=== PATIENT | female | born 1955 | race Caucasian/White ===

== ENCOUNTER → 2017-08-23 | Outpatient (CLI) | payer MEDICAID, MEDICARE ==
[~2017-08-23] MED LIST: ALBU8.5H2 IH; BUDE6HFA INH; CATHETER FLUSH 10 ML SYR IV PRN; GLIP10TA23 PO; HYDR25TA4 PO; IOHEXOL 350 MG/ML 100 ML (OMNIPAQUE 350) VIAL IV ONE; LIRA0.6P3 INJ; LISI40TA PO; METF-144 PO; NCT21TD TD; NS 250 ML (IVPB) BAG IV ONE; PHEN200T27 PO; PRAV40TA PO; RECEIVED CONTRAST (Hold Metformin) IV SCH; SULF-222 PO
[2017-08-23 13:40] LABS: ALANINE AMINOTRANSFERASE 12 U/L (0-55); ALBUMIN 4.4 GM/DL (3.2-4.5); ALKALINE PHOSPHATASE 46 U/L (40-136); BILIRUBIN,TOTAL 0.3 MG/DL (0.1-1.0); BUN/CREATININE RATIO 21; CALCIUM 9.4 MG/DL (8.5-10.1); CARBON DIOXIDE 29 MMOL/L (21-32); CHLORIDE 99 MMOL/L (98-107); CREATININE SERUM 0.78 MG/DL (0.60-1.30); GFR ESTIMATED > 60; GLUCOSE 119 MG/DL (70-105); POTASSIUM 3.9 MMOL/L (3.6-5.0); SODIUM 138 MMOL/L (135-145); TOTAL PROTEIN 7.6 GM/DL (6.4-8.2)
--- NOTE | 2017-08-23 17:09 | Diagnostic Imaging Report ---
PROCEDURE: CT abdomen and pelvis with and without contrast. TECHNIQUE: Precontrast acquisitions were acquired through the abdomen and pelvis. Multiple contiguous axial images were obtained through the abdomen and pelvis after the administration of intravenous contrast. INDICATION: Gross hematuria, history of vulvar cancer, symptoms of two days duration. COMPARISON: Most recent study 05/30/2008. FINDINGS: There are punctate calcifications of 1-2 mm within a left lower pole calyx. There is no resultant hydronephrosis. No evidence for solid or cystic cortical mass. There is some nodular thickening of the left greater than right adrenal gland only minimally increased from the more remote study suggestive of mild hyperplasia. The urinary bladder has an unremarkable appearance. There is no hydronephrosis and there are no opaque ureteral calculi identified. There is no perinephric or periureteric edema. The liver, gallbladder, spleen, and pancreas are unremarkable. The atherosclerotic aorta is nonaneurysmal. There is a fatty umbilical hernia without inflammation. The uterus and adnexa have an unremarkable appearance. There is no ascites, abscess, hematoma, adenopathy, or fluid collection. IMPRESSION: Tiny punctate stones within a left lower pole calyx. No hydronephrosis or opaque ureteral stone. No evidence for cortical mass with normal appearance of the urinary bladder. Dictated by: Dictated on workstation # [id number]
== END ==
LOC: RAD 13:14
PROVIDERS: ATTEND Family Medicine
DX: R31.0 Gross hematuria (principal); Z85.44 Personal history of malignant neoplasm of other female genital organs
CPT/HCPCS: 36415; 74178; 80053

== ENCOUNTER 2017-11-07 05:40 | Outpatient (CLI) | payer MEDICARE ==
[~2017-11-07] VITALS: Ht 160 cm; Wt 83.9 kg
[~2017-11-07 05:40] MED LIST changes: -CATHETER FLUSH 10 ML SYR IV PRN; -IOHEXOL 350 MG/ML 100 ML (OMNIPAQUE 350) VIAL IV ONE; -NS 250 ML (IVPB) BAG IV ONE; -RECEIVED CONTRAST (Hold Metformin) IV SCH
[2017-11-07] MEDS ORDERED: LISI40TA PO (13:00)
[2017-11-07] MEDS ORDERED: HYDR25TA4 PO (13:00)
[2017-11-07] MEDS ORDERED: LIRA0.6P3 SQ (13:00)
[2017-11-07] MEDS ORDERED: PRAV40TA2 PO (13:00)
[2017-11-07] MEDS ORDERED: METF-760 PO (13:00)
[2017-11-07] MEDS ORDERED: OMEG-154 PO (13:19)
[2017-11-07] MEDS ORDERED: FLUT1BLS IH (13:19)
== END 2017-11-07 13:25 ==
LOC: PREOP 05:40
PROVIDERS: ATTEND Specialist
DX: Z01.818 Encounter for other preprocedural examination (principal); H25.11 Age-related nuclear cataract, right eye

== ENCOUNTER 2017-11-09 07:40 | Day surgery (SDC) | payer MEDICARE ==
[~2017-11-09] VITALS: Ht 160 cm; Wt 83.9 kg
[~2017-11-09 07:40] MED LIST changes: +FLUT1BLS IH; +LIRA0.6P3 SQ; +METF-760 PO; +OMEG-154 PO; +PRAV40TA2 PO
--- OUTSIDE RECORDS SUMMARY | 2017-11-09 07:44 | XMS REPORT ---
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 984309298 Problem Diabetes E11.9 Active 00877616 Problem COPD (chronic obstructive pulmonary disease) J44.9 Active 11943450 Problem Hypercholesterolemia E78.0 Active 97945563 Problem HTN (hypertension) I10 Active [id number] ALLERGIES No Known Allergies SOCIAL HISTORY Never Assessed PLAN OF CARE Activity Details Follow Up 3 Months Reason: VITAL SIGNS Height 63 in 2016-08-01 Weight 192 lbs 2016-08-01 Temperature 98.1 degrees Fahrenheit 2016-08-01 Heart Rate 96 bpm 2016-08-01 Respiratory Rate 22 2016-08-01 Oximetry w/ oxygen:90 % 2016-08-01 BMI 34.01 kg/m2 2016-08-01 Blood pressure systolic 160 mmHg 2016-08-01 Blood pressure diastolic 90 mmHg 2016-08-01 MEDICATIONS Medication Instructions Dosage Frequency Start Date End Date Duration Status Oxygen 2-3 L/NC as directed Jun, Active Pen Singer 1/2" 29G X 12MM as directed Sep, Active Victoza 18 MG/3ML Subcutaneous Once a day 0.2 ml 24h Dec, Active Hydrochlorothiazide 25 MG Orally Once a day 1 tablet 24h Active MetFORMIN HCl ER 500 MG Orally 2 times a day TAKE TWO TABLETS BY MOUTH TWICE DAILY 12h Active Lisinopril 40 MG Orally Once a day 1 tablet 24h Active ProAir HFA 108 (90 Base) MCG/ACT Inhalation every 4 hrs 2 puffs as needed 4h May, Active Breo Ellipta 200-25 MCG/INH Inhalation Once a day 1 puff 24h Jul, Active Pravastatin Sodium 40 mg Orally Once a day TAKE ONE TABLET BY MOUTH ONCE DAILY (AVOID GRAPFRUIT JUICE WHILE ON THIS MEDICINE) 24h 30 Active RESULTS Name Result Date Reference Range A1C (IN HOUSE) 2016-08-01 A1C IN HOUSE 7.7 4.3 - 5.6 % Previous A1c 6.9 Lot [id number] Exp date 04/2018 MICROALBUMIN, URINE (IN HOUSE) 2016-08-01 MICROALBUMIN Abnormal Lot # [id number] Exp date 07/2017 Clarity clear Color yellow ALB 80mg/l CRE 50 mg/dl A:C (IN HOUSE) 30-300mg/g Control Control Lot # Exp date CBC 2016-08-01 WBC 8.6 3.4-10.8 RBC 4.87 3.77-5.28 Hemoglobin 14.6 11.1-15.9 Hematocrit 44.8 34.0-46.6 MCV 92 79-97 MCH 30.0 26.6-33.0 MCHC 32.6 31.5-35.7 RDW 15.6 12.3-15.4 Platelets 273 150-379 Neutrophils 67 Lymphs 24 Monocytes 6 Eos 3 Basos 0 Neutrophils (Absolute) 5.8 1.4-7.0 Lymphs (Absolute) 2.1 0.7-3.1 Monocytes(Absolute) 0.5 0.1-0.9 Eos (Absolute) 0.3 0.0-0.4 Baso (Absolute) 0.0 0.0-0.2 Immature Granulocytes 0 Immature Grans (Abs) 0.0 0.0-0.1 LIPID PANEL 2016-08-01 Cholesterol, Total 147 100-199 Triglycerides 137 0-149 HDL Cholesterol 34 >39 VLDL Cholesterol Maxime 27 5-40 LDL Cholesterol Calc 86 0-99 Comment: CMP 2016-08-01 Glucose, Serum 104 65-99 BUN 9 8-27 Creatinine, Serum 0.60 0.57-1.00 eGFR If NonAfricn Am 99 >59 eGFR If Africn Am 115 >59 BUN/Creatinine Ratio 15 11-26 Sodium, Serum 140 134-144 Potassium, Serum 4.2 3.5-5.2 Chloride, Serum 95 96-106 Carbon Dioxide, Total 30 18-29 Calcium, Serum 9.3 8.7-10.3 Protein, Total, Serum 7.1 6.0-8.5 Albumin, Serum 4.5 3.6-4.8 Globulin, Total 2.6 1.5-4.5 A/G Ratio 1.7 1.1-2.5 Bilirubin, Total 0.3 0.0-1.2 Alkaline Phosphatase, S 58 39-117 AST (SGOT) 14 0-40 ALT (SGPT) 12 0-32 PROCEDURES Procedure Date Ordered Result Body Site MEASURE BLOOD OXYGEN LEVEL Aug 01, 2016 GLYCATED HEMOGLOBIN TEST Aug 01, 2016 VENIPUNCT, ROUTINE* Aug 01, 2016 FQ VISIT ESTABLISHED PATIENT Aug 01, 2016 MICROALBUMIN, SEMIQUANT Aug 01, 2016 [facility] Aug 01, 2016 IMMUNIZATIONS No Known Immunizations MEDICAL (GENERAL) HISTORY Type Description Date Medical History Hypertension Medical History Type 2 Diabetes Mellitus Medical History Headache syndrome Medical History Cancer of Bartholin Gland see's Dr. Ariana Woodruff at [facility] Surgical History Vulva cancer went thru chem and radiation Surgical History CT abdomen 09/20/10 [place] Surgical History Atherosclertoic calcification of aorta Hospitalization History bladder infection
--- OUTSIDE RECORDS SUMMARY | 2017-11-09 07:44 | XMS REPORT ---
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
--- OUTSIDE RECORDS SUMMARY | 2017-11-09 07:44 | XMS REPORT ---
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
--- OUTSIDE RECORDS SUMMARY | 2017-11-09 07:44 | XMS REPORT ---
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
--- OUTSIDE RECORDS SUMMARY | 2017-11-09 07:44 | XMS REPORT ---
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 698648399 Problem Diabetes E11.9 Active 55191790 Problem COPD (chronic obstructive pulmonary disease) J44.9 Active 98261142 Problem Hypercholesterolemia E78.0 Active 35764717 Problem HTN (hypertension) I10 Active 83999827 ALLERGIES No Information SOCIAL HISTORY Never Assessed PLAN OF CARE VITAL SIGNS MEDICATIONS Unknown Medications RESULTS No Results PROCEDURES No Known procedures IMMUNIZATIONS No Known Immunizations MEDICAL (GENERAL) HISTORY Type Description Date Medical History Hypertension Medical History Type 2 Diabetes Mellitus Medical History Headache syndrome Medical History Cancer of Bartholin Gland see's Dr. Ariana Woodruff at [facility] Surgical History Vulva cancer went thru chem and radiation Surgical History CT abdomen 09/20/10 [place] Surgical History Atherosclertoic calcification of aorta Hospitalization History bladder infection
--- OUTSIDE RECORDS SUMMARY | 2017-11-09 07:44 | XMS REPORT ---
Author Author SHAD Fuentes Organization [facility] Address [address] [place] [address] Care Team Providers Care [employer] Name Role Phone SHAD Fuentes Unavailable PROBLEMS Type Condition ICD9-CM Code LUQ21-GO Code Onset Dates Condition Status SNOMED Code Problem COPD (chronic obstructive pulmonary disease) J44.9 Active 26557622 Problem Hypercholesterolemia E78.0 Active 27672897 Problem HTN (hypertension) I10 Active 82274466 Problem Nephrolithiasis N20.0 Active 95471804 Problem Supplemental oxygen dependent Z99.81 Active 885392508270 Problem Tobacco use Z72.0 Active 025595006 Problem 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 876598921 Problem Type 2 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.29 Active 62011567 Problem Proteinuria, unspecified R80.9 Active 70943286 ALLERGIES No Information ENCOUNTERS Encounter Location Date Diagnosis [place] [address] [address] October, [place] [address] [address]- [address] Aug, Nephrolithiasis N20.0 [facility] [address] [place] [id number] [place] [address]- 3406 Aug, Gross hematuria R31.0 [place] [address] [place] [id number] [place] [address]990- 1431 Aug, Gross hematuria R31.0 [place] [address] [place] [id number] [place] [address]69- 4383 Aug, Gross hematuria R31.0 and Screening for cervical cancer Z12.4 [place] [address] [address]- 6[address] Aug, [facility] [address] [address] Jul, COPD (chronic obstructive pulmonary disease) J44.9 [facility] [address] [address] Jul, [facility] [address] [address] 38[address] Jun, [facility] [address] [address] May, [facility] [address] [place] [address]- 5959 Apr, Type 2 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.29 ; COPD (chronic obstructive pulmonary disease) J44.9 ; Proteinuria, unspecified R80.9 ; Tobacco use Z72.0 and Screening for lipid disorders Z13.220 [facility] [address] [address] Apr, COPD (chronic obstructive pulmonary disease) J44.9 ; Type 2 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.29 ; Proteinuria, unspecified R80.9 ; Tobacco use Z72.0 ; Screening for lipid disorders Z13.220 and Supplemental oxygen dependent Z99.81 [facility] [address] [address] Mar, Diabetes E11.9 and Encounter for immunization Z23 [facility] [address] [address] Dec, [facility] [address] [address] 5[address] Dec, Diabetes E11.9 [facility] [address] [address] Dec, [facility] [address] [address] 5[address] Dec, [facility] [address] [address] 3989 Sep, [facility] [address] [address] Sep, [facility] [address] [address]- [address] 15 Aug, 2016 COPD (chronic obstructive pulmonary disease) J44.9 [facility] [address] [place] [id number] [place] [address]49- 7733 Aug, COPD (chronic obstructive pulmonary disease) J44.9 [facility] [address] [address]- 4242 Aug, COPD (chronic obstructive pulmonary disease) J44.9 [facility] [address] [address]- 0017 Jul, Diabetes E11.9 ; COPD (chronic obstructive pulmonary disease ) J44.9 ; HTN (hypertension) I10 and Hypercholesterolemia E78.00 [facility] [address] [address]- 5[address] Jul, [facility] [address] [address]- 9121 May, [facility] [address] [address]- 9391 May, COPD (chronic obstructive pulmonary disease) J44.9 [facility] [address] [address]- 0140 May, [facility] [address] [address]- 0953 May, [facility] [address], [place] [address]- 2958 Apr, [facility] [address] [address]- 1722 Apr, [facility] [address] [place] [address] 8[address]- 5242 Apr, Diabetes E11.9 ; COPD (chronic obstructive pulmonary disease ) J44.9 ; HTN (hypertension) I10 and Hypercholesterolemia E78.0 [facility] [address] [address] Mar, Impacted cerumen of right ear H61.21 [facility] [address] [place] [id number] [place] [address] 49656- 5895 Mar, [facility] [address] [place] [id number] [place] [address] 10491- 9059 Feb, [facility] [address] [place] [id number] [place] [address] 36593- 4288 Feb, [facility] [address] [place] [id number] [place] [address] 31204- 8378 Jan, [facility] [address] [place] [id number] [place] [address] 60084- 2364 Jan, [facility] [address] [place] [id number] [place] [address] 10129- 5344 Dec, [facility] [address] [place] [id number] [place] [address] 83756- 7199 Nov, Diabetes E11.9 ; COPD (chronic obstructive pulmonary disease ) J44.9 ; HTN (hypertension) I10 ; Hypercholesterolemia E78.0 and Type 2 diabetes mellitus with other circulatory complications E11.59 [facility] [address] [place] [id number] [place] [address] 84213- 1717 Jun, Diabetes E11.9 [facility] [address] [place] [address] 09698- 5970 Jun, COPD (chronic obstructive pulmonary disease) J44.9 [facility] [address] [place] [address] 23993- 9291 Jun, [facility] [address] [place] [id number] [place] [address] 46816- 7541 Jun, COPD (chronic obstructive pulmonary disease) J44.9 ; Type 2 diabetes mellitus with other circulatory complications E11.59 ; HTN ( hypertension) I10 and Hypercholesterolemia E78.0 [place] [address] [address]- 9579 Mar, COPD (chronic obstructive pulmonary disease) J44.9 ; Diabetes E11.9 ; HTN (hypertension) I10 ; Hypercholesterolemia E78.0 and Vision changes H53.9 [place] [address] 74[address]- 3471 Mar, [facility] [address] [place] [id number] [place] [address] 46442- 4071 Mar, [place] [address] 0[address]- 7354 Feb, [place] [address] [address]- 0428 Dec, Diabetes 250.00 ; Diabetes with other specified manifestations, type II or unspecified type, not stated as uncontrolled 250.80 ; Chronic airway obstruction, not elsewhere classified 496 ; Personal history of tobacco use, presenting hazards to health V15.82 ; Essential hypertension, malignant 401.0 and Hypercholesteremia 272.0 [place] [address] [place] [id number] [place] [address] 99254- 6211 Dec, [place] [address] [place] [id number] [place] [address] 95083- 2482 Sep, [place] [address] [place] [id number] [place] [address] 47282- 0960 Sep, [place] [address] [place] [id number] [place] [address] 87435- 5288 Sep, [place] [address] 82[address]- 1266 Aug, [facility] [address] [place] [id number] [place] [address] 98248- 0408 Aug, [place] [address] [place] [address]- 9463 Aug, [facility] [place] [facility] [address] [id number] [place] [address]- 3556 Aug, [facility] [place] [facility] [address] [id number] [place] [address]- 6521 Jul, [facility] [place] [facility] [address] [id number] [place] [address]- 0136 Jul, [facility] [place] [facility] [address] [id number] [place] [address]- 3297 Jun, [facility] [place] [facility] [address] [id number] [place] [address]- 7215 Jun, [facility] [place] [facility] [address] [id number] [place] [address]- 4438 Jun, [facility] [place] [facility] [address] [id number] [place] [address]- 2877 Jun, [facility] [place] [facility] [address] [id number] [place] [address]- 3336 Jun, [facility] [place] [facility] [address] [id number] [place] [address]- 3551 Jun, [facility] [place] [facility] [address] [id number] [place] [address]- 8508 Jun, [facility] [place] [facility] [address] [id number] [place] [address]- 1480 Jun, [facility] [place] [facility] [address] [id number] [place] [address]- 1633 Jun, [facility] [place] [facility] [address] [id number] [place] [address]- 6045 Jun, [facility] [place] [facility] [address] [id number] [place] [address]- 1838 Jun, [facility] [place] [facility] [address] [id number] [place] [address]- 6170 Jun, [facility] [place] [facility] [address] [id number] [place] [address]- 2261 Apr, [facility] [place] [facility] [address] [id number] [place] [address]- 6535 Apr, [facility] [place] [facility] [address] [id number] [place] 7166 Apr, [facility] [place] [facility] [address] [id number] [place] [address]- 0162 Apr, [facility] [place] [facility] [address] [id number] [place] [address]- 3562 Mar, [facility] [place] [facility] [address] [id number] [place] [address]- 2688 Mar, [facility] [place] [facility] [address] [id number] [place] [address]- 6020 30 Feb, 2014 [facility] [place] [facility] [address] [id number] [place] [address]- 4966 30 Feb, 2014 [facility] [place] [facility] [address] [id number] [place] [address]- 6938 17 Feb, 2014 [facility] [place] [facility] [address] [id number] [place] [address]- 6197 17 Feb, 2014 [facility] [place] [facility] [address] [id number] [place] [address]- 8507 16 Feb, 2014 [facility] [place] [facility] [address] [id number] [place] [address]- 2461 16 Feb, 2014 [facility] [place] [facility] [address] [id number] [place] [address]- 2520 Jan, [facility] [place] [facility] [address] [id number] [place] [address]- 8996 Jan, [facility] [place] [facility] [address] [id number] [place] [address]- 3001 Nov, [facility] [place] [facility] [address] [id number] [place] [address]- 6850 Nov, [facility] [place] [facility] [address] [id number] [place] [address]- 7107 October, [facility] [place] [facility] [address] [id number] [place] 2607 October, [facility] [place] [facility] [address] [id number] [place] [address]- 5197 October, [facility] [place] [facility] [address] [id number] [place] [address]- 6998 October, [facility] [place] [facility] [address] [id number] [place] [address]- 6169 October, [facility] [place] [facility] [address] [id number] [place] [address]- 7889 October, [facility] [place] [facility] [address] [id number] [place] [address]- 3689 October, [facility] [place] [facility] [address] [id number] [place] [address]- 1308 October, [facility] [place] [facility] [address] [id number] [place] [address]- 7672 October, [facility] [place] [facility] [address] [id number] [place] [address]- 6839 October, [facility] [place] [facility] [address] [id number] [place] [address]- 1793 October, [facility] [place] [facility] [address] [id number] [place] [address]- 1133 October, [facility] [place] [facility] [address] [id number] [place] [address]- 4812 Sep, [facility] [place] [facility] [address] [id number] [place] [address]- 5122 Sep, [facility] [place] [facility] [address] [id number] [place] [address]- 7092 Aug, [facility] [place] [facility] [address] [id number] [place] [address]- 9228 Aug, [facility] [place] [facility] [address] [id number] [place] [address]- 2197 Aug, [facility] [place] [facility] [address] [id number] [place] [address]- 7027 Aug, [facility] [place] [facility] [address] [id number] [place] [address]- 0067 Jul, [facility] [place] [facility] [address] [id number] [place] [address]- 1715 Jul, [facility] [place] [facility] [address] [id number] [place] [address]- 5600 Jul, [facility] [place] [facility] [address] [facility] [id number] [place] [address]- 3852 Jul, [facility] [place] [facility] [address] [id number] [place] [address]- 3897 Jul, [facility] [place] [facility] [address] [id number] [place] [address]- 8018 Jul, [facility] [place] [facility] [address] [facility] [id number] [place] [address]- 9814 Jul, [facility] [place] [facility] [address] [facility] [id number] [place] [address]- 0374 Jul, [facility] [place] [facility] [address] [id number] [place] [address]- 7613 Jul, [facility] [place] [facility] [address] [id number] [place] [address]- 9762 Jul, [facility] [place] [facility] [address] [id number] [place] [address]- 6130 Jun, [facility] [place] [facility] [address] [id number] [place] [address]- 2431 Jun, [facility] [place] [facility] [address] [id number] [address]- 6367 Jun, [facility] [address] [id number] [place] [address]- 2783 Jun, [facility] [place] [facility] [address] [id number] [place] [address]- 2554 Jun, [facility] [place] [facility] [address] [id number] [place] [address]- 8719 Jun, [facility] [place] [facility] [address] [id number] [place] [address]- 3818 Jun, [facility] [place] [facility] [address] [id number] [place] [address]- 5661 Jun, [facility] [place] [facility] [address] [id number] [place] [address]- 8337 Jun, [facility] [place] [facility] [address] [id number] [place] [address]- 8638 Jun, [facility] [place] [facility] [address] [id number] [place] [address]- 9013 Jun, [facility] [place] [facility] [address] [id number] [place] [address]- 6571 Jun, [facility] [place] [facility] [address] [id number] [place] [address]- 2955 Jun, [facility] [place] [facility] [address] [id number] [place] [address]- 6920 May, [facility] [place] [facility] [address] [id number] [place] [address]- 3378 May, [facility] [place] [facility] [address] [id number] [place] [address]- 6953 May, [facility] [place] [facility] [address] [id number] [place] [address]- 7183 May, [facility] [place] [facility] [address] [id number] [place] [address]- 8755 30 May, 2013 [facility] [place] [facility] [address] [id number] [place] [address]- 3604 30 May, 2013 [facility] [address] [id number] [place] [address]- 1932 May, [facility] [place] [facility] [address] [id number] [place] 9106 May, [facility] [address] [id number] [place] [address]- 6455 May, [facility] [place] [facility] [address] [id number] [place] [address]- 8867 May, [facility] [address] [id number] [place] [address]- 3225 May, [facility] [place] [facility] [address] [id number] [place] [address]- 8989 May, [facility] [place] [facility] [address] [id number] [place] [address]- 7147 May, [facility] [address] [id number] [place] [address]- 0401 May, [facility] [place] [facility] [address] [id number] [place] [address]- 1077 May, [facility] [address] [id number] [place] [address]- 2884 Apr, [facility] [place] [facility] [address] [id number] [place] [address]- 6983 Mar, [facility] [place] [facility] [address] [id number] [place] [address]- 8473 Mar, [facility] [place] [facility] [address] [id number] [place] [address]- 8711 Mar, [facility] [place] [facility] [address] [id number] [place] [address]- 3950 Mar, [facility] [place] [facility] [address] [id number] [place] [address]- 0432 Mar, [facility] [address] [id number] [place] [address]- 0071 24 Feb, 2013 [facility] [place] [facility] [address] [id number] [place] [address]- 3167 Feb, [facility] [place] [facility] [address] [id number] [place] [address]- 4803 Feb, [facility] [place] [facility] [address] [id number] [place] [address]- 6085 Feb, [facility] [place] [facility] [address] [id number] [place] [address]- 1352 Jan, [facility] [place] [facility] [address] [id number] [place] [address]- 4813 Dec, [facility] [place] [facility] [address] [id number] [place] [address]- 5978 Dec, [facility] [place] [facility] [address] [id number] [place] [address]- 6159 Nov, [facility] [place] [facility] [address] [id number] [place] [address]- 3674 October, [facility] [place] [facility] [address] [id number] [place] [address]- 6443 Sep, [facility] [place] [facility] [address] [id number] [place] [address]- 0144 Aug, [facility] [place] [facility] [address] [id number], [place] [address]- 3495 Aug, [facility] [place] [facility] [address] [id number] [place] [address]- 5496 Aug, [facility] [place] [facility] [address] [id number] [place] [address]- 1412 Aug, [facility] [place] [facility] [address] [id number] [place] [address]- 9763 Aug, [facility] [place] [facility] [address] [id number] [place] [address]- 2715 Aug, [facility] [address] [id number] [place] [address]- 6163 Jun, [facility] [place] [facility] [address] [id number] [place] [address]- 2885 May, [facility] [place] [facility] [address] [id number] [place] [address]- 9276 May, [facility] [place] [facility] [address] [id number] [place] [address]- 2265 Apr, [facility] [place] [facility] [address] [id number] [place] [address]- 3698 Apr, [facility] [place] [facility] [address] [id number] [place] [address]- 9360 Feb, [facility] [place] [facility] [address] [id number] [place] [address]- 1663 Jan, [facility] [place] [facility] [address] [id number] [place] [address]- 6442 Jan, [facility] [place] [facility] [address] [id number] [place] [address]- 1057 Jan, [facility] [place] [facility] [address] [id number] [place] [address]- 5282 Dec, [facility] [place] [facility] [address] [id number] [place] [address]- 9628 Nov, [facility] [place] [facility] [address] [id number] [place] [address] 2540 Aug, [facility] [place] [facility] [address] [id number] [place] [address]- 8758 Jun, [facility] [place] [facility] [address] [id number] [place] [address] 2546 Jun, [facility] [place] [facility] [address] [id number] [place] [address]- 9829 May, [facility] [place] [facility] [address] [facility] [id number], [place] [address]- 4943 May, [facility] [id number] [address] May, [facility] [address] [facility] [id number], [place] [address] 14 Nov, 2010 [facility] [id number] [address] Apr, [facility] [address] [facility] [id number][place] [address] Apr, [facility] [id number] [place] [address] Apr, [facility] [address] [address] Apr, [facility] [address] [address] Apr, [facility] [address] [address] Mar, [facility] [address] [address] May, [facility] [address] [address] May, [facility] [address] [address] Jul, [facility] [id number] [address] May, IMMUNIZATIONS No Known Immunizations SOCIAL HISTORY Never Assessed REASON FOR VISIT Refill Requests PLAN OF CARE VITAL SIGNS MEDICATIONS Unknown Medications RESULTS No Results PROCEDURES No Known procedures INSTRUCTIONS MEDICATIONS ADMINISTERED No Known Medications MEDICAL (GENERAL) HISTORY Type Description Date Medical History Hypertension Medical History Type 2 Diabetes Mellitus Medical History Headache syndrome Medical History Cancer of Bartholin Gland see's Dr. Ariana Woodruff at [facility] Surgical History Vulva cancer went thru chem and radiation Surgical History CT abdomen 09/20/10 [place] Surgical History Atherosclertoic calcification of aorta Hospitalization History bladder infection
--- OUTSIDE RECORDS SUMMARY | 2017-11-09 07:44 | XMS REPORT ---
Author Author SHAD BARTHOLOMEW Organization [facility] Address [address] [place] [address] Care Team Providers Care Hardware Developer Name Role Phone SHAD BARTHOLOMEW Unavailable PROBLEMS Type Condition ICD9-CM Code [id number] Code Onset Dates Condition Status SNOMED Code Problem 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 584411236 Problem Diabetes E11.9 Active 60004507 Problem COPD (chronic obstructive pulmonary disease) J44.9 Active 64722230 Problem Hypercholesterolemia E78.0 Active 36785291 Problem HTN (hypertension) I10 Active 28836085 ALLERGIES No Information SOCIAL HISTORY Never Assessed PLAN OF CARE VITAL SIGNS MEDICATIONS Medication Instructions Dosage Frequency Start Date End Date Duration Status Breo Ellipta 200-25 MCG/INH Inhalation Once a day 1 puff 24h Jul, Active RESULTS No Results PROCEDURES No Known procedures IMMUNIZATIONS No Known Immunizations MEDICAL (GENERAL) HISTORY Type Description Date Medical History Hypertension Medical History Type 2 Diabetes Mellitus Medical History Headache syndrome Medical History Cancer of Bartholin Gland see's Dr. Ariana Woodruff at [facility] Surgical History Vulva cancer went thru chem and radiation Surgical History CT abdomen 09/20/10 [place] Surgical History Atherosclertoic calcification of aorta Hospitalization History bladder infection
--- OUTSIDE RECORDS SUMMARY | 2017-11-09 07:45 | XMS REPORT ---
Author Author HEATH ALTMAN Organization [employer] Address Unknown Phone Unavailable Care Team Providers Care Philanthropy Officer Name Role Phone HEATH ALTMAN CP Unavailable Allergies No Known Allergies Problems Problem Type Condition Code Onset Dates Condition Status Problem Abdominal pain, unspecified site 789.00 Active Problem Encounter for change or removal of surgical wound dressing V58.31 Active Problem Other dyspnea and respiratory abnormalities 786.09 Active Problem Diabetes E11.9 Active Problem Cellulitis and abscess of unspecified site 682.9 Active Problem HTN (hypertension) I10 Active Problem COPD (chronic obstructive pulmonary disease) J44.9 Active Problem Dyspareunia 625.0 Active Problem Screening for malignant neoplasm of the cervix V76.2 Active Problem Hypercholesterolemia E78.0 Active Problem Essential hypertension, malignant 401.0 Active Problem Unspecified disorder of skin and subcutaneous tissue 709.9 Active Problem Candidiasis of vulva and vagina 112.1 Active Problem Hypoxemia 799.02 Active Problem Diabetes with other specified manifestations, type II or unspecified type, not stated as uncontrolled 250.80 Active Problem Chronic airway obstruction, not elsewhere classified 496 Active Problem Other and unspecified hyperlipidemia 272.4 Active Problem Urinary tract infection, site not specified 599.0 Active Problem Shortness of breath 786.05 Active Problem Personal history of tobacco use, presenting hazards to health V15.82 Active Problem Nondependent tobacco use disorder 305.1 Active Medications No Known Medications Results No Known Results Summary Purpose [employer] Submission
--- OUTSIDE RECORDS SUMMARY | 2017-11-09 07:45 | XMS REPORT ---
Author SHAD Shaw [facility] [employer] Address Unknown Phone Unavailable Care Team Providers Care Fire Control Mechanic Name Role Phone SHAD BARTHOLOMEW CP Unavailable Allergies No Known Allergies Problems Problem Type Condition Code Onset Dates Condition Status Problem COPD (chronic obstructive pulmonary disease) J44.9 Active Problem Diabetes E11.9 Active Problem 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 Assessment COPD (chronic obstructive pulmonary disease) J44.9 Active Problem HTN (hypertension) I10 Active Problem Hypercholesterolemia E78.0 Active Medications No Known Medications Results No Known Results Summary Purpose [employer] Submission
--- OUTSIDE RECORDS SUMMARY | 2017-11-09 07:45 | XMS REPORT ---
Author SHAD Shaw [facility] [employer] Address Unknown Phone Unavailable Care Team Providers Care Supervisor Liquid Yeast Name Role Phone SHAD BARTHOLOMEW CP Unavailable Allergies, Adverse Reactions, Alerts Substance Reaction Event Type N.K.D.A. Info Not Available Non Drug Allergy Problems Problem Type Condition Code Onset Dates Condition Status Assessment HTN (hypertension) I10 Active Assessment Hypercholesterolemia E78.0 Active Problem COPD (chronic obstructive pulmonary disease) J44.9 Active Problem Diabetes E11.9 Active Problem 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 Assessment COPD (chronic obstructive pulmonary disease) J44.9 Active Assessment 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 Problem HTN (hypertension) I10 Active Problem Hypercholesterolemia E78.0 Active Medications Medication Code System Code Instructions Start Date End Date Status Dosage Oxygen NDC 0 2-3 L/NC 2 l pm Jun 14, 2015 as directed Lisinopril [facility] [address]-89 40 mg 1 TAB orally once a day Feb 24, 2014 1 tablet by Oral route 1 time per day [place] 1/2" [facility] [address]-13 29G X 12MM October 06, 2014 as directed Nebulizer NDC 0 1 Jun 14, 2015 as directed Hydrochlorothiazide [facility] [address]-01 25 MG Orally Once a day 1 tablet MetFORMIN HCl ER [facility] [id number] 500 MG TAKE TWO TABLETS BY MOUTH TWICE DAILY Victoza [facility] [address]-59 18 MG/3ML Subcutaneous Once a day 0.2 ml Procedures Procedure Coding System Code Date NEB/MDI RX INITIAL CPT-4 02610 Jun 14, 2015 [facility] VISIT ESTABLISHED PATIENT CPT-4 G0467 Jun 14, 2015 ALBUTEROL INHAL UNIT DOSE 1 MG CPT-4 J7613 Jun 14, 2015 Office Visit, Est Pt., Level 4 CPT-4 51072 Jun 14, 2015 Vital Signs Date/Time: Jun 14, 2015 Temperature 99.2 F Weight 179.9 lbs Height 63 in BMI 31.86 Index Blood Pressure Diastolic 78 mmHg Blood Pressure Systolic 136 mmHg Cardiac Monitoring Heart Rate 72 bpm Results Name Result Date Reference Range Unit Abnormality Flag NEBULIZER TREATMENT ALBUTEROL UNIT DOSE FORM INHALED Summary Purpose [employer] Submission
--- OUTSIDE RECORDS SUMMARY | 2017-11-09 07:45 | XMS REPORT ---
Author Author SHAD Fuentes Organization [facility] Address [address] [place] [address] Care Team Providers Care Second Class Welder Name Role Phone SHAD Fuentes Unavailable PROBLEMS Type Condition ICD9-CM Code XDG27-XH Code Onset Dates Condition Status SNOMED Code Problem COPD (chronic obstructive pulmonary disease) J44.9 Active 37934896 Problem Hypercholesterolemia E78.0 Active 27860524 Problem HTN (hypertension) I10 Active 34739951 Problem Nephrolithiasis N20.0 Active 81731849 Problem Supplemental oxygen dependent Z99.81 Active 786170273494 Problem Tobacco use Z72.0 Active 357447425 Problem 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 386006390 Problem Type 2 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.29 Active 20617458 Problem Proteinuria, unspecified R80.9 Active 19275679 ALLERGIES No Information ENCOUNTERS Encounter Location Date Diagnosis [place] [address] [address] October, [place] [address] [place] [id number] [place] [address]- 7421 Aug, Nephrolithiasis N20.0 [facility] [address] [place] [id number] [place] [address] 54538- 2460 Aug, Gross hematuria R31.0 [place] [id number] [place] [id number] [place] [address] 53504- 1287 Aug, Gross hematuria R31.0 [place] [address] [place] [id number] [place] [address] 78707- 3561 Aug, Gross hematuria R31.0 and Screening for cervical cancer Z12.4 [place] [address] [address]- [address] Aug, [facility] [address] [address] 14[address] Jul, COPD (chronic obstructive pulmonary disease) J44.9 [facility] [address] [address] 1499 Jul, [facility] [address] [address] 6150 Jun, [facility] [address] [address] May, [facility] [id number] [place] [address] 86654- 4579 Apr, Type 2 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.29 ; COPD (chronic obstructive pulmonary disease) J44.9 ; Proteinuria, unspecified R80.9 ; Tobacco use Z72.0 and Screening for lipid disorders Z13.220 [facility] [address] [address] Apr, COPD (chronic obstructive pulmonary disease) J44.9 ; Type 2 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.29 ; Proteinuria, unspecified R80.9 ; Tobacco use Z72.0 ; Screening for lipid disorders Z13.220 and Supplemental oxygen dependent Z99.81 [facility] [address] [address] Mar, Diabetes E11.9 and Encounter for immunization Z23 [facility] [address] [address] 3[address] Dec, [facility] [address] [address]- 4437 Dec, Diabetes E11.9 [facility] [address] [address] 6715 Dec, [facility] [address] [address]- 7706 Dec, [facility] [address] [address]- 3229 Sep, [facility] [address] [address]- 6433 Sep, [facility] [address] [address]- 1436 15 Aug, 2016 COPD (chronic obstructive pulmonary disease) J44.9 [facility] [address] [place] [id number] [place] [address] 51605- 3431 Aug, COPD (chronic obstructive pulmonary disease) J44.9 [facility] [address] [address]- 1646 Aug, COPD (chronic obstructive pulmonary disease) J44.9 [facility] [address] [address] 2108 Jul, Diabetes E11.9 ; COPD (chronic obstructive pulmonary disease ) J44.9 ; HTN (hypertension) I10 and Hypercholesterolemia E78.00 [facility] [address] [address]- 3334 Jul, [facility] [address] [address]- 5995 May, [facility] [address] [address]- 5369 May, COPD (chronic obstructive pulmonary disease) J44.9 [facility] [address] [address]- 8997 May, [facility] [address] [address]- 6817 May, [facility] [address] [address]- 3807 Apr, [facility] [address] [address]- 8907 Apr, [facility] [id number] [place] [address] 75471- 9773 Apr, Diabetes E11.9 ; COPD (chronic obstructive pulmonary disease ) J44.9 ; HTN (hypertension) I10 and Hypercholesterolemia E78.0 [facility] [address] [address] Mar, Impacted cerumen of right ear H61.21 [facility] [address] [place] [id number] [place] [address] 64227- 8068 Mar, [facility] [address] [place] [id number] [place] [address] 46218- 6936 Feb, [facility] [address] [place] [id number] [place] [address] 23632- 5056 Feb, [facility] [address] [place] [id number] [place] [address] 12676- 7071 Jan, [facility] [address] [place] [id number] [place] [address] 86307- 8519 Jan, [facility] [address] [place] [id number] [place] [address] 90940- 5318 Dec, [facility] [address] [place] [id number] [place] [address] 87978- 3652 Nov, Diabetes E11.9 ; COPD (chronic obstructive pulmonary disease ) J44.9 ; HTN (hypertension) I10 ; Hypercholesterolemia E78.0 and Type 2 diabetes mellitus with other circulatory complications E11.59 [facility] [address] [place] [id number] [place] [address] 87631- 4003 Jun, Diabetes E11.9 [facility] [id number] [place] [address] 95316- 1677 Jun, COPD (chronic obstructive pulmonary disease) J44.9 [facility] [id number] [place] [address] 17290- 5695 Jun, [facility] [address] [place] [id number] [place] [address] 19917- 7617 Jun, COPD (chronic obstructive pulmonary disease) J44.9 ; Type 2 diabetes mellitus with other circulatory complications E11.59 ; HTN ( hypertension) I10 and Hypercholesterolemia E78.0 [place] [address] 14099- 2871 Mar, COPD (chronic obstructive pulmonary disease) J44.9 ; Diabetes E11.9 ; HTN (hypertension) I10 ; Hypercholesterolemia E78.0 and Vision changes H53.9 [place] [address] 50796- 1811 Mar, [facility] [address] [place] [id number] [place] [address] 62010- 9783 Mar, [place] [address] 58580- 5963 Feb, [place] [address] 34574- 2173 Dec, Diabetes 250.00 ; Diabetes with other specified manifestations, type II or unspecified type, not stated as uncontrolled 250.80 ; Chronic airway obstruction, not elsewhere classified 496 ; Personal history of tobacco use, presenting hazards to health V15.82 ; Essential hypertension, malignant 401.0 and Hypercholesteremia 272.0 [place] [address] [place] [id number] [place] [address] 27931- 7426 Dec, [place] [address] [place] [id number] [place] [address] 29511- 2611 Sep, [place] [address] [place] [id number] [place] [address] 49675- 7357 Sep, [place] [address] [place] [id number] [place] [address] 39157- 7164 Sep, [place] [address] 81086- 9315 Aug, [facility] [address] [place] [id number] [place] [address] 55882- 0404 Aug, [place] [address] [place] [address]- 0337 Aug, [facility] [place] [facility] [address] [id number] [place] [address]- 5392 Aug, [facility] [place] [facility] [address] [id number] [place] [address]- 7208 Jul, [facility] [place] [facility] [address] [id number] [place] [address]- 8201 Jul, [facility] [place] [facility] [address] [id number] [place] [address]- 6214 Jun, [facility] [place] [facility] [address] [id number] [place] [address]- 1302 Jun, [facility] [place] [facility] [address] [id number] [place] [address]- 7029 Jun, [facility] [place] [facility] [address] [id number] [place] [address]- 2739 Jun, [facility] [place] [facility] [address] [id number] [place] [address]- 1567 Jun, [facility] [place] [facility] [address] [id number] [place] [address]- 8301 Jun, [facility] [place] [facility] [address] [id number] [place] [address]- 5762 Jun, [facility] [place] [facility] [address] [id number] [place] [address]- 2915 Jun, [facility] [place] [facility] [address] [id number] [place] [address]- 5725 Jun, [facility] [place] [facility] [address] [id number] [place] [address]- 2940 Jun, [facility] [place] [facility] [address] [id number] [place] [address]- 2365 Jun, [facility] [place] [facility] [address] [id number] [place] [address]- 8918 Jun, [facility] [place] [facility] [address] [id number] [place] [address]- 0383 Apr, [facility] [place] [facility] [address] [id number] [place] [address]- 9139 Apr, [facility] [place] [facility] [address] [id number] [place]14 Apr, [facility] [place] [facility] [address] [id number] [place] [address]- 6181 Apr, [facility] [place] [facility] [address] [id number] [place] [address]- 0675 Mar, [facility] [place] [facility] [address] [id number] [place] [address]- 9811 Mar, [facility] [place] [facility] [address] [id number] [place] [address]- 7792 30 Feb, 2014 [facility] [place] [facility] [address] [id number] [place] [address]- 7700 30 Feb, 2014 [facility] [place] [facility] [address] [id number] [place] [address]- 8925 17 Feb, 2014 [facility] [place] [facility] [address] [id number] [place] [address]- 3233 17 Feb, 2014 [facility] [place] [facility] [address] [id number] [place] [address]- 7819 16 Feb, 2014 [facility] [place] [facility] [address] [id number] [place] [address]- 3480 16 Feb, 2014 [facility] [place] [facility] [address] [id number] [place] [address]- 3364 Jan, [facility] [place] [facility] [address] [id number] [place] [address]- 6435 Jan, [facility] [place] [facility] [address] [id number] [place] [address]- 3872 Nov, [facility] [place] [facility] [address] [id number] [place] [address]- 3639 Nov, [facility] [place] [facility] [address] [id number] [place] [address]- 8659 October, [facility] [place] [facility] [address] [id number] [place]014 October, [facility] [place] [facility] [address] [id number] [place] [address]- 4536 October, [facility] [place] [facility] [address] [id number] [place] [address]- 7037 October, [facility] [place] [facility] [address] [id number] [place] [address]- 0521 October, [facility] [place] [facility] [address] [id number] [place] [address]- 4885 October, [facility] [place] [facility] [address] [id number] [place] [address]- 7453 October, [facility] [place] [facility] [address] [id number] [place] [address]- 0845 October, [facility] [place] [facility] [address] [id number] [place] [address]- 0114 October, [facility] [place] [facility] [address] [id number] [place] [address]- 8100 October, [facility] [place] [facility] [address] [id number] [place] [address]- 2523 October, [facility] [place] [facility] [address] [id number] [place] [address]- 4683 October, [facility] [place] [facility] [address] [id number] [place] [address]- 2011 Sep, [facility] [place] [facility] [address] [id number] [place] [address]- 4068 Sep, [facility] [place] [facility] [address] [id number] [place] [address]- 2447 Aug, [facility] [place] [facility] [address] [id number] [place] [address]- 3480 Aug, [facility] [place] [facility] [address] [id number] [place] [address]- 6672 Aug, [facility] [place] [facility] [address] [id number] [place] [address]- 7464 Aug, [facility] [place] [facility] [address] [id number] [place] [address]- 0570 Jul, [facility] [place] [facility] [address] [id number] [place] [address]- 2591 Jul, [facility] [place] [facility] [address] [id number] [place] [address]- 3512 Jul, [facility] [place] [facility] [address] [facility] [id number] [place] [address]- 5539 Jul, [facility] [place] [facility] [address] [id number] [place] [address]- 3041 Jul, [facility] [place] [facility] [address] [id number] [place] [address]- 8056 Jul, [facility] [place] [facility] [address] [facility] [id number] [place] [address]- 5307 Jul, [facility] [place] [facility] [address] [facility] [id number] [place] [address]- 6883 Jul, [facility] [place] [facility] [address] [id number] [place] [address]- 2838 Jul, [facility] [place] [facility] [address] [id number] [place] [address]- 5195 Jul, [facility] [place] [facility] [address] [id number] [place] [address]- 9156 Jun, [facility] [place] [facility] [address] [id number] [place] [address]- 1547 Jun, [facility] [place] [facility] [address] [id number] [address]- 6715 Jun, [facility] [address] [id number] [place] [address]- 3276 Jun, [facility] [place] [facility] [address] [id number] [place] [address]- 7474 Jun, [facility] [place] [facility] [address] [id number] [place] [address]- 1984 Jun, [facility] [place] [facility] [address] [id number] [place] [address]- 6796 Jun, [facility] [place] [facility] [address] [id number] [place] [address]- 4677 Jun, [facility] [place] [facility] [address] [id number] [place] [address]- 2578 Jun, [facility] [place] [facility] [address] [id number] [place] [address]- 4804 Jun, [facility] [place] [facility] [address] [id number] [place] [address]- 3695 Jun, [facility] [place] [facility] [address] [id number] [place] [address]- 6627 Jun, [facility] [place] [facility] [address] [id number] [place] [address]- 3361 Jun, [facility] [place] [facility] [address] [id number] [place] [address]- 3310 May, [facility] [place] [facility] [address] [id number] [place] [address]- 2894 May, [facility] [place] [facility] [address] [id number] [place] [address]- 2917 May, [facility] [place] [facility] [address] [id number] [place] [address]- 8604 May, [facility] [place] [facility] [address] [id number] [place] [address]- 4248 30 May, 2013 [facility] [place] [facility] [address] [id number] [place] [address]- 3263 30 May, 2013 [facility] [address] [id number] [place] [address]- 4164 May, [facility] [place] [facility] [address] [id number] [place] 3046 May, [facility] [address] [id number] [place] [address]- 9033 May, [facility] [place] [facility] [address] [id number] [place] [address]- 8179 May, [facility] [address] [id number] [place] [address]- 3179 May, [facility] [place] [facility] [address] [id number] [place] [address]- 4743 May, [facility] [place] [facility] [address] [id number] [place] [address]- 5530 May, [facility] [address] [id number] [place] [address]- 7922 May, [facility] [place] [facility] [address] [id number] [place] [address]- 5860 May, [facility] [address] [id number] [place] [address]- 7791 Apr, [facility] [place] [facility] [address] [id number] [place] [address]- 1386 Mar, [facility] [place] [facility] [address] [id number] [place] [address]- 2309 Mar, [facility] [place] [facility] [address] [id number] [place] [address]- 4017 Mar, [facility] [place] [facility] [address] [id number] [place] [address]- 8301 Mar, [facility] [place] [facility] [address] [id number] [place] [address]- 2756 Mar, [facility] [address] [id number] [place] [address]- 7208 24 Feb, 2013 [facility] [place] [facility] [address] [id number] [place] [address]- 8853 Feb, [facility] [place] [facility] [address] [id number] [place] [address]- 2695 Feb, [facility] [place] [facility] [address] [id number] [place] [address]- 1433 Feb, [facility] [place] [facility] [address] [id number] [place] [address]- 1459 Jan, [facility] [place] [facility] [address] [id number] [place] [address]- 1126 Dec, [facility] [place] [facility] [address] [id number] [place] [address]- 8981 Dec, [facility] [place] [facility] [address] [id number] [place] [address]- 8282 Nov, [facility] [place] [facility] [address] [id number] [place] [address]- 8632 October, [facility] [place] [facility] [address] [id number] [place] [address]- 0468 Sep, [facility] [place] [facility] [address] [id number] [place] [address]- 7786 Aug, [facility] [place] [facility] [address] [id number] [address]- 2744 Aug, [facility] [place] [facility] [address] [id number] [place] [address]- 4302 Aug, [facility] [place] [facility] [address] [id number] [place] [address]- 3135 Aug, [facility] [place] [facility] [address] [id number] [place] [address]- 9226 Aug, [facility] [place] [facility] [address] [id number] [place] [address]- 8382 Aug, [facility] [address] [id number] [place] [address]- 9393 Jun, [facility] [place] [facility] [address] [id number] [place] [address]- 0295 May, [facility] [place] [facility] [address] [id number] [place] [address]- 3586 May, [facility] [place] [facility] [address] [id number] [place] [address]- 8681 Apr, [facility] [place] [facility] [address] [id number] [place] [address]- 0427 Apr, [facility] [place] [facility] [address] [id number] [place] [address]- 7620 Feb, [facility] [place] [facility] [address] [id number] [place] [address]- 3938 Jan, [facility] [place] [facility] [address] [id number] [place] [address]- 4594 Jan, [facility] [place] [facility] [address] [id number] [place] [address]- 4368 Jan, [facility] [place] [facility] [address] [id number] [place] [address]- 5176 Dec, [facility] [place] [facility] [address] [id number] [place] [address]- 1049 Nov, [facility] [place] [facility] [address] [id number] [place] [address] 2540 Aug, [facility] [place] [facility] [address] [id number] [place] [address]- 7915 Jun, [facility] [place] [facility] [address] [id number] [place] [address] 2546 Jun, [facility] [place] [facility] [address] [id number] [place] [address]- 5046 May, [facility] [place] [facility] [address] [facility] [id number] [place] [address]- 4204 May, [facility] [address] 7177 May, [facility] [address] [facility] [id number] [place] [address]- 9356 14 Nov, 2010 [facility] [address] 2777 Apr, [facility] [address] [facility] [id number] [address] Apr, [facility] [id number] [place] [address] Apr, [facility] [id number] [address] Apr, [facility] [id number] [address] Apr, [facility] [id number] [address] Mar, [facility] [id number] [address] May, [facility] [id number] [address] May, [facility] [address] [address] Jul, [facility] [id number] [address] May, IMMUNIZATIONS No Known Immunizations SOCIAL HISTORY Never Assessed REASON FOR VISIT Refill request PLAN OF CARE VITAL SIGNS MEDICATIONS Unknown Medications RESULTS No Results PROCEDURES No Known procedures INSTRUCTIONS MEDICATIONS ADMINISTERED No Known Medications MEDICAL (GENERAL) HISTORY Type Description Date Medical History Hypertension Medical History Type 2 Diabetes Mellitus Medical History Headache syndrome Medical History Cancer of [place]tholin Gland see's Dr. Ariana Woodruff at [facility] Surgical History Vulva cancer went thru chem and radiation Surgical History CT abdomen 09/20/10 [facility] Surgical History Atherosclertoic calcification of aorta Hospitalization History bladder infection
--- OUTSIDE RECORDS SUMMARY | 2017-11-09 07:45 | XMS REPORT ---
Author SHAD Shaw [facility] eClinicalWorks Address Unknown Phone Unavailable Care Team Providers Care Supervisor [employer] Name Role Phone SHAD BARTHOLOMEW Unavailable Allergies No Known Allergies Problems Problem Type Condition Code Onset Dates Condition Status Problem COPD (chronic obstructive pulmonary disease) J44.9 Active Problem Diabetes E11.9 Active Problem 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 Problem HTN (hypertension) I10 Active Problem Hypercholesterolemia E78.0 Active Medications Medication Code System Code Instructions Start Date End Date Status Dosage MetFORMIN HCl ER [facility] [id number] 500 MG Orally 2 times a day TAKE TWO TABLETS BY MOUTH TWICE DAILY Results No Known Results Summary Purpose eClinicalWorks Submission
--- OUTSIDE RECORDS SUMMARY | 2017-11-09 07:45 | XMS REPORT ---
Author Author SHAD BARTHOLOMEW Organization [facility] Address [address] [place] [address] Care Team Providers Care Shop Laborer Name Role Phone SHAD BARTHOLOMEW Unavailable PROBLEMS Type Condition ICD9-CM Code [id number] Code Onset Dates Condition Status SNOMED Code Problem 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 689813556 Problem Diabetes E11.9 Active 74570222 Problem COPD (chronic obstructive pulmonary disease) J44.9 Active 90072811 Problem Hypercholesterolemia E78.0 Active 38405191 Problem HTN (hypertension) I10 Active 54949455 ALLERGIES No Information SOCIAL HISTORY Never Assessed PLAN OF CARE VITAL SIGNS MEDICATIONS Unknown Medications RESULTS No Results PROCEDURES No Known procedures IMMUNIZATIONS No Known Immunizations MEDICAL (GENERAL) HISTORY Type Description Date Medical History Hypertension Medical History Type 2 Diabetes Mellitus Medical History Headache syndrome Medical History Cancer of [place]th[place] Gland see's Dr. Ariana Woodruff at [facility] Surgical History Vulva cancer went thru chem and radiation Surgical History CT abdomen 09/20/[facility] Surgical History Atherosclertoic calcification of aorta Hospitalization History bladder infection
--- OUTSIDE RECORDS SUMMARY | 2017-11-09 07:45 | XMS REPORT ---
Author Author SHAD BARTHOLOMEW [facility] eClinicalWorks Address Unknown Phone Unavailable Care Team Providers Care Boat Officer Name Role Phone SHAD BARTHOLOMEW Unavailable Allergies [...] End Date Status Dosage MetFORMIN HCl ER [facility] [id number] 500 MG Orally 2 times a day TAKE TWO TABLETS BY MOUTH TWICE DAILY Results No Known Results Summary Purpose eClinicalWorks Submission
--- OUTSIDE RECORDS SUMMARY | 2017-11-09 07:45 | XMS REPORT ---
Author Author SHAD BARTHOLOMEW [facility] eClinicalWorks Address Unknown Phone Unavailable Care Team Providers Care Ediscovery Project Manager Name Role Phone SHAD BARTHOLOMEW CP Unavailable Allergies No Known Allergies Problems Problem Type Condition ICD-9 Code Onset Dates Condition Status Problem Chronic airway obstruction, not elsewhere classified 496 Active Problem Shortness of breath 786.05 Active Problem Other and unspecified hyperlipidemia 272.4 Active Problem Dyspareunia 625.0 Active Problem Screening for malignant neoplasm of the cervix V76.2 Active Problem Essential hypertension, malignant 401.0 Active Problem Abdominal pain, unspecified site 789.00 Active Problem Nondependent tobacco use disorder 305.1 Active Problem Encounter for change or removal of surgical wound dressing V58.31 Active Problem Other dyspnea and respiratory abnormalities 786.09 Active Problem Cellulitis and abscess of unspecified site 682.9 Active Problem Unspecified disorder of skin and subcutaneous tissue 709.9 Active Problem Candidiasis of vulva and vagina 112.1 Active Problem Hypoxemia 799.02 Active Problem Urinary tract infection, site not specified 599.0 Active Problem Diabetes with other specified manifestations, type II or unspecified type, not stated as uncontrolled 250.80 Active Problem Personal history of tobacco use, presenting hazards to health V15.82 Active Medications Medication Code System Code Instructions Start Date End Date Status Dosage Lisinopril [facility] [address]-61 40 MG Orally Once a day Feb 24, 2015 1 tablet Results No Known Results Summary Purpose eClinicalWorks Submission
--- OUTSIDE RECORDS SUMMARY | 2017-11-09 07:45 | XMS REPORT ---
Author Author SHAD BARTHOLOMEW Organization [facility] Address [address] [place] [address] Care Team Providers Care Squeezer Operator Name Role Phone SHAD BARTHOLOMEW Unavailable PROBLEMS Type Condition ICD9-CM Code [id number] Code Onset Dates Condition Status SNOMED Code Problem 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 338376054 Problem Diabetes E11.9 Active 45639339 Problem COPD (chronic obstructive pulmonary disease) J44.9 Active 72280951 Problem Hypercholesterolemia E78.0 Active 33360881 Problem HTN (hypertension) I10 Active 29783551 ALLERGIES No Information SOCIAL HISTORY Never Assessed PLAN OF CARE VITAL SIGNS MEDICATIONS Medication Instructions Dosage Frequency Start Date End Date Duration Status Breo Ellipta 200-25 MCG/INH Inhalation Once a day 1 puff 24h Jul, 90 days Active RESULTS No Results PROCEDURES No Known procedures IMMUNIZATIONS No Known Immunizations MEDICAL (GENERAL) HISTORY Type Description Date Medical History Hypertension Medical History Type 2 Diabetes Mellitus Medical History Headache syndrome Medical History Cancer of [place]th[place] Gland see's Dr. Ariana Woodruff at [facility] Surgical History Vulva cancer went thru chem and radiation Surgical History CT abdomen 09/20/10 [place] Surgical History Atherosclertoic calcification of aorta Hospitalization History bladder infection
--- OUTSIDE RECORDS SUMMARY | 2017-11-09 07:45 | XMS REPORT ---
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 840405655 Problem COPD (chronic obstructive pulmonary disease) J44.9 Active 95591744 Problem Hypercholesterolemia E78.0 Active 96293296 Problem Diabetes E11.9 Active 03260458 Problem HTN (hypertension) I10 Active 59838274 ALLERGIES No Known Allergies SOCIAL HISTORY No smoking Hx information available PLAN OF CARE VITAL SIGNS MEDICATIONS Medication Instructions Dosage Frequency Start Date End Date Duration Status Pravastatin Sodium 40 mg Orally Once a day TAKE ONE TABLET BY MOUTH ONCE DAILY (AVOID GRAPFRUIT JUICE WHILE ON THIS MEDICINE) 24h 30 Active RESULTS No Results PROCEDURES No Known procedures IMMUNIZATIONS No Known Immunizations
--- OUTSIDE RECORDS SUMMARY | 2017-11-09 07:46 | XMS REPORT ---
Author SHAD [facility] eClinicalWorks Address Unknown Phone Unavailable Care Team Providers Care Aerologist Name Role Phone SHAD BARTHOLOMEW CP Unavailable Allergies, Adverse Reactions, Alerts Substance Reaction Event Type N.K.D.A. Info Not Available Non Drug Allergy Problems Problem Type Condition Code Onset Dates Condition Status Assessment Vision changes H53.9 Active Problem Shortness of breath 786.05 Active Assessment Hypercholesterolemia E78.0 Active Problem Nondependent tobacco use disorder 305.1 Active Assessment HTN (hypertension) I10 Active Problem Abdominal pain, unspecified site 789.00 Active Problem Encounter for change or removal of surgical wound dressing V58.31 Active Problem Other dyspnea and respiratory abnormalities 786.09 Active Problem Diabetes E11.9 Active Problem HTN (hypertension) I10 Active Problem Cellulitis and abscess of unspecified site 682.9 Active Assessment COPD (chronic obstructive pulmonary disease) J44.9 Active Problem COPD (chronic obstructive pulmonary disease) J44.9 Active Assessment Diabetes E11.9 Active Problem Dyspareunia 625.0 Active Problem Screening [...] infection, site not specified 599.0 Active Problem Personal history of tobacco use, presenting hazards to health V15.82 Active Medications Medication Code System Code Instructions Start Date End Date Status Dosage Symbicort [facility] [place] [address]-93 160-4.5 MCG/ACT Inhalation Twice a day NovemberApr 14, 2015 inhale 2 puffs by inhalation route 2 times per day in the morning and evening Lisinopril [facility] [place] [address]-28 40 MG Orally Once a day Feb 24, 2015 1 tablet MetFORMIN HCl ER [facility] [place] 38576411394 500 MG TAKE TWO TABLETS BY MOUTH TWICE DAILY Pravastatin Sodium [facility] [place] 02986848134 40 MG TAKE ONE TABLET BY MOUTH ONCE DAILY (AVOID GRAPFRUIT JUICE WHILE ON THIS MEDICINE) Victoza [facility] [place] [address]-22 18 MG/3ML Subcutaneous Once a day October 06, 2014 0.2 ml Hydrochlorothiazide [facility] [place] [address]-59 25 MG Orally Once a day 1 tablet [place] 06/12" [facility] [place] [address]-91 29G X 12MM October 06, 2014 as directed Procedures Procedure Coding System Code Date Office Visit, Est Pt., Level 4 CPT-4 28435 Mar 18, 2015 GLYCATED HEMOGLOBIN TEST CPT-4 91697 Mar 18, 2015 Vital Signs Date/Time: Mar 18, 2015 Temperature 98.2 F Weight 171.2 lbs Height 63 in BMI 30.32 Index Blood Pressure Diastolic 60 mmHg Blood Pressure Systolic 140 mmHg Cardiac Monitoring Heart Rate 80 bpm Results Name Result Date Reference Range Unit Abnormality Flag A1C (IN HOUSE) Summary Purpose eClinicalWorks Submission
--- OUTSIDE RECORDS SUMMARY | 2017-11-09 07:46 | XMS REPORT ---
Author Author SHAD Fuentes Organization [facility] Address [address] [place] [address] Care Team Providers Care Purchasing Expeditor Name Role Phone SHAD Fuentes Unavailable PROBLEMS Type Condition ICD9-CM Code XNC58-AA Code Onset Dates Condition Status SNOMED Code Problem COPD (chronic obstructive pulmonary disease) J44.9 Active 96863627 Problem Hypercholesterolemia E78.0 Active 58381727 Problem HTN (hypertension) I10 Active 91033900 Problem Nephrolithiasis N20.0 Active 47053380 Problem Supplemental oxygen dependent Z99.81 Active 116892040699 Problem Tobacco use Z72.0 Active 698389562 Problem 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 400220678 Problem Type 2 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.29 Active 00756079 Problem Proteinuria, unspecified R80.9 Active 37648003 ALLERGIES No Information ENCOUNTERS Encounter Location Date Diagnosis [place] [address] [address] October, [place] [address] [place] [id number] [place] [address]39- 6683 Aug, Nephrolithiasis N20.0 [place] [address] [place] [id number] [place] [address] 71410- 8594 Aug, Gross hematuria R31.0 [place] [address] [place] [id number] [place] [address] 23924- 1192 Aug, Gross hematuria R31.0 [place] [address] [place] [id number] [place] [address] 16597- 0654 Aug, Gross hematuria R31.0 and Screening for cervical cancer Z12.4 [place] [address] [address]- 0194 Aug, [facility] [address] [address]- 7198 Jul, COPD (chronic obstructive pulmonary disease) J44.9 [facility] [address] [address] 8160 Jul, [facility] [address] [address]- 1265 Jun, [facility] [address] [address] 3531 May, [facility] [address] [place] [address] 74038- 6888 Apr, Type 2 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.29 ; COPD (chronic obstructive pulmonary disease) J44.9 ; Proteinuria, unspecified R80.9 ; Tobacco use Z72.0 and Screening for lipid disorders Z13.220 [facility] [address] [address] 7[address] Apr, COPD (chronic obstructive pulmonary disease) J44.9 ; Type 2 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.29 ; Proteinuria, unspecified R80.9 ; Tobacco use Z72.0 ; Screening for lipid disorders Z13.220 and Supplemental oxygen dependent Z99.81 [facility] [address] [address] 9205 Mar, Diabetes E11.9 and Encounter for immunization Z23 [facility] [address] [address]- 5646 Dec, [facility] [address] [address]- 6229 Dec, Diabetes E11.9 [facility] [address] [address]- 0042 Dec, [facility] [address] [address]- 9805 Dec, [facility] [address] [address]- 9522 Sep, [facility] [address] [address]- 2900 Sep, [facility] [address] [address]- 8446 15 Aug, 2016 COPD (chronic obstructive pulmonary disease) J44.9 [facility] [address] [place] [id number] [place] [address] 36979- 4181 Aug, COPD (chronic obstructive pulmonary disease) J44.9 [facility] [address] [address]- 3177 Aug, COPD (chronic obstructive pulmonary disease) J44.9 [facility] [address] [address]- 1534 Jul, Diabetes E11.9 ; COPD (chronic obstructive pulmonary disease ) J44.9 ; HTN (hypertension) I10 and Hypercholesterolemia E78.00 [facility] [address] [address]- 1496 Jul, [facility] [address] [address]- 1276 May, [facility] [address] [address]- 5855 May, COPD (chronic obstructive pulmonary disease) J44.9 [facility] [address] [address]- 0999 May, [facility] [address] [address]- 3802 May, [facility] [address] [address]- 6158 Apr, [facility] [address] [address]- 1606 Apr, [facility] [address] [place] [address] 79676- 2089 Apr, Diabetes E11.9 ; COPD (chronic obstructive pulmonary disease ) J44.9 ; HTN (hypertension) I10 and Hypercholesterolemia E78.0 [facility] [address] [address] Mar, Impacted cerumen of right ear H61.21 [facility] [address] [place] [id number] [place] [address] 30158- 0756 Mar, [facility] [address] [place] [id number] [place] [address] 74156- 2775 Feb, [facility] [address] [place] [id number] [place] [address] 49884- 0300 Feb, [facility] [address] [place] [id number] [place] [address] 16801- 9360 Jan, [facility] [address] [place] [id number] [place] [address] 35629- 2154 Jan, [facility] [address] [place] [id number] [place] [address] 79140- 3855 Dec, [facility] [address] [place] [id number] [place] [address] 08752- 6316 Nov, Diabetes E11.9 ; COPD (chronic obstructive pulmonary disease ) J44.9 ; HTN (hypertension) I10 ; Hypercholesterolemia E78.0 and Type 2 diabetes mellitus with other circulatory complications E11.59 [facility] [address] [place] [id number] [place] [address] 40250- 4951 Jun, Diabetes E11.9 [facility] [address] [place] [address] 19188- 6816 Jun, COPD (chronic obstructive pulmonary disease) J44.9 [facility] [address] [place] [address] 82876- 8499 Jun, [facility] [address] [place] [id number] [place] [address] 67684- 1271 Jun, COPD (chronic obstructive pulmonary disease) J44.9 ; Type 2 diabetes mellitus with other circulatory complications E11.59 ; HTN ( hypertension) I10 and Hypercholesterolemia E78.0 [place] [address] 90925- 7715 Mar, COPD (chronic obstructive pulmonary disease) J44.9 ; Diabetes E11.9 ; HTN (hypertension) I10 ; Hypercholesterolemia E78.0 and Vision changes H53.9 [place] [address] 07434- 8406 Mar, [facility] [address] [place] [id number] [place] [address] 01052- 9651 Mar, [place] [address] 44939- 8171 Feb, [place] [address] 15441- 4428 Dec, Diabetes 250.00 ; Diabetes with other specified manifestations, type II or unspecified type, not stated as uncontrolled 250.80 ; Chronic airway obstruction, not elsewhere classified 496 ; Personal history of tobacco use, presenting hazards to health V15.82 ; Essential hypertension, malignant 401.0 and Hypercholesteremia 272.0 [place] [address] [place] [id number] [place] [address] 47411- 6971 Dec, [place] [address] [place] [id number] [place] [address] 33009- 7521 Sep, [place] [address] [place] [id number] [place] [address] 45896- 9917 Sep, [place] [address] [place] [id number] [place] [address] 30830- 4599 Sep, [place] [address] 54053- 8570 Aug, [facility] [address] [place] [id number] [place] [address] 13636- 8253 Aug, [place] [address] [place] [address]- 4408 Aug, [facility] [place] [facility] [address] [id number] [place] [address]- 9199 Aug, [facility] [place] [facility] [address] [id number] [place] [address]- 5729 Jul, [facility] [place] [facility] [address] [id number] [place] [address]- 4244 Jul, [facility] [place] [facility] [address] [id number] [place] [address]- 9415 Jun, [facility] [place] [facility] [address] [id number] [place] [address]- 8692 Jun, [facility] [place] [facility] [address] [id number] [place] [address]- 2577 Jun, [facility] [place] [facility] [address] [id number] [place] [address]- 9435 Jun, [facility] [place] [facility] [address] [id number] [place] [address]- 2020 Jun, [facility] [place] [facility] [address] [id number] [place] [address]- 1893 Jun, [facility] [place] [facility] [address] [id number] [place] [address]- 1846 Jun, [facility] [place] [facility] [address] [id number] [place] [address]- 8026 Jun, [facility] [place] [facility] [address] [id number] [place] [address]- 6520 Jun, [facility] [place] [facility] [address] [id number] [place] [address]- 5746 Jun, [facility] [place] [facility] [address] [id number] [place] [address]- 9120 Jun, [facility] [place] [facility] [address] [id number] [place] [address]- 7837 Jun, [facility] [place] [facility] [address] [id number] [place] [address]- 1805 Apr, [facility] [place] [facility] [address] [id number] [place] [address]- 1173 Apr, [facility] [place] [facility] [address] [id number] [place] 7800 Apr, [facility] [place] [facility] [address] [id number] [place] [address]- 3164 Apr, [facility] [place] [facility] [address] [id number] [place] [address]- 3879 Mar, [facility] [place] [facility] [address] [id number] [place] [address]- 8022 Mar, [facility] [place] [facility] [address] [id number] [place] [address]- 3323 30 Feb, 2014 [facility] [place] [facility] [address] [id number] [place] [address]- 6236 30 Feb, 2014 [facility] [place] [facility] [address] [id number] [place] [address]- 9488 17 Feb, 2014 [facility] [place] [facility] [address] [id number] [place] [address]- 9716 17 Feb, 2014 [facility] [place] [facility] [address] [id number] [place] [address]- 6979 16 Feb, 2014 [facility] [place] [facility] [address] [id number] [place] [address]- 2025 16 Feb, 2014 [facility] [place] [facility] [address] [id number] [place] [address]- 7743 Jan, [facility] [place] [facility] [address] [id number] [place] [address]- 2972 Jan, [facility] [place] [facility] [address] [id number] [place] [address]- 1867 Nov, [facility] [place] [facility] [address] [id number] [place] [address]- 2119 Nov, [facility] [place] [facility] [address] [id number] [place] [address]- 0456 October, [facility] [place] [facility] [address] [id number] [place] 0485 October, [facility] [place] [facility] [address] [id number] [place] [address]- 3526 October, [facility] [place] [facility] [address] [id number] [place] [address]- 2188 October, [facility] [place] [facility] [address] [id number] [place] [address]- 1356 October, [facility] [place] [facility] [address] [id number] [place] [address]- 5528 October, [facility] [place] [facility] [address] [id number] [place] [address]- 9040 October, [facility] [place] [facility] [address] [id number] [place] [address]- 6648 October, [facility] [place] [facility] [address] [id number] [place] [address]- 8248 October, [facility] [place] [facility] [address] [id number] [place] [address]- 1161 October, [facility] [place] [facility] [address] [id number] [place] [address]- 4029 October, [facility] [place] [facility] [address] [id number] [place] [address]- 4296 October, [facility] [place] [facility] [address] [id number] [place] [address]- 6172 Sep, [facility] [place] [facility] [address] [id number] [place] [address]- 4287 Sep, [facility] [place] [facility] [address] [id number] [place] [address]- 6255 Aug, [facility] [place] [facility] [address] [id number] [place] [address]- 1469 Aug, [facility] [place] [facility] [address] [id number] [place] [address]- 0175 Aug, [facility] [place] [facility] [address] [id number] [place] [address]- 6406 Aug, [facility] [place] [facility] [address] [id number] [place] [address]- 9501 Jul, [facility] [place] [facility] [address] [id number] [place] [address]- 7435 Jul, [facility] [place] [facility] [address] [id number] [place] [address]- 0462 Jul, [facility] [place] [facility] [address] [facility] [id number] [place] [address]- 4312 Jul, [facility] [place] [facility] [address] [id number] [place] [address]- 0844 Jul, [facility] [place] [facility] [address] [id number] [place] [address]- 0696 Jul, [facility] [place] [facility] [address] [facility] [id number] [place] [address]- 8985 Jul, [facility] [place] [facility] [address] [facility] [id number] [place] [address]- 5021 Jul, [facility] [place] [facility] [address] [id number] [place] [address]- 0998 Jul, [facility] [place] [facility] [address] [id number] [place] [address]- 8299 Jul, [facility] [place] [facility] [address] [id number] [place] [address]- 7555 Jun, [facility] [place] [facility] [address] [id number] [place] [address]- 7740 Jun, [facility] [place] [facility] [address] [id number] [address]- 0843 Jun, [facility] [address] [id number] [place] [address]- 9133 Jun, [facility] [place] [facility] [address] [id number] [place] [address]- 9611 Jun, [facility] [place] [facility] [address] [id number] [place] [address]- 5740 Jun, [facility] [place] [facility] [address] [id number] [place] [address]- 7730 Jun, [facility] [place] [facility] [address] [id number] [place] [address]- 4185 Jun, [facility] [place] [facility] [address] [id number] [place] [address]- 1117 Jun, [facility] [place] [facility] [address] [id number] [place] [address]- 4724 Jun, [facility] [place] [facility] [address] [id number] [place] [address]- 9615 Jun, [facility] [place] [facility] [address] [id number] [place] [address]- 2801 Jun, [facility] [place] [facility] [address] [id number] [place] [address]- 4576 Jun, [facility] [place] [facility] [address] [id number] [place] [address]- 7790 May, [facility] [place] [facility] [address] [id number] [place] [address]- 3863 May, [facility] [place] [facility] [address] [id number] [place] [address]- 3723 May, [facility] [place] [facility] [address] [id number] [place] [address]- 7135 May, [facility] [place] [facility] [address] [id number] [place] [address]- 5905 30 May, 2013 [facility] [place] [facility] [address] [id number] [place] [address]- 8820 30 May, 2013 [facility] [address] [id number] [place] [address]- 7377 May, [facility] [place] [facility] [address] [id number] [place] 7936 May, [facility] [address] [id number] [place] [address]- 1627 May, [facility] [place] [facility] [address] [id number] [place] [address]- 5138 May, [facility] [address] [id number] [place] [address]- 5303 May, [facility] [place] [facility] [address] [id number] [place] [address]- 0837 May, [facility] [place] [facility] [address] [id number] [place] [address]- 8997 May, [facility] [address] [id number] [place] [address]- 0874 May, [facility] [place] [facility] [address] [id number] [place] [address]- 5392 May, [facility] [address] [id number] [place] [address]- 4831 Apr, [facility] [place] [facility] [address] [id number] [place] [address]- 0033 Mar, [facility] [place] [facility] [address] [id number] [place] [address]- 6284 Mar, [facility] [place] [facility] [address] [id number] [place] [address]- 5680 Mar, [facility] [place] [facility] [address] [id number] [place] [address]- 1776 Mar, [facility] [place] [facility] [address] [id number] [place] [address]- 8242 Mar, [facility] [address] [id number] [place] [address]- 3729 24 Feb, 2013 [facility] [place] [facility] [address] [id number] [place] [address]- 5730 Feb, [facility] [place] [facility] [address] [id number] [place] [address]- 0820 Feb, [facility] [place] [facility] [address] [id number] [place] [address]- 0450 Feb, [facility] [place] [facility] [address] [id number] [place] [address]- 9245 Jan, [facility] [place] [facility] [address] [id number] [place] [address]- 7402 Dec, [facility] [place] [facility] [address] [id number] [place] [address]- 4650 Dec, [facility] [place] [facility] [address] [id number] [place] [address]- 7064 Nov, [facility] [place] [facility] [address] [id number] [place] [address]- 1803 October, [facility] [place] [facility] [address] [id number] [place] [address]- 0310 Sep, [facility] [place] [facility] [address] [id number] [place] [address]- 2509 Aug, [facility] [place] [facility] [address] [id number] [address]- 8776 Aug, [facility] [place] [facility] [address] [id number] [place] [address]- 2324 Aug, [facility] [place] [facility] [address] [id number] [place] [address]- 9141 Aug, [facility] [place] [facility] [address] [id number] [place] [address]- 3974 Aug, [facility] [place] [facility] [address] [id number] [place] [address]- 9603 Aug, [facility] [address] [id number] [place] [address]- 6760 Jun, [facility] [place] [facility] [address] [id number] [place] [address]- 8852 May, [facility] [place] [facility] [address] [id number] [place] [address]- 9646 May, [facility] [place] [facility] [address] [id number] [place] [address]- 7923 Apr, [facility] [place] [facility] [address] [id number] [place] [address]- 6478 Apr, [facility] [place] [facility] [address] [id number] [place] [address]- 6598 Feb, [facility] [place] [facility] [address] [id number] [place] [address]- 8956 Jan, [facility] [place] [facility] [address] [id number] [place] [address]- 8145 Jan, [facility] [place] [facility] [address] [id number] [place] [address]- 4336 Jan, [facility] [place] [facility] [address] [id number] [place] [address]- 8411 Dec, [facility] [place] [facility] [address] [id number] [place] [address]- 7227 Nov, [facility] [place] [facility] [address] [id number] [place] [address] 2543 Aug, [facility] [place] [facility] [address] [id number] [place] [address]- 6518 Jun, [facility] [place] [facility] [address] [id number] [place] [address] 2546 Jun, [facility] [place] [facility] [address] [id number] [place] [address]- 8536 May, [facility] [place] [facility] [address] [address]- 4428 May, [facility] [address] 1352 May, [facility] [address] [address]- 2342 14 Nov, 2010 [facility] [address] 8778 Apr, [facility] [address] [facility] [id number] [address]- 0585 Apr, [facility] [address] [place] [address] 14237- 3617 Apr, [facility] [address] [address] Apr, [facility] [id number] [address] Apr, [facility] [id number] [address] Mar, [facility] [id number] [address] May, [facility] [address] [address] May, [facility] [id number] [address] Jul, [facility] [id number] [address] May, IMMUNIZATIONS No Known Immunizations SOCIAL HISTORY Never Assessed [facility] VITAL SIGNS MEDICATIONS Unknown Medications RESULTS No Results PROCEDURES No Known procedures INSTRUCTIONS MEDICATIONS ADMINISTERED No Known Medications MEDICAL (GENERAL) HISTORY Type Description Date Medical History Hypertension Medical History Type 2 Diabetes Mellitus Medical History Headache syndrome Medical History Cancer of [place] Gland see's Dr. Ariana Woodruff at [facility] Surgical History Vulva cancer went thru chem and radiation Surgical History CT abdomen 09/20/10 jeri Surgical History Atherosclertoic calcification of aorta Hospitalization History bladder infection
--- OUTSIDE RECORDS SUMMARY | 2017-11-09 07:46 | XMS REPORT ---
Author SHAD [facility] eClinicalWorks Address Unknown Phone Unavailable Care Team Providers Care Advanced Analytics Associate Name Role Phone SHAD BARTHOLOMEW CP Unavailable [...]
--- OUTSIDE RECORDS SUMMARY | 2017-11-09 07:46 | XMS REPORT ---
Author Author SHAD BARTHOLOMEW [facility] eClinicalWorks Address Unknown Phone Unavailable Care Team Providers Care Test Man Name Role Phone SHAD BARTHOLOMEW Unavailable Allergies No Known Allergies Problems Problem Type Condition Code Onset Dates Condition Status Problem Chronic [...] Instructions Start Date End Date Status Dosage Hydrochlorothiazide [facility] [address]-62 25 MG Orally Once a day 1 tablet Lisinopril [facility] [address]-79 40 MG Orally Once a day Feb 24, 2015 1 tablet Results No Known Results Summary Purpose eClinicalWorks Submission
--- OUTSIDE RECORDS SUMMARY | 2017-11-09 07:47 | XMS REPORT ---
Author Author SHAD BARTHOLOMEW [facility] eClinicalWorks Address Unknown Phone Unavailable Care Team Providers Care Credit Review Analyst Name Role Phone SHAD BARTHOLOMEW Unavailable Allergies No Known Allergies Problems Problem Type Condition Code Onset Dates Condition Status Problem COPD (chronic obstructive pulmonary disease) J44.9 Active Problem Diabetes E11.9 Active Problem 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 Problem HTN (hypertension) I10 Active Problem Hypercholesterolemia E78.0 Active Medications Medication Code System Code Instructions Start Date End Date Status Dosage Victoza [facility] [address]-62 18 MG/3ML Subcutaneous Once a day December 18, 2016 0.2 ml Pen [place] 1/2" [facility] [address]-31 29G X 12MM October 06, 2014 as directed Results No Known Results Summary Purpose eClinicalWorks Submission
--- OUTSIDE RECORDS SUMMARY | 2017-11-09 07:47 | XMS REPORT ---
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
--- OUTSIDE RECORDS SUMMARY | 2017-11-09 07:47 | XMS REPORT ---
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 Unknown Non Drug Allergy May, Unknown SOCIAL HISTORY No smoking Hx information available PLAN OF CARE VITAL SIGNS Height 63 in 2016-05-22 Weight 191 lbs 2016-05-22 Heart Rate 110 bpm 2016-05-22 Respiratory Rate 24 2016-05-22 Oximetry 88 % 2016-05-22 BMI 33.83 kg/m2 2016-05-22 Blood pressure systolic 138 mmHg 2016-05-22 Blood pressure diastolic 72 mmHg 2016-05-22 MEDICATIONS Medication Instructions Dosage Frequency Start Date End Date Duration Status Oxygen 2-3 L/NC as directed Jun, Active Lisinopril 40 MG Orally Once a day 1 tablet 24h Active Hydrochlorothiazide 25 MG Orally Once a day 1 tablet 24h Active ProAir HFA 108 (90 Base) MCG/ACT Inhalation every 4 hrs 2 puffs as needed 4h May, Active Victoza 18 MG/3ML Subcutaneous Once a day 0.2 ml 24h Dec, Active MetFORMIN HCl ER 500 MG Orally 2 times a day TAKE TWO TABLETS BY MOUTH TWICE DAILY 12h 30 days Active Pravastatin Sodium 40 mg Orally Once a day TAKE ONE TABLET BY MOUTH ONCE DAILY (AVOID GRAPFRUIT JUICE WHILE ON THIS MEDICINE) 24h 30 Active Pen Alpine 1/2" 29G X 12MM as directed Sep, Active RESULTS No Results PROCEDURES Procedure Date Ordered Related Diagnosis Body Site MEASURE BLOOD OXYGEN LEVEL May 22, 2016 [facility] VISIT ESTABLISHED PATIENT May 22, 2016 Office Visit, Est Pt., Level 2 May 22, 2016 IMMUNIZATIONS No Known Immunizations
--- OUTSIDE RECORDS SUMMARY | 2017-11-09 07:47 | XMS REPORT ---
Author JESSE Staples [facility] eClinicalWorks Address Unknown Phone Unavailable Care Team Providers Care Setter Automatic Spinning Lathe Name Role Phone JESSE BLANCA CP Unavailable Allergies, Adverse Reactions, Alerts Substance Reaction Event Type N.K.D.A. 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 Assessment Impacted cerumen of right ear H61.21 Active Problem HTN (hypertension) I10 Active Problem Hypercholesterolemia E78.0 Active Medications Medication Code System Code Instructions Start Date End Date Status Dosage Victoza [facility] [address]-46 18 MG/3ML Subcutaneous Once a day December 18, 2016 0.2 ml Pravastatin Sodium [facility] [address]-66 40 mg Orally Once a day TAKE ONE TABLET BY MOUTH ONCE DAILY (AVOID GRAPFRUIT JUICE WHILE ON THIS MEDICINE) Albuterol Sulfate [facility] [address]-82 90 mcg/actuation Feb 24, 2014 2 puffs by Inhalation route every 4-6 hours as needed PRN cough or wheezing Lisinopril [facility] 78067170071 40 MG Orally Once a day 1 tablet Pen [place] /2" [facility] [address]-55 29G X 12MM October 06, 2014 as directed MetFORMIN HCl ER [facility] 30980143104 500 MG Orally 2 times a day TAKE TWO TABLETS BY MOUTH TWICE DAILY Oxygen NDC 0 2-3 L/NC 2 l pm Jun 14, 2015 as directed Nebulizer NDC 0 1 Jun 14, 2015 as directed Debrox [facility] [address]-59 6.5 % Otic Twice a day Mar 29, 2016 Apr 03, 2016 4drops into affected ear Hydrochlorothiazide ND 37796357259 25 MG Orally Once a day 1 tablet Procedures Procedure Coding System Code Date Office Visit, Est Pt., Level 3 CPT-4 71786 Mar 29, 2016 [facility] VISIT ESTABLISHED PATIENT CPT-4 G0467 Mar 29, 2016 Vital Signs Date/Time: Mar 29, 2016 Cardiac Monitoring Heart Rate 110 bpm Weight 189.4 lbs Height 63 in BMI 33.55 Index Blood Pressure Diastolic 78 mmHg Blood Pressure Systolic 130 mmHg Results No Known Results Summary Purpose eClinicalWorks Submission
--- OUTSIDE RECORDS SUMMARY | 2017-11-09 07:47 | XMS REPORT ---
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
--- OUTSIDE RECORDS SUMMARY | 2017-11-09 07:48 | XMS REPORT | Continuity of Care Document ---
Author Author [facility] Organization [facility] Address Unknown Phone Unavailable Allergies Active Description Code Type Severity Reaction Onset Reported/Identified Relationship to Patient Clinical Status Yes No Known Drug Allergies [id number] Drug Allergy Unknown N/A 04/28/2008 Medications There is no data. Problems Date Dx Coded Attending Type Code Diagnosis Diagnosed By 06/09/2008 NGUYEN ZIMMER HARLEEN K 250.02 Diabetes Ii Uncontrolled 06/09/2008 NGUYEN DO HARLEEN K 401.1 ESSENTIAL HYPERTENSION BENIGN 06/09/2008 250.02 Diabetes Ii Uncontrolled 06/09/2008 401.1 ESSENTIAL HYPERTENSION BENIGN 06/09/2008 CEDILLO DO HARELEN K 250.02 Diabetes Ii Uncontrolled 06/09/2008 NGUYEN ZIMMER HARLEEN K 401.1 ESSENTIAL HYPERTENSION BENIGN 06/09/2008 250.02 Diabetes Ii Uncontrolled 06/09/2008 401.1 ESSENTIAL HYPERTENSION BENIGN 06/09/2008 250.02 Diabetes Ii Uncontrolled 06/09/2008 401.1 ESSENTIAL HYPERTENSION BENIGN 06/09/2008 250.02 Diabetes Ii Uncontrolled 06/09/2008 401.1 ESSENTIAL HYPERTENSION BENIGN 06/09/2008 CEDILLO DO HARLEEN K 250.02 Diabetes Ii Uncontrolled 06/09/2008 CEDILLO DO HARLEEN K 401.1 ESSENTIAL HYPERTENSION BENIGN 06/09/2008 NGUYEN ZIMMER HARLEEN K 250.02 Diabetes Ii Uncontrolled 06/09/2008 NGUYEN ZIMMER HARLEEN K 401.1 ESSENTIAL HYPERTENSION BENIGN 06/09/2008 CEDILLO DO HARLEEN K 250.02 Diabetes Ii Uncontrolled 06/09/2008 CEDILLO DO HARLEEN K 401.1 ESSENTIAL HYPERTENSION BENIGN 06/09/2008 CEDILLO DO HARLEEN K 250.02 Diabetes Ii Uncontrolled 06/09/2008 CEDILLO DO HARLEEN K 401.1 ESSENTIAL HYPERTENSION BENIGN 06/09/2008 CEDILLO DO HARLEEN K 250.02 Diabetes Ii Uncontrolled 06/09/2008 CEDILLO DO HARLEEN K 401.1 ESSENTIAL HYPERTENSION BENIGN 06/09/2008 CEDILLO DO HARLEEN K 250.02 Diabetes Ii Uncontrolled 06/09/2008 CEDILLO DO, HARLEEN K 401.1 ESSENTIAL HYPERTENSION BENIGN 06/09/2008 CEDILLO DO, HARLEEN K 250.02 Diabetes Ii Uncontrolled 06/09/2008 CEDILLO DO, HARLEEN K 401.1 ESSENTIAL HYPERTENSION BENIGN 06/09/2008 CEDILLO DO, HARLEEN K 250.02 Diabetes Ii Uncontrolled 06/09/2008 CEDILLO DO, HARLEEN K 401.1 ESSENTIAL HYPERTENSION BENIGN 06/09/2008 CEDILLO DO, HARLEEN K 250.02 Diabetes Ii Uncontrolled 06/09/2008 CEDILLO DO, HARLEEN K 401.1 ESSENTIAL HYPERTENSION BENIGN 06/09/2008 CEDILLO DO, HARLEEN K 250.02 Diabetes Ii Uncontrolled 06/09/2008 CEDILLO DO, HARLEEN K 401.1 ESSENTIAL HYPERTENSION BENIGN 06/09/2008 CEDILLO DO, HARLEEN K 250.02 Diabetes Ii Uncontrolled 06/09/2008 CEDILLO DO, HARLEEN K 401.1 ESSENTIAL HYPERTENSION BENIGN 06/09/2008 CEDILLO DO, HARLEEN K 250.02 Diabetes Ii Uncontrolled 06/09/2008 CEDILLO DO, HARLEEN K 401.1 ESSENTIAL HYPERTENSION BENIGN 06/09/2008 CEDILLO DO, HARLEEN K 250.02 Diabetes Ii Uncontrolled 06/09/2008 CEDILLO DO, HARLEEN K 401.1 ESSENTIAL HYPERTENSION BENIGN 06/09/2008 NICHOLAS ROCK SINGER, PASQUALE A 250.02 Diabetes Ii Uncontrolled 06/09/2008 NICHOLAS ROCK SINGER, PASQUALE A 401.1 ESSENTIAL HYPERTENSION BENIGN 06/09/2008 CEDILLO DO, HARLEEN K 250.02 Diabetes Ii Uncontrolled 06/09/2008 CEDILLO DO, HARLEEN K 401.1 ESSENTIAL HYPERTENSION BENIGN 07/21/2008 CEDILLO DO, HARLEEN K V58.69 MEDICATION HIGH RISK 07/21/2008 V58.69 MEDICATION HIGH RISK 07/21/2008 CEDILLO DO, HARLEEN K V58.69 MEDICATION HIGH RISK 07/21/2008 V58.69 MEDICATION HIGH RISK 07/21/2008 V58.69 MEDICATION HIGH RISK 07/21/2008 V58.69 MEDICATION HIGH RISK 07/21/2008 CEDILLO DO, HARLEEN K V58.69 MEDICATION HIGH RISK 07/21/2008 CEDILLO DO, HARLEEN K V58.69 MEDICATION HIGH RISK 07/21/2008 CEDILLO DO, HARLEEN K V58.69 MEDICATION HIGH RISK 07/21/2008 CEDILLO DO, HARLEEN K V58.69 MEDICATION HIGH RISK 07/21/2008 CEDILLO DO, HARLEEN K V58.69 MEDICATION HIGH RISK 07/21/2008 CEDILLO DO, HARLEEN K V58.69 MEDICATION HIGH RISK 07/21/2008 CEDILLO DO, HARLEEN K V58.69 MEDICATION HIGH RISK 07/21/2008 CEDILLO DO, HARLEEN K V58.69 MEDICATION HIGH RISK 07/21/2008 CEDILLO DO, HARLEEN K V58.69 MEDICATION HIGH RISK 07/21/2008 CEDILLO DO, HARLEEN K V58.69 MEDICATION HIGH RISK 07/21/2008 CEDILLO DO, HARLEEN K V58.69 MEDICATION HIGH RISK 07/21/2008 CEDILLO DO, HARLEEN K V58.69 MEDICATION HIGH RISK 07/21/2008 CEDILLO DO, HARLEEN K V58.69 MEDICATION HIGH RISK 07/21/2008 NICHOLASYASMINE LOWRYN PASQUALE A V58.69 MEDICATION HIGH RISK 07/21/2008 CEDILLO DO, AHRLEEN K V58.69 MEDICATION HIGH RISK 08/06/2008 CEDILLO DO, HARLEEN K NODX NO DIAGNOSIS 08/06/2008 NODX NO DIAGNOSIS 08/06/2008 CEDILLO DO, HARLEEN K NODX NO DIAGNOSIS 08/06/2008 NODX NO DIAGNOSIS 08/06/2008 NODX NO DIAGNOSIS 08/06/2008 NODX NO DIAGNOSIS 08/06/2008 CEDILLO DO, HARLEEN K NODX NO DIAGNOSIS 08/06/2008 CEDILLO DO, HARLEEN K NODX NO DIAGNOSIS 08/06/2008 CEDILLO DO, HARLEEN K NODX NO DIAGNOSIS 08/06/2008 CEDILLO DO, HARLEEN K NODX NO DIAGNOSIS 08/06/2008 CEDILLO DO, HARLEEN K NODX NO DIAGNOSIS 08/06/2008 CEDILLO DO, HARLEEN K NODX NO DIAGNOSIS 08/06/2008 CEDILLO DO, HARLEEN K NODX NO DIAGNOSIS 08/06/2008 CEDILLO DO, HARLEEN K NODX NO DIAGNOSIS 08/06/2008 CEDILLO DO, HARLEEN K NODX NO DIAGNOSIS 08/06/2008 CEDILLO DO, HARLEEN K NODX NO DIAGNOSIS 08/06/2008 CEDILLO DO, HARLEEN K NODX NO DIAGNOSIS 08/06/2008 CEDILLO DO, HARLEEN K NODX NO DIAGNOSIS 08/06/2008 CEDILLO DO, HARLEEN K NODX NO DIAGNOSIS 08/06/2008 NICHOLAS ROCK SINGER, PASQUALE A NODX NO DIAGNOSIS 08/06/2008 CEDILLO DO, HARLEEN K NODX NO DIAGNOSIS 08/13/2008 CEDILLO DO, HARLEEN K V72.31 Pelvic Exam (Internal) 08/13/2008 V72.31 Pelvic Exam ( Internal) 08/13/2008 CEDILLO DO, HARLEEN K V72.31 Pelvic Exam (Internal) 08/13/2008 V72.31 Pelvic Exam ( Internal) 08/13/2008 V72.31 Pelvic Exam ( Internal) 08/13/2008 V72.31 Pelvic Exam ( Internal) 08/13/2008 CEDILLO DO, HARLEEN K V72.31 PELVIC EXAM (INTERNAL) 08/13/2008 CEDILLO DO, HARLEEN K V72.31 PELVIC EXAM (INTERNAL) 08/13/2008 CEDILLO DO, HARLEEN K V72.31 PELVIC EXAM (INTERNAL) 08/13/2008 CEDILLO DO, HARLEEN K V72.31 PELVIC EXAM (INTERNAL) 08/13/2008 CEDILLO DO, HARLEEN K V72.31 PELVIC EXAM (INTERNAL) 08/13/2008 CEDILLO DO, HARLEEN K V72.31 PELVIC EXAM (INTERNAL) 08/13/2008 CEDILLO DO, HARLEEN K V72.31 PELVIC EXAM (INTERNAL) 08/13/2008 CEDILLO DO, HARLEEN K V72.31 PELVIC EXAM (INTERNAL) 08/13/2008 CEDILLO DO, HARLEEN K V72.31 PELVIC EXAM (INTERNAL) 08/13/2008 CEDILLO DO, HARLEEN K V72.31 PELVIC EXAM (INTERNAL) 08/13/2008 CEDILLO DO, HARLEEN K V72.31 PELVIC EXAM (INTERNAL) 08/13/2008 CEDILLO DO, HARLEEN K V72.31 PELVIC EXAM (INTERNAL) 08/13/2008 CEDILLO DO, HARLEEN K V72.31 PELVIC EXAM (INTERNAL) 08/13/2008 PASQUALE PETERSON APRN V72.31 PELVIC EXAM (INTERNAL) 08/13/2008 CEDILLO DO, HARLEEN K V72.31 PELVIC EXAM (INTERNAL) 09/08/2008 CEDILLO DO, HARLEEN K 250.00 DIABETES MELLITUS UNDER CONTROL 09/08/2008 250.00 DIABETES MELLITUS UNDER CONTROL 09/08/2008 CEDILLO DO, HARLEEN K 250.00 DIABETES MELLITUS UNDER CONTROL 09/08/2008 250.00 DIABETES MELLITUS UNDER CONTROL 09/08/2008 250.00 DIABETES MELLITUS UNDER CONTROL 09/08/2008 250.00 DIABETES MELLITUS UNDER CONTROL 09/08/2008 CEDILLO DO, HARLEEN K 250.00 DIABETES MELLITUS UNDER CONTROL 09/08/2008 CEDILLO DO, HARLEEN K 250.00 DIABETES MELLITUS UNDER CONTROL 09/08/2008 CEDILLO DO, HARLEEN K 250.00 DIABETES MELLITUS UNDER CONTROL 09/08/2008 CEDILLO DO, HARLEEN K 250.00 DIABETES MELLITUS UNDER CONTROL 09/08/2008 CEDILLO DO, HARLEEN K 250.00 DIABETES MELLITUS UNDER CONTROL 09/08/2008 CEDILLO DO, HARLEEN K 250.00 DIABETES MELLITUS UNDER CONTROL 09/08/2008 CEDILLO DO, HARLEEN K 250.00 DIABETES MELLITUS UNDER CONTROL 09/08/2008 CEDILLO DO, HARLEEN K 250.00 DIABETES MELLITUS UNDER CONTROL 09/08/2008 CEDILLO DO, HARLEEN K 250.00 DIABETES MELLITUS UNDER CONTROL 09/08/2008 CEDILLO DO, HARLEEN K 250.00 DIABETES MELLITUS UNDER CONTROL 09/08/2008 CEDILLO DO, HARLEEN K 250.00 DIABETES MELLITUS UNDER CONTROL 09/08/2008 CEDILLO DO, HARLEEN K 250.00 DIABETES MELLITUS UNDER CONTROL 09/08/2008 CEDILLO DO, HARLEEN K 250.00 DIABETES MELLITUS UNDER CONTROL 09/08/2008 NICHOLASYASMINE LOWRYN, PASQUALE A 250.00 DIABETES MELLITUS UNDER CONTROL 09/08/2008 CEDILLO DO, HARLEEN K 250.00 DIABETES MELLITUS UNDER CONTROL 10/12/2008 CEDILLO DO, HARLEEN K 709.9 Dermatitis Other Skin Disorders 10/12/2008 709.9 Dermatitis Other Skin Disorders 10/12/2008 CEDILLO DO, HARLEEN K 709.9 Dermatitis Other Skin Disorders 10/12/2008 709.9 Dermatitis Other Skin Disorders 10/12/2008 709.9 Dermatitis Other Skin Disorders 10/12/2008 709.9 Dermatitis Other Skin Disorders 10/12/2008 CEDILLO DO, HARLEEN K 709.9 Dermatitis Other Skin Disorders 10/12/2008 CEDILLO DO, HARLEEN K 709.9 Dermatitis Other Skin Disorders 10/12/2008 CEDILLO DO, HARLEEN K 709.9 Dermatitis Other Skin Disorders 10/12/2008 CEDILLO DO, HARLEEN K 709.9 Dermatitis Other Skin Disorders 10/12/2008 CEDILLO DO, HARLEEN K 709.9 Dermatitis Other Skin Disorders 10/12/2008 CEDILLO DO, HARLEEN K 709.9 Dermatitis Other Skin Disorders 10/12/2008 CEDILLO DO, HARLEEN K 709.9 Dermatitis Other Skin Disorders 10/12/2008 CEDILLO DO, HARLEEN K 709.9 Dermatitis Other Skin Disorders 10/12/2008 CEDILLO DO, HARLEEN K 709.9 Dermatitis Other Skin Disorders 10/12/2008 CEDILLO DO, HARLEEN K 709.9 Dermatitis Other Skin Disorders 10/12/2008 CEDILLO DO, HARLEEN K 709.9 Dermatitis Other Skin Disorders 10/12/2008 CEDILLO DO, HARLEEN K 709.9 Dermatitis Other Skin Disorders 10/12/2008 CEDILLO DO, HARLEEN K 709.9 Dermatitis Other Skin Disorders 10/12/2008 PASQUALE PETERSON APRN A 709.9 Dermatitis Other Skin Disorders 10/12/2008 CEDILLO DO, HARLEEN K 709.9 Dermatitis Other Skin Disorders 05/07/2010 CEDILLO DO HARLEEN K V76.10 BREAST SCREENING, UNSPECIFIED 05/07/2010 V76.10 BREAST SCREENING, UNSPECIFIED 05/07/2010 CEDILLO DO, HARLEEN K V76.10 visit for: screening exam malignant neoplasm breast 05/07/2010 V76.10 visit for: screening exam malignant neoplasm breast 05/07/2010 V76.10 visit for: screening exam malignant neoplasm breast 05/07/2010 V76.10 visit for: screening exam malignant neoplasm breast 05/07/2010 CEDILLO DO HARLEEN K V76.10 VISIT FOR: SCREENING EXAM MALIGNANT NEOPLASM BREAST 05/07/2010 CEDILLO DO, HARLEEN K V76.10 VISIT FOR: SCREENING EXAM MALIGNANT NEOPLASM BREAST 05/07/2010 CEDILLO DO, HARLEEN K V76.10 VISIT FOR: SCREENING EXAM MALIGNANT NEOPLASM BREAST 05/07/2010 CEDILLO DO, HARLEEN K V76.10 VISIT FOR: SCREENING EXAM MALIGNANT NEOPLASM BREAST 05/07/2010 CEDILLO DO, HARLEEN K V76.10 VISIT FOR: SCREENING EXAM MALIGNANT NEOPLASM BREAST 05/07/2010 CEDILLO DO HARLEEN K V76.10 VISIT FOR: SCREENING EXAM MALIGNANT NEOPLASM BREAST 05/07/2010 CEDILLO DO HARLEEN K V76.10 VISIT FOR: SCREENING EXAM MALIGNANT NEOPLASM BREAST 05/07/2010 CEDILLO DO, HARLEEN K V76.10 VISIT FOR: SCREENING EXAM MALIGNANT NEOPLASM BREAST 05/07/2010 CEDILLO DO HARLEEN K V76.10 VISIT FOR: SCREENING EXAM MALIGNANT NEOPLASM BREAST 05/07/2010 CEDILLO DO HARLEEN K V76.10 VISIT FOR: SCREENING EXAM MALIGNANT NEOPLASM BREAST 05/07/2010 CEDILLO DO HARLEEN K V76.10 VISIT FOR: SCREENING EXAM MALIGNANT NEOPLASM BREAST 05/07/2010 CEDILLO DO HARLEEN K V76.10 VISIT FOR: SCREENING EXAM MALIGNANT NEOPLASM BREAST 05/07/2010 CEDILLO DO, HARLEEN K V76.10 VISIT FOR: SCREENING EXAM MALIGNANT NEOPLASM BREAST 05/07/2010 PASQUALE PETERSON APRN V76.10 VISIT FOR: SCREENING EXAM MALIGNANT NEOPLASM BREAST 05/07/2010 CEDILLO DO, HARLEEN K V76.10 VISIT FOR: SCREENING EXAM MALIGNANT NEOPLASM BREAST 06/16/2011 CEDILLO DO, HARLEEN K 272.4 HYPERLIPIDEMIA 06/16/2011 272.4 HYPERLIPIDEMIA 06/16/2011 CEDILLO DO, HARLEEN K 272.4 HYPERLIPIDEMIA 06/16/2011 272.4 HYPERLIPIDEMIA 06/16/2011 272.4 HYPERLIPIDEMIA 06/16/2011 272.4 HYPERLIPIDEMIA 06/16/2011 CEDILLO DO, HARLEEN K 272.4 HYPERLIPIDEMIA 06/16/2011 CEDILLO DO, HARLEEN K 272.4 HYPERLIPIDEMIA 06/16/2011 CEDILLO DO, HARLEEN K 272.4 HYPERLIPIDEMIA 06/16/2011 CEDILLO DO, HARLEEN K 272.4 HYPERLIPIDEMIA 06/16/2011 CEDILLO DO, HARLEEN K 272.4 HYPERLIPIDEMIA 06/16/2011 CEDILLO DO, HARLEEN K 272.4 HYPERLIPIDEMIA 06/16/2011 CEDILLO DO, HARLEEN K 272.4 HYPERLIPIDEMIA 06/16/2011 CEDILLO DO, HARLEEN K 272.4 HYPERLIPIDEMIA 06/16/2011 CEDILLO DO, HARLEEN K 272.4 HYPERLIPIDEMIA 06/16/2011 CEDILLO DO, HARLEEN K 272.4 HYPERLIPIDEMIA 06/16/2011 CEDILLO DO, HARLEEN K 272.4 HYPERLIPIDEMIA 06/16/2011 CEDILLO DO, HARLEEN K 272.4 HYPERLIPIDEMIA 06/16/2011 CEDILLO DO, HARLEEN K 272.4 HYPERLIPIDEMIA 06/16/2011 PASQUALE PETERSON APRN 272.4 HYPERLIPIDEMIA 06/16/2011 CEDILLO DO, HARLEEN K 272.4 HYPERLIPIDEMIA 08/09/2012 CEDILLO DO, HARLEEN K 625.0 DYSPAREUNIA 08/09/2012 CEDILLO DO, HARLEEN K V76.2 Cervical Pap Smear 08/09/2012 625.0 DYSPAREUNIA 08/09/2012 V76.2 Cervical Pap Smear 08/09/2012 625.0 DYSPAREUNIA 08/09/2012 V76.2 Cervical Pap Smear 08/09/2012 625.0 DYSPAREUNIA 08/09/2012 V76.2 Cervical Pap Smear 08/09/2012 CEDILLO DO, HARLEEN K 625.0 DYSPAREUNIA 08/09/2012 CEDILLO DO, HARLEEN K V76.2 CERVICAL PAP SMEAR 08/09/2012 CEDILLO DO, HARLEEN K 625.0 DYSPAREUNIA 08/09/2012 CEDILLO DO, HARLEEN K V76.2 CERVICAL PAP SMEAR 08/09/2012 CEDILLO DO, HARLEEN K 625.0 DYSPAREUNIA 08/09/2012 CEDILLO DO, HARLEEN K V76.2 CERVICAL PAP SMEAR 08/09/2012 CEDILLO DO, HARLEEN K 625.0 DYSPAREUNIA 08/09/2012 CEDILLO DO, HARLEEN K V76.2 CERVICAL PAP SMEAR 08/09/2012 CEDILLO DO, HARLEEN K 625.0 DYSPAREUNIA 08/09/2012 CEDILLO DO, HARLEEN K V76.2 CERVICAL PAP SMEAR 08/09/2012 CEDILLO DO, HARLEEN K 625.0 DYSPAREUNIA 08/09/2012 CEDILLO DO, HARLEEN K V76.2 CERVICAL PAP SMEAR 08/09/2012 CEDILLO DO, HARLEEN K 625.0 DYSPAREUNIA 08/09/2012 ECDILLO DO, HARLEEN K V76.2 CERVICAL PAP SMEAR 08/09/2012 CEDILLO DO, HARLEEN K 625.0 DYSPAREUNIA 08/09/2012 CEDILLO DO, HARLEEN K V76.2 CERVICAL PAP SMEAR 08/09/2012 CEDILLO DO, HARLEEN K 625.0 DYSPAREUNIA 08/09/2012 CEDILLO DO, HARLEEN K V76.2 CERVICAL PAP SMEAR 08/09/2012 CEDILLO DO, HARLEEN K 625.0 DYSPAREUNIA 08/09/2012 CEDILLO DO, HARLEEN K V76.2 CERVICAL PAP SMEAR 08/09/2012 CEDILLO DO, HARLEEN K 625.0 DYSPAREUNIA 08/09/2012 CEDILLO DO, HARLEEN K V76.2 CERVICAL PAP SMEAR 08/09/2012 CEDILLO DO, HARLEEN K 625.0 DYSPAREUNIA 08/09/2012 CEDILLO DO, HARLEEN K V76.2 CERVICAL PAP SMEAR 08/09/2012 CEDILLO DO, HARLEEN K 625.0 DYSPAREUNIA 08/09/2012 CEDILLO DO, HARLEEN K V76.2 CERVICAL PAP SMEAR 08/09/2012 NICHOLAS ROCK SINGER, PASQUALE A 625.0 DYSPAREUNIA 08/09/2012 NICHOLAS ROCK SINGER, PASQUALE A V76.2 CERVICAL PAP SMEAR 08/09/2012 CEDILLO DO, HARLEEN K 625.0 DYSPAREUNIA 08/09/2012 CEDILLO DO, HARLEEN K V76.2 CERVICAL PAP SMEAR 12/07/2012 682.9 CELLULITIS AND ABSCESS OF UNSPECIFIED SITES 12/07/2012 682.9 CELLULITIS AND ABSCESS OF UNSPECIFIED SITES 12/07/2012 682.9 CELLULITIS AND ABSCESS OF UNSPECIFIED SITES 12/07/2012 CEDILLO DO, HARLEEN K 682.9 CELLULITIS AND ABSCESS OF UNSPECIFIED SITES 12/07/2012 CEDILLO DO, HARLEEN K 682.9 CELLULITIS AND ABSCESS OF UNSPECIFIED SITES 12/07/2012 CEDILLO DO, HARLEEN K 682.9 CELLULITIS AND ABSCESS OF UNSPECIFIED SITES 12/07/2012 CEDILLO DO, HALREEN K 682.9 CELLULITIS AND ABSCESS OF UNSPECIFIED SITES 12/07/2012 CEDILLO DO, HARLEEN K 682.9 CELLULITIS AND ABSCESS OF UNSPECIFIED SITES 12/07/2012 CEDILLO DO, HARLEEN K 682.9 CELLULITIS AND ABSCESS OF UNSPECIFIED SITES 12/07/2012 CEDILLO DO, HARLEEN K 682.9 CELLULITIS AND ABSCESS OF UNSPECIFIED SITES 12/07/2012 CEDILLO DO, HARLEEN K 682.9 CELLULITIS AND ABSCESS OF UNSPECIFIED SITES 12/07/2012 CEDILLO DO, HARLEEN K 682.9 CELLULITIS AND ABSCESS OF UNSPECIFIED SITES 12/07/2012 CEDILLO DO, HARLEEN K 682.9 CELLULITIS AND ABSCESS OF UNSPECIFIED SITES 12/07/2012 CEDILLO DO, HARLEEN K 682.9 CELLULITIS AND ABSCESS OF UNSPECIFIED SITES 12/07/2012 CEDILLO DO, HARLEEN K 682.9 CELLULITIS AND ABSCESS OF UNSPECIFIED SITES 12/07/2012 CEDILLO DO, HARLEEN K 682.9 CELLULITIS AND ABSCESS OF UNSPECIFIED SITES 12/07/2012 PASQUALE PETERSON APRN 682.9 CELLULITIS AND ABSCESS OF UNSPECIFIED SITES 12/07/2012 CEDILLO DO, HARLEEN K 682.9 CELLULITIS AND ABSCESS OF UNSPECIFIED SITES 12/11/2012 V58.31 WOUND DRESSING 12/11/2012 CEDILLO DO, HARLEEN K V58.31 WOUND DRESSING 12/11/2012 CEDILLO DO, HARLEEN K V58.31 WOUND DRESSING 12/11/2012 CEDILLO DO, HARLEEN K V58.31 WOUND DRESSING 12/11/2012 CEDILLO DO, HARLEEN K V58.31 WOUND DRESSING 12/11/2012 CEDILLO DO, HARLEEN K V58.31 WOUND DRESSING 12/11/2012 CEDILLO DO, HARLEEN K V58.31 WOUND DRESSING 12/11/2012 CEDILLO DO, HARLEEN K V58.31 WOUND DRESSING 12/11/2012 CEDILLO DO, HARLEEN K V58.31 WOUND DRESSING 12/11/2012 CEDILLO DO, HARLEEN K V58.31 WOUND DRESSING 12/11/2012 CEDILLO DO, HARLEEN K V58.31 WOUND DRESSING 12/11/2012 CEDILLO DO, HARLEEN K V58.31 WOUND DRESSING 12/11/2012 CEDILLO DO, HARLEEN K V58.31 WOUND DRESSING 12/11/2012 CEDILLO DO, HARLEEN K V58.31 WOUND DRESSING 12/11/2012 NICHOLAS ESCALANTE PASQUALE A V58.31 WOUND DRESSING 12/11/2012 CEDILLO DO, HARLEEN K V58.31 WOUND DRESSING 02/11/2013 CEDILLO DO, HARLEEN K 305.1 NONDEPENDENT TOBACCO USE DISORDER 02/11/2013 CEDILLO DO, HARLEEN K 786.05 SHORTNESS OF BREATH 02/11/2013 CEDILLO DO, HARLEEN K 305.1 NONDEPENDENT TOBACCO USE DISORDER 02/11/2013 CEDILLO DO, HARLEEN K 786.05 SHORTNESS OF BREATH 02/11/2013 CEDILLO DO, HARLEEN K 305.1 NONDEPENDENT TOBACCO USE DISORDER 02/11/2013 CEDILLO DO, HARLEEN K 786.05 SHORTNESS OF BREATH 02/11/2013 ECDILLO DO, HARLEEN K 305.1 NONDEPENDENT TOBACCO USE DISORDER 02/11/2013 CEDILLO DO, HARLEEN K 786.05 SHORTNESS OF BREATH 02/11/2013 CEDILLO DO, HARLEEN K 305.1 NONDEPENDENT TOBACCO USE DISORDER 02/11/2013 CEDILLO DO, HARLEEN K 786.05 SHORTNESS OF BREATH 02/11/2013 CEDILLO DO, HARLEEN K 305.1 NONDEPENDENT TOBACCO USE DISORDER 02/11/2013 CEDILLO DO, HARLEEN K 786.05 SHORTNESS OF BREATH 02/11/2013 CEDILLO DO, HARLEEN K 305.1 NONDEPENDENT TOBACCO USE DISORDER 02/11/2013 CEDILLO DO, HARLEEN K 786.05 SHORTNESS OF BREATH 02/11/2013 CEDILLO DO, HARLEEN K 305.1 NONDEPENDENT TOBACCO USE DISORDER 02/11/2013 CEDILLO DO, HARLEEN K 786.05 SHORTNESS OF BREATH 02/11/2013 CEDILLO DO, HARLEEN K 305.1 NONDEPENDENT TOBACCO USE DISORDER 02/11/2013 CEDILLO DO, HARLEEN K 786.05 SHORTNESS OF BREATH 02/11/2013 CEDILLO DO, HARLEEN K 305.1 NONDEPENDENT TOBACCO USE DISORDER 02/11/2013 CEDILLO DO, HARLEEN K 786.05 SHORTNESS OF BREATH 02/11/2013 CEDILLO DO, HARLEEN K 305.1 NONDEPENDENT TOBACCO USE DISORDER 02/11/2013 CEDILLO DO, HARLEEN K 786.05 SHORTNESS OF BREATH 02/11/2013 CEDILLO DO, HARLEEN K 305.1 NONDEPENDENT TOBACCO USE DISORDER 02/11/2013 CEDILLO DO, HARLEEN K 786.05 SHORTNESS OF BREATH 02/11/2013 CEDILLO DO, HARLEEN K 305.1 NONDEPENDENT TOBACCO USE DISORDER 02/11/2013 CEDILLO DO, HARLEEN K 786.05 SHORTNESS OF BREATH 02/11/2013 NICHOLAS ROCK SINGER, PASQUALE A 305.1 NONDEPENDENT TOBACCO USE DISORDER 02/11/2013 NICHOLAS ROCK SINGER, PASQUALE A 786.05 SHORTNESS OF BREATH 02/11/2013 CEDILLO DO, HARLEEN K 305.1 NONDEPENDENT TOBACCO USE DISORDER 02/11/2013 CEDILLO DO, HARLEEN K 786.05 SHORTNESS OF BREATH 02/14/2013 CEDILLO DO, HARLEEN K 496 COPD 02/14/2013 CEDILLO DO, HARLEEN K V15.82 Nicotine abuse 02/14/2013 CEDILLO DO, HARLEEN K 496 COPD 02/14/2013 CEDILLO DO, HARLEEN K V15.82 Nicotine abuse 02/14/2013 CEDILLO DO, HARLEEN K 496 COPD 02/14/2013 CEDILLO DO, HARLEEN K V15.82 Nicotine abuse 02/14/2013 CEDILLO DO, HARLEEN K 496 COPD 02/14/2013 CEDILLO DO, HARLEEN K V15.82 Nicotine abuse 02/14/2013 CEDILLO DO, HARLEEN K 496 COPD 02/14/2013 CEDILLO DO, HARLEEN K V15.82 Nicotine abuse 02/14/2013 CEDILLO DO, HARLEEN K 496 COPD 02/14/2013 CEDILLO DO, HARLEEN K V15.82 Nicotine abuse 02/14/2013 CEDILLO DO, HARLEEN K 496 COPD 02/14/2013 CEDILLO DO, HARLEEN K V15.82 Nicotine abuse 02/14/2013 CEDILLO DO, HARLEEN K 496 COPD 02/14/2013 CEDILLO DO, HARLEEN K V15.82 Nicotine abuse 02/14/2013 CEDILLO DO, HARLEEN K 496 COPD 02/14/2013 CEDILLO DO, HARLEEN K V15.82 Nicotine abuse 02/14/2013 CEDILLO DO, HARLEEN K 496 COPD 02/14/2013 CEDILLO DO, HARLEEN K V15.82 Nicotine abuse 02/14/2013 CEDILLO DO, HARLEEN K 496 COPD 02/14/2013 CEDILLO DO, HARLEEN K V15.82 Nicotine abuse 02/14/2013 CEDILLO DO, HARLEEN K 496 COPD 02/14/2013 CEDILLO DO, HARLEEN K V15.82 Nicotine abuse 02/14/2013 CEDILLO DO, HARLEEN K 496 COPD 02/14/2013 CEDILLO DO, HARLEEN K V15.82 Nicotine abuse 02/14/2013 NICHOLAS ROCK SINGER, PASQUALE A 496 COPD 02/14/2013 NICHOLAS ROCK SINGER, PASQUALE A V15.82 Nicotine abuse 02/14/2013 CEDILLO DO, HARLEEN K 496 COPD 02/14/2013 CEDILLO DO, HARLEEN K V15.82 NICOTINE ABUSE 03/13/2013 CEDILLO DO, HARLEEN K 786.09 RESPIRATORY ABNORMALITY OTHER 03/13/2013 CEDILLO DO, HARLEEN K 789.00 ABDOMINAL PAIN UNSPECIFIED SITE 03/13/2013 CEDILLO DO, HARLEEN K 786.09 RESPIRATORY ABNORMALITY OTHER 03/13/2013 CEDILLO DO, HARLEEN K 789.00 ABDOMINAL PAIN UNSPECIFIED SITE 03/13/2013 CEDILLO DO, HARLEEN K 786.09 RESPIRATORY ABNORMALITY OTHER 03/13/2013 CEDILLO DO, HARLEEN K 789.00 ABDOMINAL PAIN UNSPECIFIED SITE 03/13/2013 CEDILLO DO, HARLEEN K 786.09 RESPIRATORY ABNORMALITY OTHER 03/13/2013 CEDILLO DO, HARLEEN K 789.00 ABDOMINAL PAIN UNSPECIFIED SITE 03/13/2013 CEDILLO DO, HARLEEN K 786.09 RESPIRATORY ABNORMALITY OTHER 03/13/2013 CEDILLO DO, HARLEEN K 789.00 ABDOMINAL PAIN UNSPECIFIED SITE 03/13/2013 CEDILLO DO, HARLEEN K 786.09 RESPIRATORY ABNORMALITY OTHER 03/13/2013 CEDILLO DO, HARLEEN K 789.00 ABDOMINAL PAIN UNSPECIFIED SITE 03/13/2013 CEDILLO DO, HARLEEN K 786.09 RESPIRATORY ABNORMALITY OTHER 03/13/2013 CEDILLO DO, HARLEEN K 789.00 ABDOMINAL PAIN UNSPECIFIED SITE 03/13/2013 CEDILLO DO, HARLEEN K 786.09 RESPIRATORY ABNORMALITY OTHER 03/13/2013 CEDILLO DO, HARLEEN K 789.00 ABDOMINAL PAIN UNSPECIFIED SITE 03/13/2013 CEDILLO DO, HARLEEN K 786.09 RESPIRATORY ABNORMALITY OTHER 03/13/2013 CEDILLO DO, HARLEEN K 789.00 ABDOMINAL PAIN UNSPECIFIED SITE 03/13/2013 CEDILLO DO, HARLEEN K 786.09 RESPIRATORY ABNORMALITY OTHER 03/13/2013 CEDILLO DO, HARLEEN K 789.00 ABDOMINAL PAIN UNSPECIFIED SITE 03/13/2013 CEDILLO DO, HARLEEN K 786.09 RESPIRATORY ABNORMALITY OTHER 03/13/2013 CEDILLO DO, HARLEEN K 789.00 ABDOMINAL PAIN UNSPECIFIED SITE 03/13/2013 CEDILLO DO, HARLEEN K 786.09 RESPIRATORY ABNORMALITY OTHER 03/13/2013 CEDILLO DO, HARLEEN K 789.00 ABDOMINAL PAIN UNSPECIFIED SITE 03/13/2013 NICHOLAS ROCK SINGER, PASQUALE A 786.09 RESPIRATORY ABNORMALITY OTHER 03/13/2013 NICHOLAS ROCK SINGER, PASQUALE A 789.00 ABDOMINAL PAIN UNSPECIFIED SITE 03/13/2013 CEDILLO DO, HARLEEN K 786.09 RESPIRATORY ABNORMALITY OTHER 03/13/2013 CEDILLO DO, HARLEEN K 789.00 ABDOMINAL PAIN UNSPECIFIED SITE 04/07/2013 CEDILLO DO, HARLEEN K 799.02 HYPOXEMIA 04/07/2013 CEDILLO DO, HARLEEN K 799.02 HYPOXEMIA 04/07/2013 CEDILLO DO, HARLEEN K 799.02 HYPOXEMIA 04/07/2013 CEDILLO DO, HARLEEN K 799.02 HYPOXEMIA 04/07/2013 CEDILLO DO, HARLEEN K 799.02 HYPOXEMIA 04/07/2013 CEDILLO DO, HARLEEN K 799.02 HYPOXEMIA 04/07/2013 CEDILLO DO, HARLEEN K 799.02 HYPOXEMIA 04/07/2013 CEDILLO DO, HARLEEN K 799.02 HYPOXEMIA 04/07/2013 CEDILLO DO, HARLEEN K 799.02 HYPOXEMIA 04/07/2013 CEDILLO DO, HARLEEN K 799.02 HYPOXEMIA 04/07/2013 CEDILLO DO, HARLEEN K 799.02 HYPOXEMIA 04/07/2013 CEDILLO DO, HARLEEN K 799.02 HYPOXEMIA 04/07/2013 NICHOLAS ROCK SINGER, PASQUALE A 799.02 HYPOXEMIA 04/07/2013 CEDILLO DO, HARLEEN K 799.02 HYPOXEMIA 10/27/2013 CEDILLO DO, HARLEEN K 112.1 CANDIDIASIS OF VULVA AND VAGINA 10/27/2013 HARLEEN CEDILLO DO 112.1 CANDIDIASIS OF VULVA AND VAGINA 10/27/2013 HARLEEN CEDILLO DO 112.1 CANDIDIASIS OF VULVA AND VAGINA 10/27/2013 HARLEEN CEDILLO DO 112.1 CANDIDIASIS OF VULVA AND VAGINA 10/27/2013 HARLEEN CEDILLO DO 112.1 CANDIDIASIS OF VULVA AND VAGINA 10/27/2013 THOMAS PETERSON APRNIDI A 112.1 CANDIDIASIS OF VULVA AND VAGINA 10/27/2013 HARLEEN CEDILLO DO 112.1 CANDIDIASIS OF VULVA AND VAGINA 06/29/2014 THOMAS PETERSON APRNIDI A 599.0 URINARY TRACT INFECTION 06/29/2014 HARLEEN CEDILLO DO 599.0 URINARY TRACT INFECTION 07/03/2014 LETI CARBALLO MD Ot 054.9 HERPES SIMPLEX NOS 07/03/2014 LETI CARBALLO MD Ot 250.80 DIAB W OTH SPEC MANIFEST, TYPE II OR UNS 07/03/2014 LETI CARBALLO MD Ot 272.4 HYPERLIPIDEMIA NEC/NOS 07/03/2014 LEIT CARBALLO MD Ot 276.51 DEHYDRATION 07/03/2014 LETI CARBALLO MD Ot 305.1 TOBACCO USE DISORDER 07/03/2014 LETI CARBALLO MD Ot 401.9 HYPERTENSION NOS 07/03/2014 LETI CARBALLO MD Ot 496 CHR AIRWAY OBSTRUCT NEC 07/03/2014 LETI CARBALLO MD Ot 584.9 ACUTE RENAL FAILURE, UNSPECIFIED 07/03/2014 LETI CARBALLO MD Ot 599.0 URIN TRACT INFECTION NOS 07/03/2014 LETI CARBALLO MD Ot V03.82 PROPHYLACTIC VACC AGAINST STREPTOCOCCUS 07/07/2014 HARLEEN CEDILLO DO 250.80 DIABETES WITH OTHER SPECIFIED MANIFESTATIONS TYPE II OR UNSPECIFIED TYPE NOT STATED UNCONTROLLED 07/07/2014 HARLEEN CEDILLO DO 709.9 UNSPECIFIED DISORDER OF SKIN AND SUBCUTANEOUS TISSUE 08/24/2017 LETI CARBALLO MD Ot R31.0 GROSS HEMATURIA 08/24/2017 LETI CARBALLO MD Ot Z85.44 PERSONAL HISTORY OF MALIG NEOPLASM OF FE 08/29/2017 LETI CARBALLO MD Ot R31.0 GROSS HEMATURIA 08/29/2017 LETI CARBALLO MD Ot Z85.44 PERSONAL HISTORY OF MALIG NEOPLASM OF FE 09/12/2017 LETI CARBALLO MD, Ot R31.0 GROSS HEMATURIA 09/12/2017 LETI CARBALLO MD Ot Z85.44 PERSONAL HISTORY OF MALIG NEOPLASM OF FE Procedures Code [place] [address] A1C (IN-HOUSE) 05/10/2012 83444 ROUTINE VENIPUNCTURE 05/10/2012 35295 CMP 05/10/2012 5852614 GFR CALC (RESULT ONLY) 05/10/2012 72516 ROUTINE VENIPUNCTURE 08/09/2012 15747 A1C (IN-HOUSE) 08/09/2012 64167 CMP 08/09/2012 07408 LIPID PANEL 08/09/2012 1659910 GFR CALC (RESULT ONLY) 08/09/2012 45254 MAMMOGRAM, SCREENING 08/09/2012 90771 CULTURE UROGENITAL 08/09/2012 75516 PAP SMEAR 08/09/2012 Q0091 PAP SMEAR OBTAIN SMEAR 08/09/2012 30306 ROUTINE VENIPUNCTURE 02/11/2013 61023 MICRO ALBUMIN-IN HOUSE 02/11/2013 07984 A1C (IN-HOUSE) 02/11/2013 61496 MICROALBUMIN 02/11/2013 12129 CMP 02/11/2013 59728 LIPID PANEL 02/11/2013 1499144 GFR CALC (RESULT ONLY) 02/11/2013 94792 PULMONARY FUNCTION TEST (IN- HOUSE) 02/14/2013 27599 BRONCHODILATION PRE/POST 02/14/2013 90814 RESPIRATORY FLOW VOLUME LOOP 02/14/2013 36234 PULMONARY EDUCATION 02/14/2013 G0437 TOBACCO-USE WRAPPER DIPPER>10MIN 02/14/2013 69058 OXIMETRY - OVERNIGHT 03/13/2013 86417 A1C (IN-HOUSE) 05/30/2013 59839 ROUTINE VENIPUNCTURE 07/31/2013 1107825 GFR CALC (RESULT ONLY) 07/31/2013 27577 CMP 07/31/2013 28941 MICRO ALBUMIN-IN HOUSE 10/27/2013 76008 A1C (IN-HOUSE) 10/27/2013 58967 UA LONG DIP 10/27/2013 2028F FOOT EXAM PERFORMED 10/27/2013 61988 EYE EXAM PERFORMED 10/28/2013 16817 ROUTINE VENIPUNCTURE 02/24/2014 87296 A1C (IN-HOUSE) 02/24/2014 97448 XRAY CHEST 2 VIEW 02/24/2014 1093146 GFR CALC (RESULT ONLY) 02/24/2014 55934 CMP 02/24/2014 Ophthalmo [facility] 03/12/2014 67949 OXIMETRY 04/14/2014 61530 UA W/ CULTURE IF INDICATED 06/29/2014 19253 CULTURE URINE 07/01/2014 Results Test Result Range CBC With Differential/Platelet - 08/01/16 12:05 WBC 8.6 x10E3/uL 3.4-10.8 RBC 4.87 x10E6/uL 3.77-5.28 Hemoglobin 14.6 g/dL 11.1-15.9 Hematocrit 44.8 % 34.0-46.6 MCV 92 fL 79-97 MCH 30.0 pg 26.6-33.0 MCHC 32.6 g/dL 31.5-35.7 RDW 15.6 % 12.3-15.4 Platelets 273 x10E3/uL 150-379 Neutrophils 67 % Lymphs 24 % Monocytes 6 % Eos 3 % Basos 0 % Neutrophils (Absolute) 5.8 x10E3/uL 1.4-7.0 Lymphs (Absolute) 2.1 x10E3/uL 0.7-3.1 Monocytes(Absolute) 0.5 x10E3/uL 0.1-0.9 Eos (Absolute) 0.3 x10E3/uL 0.0-0.4 Baso (Absolute) 0.0 x10E3/uL 0.0-0.2 Immature Granulocytes 0 % Immature Grans (Abs) 0.0 x10E3/uL 0.0-0.1 Comp. Metabolic Panel (14) - 08/01/16 12:05 Glucose, Serum 104 mg/dL 65-99 BUN 9 mg/dL 8-27 Creatinine, Serum 0.60 mg/dL 0.57-1.00 eGFR If NonAfricn Am 99 mL/min/1.73 >59 eGFR If Africn Am 115 mL/min/1.73 >59 BUN/Creatinine Ratio 15 11-26 Sodium, Serum 140 mmol/L 134-144 Potassium, Serum 4.2 mmol/L 3.5-5.2 Chloride, Serum 95 mmol/L 96-106 Carbon Dioxide, Total 30 mmol/L 18-29 Calcium, Serum 9.3 mg/dL 8.7-10.3 Protein, Total, Serum 7.1 g/dL 6.0-8.5 Albumin, Serum 4.5 g/dL 3.6-4.8 Globulin, Total 2.6 g/dL 1.5-4.5 A/G Ratio 1.7 1.1-2.5 Bilirubin, Total 0.3 mg/dL 0.0-1.2 Alkaline Phosphatase, S 58 IU/L 39-117 AST (SGOT) 14 IU/L 0-40 ALT (SGPT) 12 IU/L 0-32 Lipid Panel - 08/01/16 12:05 Cholesterol, Total 147 mg/dL 100-199 Triglycerides 137 mg/dL 0-149 HDL Cholesterol 34 mg/dL >39 VLDL Cholesterol Maxime 27 mg/dL 5-40 LDL Cholesterol Calc 86 mg/dL 0-99 A1C - 04/25/17 08:54 HEMOGLOBIN A1c 6.9 % of total Hgb <5.7 SUREPATH PAP AND HPV mRNA E6/E7 - 08/15/17 14:33 CLINICAL INFORMATION: NR LMP: 2006 NRG PREV. PAP: NORMAL NRG PREV. BX: NONE NRG SOURCE: [employer] NR STATEMENT OF ADEQUACY: NR INTERPRETATION/RESULT: [employer] [facility] [facility] [employer]MENT [employer]SEM[employer]ER: NR HPV mRNA E6/E7, SUREPATH VIAL Not Detected NOT DETECTED CULTURE, URINE - 08/15/17 14:33 CULTURE, URINE, ROUTINE SEE NOTE [employer] [facility] [employer] Comprehensive metabolic panel - 08/23/17 13:18 Serum or plasma sodium measurement (moles/volume) 138 mmol/L 135-145 Serum or plasma potassium measurement (moles/volume) 3.9 mmol/L 3.6-5.0 Serum or plasma chloride measurement (moles/volume) 99 mmol/L 98-107 Carbon dioxide 29 mmol/L 21-32 Serum or plasma anion gap determination (moles/volume) 10 mmol/L 5-14 Serum or plasma urea nitrogen measurement (mass/volume) 16 mg/dL 7-18 Serum or plasma creatinine measurement (mass/volume) 0.78 mg/dL 0.60-1.30 Serum or plasma urea nitrogen/creatinine mass ratio 21 NRG Serum or plasma creatinine measurement with calculation of estimated glomerular filtration rate > NRG Serum or plasma glucose measurement (mass/volume) 119 mg/dL 70-105 Serum or plasma calcium measurement (mass/volume) 9.4 mg/dL 8.5-10.1 Serum or plasma total bilirubin measurement (mass/volume) 0.3 mg/dL 0.1-1.0 Serum or plasma alkaline phosphatase measurement (enzymatic activity/volume) 46 U/L 40-136 Serum or plasma aspartate aminotransferase measurement (enzymatic activity/ volume) 15 U/L 5-34 Serum or plasma alanine aminotransferase measurement (enzymatic activity/volume ) 12 U/L 0-55 Serum or plasma protein measurement (mass/volume) 7.6 g/dL 6.4-8.2 Serum or plasma albumin measurement (mass/volume) 4.4 g/dL 3.2-4.5 Encounters ACCT No. Visit Date/Time Discharge Status Pt. Type Provider Facility Loc./Unit Complaint [id number] 08/23/2017 13:14:00 08/23/2017 23:59:59 CLS Outpatient LETI CARBALLO MD Via [facility] RAD GROSS HEMATURIA [id number] 07/02/2014 19:35:00 07/03/2014 15:32:00 DIS Inpatient LETI CARBALLO MD [facility] 4TH RLL PNEUMONIA, HYPOGLYCEMIA,DEHYDRATION,UTI [id number] 11/09/2017 09:30:00 PEN Preadmit SHLOMO CHENG MD [facility] CATARACT RIGHT EYE [id number] 08/02/2016 08:45:00 Document Registration [id number] 07/02/2014 16:31:00 07/02/2014 23:59:59 CLS Outpatient HARLEEN CEDILLO DO [id number] 06/29/2014 11:17:00 06/29/2014 23:59:59 CLS Outpatient PASQUALE PETERSON APRN [id number] 04/14/2014 09:58:00 04/14/2014 23:59:59 CLS Outpatient HARLEEN CEDILLO DO [id number] 02/24/2014 08:51:00 02/24/2014 23:59:59 CLS Outpatient HARLEEN CEDILLO DO [id number] 02/24/2014 08:51:00 02/24/2014 23:59:59 CLS Outpatient HARLEEN CEDILLO DO [id number] 10/28/2013 08:45:00 10/28/2013 23:59:59 CLS Outpatient CEDILLO DOHARLEEN [id number] 10/27/2013 10:52:00 10/27/2013 23:59:59 CLS Outpatient CEDILLO DOHARLEEN [id number] 07/31/2013 07:48:00 07/31/2013 23:59:59 CLS Outpatient CEDILLO DOHARLEEN [id number] 07/31/2013 07:48:00 07/31/2013 23:59:59 CLS Outpatient CEDILLO DOHARLEEN [id number] 06/30/2013 11:46:00 06/30/2013 23:59:59 CLS Outpatient CEDILLO DOHARLEEN [id number] 06/26/2013 00:00:00 06/26/2013 23:59:59 CLS Outpatient CEDILLO DOHARLEEN [id number] 05/30/2013 09:15:00 05/30/2013 23:59:59 CLS Outpatient CEDILLO DOHARLEEN [id number] 04/09/2013 00:00:00 04/09/2013 23:59:59 CLS Outpatient CEDILLO DOHARLEEN [id number] 03/13/2013 10:20:00 03/13/2013 23:59:59 CLS Outpatient CEDILLO DOHARLEEN [id number] 02/14/2013 10:48:00 02/14/2013 23:59:59 CLS Outpatient CEDILLO DOHARLEEN [id number] 08/09/2012 08:58:00 08/09/2012 23:59:59 CLS Outpatient CEDILLO DOHARLEEN [id number] 05/10/2012 08:45:00 05/10/2012 23:59:59 CLS Outpatient CEDILLO DOHARLEEN [id number] 05/10/2012 08:45:00 05/10/2012 23:59:59 CLS Outpatient [id number] 12/11/2012 18:23:00 Document Registration [id number] 12/09/2012 09:54:00 Document Registration [id number] 12/07/2012 14:20:00 Document Registration [id number] 10/23/2017 11:00:00 10/23/2017 23:59:59 CLS Outpatient [facility]Y [facility]INT[facility]RE [facility] [id number] 08/15/2017 13:40:00 Document Registration [id number] 04/25/2017 08:40:00 Document Registration
[2017-11-09] MEDS ORDERED: VANCOMYCIN/BSS (COMPOUNDED) 10 MG/ML SYR OP ONE (08:00)
[2017-11-09] MEDS ORDERED: TIMOLOL MALEATE 0.5% 5 ML (TIMOPTIC) BTL OU PRN (08:00)
[2017-11-09] MEDS ORDERED: EPINEPHrine INJECTION 1 MG/ML AMP INJ ONE (08:00)
[2017-11-09] MEDS ORDERED: POVIDONE (BETADINE) OPHTH SOLN 5% 30 ML OP ONE (08:00)
[2017-11-09] MEDS ORDERED: LIDOCAINE PF 1% 2 ML AMP IR PRN (08:00)
[2017-11-09] MEDS: TETRACAINE 0.5% OPHTH SOLN 4 ML BTL (SINGLE DOSE ONLY) OU PRN ×4 (08:01→08:16)
[2017-11-09 08:03] VITALS: BP 171/71
[2017-11-09] MEDS: CYCLOPENTOLATE 1% (CYCLOGYL) 2 ML DROPS OP SCH ×3 (08:08→08:17)
[2017-11-09] MEDS: PHENYLEPHRINE 10% OPHTH (NEO-SYN) 5 ML BTL OU SCH ×3 (08:08→08:17)
[2017-11-09] MEDS ORDERED: MIDAZOLAM 2 MG/2 ML (VERSED) VIAL ONE (08:30)
--- NOTE | 2017-11-09 08:46 | Ophthalmologist Pre-Op Note ---
Pre-Operative Progress Note H&P Reviewed The H&P was reviewed, patient examined and no changes noted. Date H&P Reviewed: Nov 09, 2017 Time H&P Reviewed: 08:46 Pre-Op Dx Cataract, Right Eye SHLOMO CHENG MD Nov 09, 2017 08:46
[2017-11-09] MEDS ORDERED: VANCOMYCIN/BSS (COMPOUNDED) 10 MG/ML SYR OP NR (09:00)
[2017-11-09] MEDS ORDERED: POVIDONE (BETADINE) OPHTH SOLN 5% 30 ML OP NR (09:00)
[2017-11-09] MEDS ORDERED: EPINEPHrine INJECTION 1 MG/ML AMP INJ NR (09:00)
--- NOTE | 2017-11-09 09:09 | Ophthalmology Operative Report ---
Cataract removal/placement IOL PREOPERATIVE DIAGNOSIS: Cataract Right Eye POSTOPERATIVE DIAGNOSIS: Cataract Right Eye PROCEDURE: Cataract removal and placement of posterior chamber implant, right eye SURGEON: Meng Cheng ANESTHESIA: Topical with sedation COMPLICATIONS: None ESTIMATED BLOOD LOSS: Minimal DESCRIPTION OF PROCEDURE: After proper informed consent was obtained, the patient, a 62 female, was taken to the Operating Room and the right eye was anesthetized with tetracaine. The right eye was then prepped and draped in the usual manner. A wire lid speculum was placed. A paracentesis was made at the left hand position. Preservative free lidocaine was injected into the anterior chamber followed by viscoelastic. A clear corneal incision was made in the temporal position. A capsulorrhexis was preformed and the central nuclear and cortical material were removed. The posterior capsule was polished and Patric 18.0 [id number] IOL was placed into the capsular bag. The residual viscoelastic was aspirated and balanced saline solution was injected into the anterior chamber. 0.1ml of Vancomycin (1mg/0.1ml ) was injected into the anterior chamber. The wound was checked and found to be water tight. The patient tolerated the procedure well without complications. MENG CHENG MD Nov 09, 2017 09:09
[2017-11-09 09:16] VITALS: BP 145/82
--- NOTE | 2017-11-09 13:50 | Anesthesia-General Post-Op ---
MAC Patient Condition Mental Status/LOC: Same as Preop Cardiovascular: Satisfactory Nausea/Vomiting: Absent Respiratory: Satisfactory Pain: Controlled Complications: Absent Post Op Complications Complications None Follow Up Care/Instructions Patient Instructions None needed. Anesthesiology Discharge Order Discharge Order Patient is doing well, no complaints, stable vital signs, no apparent adverse anesthesia problems. No complications reported per nursing. ADALGISA JAY CRNA Nov 09, 2017 13:50
== END 2017-11-09 09:16 | disposition home or self-care (01) ==
LOC: SDC 07:40
PROVIDERS: ATTEND Specialist
DX: H25.11 Age-related nuclear cataract, right eye (principal); I10 Essential (primary) hypertension; E78.5 Hyperlipidemia, unspecified; J44.9 Chronic obstructive pulmonary disease, unspecified; E11.9 Type 2 diabetes mellitus without complications; Z85.44 Personal history of malignant neoplasm of other female genital organs; Z79.84 Long term (current) use of oral hypoglycemic drugs; Z79.899 Other long term (current) drug therapy; F17.210 Nicotine dependence, cigarettes, uncomplicated; Z92.3 Personal history of irradiation; Z92.23 Personal history of estrogen therapy
CPT/HCPCS: 82962

== ENCOUNTER → 2017-11-21 | Outpatient (CLI) | payer MEDICARE ==
[~2017-11-21] VITALS: Ht 160 cm; Wt 83.9 kg
== END ==
LOC: PREOP 05:49
PROVIDERS: ATTEND Specialist
DX: Z01.818 Encounter for other preprocedural examination (principal)

== ENCOUNTER 2017-11-23 06:47 | Day surgery (SDC) | payer MEDICARE ==
[~2017-11-23] VITALS: Ht 160 cm; Wt 83.9 kg
--- OUTSIDE RECORDS SUMMARY | 2017-11-23 06:55 | XMS REPORT ---
Author Author DUSTY MCINTYRE [facility] Address [address] [place] [address] Care Team Providers Care Fire Alarm Dispatcher Name Role Phone DUSTY MCINTYRE Unavailable PROBLEMS Type Condition ICD9-CM Code EQI80-WW Code Onset Dates Condition Status SNOMED Code Problem COPD (chronic obstructive pulmonary disease) J44.9 Active 92128112 Problem Hypercholesterolemia E78.0 Active 35846942 Problem HTN (hypertension) I10 Active 62771410 Problem Nephrolithiasis N20.0 Active 48929437 Problem Supplemental oxygen dependent Z99.81 Active [id number] Problem Tobacco use Z72.0 Active 092449438 Problem 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 197172595 Problem Type 2 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.29 Active 05573583 Problem Proteinuria, unspecified R80.9 Active [id number] ALLERGIES No Information ENCOUNTERS Encounter Location Date Diagnosis [facility] [id number] [place] [address] 73838- 8113 October, [facility] [id number] [place] [address] 51070- 7642 October, Medicare annual wellness visit, initial Z00.00 ; Type 2 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.29 ; COPD ( chronic obstructive pulmonary disease) J44.9 ; HTN (hypertension) I10 ; Hypercholesterolemia E78.0 and Encounter for immunization Z23 [facility] [id number] [place] [address] 13748- 9280 October, [facility] [id number] [place] [address] 66158- 3238 Aug, Nephrolithiasis N20.0 [facility] [id number] [place] [address] 02419- 2871 Aug, Gross hematuria R31.0 [place] [address] [address] 9760 13 Aug, 2017 Gross hematuria R31.0 [place] [id number] [place] [address] 44346- 5046 Aug, Gross hematuria R31.0 and Screening for cervical cancer Z12.4 [place] [id number] [place] [address] 17089- 1083 Aug, [place] [id number] [place] [address] 78621- 7330 Jul, COPD (chronic obstructive pulmonary disease) J44.9 [place] [id number] [place] [address] 91206- 8183 Jul, [place] [id number] [place] [address] 39453- 4215 Jun, [place] [id number] [place] [address] 53977- 1250 May, [place] [id number] [place] [address] 73064- 4833 Apr, Type 2 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.29 ; COPD (chronic obstructive pulmonary disease) J44.9 ; Proteinuria, unspecified R80.9 ; Tobacco use Z72.0 and Screening for lipid disorders Z13.220 [place] [id number] [place] [address] 19005- 6010 13 Apr, 2017 COPD (chronic obstructive pulmonary disease) J44.9 ; Type 2 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.29 ; Proteinuria, unspecified R80.9 ; Tobacco use Z72.0 ; Screening for lipid disorders Z13.220 and Supplemental oxygen dependent Z99.[id number] [place] [address] 17506- 8769 05 Mar, 2017 Diabetes E11.9 and Encounter for immunization Z23 [place] [id number] [place] [address] 03411- 1220 Dec, [facility] [address] [address] 8708 Dec, Diabetes E11.9 [facility] [address] [address]- 9746 Dec, [facility] [address] [address]- 6836 Dec, [facility] [address] [address]- 4536 Sep, [facility] [address] [address]- 8594 Sep, [facility] [address] [address]- 8948 15 Aug, 2016 COPD (chronic obstructive pulmonary disease) J44.9 [facility] [address] [address] 0628 Aug, COPD (chronic obstructive pulmonary disease) J44.9 [facility] [address] [address]- 2382 Aug, COPD (chronic obstructive pulmonary disease) J44.9 [facility] [address] [address]- 4819 Jul, Diabetes E11.9 ; COPD (chronic obstructive pulmonary disease ) J44.9 ; HTN (hypertension) I10 and Hypercholesterolemia E78.00 [facility] [address] [address]- 3342 Jul, [facility] [id number] [address]- 6838 May, [facility] [address] [address]- 5225 May, COPD (chronic obstructive pulmonary disease) J44.9 [facility] [id number] [address]- 7967 May, [facility] [address] [address]- 6906 May, [facility] [id number] [place] [address] 01838- 8191 Apr, [facility] [id number] [address]- 2807 Apr, [facility] [id number] [place] [address] 92804- 9992 Apr, Diabetes E11.9 ; COPD (chronic obstructive pulmonary disease ) J44.9 ; HTN (hypertension) I10 and Hypercholesterolemia E78.0 [facility] [id number] [place] [address] 16780 -4685 Mar, Impacted cerumen of right ear H61.21 [facility] [id number] [place] [address] 68411- 4295 Mar, [facility] [id number] [place] [address] 14139- 4348 Feb, [facility] [id number] [place] [address] 60931- 3363 Feb, [facility] [id number] [place] [address] 18375- 3540 Jan, [facility] [address] [address]- 4811 Jan, [facility] [id number] [place] [address] 23177- 2362 Dec, [facility] [address] [address]- 4012 Nov, Diabetes E11.9 ; COPD (chronic obstructive pulmonary disease ) J44.9 ; HTN (hypertension) I10 ; Hypercholesterolemia E78.0 and Type 2 diabetes mellitus with other circulatory complications E11.59 [facility] [address] [address]- 5483 Jun, Diabetes E11.9 [place] [id number] [place] [address] 34784- 3429 Jun, COPD (chronic obstructive pulmonary disease) J44.9 [facility] [id number] [place] [address] 29531- 0317 Jun, [facility] [id number] [place] [address] 83644- 1442 Jun, COPD (chronic obstructive pulmonary disease) J44.9 ; Type 2 diabetes mellitus with other circulatory complications E11.59 ; HTN ( hypertension) I10 and Hypercholesterolemia E78.0 [place] [id number] [place] [address] 21262- 8018 Mar, COPD (chronic obstructive pulmonary disease) J44.9 ; Diabetes E11.9 ; HTN (hypertension) I10 ; Hypercholesterolemia E78.0 and Vision changes H53.9 [place] [id number] [place] [address] 23845- 7377 Mar, [facility] [id number] [place] [address] 36170- 9085 Mar, [place] [id number] [place] [address] 63991- 2326 Feb, [place] [id number] [place] [address] 71786- 7690 Dec, Diabetes 250.00 ; Diabetes with other specified manifestations, type II or unspecified type, not stated as uncontrolled 250.80 ; Chronic airway obstruction, not elsewhere classified 496 ; Personal history of tobacco use, presenting hazards to health V15.82 ; Essential hypertension, malignant 401.0 and Hypercholesteremia 272.0 [place] [id number] [place] [address] 35780- 5183 Dec, [facility] [id number] [place] [address] 56231- 7996 Sep, [facility] [id number] [place] [address] 93904- 4141 Sep, [facility] [place] [facility] [address] [id number] [place] [address]- 8010 Sep, [facility] [place] [facility] [address] [id number] [place] [address]- 6576 Aug, [facility] [place] [facility] [address] [id number] [place] [address]- 8110 Aug, [facility] [place] [facility] [address] [id number] [place] [address]- 9903 Aug, [facility] [place] [facility] [address] [id number] [place] [address]- 3893 Aug, [facility] [place] [facility] [address] [id number] [place] [address]- 9285 Jul, [facility] [place] [facility] [address] [id number] [place] [address]- 3837 Jul, [facility] [place] [facility] [address] [id number] [place] [address]- 8420 Jun, [facility] [place] [facility] [address] [id number] [place] [address]- 8910 Jun, [facility] [place] [facility] [address] [id number] [place] [address]- 0717 Jun, [facility] [place] [facility] [address] [id number] [place] [address]- 0272 Jun, [facility] [place] [facility] [address] [id number] [place] [address]- 4519 Jun, [facility] [place] [facility] [address] [id number] [place] [address]- 7218 Jun, [facility] [place] [facility] [address] [id number] [place] [address]- 5513 Jun, [facility] [place] [facility] [address] [id number] [place] [address]- 3996 Jun, [facility] [place] [facility] [address] [id number] [address]- 1186 Jun, [facility] [place] [facility] [address] [id number] [place] [address]- 9980 Jun, [facility] [place] [facility] [address] [id number] [place] [address]- 1900 Jun, [facility] [place] [facility] [address] [id number] [place] [address]- 4577 Jun, [facility] [place] [facility] [address] [id number] [place] [address]- 6873 Apr, [facility] [place] [facility] [address] [id number] [place] [address]- 9524 Apr, [facility] [place] [facility] [address] [id number] [place] [address]- 3736 Apr, [facility] [place] [facility] [address] [id number] [place] [address]- 8879 Apr, [facility] [place] [facility] [address] [id number] [place] [address]- 7960 Mar, [facility] [place] [facility] [address] [id number] [place] [address]- 8670 Mar, [facility] [place] [facility] [address] [id number] [place] [address]- 0736 30 Feb, 2014 [facility] [place] [facility] [address] [id number] [address]- 0418 30 Feb, 2013 [facility] [place] [facility] [address] [id number], [place] [address]- 1046 17 Feb, 2013 [facility] [place] [facility] [address] [id number] [place] [address]- 2542 17 Feb, 2013 [facility] [place] [facility] [address] [id number] [place] [address]- 3814 16 Feb, 2013 [facility] [place] [facility] [address] [id number] [place] [address]- 0084 16 Feb, 2013 [facility] [place] [facility] [address] [id number] [place] [address]- 1826 Jan, [facility] [address] [id number] [place] [address]- 0334 Jan, [facility] [place] [facility] [address] [id number] [place] [address]- 6292 Nov, [facility] [address] [id number] [place] [address]- 0317 Nov, [facility] [address] [id number] [place] [address]- 5630 October, [facility] [address] [id number] [place] [address]- 0176 October, [facility] [address] [id number] [place] [address]- 8855 October, [facility] [address] [id number] [place] [address]- 0364 October, [facility] [address] [id number] [place] [address]- 4199 October, [facility] [address] [id number] [place] [address]- 7482 October, [facility] [address] [id number] [place] [address]- 9495 October, [facility] [address] [id number] [place] [address]- 3395 October, [facility] [address] [id number] [place] [address]- 5689 October, [facility] [place] [facility] [address] [id number] [place]167 October, [facility] [place] [facility] [address] [id number] [place] [address]- 6356 October, [facility] [place] [facility] [address] [id number] [place] [address]- 0421 October, [facility] [place] [facility] [address] [id number] [place] [address]- 3725 Sep, [facility] [place] [facility] [address] [id number] [place] [address]- 4458 Sep, [facility] [place] [facility] [address] [id number] [place] [address]- 6627 Aug, [facility] [place] [facility] [address] [id number] [place] [address]- 7471 Aug, [facility] [place] [facility] [address] [id number] [place] [address]- 5667 Aug, [facility] [place] [facility] [address] [id number] [place] [address]- 8983 Aug, [facility] [place] [facility] [address] [facility] [id number] [place] [address]- 0050 Jul, [facility] [place] [facility] [address] [id number] [place] [address]- 1813 Jul, [facility] [place] [facility] [address] [id number] [place] [address]- 7377 Jul, [facility] [place] [facility] [address] [facility] [id number] [place] [address]- 3576 Jul, [facility] [place] [facility] [address] [facility] [id number] [place] [address]- 2875 14 Jul, 2013 [facility] [place] [facility] [address] [id number] [place] [address]- 6057 Jul, [facility] [place] [facility] [address] [id number] [place] [address]- 7974 14 Jul, 2013 [facility] [place] [facility] [address] [id number] [place] [address]- 4551 14 Jul, 2013 [facility] [place] [facility] [address] [facility] [id number] [place] [address]- 3851 03 Jul, 2013 [facility] [place] [facility] [address] [id number] [place] [address]- 3016 Jul, [facility] [place] [facility] [address] [id number] [place] [address]- 9328 Jun, [facility] [place] [facility] [address] [id number] [place] [address]- 0866 Jun, [facility] [place] [facility] [address] [id number] [place] [address]- 8538 Jun, [facility] [place] [facility] [address] [id number] [place] [address]- 3947 Jun, [facility] [place] [facility] [address] [id number] [place] [address]- 0714 Jun, [facility] [place] [facility] [address] [id number] [place] [address]- 3240 Jun, [facility] [place] [facility] [address] [id number] [place] [address]- 1596 Jun, [facility] [place] [facility] [address] [id number] [place] [address]- 3802 Jun, [facility] [place] [facility] [address] [id number] [place] [address]- 1595 Jun, [facility] [place] [facility] [address] [id number] [place] [address]- 8203 Jun, [facility] [place] [facility] [address] [id number] [place] [address]- 1379 Jun, [facility] [place] [facility] [address] [id number] [place] [address]- 6615 Jun, [facility] [place] [facility] [address] [id number] [place] [address]- 7139 Jun, [facility] [place] [facility] [address] [id number] [place] [address]- 7216 May, [facility] [place] [facility] [address] [id number] [place] [address]- 2880 May, [facility] [address] [id number] [place] [address]- 0770 May, [facility] [place] [facility] [address] [id number] [place] [address]- 6227 May, [facility] [place] [facility] [address] [id number] [place] [address]- 5205 May, [facility] [place] [facility] [address] [id number] [place] [address]- 2300 May, [facility] [place] [facility] [address] [id number] [place] [address]- 3450 May, [facility] [place] [facility] [address] [id number] [place] [address]- 8931 May, [facility] [place] [facility] [address] [id number] [place] [address]- 8752 May, [facility] [place] [facility] [address] [id number] [place] [address]- 4644 May, [facility] [place] [facility] [address] [id number] [place] [address]- 7164 May, [facility] [place] [facility] [address] [id number] [place] [address]- 9110 May, [facility] [place] [facility] [address] [id number] [place] [address]- 2007 May, [facility] [place] [facility] [address] [id number], [place] [address]- 0678 May, [facility] [place] [facility] [address] [id number] [place] [address]- 0751 May, [facility] [place] [facility] [address] [id number] [place] [address]- 8303 Apr, [facility] [place] [facility] [address] [id number] [place] [address]- 2876 Mar, [facility] [place] [facility] [address] [id number] [place] [address]- 0531 Mar, [facility] [address] [id number] [place] [address]- 1359 Mar, [facility] [place] [facility] [address] [id number] [place] [address]- 6026 Mar, [facility] [address] [id number] [place] [address]- 9985 Mar, [facility] [place] [facility] [address] [id number] [place] [address]- 8382 24 Feb, 2013 [facility] [place] [facility] [address] [id number] [place] [address]- 5802 Feb, [facility] [place] [facility] [address] [id number] [place] [address]- 9928 Feb, [facility] [address] [id number] [place] [address]- 1690 Feb, [facility] [place] [facility] [address] [id number] [place] [address]- 1401 Jan, [facility] [place] [facility] [address] [id number] [place] [address]- 9135 Dec, [facility] [place] [facility] [address] [id number] [place] [address]- 0327 Dec, [facility] [place] [facility] [address] [id number] [place] [address]- 7905 Nov, [facility] [place] [facility] [address] [id number] [place] [address]- 254 October, [facility] [place] [facility] [address] [id number] [place] [address]- 9980 Sep, [facility] [place] [facility] [address] [id number] [place] [address]- 2546 Aug, [facility] [place] [facility] [address] [id number] [place] [address]- 9018 Aug, [facility] [place] [facility] [address] [id number] [place] [address]- 6825 Aug, [facility] [place] [facility] [address] [id number] [place] [address]- 9173 Aug, [facility] [place] [facility] [address] [id number] [place] [address]- 2785 Aug, [facility] [place] [facility] [address] [id number] [place] [address]- 4779 Aug, [facility] [place] [facility] [address] [id number] [place] [address]- 0084 Jun, [facility] [place] [facility] [address] [id number] [place] [address]- 6782 May, [facility] [place] [facility] [address] [id number] [place] [address]- 7189 May, [facility] [place] [facility] [address] [id number] [place] [address] Apr, [facility] [place] [facility] [address] [id number] [place] [address] Apr, [facility] [place] [facility] [address] [id number] [place] [address] Feb, [facility] [place] [facility] [address] [id number] [place] [address] Jan, [facility] [place] [facility] [address] [id number] [place] [address] Jan, [facility] [place] [facility] [address] [id number] [place] [address] Jan, [facility] [place] [facility] [address] [id number] [place] [address] Dec, [facility] [place] [facility] [address] [id number] [place] [address] Nov, [facility] [place] [facility] [address] [id number] [address] 16 Aug, 2011 [facility] [place] [facility] [address] [id number] [place] [address] 12 Jun, 2011 [facility] [place] [facility] [address] [id number] [place] [address] 06 Jun, 2011 [facility] [place] [facility] [address] [id number] [place] [address] 24 May, 2011 [facility] [place] [facility] [address] [id number] [place] [address] 13 May, 2011 [facility] [place] [facility] [address] [id number] [place] [address] May, [facility] [place] [facility] [address] [id number] [place] [address] 14 Nov, 2010 [facility] [place] [facility] [address] [id number] [place] [address] 30 Apr, 2010 [facility] [place] [facility] [address] [id number] [place] [address] Apr, [facility] [place] [facility] [address] [id number] [place] [address] Apr, [facility] [place] [facility] [address] [id number] [place] [address] Apr, [facility] [place] [facility] [address] [id number], [place] [address] 15 Apr, 2010 [facility] [place] [facility] [address] [id number], [place] [address] 27 Mar, 2010 [facility] [place] [facility] [address] [id number] [place] [address] May, [facility] [place] [facility] [address] [id number] [place] [address] May, [facility] [place] [facility] [address] [id number], [place] [address] Jul, [facility] [place] [facility] [address] [facility] [id number] [place] [address] May, IMMUNIZATIONS No Known Immunizations SOCIAL HISTORY Never Assessed REASON FOR VISIT Medication refill request PLAN OF CARE VITAL SIGNS MEDICATIONS Unknown Medications RESULTS No Results PROCEDURES No Known procedures INSTRUCTIONS MEDICATIONS ADMINISTERED No Known Medications MEDICAL (GENERAL) HISTORY Type Description Date Medical History Hypertension Medical History Type 2 Diabetes Mellitus Medical History Headache syndrome Medical History Cancer of [place]th[place] Gland see's Dr. Ariana Woodruff at [facility] Surgical History Vulva cancer - chemo and radiation Surgical History CT abdomen 09/20/10 [place] Surgical History Atherosclertoic calcification of aorta Hospitalization History bladder infection
--- OUTSIDE RECORDS SUMMARY | 2017-11-23 06:57 | XMS REPORT | Continuity of Care Document ---
Author Author [facility] Organization [facility] Address Unknown Phone Unavailable Allergies Active Description Code Type Severity Reaction Onset Reported/Identified Relationship to Patient Clinical Status Yes No Known Drug Allergies [id number] Drug Allergy Unknown N/A 04/28/2008 Medications There is no data. Problems Date Dx Coded Attending Type Code Diagnosis Diagnosed By 06/09/2008 NGUYEN ZIMMER HARLEEN K 250.02 Diabetes Ii Uncontrolled 06/09/2008 NGUYEN DO HARLEEN K 401.1 ESSENTIAL HYPERTENSION BENIGN 06/09/2008 250.02 Diabetes Ii Uncontrolled 06/09/2008 401.1 ESSENTIAL HYPERTENSION BENIGN 06/09/2008 NGUYEN DO HARLEEN K 250.02 Diabetes Ii Uncontrolled [...] HARLEEN K 250.02 Diabetes Ii Uncontrolled 06/09/2008 ECDILLO DO, HARLEEN K 401.1 ESSENTIAL HYPERTENSION BENIGN [...] K 401.1 ESSENTIAL HYPERTENSION BENIGN 06/09/2008 NICHOLAS VISUAL ARTS TEACHER, PASQUALE A 250.02 Diabetes Ii Uncontrolled 06/09/2008 NICHOLAS VISUAL ARTS TEACHER, PASQUALE A 401.1 ESSENTIAL HYPERTENSION BENIGN 06/09/2008 [...] DO, HARLEEN K V58.69 MEDICATION HIGH RISK 08/06/2008 CEDILLO [...] HARLEEN K NODX NO DIAGNOSIS 08/06/2008 NICHOLAS VISUAL ARTS TEACHER, PASQUALE A NODX NO DIAGNOSIS 08/06/2008 CEDILLO [...] FOR: SCREENING EXAM MALIGNANT NEOPLASM BREAST 05/07/2010 CDEILLO DO, HARLEEN K V76.10 VISIT FOR: SCREENING [...] CEDILLO DO, HARLEEN K 625.0 DYSPAREUNIA 08/09/2012 CEIDLLO DO, HARLEEN K V76.2 CERVICAL PAP SMEAR [...] K V76.2 CERVICAL PAP SMEAR 08/09/2012 NICHOLAS VISUAL ARTS TEACHER, PASQUALE A 625.0 DYSPAREUNIA 08/09/2012 NICHOLAS VISUAL ARTS TEACHER, PASQUALE A V76.2 CERVICAL PAP SMEAR 08/09/2012 [...] ABSCESS OF UNSPECIFIED SITES 12/07/2012 CEDILLO DO, HARELEN K 682.9 CELLULITIS AND ABSCESS OF UNSPECIFIED [...] ESCALANTE PASQUALE A V58.31 WOUND DRESSING 12/11/2012 CEDILOL DO, HARLEEN K V58.31 WOUND DRESSING 02/11/2013 [...] K 786.05 SHORTNESS OF BREATH 02/11/2013 NICHOLAS VISUAL ARTS TEACHER, PASQUALE A 305.1 NONDEPENDENT TOBACCO USE DISORDER 02/11/2013 NICHOLAS VISUAL ARTS TEACHER, PASQUALE A 786.05 SHORTNESS OF BREATH 02/11/2013 [...] HARLEEN K V15.82 Nicotine abuse 02/14/2013 NICHOLAS VISUAL ARTS TEACHER, PASQUALE A 496 COPD 02/14/2013 NICHOLAS VISUAL ARTS TEACHER, PASQUALE A V15.82 Nicotine abuse 02/14/2013 CEDILLO [...] 789.00 ABDOMINAL PAIN UNSPECIFIED SITE 03/13/2013 NICHOLAS VISUAL ARTS TEACHER, PASQUALE A 786.09 RESPIRATORY ABNORMALITY OTHER 03/13/2013 NICHOLAS VISUAL ARTS TEACHER, PASQUALE A 789.00 ABDOMINAL PAIN UNSPECIFIED SITE [...] DO, HARLEEN K 799.02 HYPOXEMIA 04/07/2013 NICHOLAS VISUAL ARTS TEACHER, PASQUALE A 799.02 HYPOXEMIA 04/07/2013 CEDILLO DO, [...] CARBALLO MD Ot 272.4 HYPERLIPIDEMIA NEC/NOS 07/03/2014 LETI CARBALLO MD Ot 276.51 DEHYDRATION 07/03/2014 LETI [...] MALIG NEOPLASM OF FE 09/12/2017 LETI CARBALLO MD Ot R31.0 GROSS HEMATURIA 09/12/2017 LETI CARBALLO MD Ot Z85.44 PERSONAL HISTORY OF MALIG NEOPLASM OF FE 11/07/2017 LETI CARBALLO MD Ot R31.0 GROSS HEMATURIA 11/07/2017 LETI CARBALLO MD Ot Z85.44 PERSONAL HISTORY OF MALIG NEOPLASM OF FE 11/07/2017 SHLOMO CHENG MD Ot H25.11 AGE-RELATED NUCLEAR CATARACT, RIGHT EYE 11/07/2017 SHLOMO CHENG MD Ot Z01.818 ENCOUNTER FOR OTHER PREPROCEDURAL EXAMIN 11/09/2017 SHLOMO CHENG MD Ot E11.9 TYPE 2 DIABETES MELLITUS WITHOUT COMPLIC 11/09/2017 SHLOMO CHENG MD Ot E78.5 HYPERLIPIDEMIA, UNSPECIFIED 11/09/2017 SHLOMO CHENG MD Ot F17.210 NICOTINE DEPENDENCE, CIGARETTES, UNCOMPL 11/09/2017 SHLOMO CHENG MD Ot H25.11 AGE-RELATED NUCLEAR CATARACT, RIGHT EYE 11/09/2017 SHLOMO CHENG MD Ot I10 ESSENTIAL (PRIMARY) HYPERTENSION 11/09/2017 SHLOMO CHENG MD Ot J44.9 CHRONIC OBSTRUCTIVE PULMONARY DISEASE, U 11/09/2017 SHLOMO CHENG MD Ot Z79.[address] JUDGE (CURRENT) USE OF ORAL HYPOGLYC 11/09/2017 SHLOMO CHENG MD Ot Z79.[address] JUDGE (CURRENT) DRUG THERAPY 11/09/2017 SHLOMO CHENG MD Ot Z85.44 PERSONAL HISTORY OF MALIG NEOPLASM OF FE 11/09/2017 SHLOMO CHENG MD Ot Z92.23 PERSONAL HISTORY OF ESTROGEN THERAPY 11/09/2017 SHLOMO CHENG MD Ot Z92.3 PERSONAL HISTORY OF IRRADIATION 11/12/2017 SHLOMO CHENG MD Ot E11.9 TYPE 2 DIABETES MELLITUS WITHOUT COMPLIC 11/12/2017 SHLOMO CHENG MD Ot E78.5 HYPERLIPIDEMIA, UNSPECIFIED 11/12/2017 SHLOMO CHENG MD Ot F17.210 NICOTINE DEPENDENCE, CIGARETTES, UNCOMPL 11/12/2017 SHLOMO CHENG MD Ot H25.11 AGE-RELATED NUCLEAR CATARACT, RIGHT EYE 11/12/2017 SHLOMO CHENG MD Ot I10 ESSENTIAL (PRIMARY) HYPERTENSION 11/12/2017 SHLOMO CHENG MD Ot J44.9 CHRONIC OBSTRUCTIVE PULMONARY DISEASE, U 11/12/2017 SHLOMO CHENG MD Ot Z79.[address] JUDGE (CURRENT) USE OF ORAL HYPOGLYC 11/12/2017 SHLOMO CHENG MD Ot Z79.[address] JUDGE (CURRENT) DRUG THERAPY 11/12/2017 SHLOMO CHENG MD Ot Z85.44 PERSONAL HISTORY OF MALIG NEOPLASM OF FE 11/12/2017 SHLOMO CHENG MD Ot Z92.23 PERSONAL HISTORY OF ESTROGEN THERAPY 11/12/2017 SHLOMO CHENG MD, Ot Z92.3 PERSONAL HISTORY OF IRRADIATION 11/13/2017 SHLOMO CHENG MD Ot E11.9 TYPE 2 DIABETES MELLITUS WITHOUT COMPLIC 11/13/2017 SHLOMO CHENG MD Ot E78.5 HYPERLIPIDEMIA, UNSPECIFIED 11/13/2017 SHLOMO CHENG MD Ot F17.210 NICOTINE DEPENDENCE, CIGARETTES, UNCOMPL 11/13/2017 SHLOMO CHENG MD Ot H25.11 AGE-RELATED NUCLEAR CATARACT, RIGHT EYE 11/13/2017 SHLOMO CHENG MD Ot I10 ESSENTIAL (PRIMARY) HYPERTENSION 11/13/2017 SHLOMO CHENG MD Ot J44.9 CHRONIC OBSTRUCTIVE PULMONARY DISEASE, U 11/13/2017 SHLOMO CHENG MD Ot Z79.84 SENIOR CARE (CURRENT) USE OF ORAL HYPOGLYC 11/13/2017 SHLOMO CHENG MD Ot Z79.[address] JUDGE (CURRENT) DRUG THERAPY 11/13/2017 SHLOMO CHENG MD Ot Z85.44 PERSONAL HISTORY OF MALIG NEOPLASM OF FE 11/13/2017 SHLOMO CHENG MD Ot Z92.23 PERSONAL HISTORY OF ESTROGEN THERAPY 11/13/2017 SHLOMO CHENG MD Ot Z92.3 PERSONAL HISTORY OF IRRADIATION Procedures Code [place] [address] A1C (IN-HOUSE) 05/10/2012 75778 ROUTINE VENIPUNCTURE 05/10/2012 50508 CMP 05/10/2012 1830638 GFR CALC (RESULT ONLY) 05/10/2012 18006 ROUTINE VENIPUNCTURE 08/09/2012 20260 A1C (IN-HOUSE) 08/09/2012 00002 CMP 08/09/2012 06912 LIPID PANEL 08/09/2012 9191292 GFR CALC (RESULT ONLY) 08/09/2012 81646 MAMMOGRAM, SCREENING 08/09/2012 73216 CULTURE UROGENITAL 08/09/2012 18713 PAP SMEAR 08/09/2012 Q0091 PAP SMEAR OBTAIN SMEAR 08/09/2012 29920 ROUTINE VENIPUNCTURE 02/11/2013 61681 MICRO ALBUMIN-IN HOUSE 02/11/2013 56802 A1C (IN-HOUSE) 02/11/2013 24396 MICROALBUMIN 02/11/2013 59179 CMP 02/11/2013 81651 LIPID PANEL 02/11/2013 9796770 GFR CALC (RESULT ONLY) 02/11/2013 60884 PULMONARY FUNCTION TEST (IN- HOUSE) 02/14/2013 17278 BRONCHODILATION PRE/POST 02/14/2013 80155 RESPIRATORY FLOW VOLUME LOOP 02/14/2013 03048 PULMONARY EDUCATION 02/14/2013 G0437 TOBACCO-USE NEW ORDER CLERK>10MIN 02/14/2013 22770 OXIMETRY - OVERNIGHT 03/13/2013 01836 A1C (IN-HOUSE) 05/30/2013 53948 ROUTINE VENIPUNCTURE 07/31/2013 4432788 GFR CALC (RESULT ONLY) 07/31/2013 14944 CMP 07/31/2013 75437 MICRO ALBUMIN-IN HOUSE 10/27/2013 93860 A1C (IN-HOUSE) 10/27/2013 49251 UA LONG DIP 10/27/2013 2028F FOOT EXAM PERFORMED 10/27/2013 28183 EYE EXAM PERFORMED 10/28/2013 70883 ROUTINE VENIPUNCTURE 02/24/2014 28907 A1C (IN-HOUSE) 02/24/2014 34817 XRAY CHEST 2 VIEW 02/24/2014 3052711 GFR CALC (RESULT ONLY) 02/24/2014 99587 CMP 02/24/2014 Ophthalmo John Hudson 03/12/2014 28567 OXIMETRY 04/14/2014 51453 UA W/ CULTURE IF INDICATED 06/29/2014 62478 CULTURE URINE 07/01/2014 Results Test Result Range [...] mRNA E6/E7 - 08/15/17 14:33 CLINICAL INFORMATION: NRG LMP: 2006 NRG PREV. PAP: NORMAL NRG PREV. BX: NONE NRG SOURCE: [employer] NR STATEMENT OF ADEQUACY: NR INTERPRETATION/RESULT: [facility] RESIDENT MANAGER: NR HPV mRNA E6/E7, SUREPATH VIAL Not Detected NOT DETECTED CULTURE, URINE - 08/15/17 14:33 CULTURE, URINE, ROUTINE SEE NOTE [facility] Comprehensive metabolic panel - 08/23/17 13:18 Serum [...] calculation of estimated glomerular filtration rate > NR Serum or plasma glucose measurement (mass/volume) 119 [...] plasma albumin measurement (mass/volume) 4.4 g/dL 3.2-4.5 Capillary blood glucose measurement by glucometer (mass/volume) - 11/09/17 08: 12 Capillary blood glucose measurement by glucometer (mass/volume) 121 mg/dL 70-110 Encounters ACCT No. Visit Date/Time Discharge Status Pt. Type Provider Facility Loc./Unit Complaint [id number] 11/09/2017 07:40:00 11/09/2017 09:16:00 DIS Outpatient SHLOMO CHENG MD [facility] SDC CATARACT RIGHT EYE [id number] 11/07/2017 05:40:00 11/07/2017 13:25:00 DIS Outpatient SHLOMO CHENG MD [facility] PREOP CATARACT RIGHT EYE [id number] 08/23/2017 13:14:00 08/23/2017 23:59:59 CLS Outpatient LETI CARBALLO MD [facility] RAD GROSS HEMATURIA [id number] 07/02/2014 19:35:00 07/03/2014 15:32:00 DIS Inpatient LETI CARBALLO MD [facility] 4TH RLL PNEUMONIA, HYPOGLYCEMIA,DEHYDRATION,UTI [id number] 08/02/2016 08:45:00 Document Registration [id number] 07/02/2014 16:31:00 07/02/2014 23:59:59 CLS Outpatient HARLEEN CEDILLO DO [id number] 06/29/2014 11:17:00 06/29/2014 23:59:59 CLS Outpatient PASQUALE PETERSON APRN [id number] 04/14/2014 09:58:00 04/14/2014 23:59:59 CLS Outpatient HARLEEN CEDILLO DO [id number] 02/24/2014 08:51:00 02/24/2014 23:59:59 CLS Outpatient HARLEEN CEDILLO DO [id number] 02/24/2014 08:51:00 02/24/2014 23:59:59 CLS Outpatient HARLEEN CEDILLO DO [id number] 10/28/2013 08:45:00 10/28/2013 23:59:59 CLS Outpatient CEDILLO DOHARLEEN [id number] 10/27/2013 10:52:00 10/27/2013 23:59:59 CLS Outpatient CEDILLO DOHARLEEN [id number] 07/31/2013 07:48:00 07/31/2013 23:59:59 CLS Outpatient CEDILLO DOHARLEEN [id number] 07/31/2013 07:48:00 07/31/2013 23:59:59 CLS Outpatient CEDILLO DOHARLEEN [id number] 06/30/2013 11:46:00 06/30/2013 23:59:59 CLS Outpatient CEDILLO DOHARLEEN [id number] 06/26/2013 00:00:00 06/26/2013 23:59:59 CLS Outpatient CEDILLO DOHARLEEN [id number] 05/30/2013 09:15:00 05/30/2013 23:59:59 CLS Outpatient CEDILLO DOHARLEEN [id number] 04/09/2013 00:00:00 04/09/2013 23:59:59 CLS Outpatient CEDILLO DOHARLEEN [id number] 03/13/2013 10:20:00 03/13/2013 23:59:59 CLS Outpatient CEDILLO DOHARLEEN [id number] 02/14/2013 10:48:00 02/14/2013 23:59:59 CLS Outpatient CEDILLO DOHARLEEN [id number] 08/09/2012 08:58:00 08/09/2012 23:59:59 CLS Outpatient CEDILLO DOHARLEEN [id number] 05/10/2012 08:45:00 05/10/2012 23:59:59 CLS Outpatient CEDILLO DOHARLEEN [id number] 05/10/2012 08:45:00 05/10/2012 23:59:59 CLS Outpatient [id number] 12/11/2012 18:23:00 Document Registration [id number] 12/09/2012 09:54:00 Document Registration [id number] 12/07/2012 14:20:00 Document Registration [id number] 10/23/2017 11:00:00 10/23/2017 23:59:59 [id number] 08/15/2017 13:40:00 Document Registration [id number] 04/25/2017 08:40:00 Document Registration
[2017-11-23 07:00] VITALS: BP 127/74
[2017-11-23] MEDS ORDERED: TIMOLOL MALEATE 0.5% 5 ML (TIMOPTIC) BTL OU PRN (07:00)
[2017-11-23] MEDS ORDERED: LIDOCAINE PF 1% 2 ML AMP IR PRN (07:00)
[2017-11-23] MEDS ORDERED: EPINEPHrine INJECTION 1 MG/ML AMP INJ ONE (07:00)
[2017-11-23] MEDS ORDERED: VANCOMYCIN/BSS (COMPOUNDED) 10 MG/ML SYR OP ONE (07:00)
[2017-11-23] MEDS ORDERED: POVIDONE (BETADINE) OPHTH SOLN 5% 30 ML OP ONE (07:00)
[2017-11-23] MEDS: TETRACAINE 0.5% OPHTH SOLN 4 ML BTL (SINGLE DOSE ONLY) OU PRN ×4 (07:02→07:11)
[2017-11-23] MEDS: PHENYLEPHRINE 10% OPHTH (NEO-SYN) 5 ML BTL OU SCH ×3 (07:05→07:11)
[2017-11-23] MEDS: CYCLOPENTOLATE 1% (CYCLOGYL) 2 ML DROPS OP SCH ×3 (07:05→07:11)
--- NOTE | 2017-11-23 08:38 | Ophthalmologist Pre-Op Note ---
Pre-Operative Progress Note H&P Reviewed The H&P was reviewed, patient examined and no changes noted. Date H&P Reviewed: Nov 23, 2017 Time H&P Reviewed: 08:38 Pre-Op Dx Cataract, Left Eye SHLOMO CHENG MD Nov 23, 2017 08:38
[2017-11-23] MEDS ORDERED: MIDAZOLAM 2 MG/2 ML (VERSED) VIAL ONE (08:47)
--- NOTE | 2017-11-23 09:01 | Ophthalmology Operative Report ---
Cataract removal/placement IOL PREOPERATIVE DIAGNOSIS: Cataract Left Eye POSTOPERATIVE DIAGNOSIS: Cataract Left Eye PROCEDURE: Cataract removal and placement of posterior chamber implant, left eye SURGEON: Meng Cheng ANESTHESIA: Topical with sedation COMPLICATIONS: None ESTIMATED BLOOD LOSS: Minimal DESCRIPTION OF PROCEDURE: After proper informed consent was obtained, the patient, a 62 female, was taken to the Operating Room and the left eye was anesthetized with tetracaine. The left eye was then prepped and draped in the usual manner. A wire lid speculum was placed. A paracentesis was made at the left hand position. Preservative free lidocaine was injected into the anterior chamber followed by viscoelastic. A clear corneal incision was made in the temporal position. A capsulorrhexis was preformed and the central nuclear and cortical material were removed. The posterior capsule was polished and an Patric 18.5 [id number] IOL was placed into the capsular bag. The residual viscoelastic was aspirated and balanced saline solution was injected into the anterior chamber. 0.1 ml of Vancomycin (1mg/0.1ml ) was injected into the anterior chamber. The wound was checked and found to be water tight. The patient tolerated the procedure well without complications. MENG CHENG MD Nov 23, 2017 09:01
[2017-11-23 09:12] VITALS: BP 131/64
--- NOTE | 2017-11-23 13:35 | Anesthesia-General Post-Op ---
MAC Patient Condition Mental Status/LOC: Same as Preop Cardiovascular: Satisfactory Nausea/Vomiting: Absent Respiratory: Satisfactory Pain: Controlled Complications: Absent Post Op Complications Complications None Follow Up Care/Instructions Patient Instructions None needed. Anesthesiology Discharge Order Discharge Order Patient was doing well after surgery, no complaints, stable vital signs, no apparent adverse anesthesia problems. BHARGAV AGUILERA DO Nov 23, 2017 13:34
== END 2017-11-23 09:12 | disposition home or self-care (01) ==
LOC: SDC 06:47
PROVIDERS: ATTEND Specialist
DX: E11.36 Type 2 diabetes mellitus with diabetic cataract (principal); I10 Essential (primary) hypertension; J44.9 Chronic obstructive pulmonary disease, unspecified; J45.909 Unspecified asthma, uncomplicated; Z79.84 Long term (current) use of oral hypoglycemic drugs; Z79.899 Other long term (current) drug therapy
CPT/HCPCS: 82962

== ENCOUNTER → 2018-10-21 | Outpatient (CLI) | payer MEDICARE | LOC: CARD 09:35 | PROVIDERS: ATTEND Family Medicine | DX: R06.02 Shortness of breath (principal); R60.0 Localized edema; I07.1 Rheumatic tricuspid insufficiency | CPT/HCPCS: 93306 ==

== ENCOUNTER → 2020-02-06 | Outpatient (CLI) | payer MEDICARE ==
--- NOTE | 2020-02-06 12:57 | Diagnostic Imaging Report ---
PROCEDURE: CT urinary tract, rule out kidney stone. TECHNIQUE: Multiple contiguous axial images were obtained through the abdomen and pelvis without the use of intravenous contrast. Auto Exposure Controls were utilized during the CT exam to meet ALARA standards for radiation dose reduction. INDICATION: Difficulty with urination as well as hematuria. COMPARISON: Correlation is made with prior CT from 08/23/2017. FINDINGS: Imaging through lung bases does show some minimal scarring or atelectasis in the lingula. The liver is enlarged at approximately 21 cm. There is generalized low density throughout the liver suggestive of hepatic steatosis. No discrete liver mass is identified. The gallbladder is contracted. No biliary ductal dilatation is identified. The pancreas and spleen are unremarkable. No adrenal mass is detected. Right kidney is unremarkable. There is an approximately 2 mm nonobstructing calculus in lower pole of left kidney. No bladder calculi are identified. Aorta and iliac vessels are heavily calcified but non-aneurysmal. The small and large bowel loops are normal caliber. No obstruction is detected. There is a small fat-containing umbilical hernia. The uterus is unremarkable. No abdominal or pelvic lymphadenopathy is detected. Bony structures demonstrate pars defects bilaterally at L5-S1 with grade 1 spondylolisthesis. IMPRESSION: 1. Hepatomegaly and hepatic steatosis. 2. Tiny nonobstructing left renal calculus. No definite ureteral calculi or hydronephrosis is detected. 3. Small fat-containing umbilical hernia. 4. No other significant abnormality is seen. Dictated by: Dictated on workstation # [id number]
== END ==
LOC: RAD 12:15
PROVIDERS: ATTEND Nurse Practitioner Family
DX: K42.9 Umbilical hernia without obstruction or gangrene (principal); K76.0 Fatty (change of) liver, not elsewhere classified; R31.9 Hematuria, unspecified; R39.198 Other difficulties with micturition
CPT/HCPCS: 74176

== ENCOUNTER → 2020-03-25 | Outpatient (CLI) | payer MEDICARE ==
--- NOTE | 2020-03-25 14:11 | Diagnostic Imaging Report ---
INDICATION: Routine screening. No prior mammograms are available for comparison. 2-D and 3-D bilateral screening mammography was performed with CAD. Scattered fibroglandular densities are identified bilaterally. No mass or malignant appearing microcalcifications are seen. There are benign calcifications noted. Axillae are unremarkable. IMPRESSION: BI-RADS Category 2 No mammographic features suspicious for malignancy are identified. ACR BI-RADS Category 2: Benign findings. Result letter will be mailed to the patient. Note: At least 10% of breast cancer is not imaged by mammography. Dictated by: Dictated on workstation # [id number]
== END ==
LOC: RAD 11:15
PROVIDERS: ATTEND Family Medicine
DX: Z12.31 Encounter for screening mammogram for malignant neoplasm of breast (principal)
CPT/HCPCS: 77063; 77067

== ENCOUNTER → 2020-04-29 | Outpatient (CLI) | payer MEDICARE ==
[~2020-04-29] MED LIST changes: -METF-760 PO; +METF-845 PO
--- NOTE | 2020-04-29 10:27 | Diagnostic Imaging Report ---
EXAMINATION: CT Chest without contrast (lung screening). TECHNIQUE: Multiple contiguous axial images were obtained through the chest without the use of intravenous contrast according to lung cancer screening protocol. All CT scans use one or more of the following dose optimizing techniques: automated exposure control, MA and/or KvP adjustment based on a patient size and exam type, or iterative reconstruction. HISTORY: 30 pack year history of smoking. COMPARISON: None available. FINDINGS: There is no edema or pneumonia. No pleural effusion. No pneumothorax. No suspicious nodules. There is no axillary or supraclavicular lymphadenopathy. There is no mediastinal lymphadenopathy. Heart size is normal. There are mild coronary artery calcifications. No pericardial effusion. Aorta is normal in caliber. Limited views of the upper abdomen are unremarkable. There are no suspicious osseus lesions. IMPRESSION: 1. No suspicious pulmonary nodules. LUNG-RADS CATEGORY: 1 MODIFIER: None. Dictated by: Dictated on workstation # [id number]
== END ==
LOC: RAD 10:15
PROVIDERS: ATTEND Family Medicine
DX: Z12.2 Encounter for screening for malignant neoplasm of respiratory organs (principal); Z72.0 Tobacco use

== ENCOUNTER 2021-12-20 13:08 | Emergency (ER) | payer MEDICARE ==
[~2021-12-20] VITALS: Ht 160 cm; Wt 78.0 kg
[~2021-12-20 13:08] MED LIST changes: +LISI40TA9 PO
[2021-12-20 13:50] LABS: BILIRUBIN,URINE NEGATIVE (NEGATIVE); CLARITY,URINE CLEAR; COLOR,URINE YELLOW; GLUCOSE, URINE (UA) 3+ (NEGATIVE); KETONES,URINE NEGATIVE (NEGATIVE); LEUKOCYTE ESTERASE ,URINE TRACE (NEGATIVE); NITRITE,URINE NEGATIVE (NEGATIVE); PH,URINE 5.5 (5-9); PROTEIN,URINE 2+ (NEGATIVE)
[2021-12-20 13:58] LABS: BACTERIA,URINE MODERATE /HPF; RBC,URINE 50-100 /HPF; SQUAMOUS EPITHELIAL CELL,UR 0-2 /HPF
[2021-12-20] MEDS ORDERED: LIDOCAINE 1% INJ 20 ML VIAL INJ ONE (14:45)
[2021-12-20] MEDS ORDERED: cefTRIAXone 1,000 MG VIAL IM ONE (14:45)
--- NOTE | 2021-12-20 15:23 | Diagnostic Imaging Report ---
PROCEDURE: CT urinary tract, rule out kidney stone. TECHNIQUE: Multiple contiguous axial images were obtained through the abdomen and pelvis without the use of intravenous contrast. Auto Exposure Controls were utilized during the CT exam to meet ALARA standards for radiation dose reduction. INDICATION: Difficulty urinating. History of vulvar cancer. COMPARISON with study 02/06/2020 The liver has mild fatty infiltration with no focal abnormality revealed at unenhanced exam. The bile ducts and gallbladder unremarkable. The nonfocal spleen is normal in size. The adrenals unremarkable. The pancreas unremarkable. There is no hydroureteronephrosis and no opaque urinary tract calculi. The urinary bladder is nearly empty. There is a left adnexal cyst, new from prior, presumed ovarian measuring 4.5 x 3.5 cm. Given the patient's age, its size and development from prior, correlative pelvic ultrasound suggested on a nonemergent basis. Uterus and right adnexa appeared normal. The pelvic small and large bowel unobstructed. There is a tiny fatty umbilical hernia, chronic. No acute abdominal wall pathology. There is no mesenteric or retroperitoneal adenopathy. There is aortoiliac atherosclerotic vascular calcifications, nonaneurysmal. There is no suspicious lytic or sclerotic bone lesion. The inguinal canals unremarkable. IMPRESSION: Mild hepatic steatosis, left adnexal cyst for which correlative ultrasound recommended. No findings suggestive of metastatic disease and no bowel, biliary or urinary tract obstruction. Dictated by: Dictated on workstation # [id number]
--- NOTE | 2021-12-20 15:34 | ED GU-Female ---
General Chief Complaint: - Reproductive Stated Complaint: DIFFICULTY URINATING Nursing Triage Note: PT AMB TO RM 9 WITH COMPLAINT OF PAINFUL URINATION AND BLOOD IN URINE. STATES WENT TO [facility] ON SUNDAY. [facility] WAS CALLED TODAY AND TOLD RESULTS WERE NORMAL. Source: patient Exam Limitations: no limitations History of Present Illness Date Seen by Provider: Dec 20, 2021 Time Seen by Provider: 14:16 Initial Comments Patient ER by private conveyance with chief complaint of painful urination, bright red blood in the urine. History of kidney stones but she is not having severe pain she says she does have some pain down in her right flank and low back. No fevers chills nausea vomiting diarrhea. Symptoms been going on for less than a week. She went to urgent care and had a negative urinalysis a couple days ago. Not on any antibiotics in the last 90 days. Allergies and Home Medications Allergies Coded Allergies: No Known Drug Allergies (Verified , 04/28/08) Patient Home Medication List Home Medication List Reviewed: Yes Fluticasone/Vilanterol (Breo Ellipta 200-25 Mcg INH) 1 Each Blst.w.dev, 1 EACH IH HS, (Reported) Entered as Reported by: PRASHANT BUTLER on 11/07/17 1319 Hydrochlorothiazide (Hydrochlorothiazide) 25 Mg Tablet, 25 MG PO DAILY, (Reported) Entered as Reported by: PRASHANT BUTLER on 11/07/17 1300 Liraglutide (Victoza 3-Mika) 0.6 Mg/0.1 Ml Pen.injctr, 1.8 MG SQ HS, (Reported) Entered as Reported by: PRASHANT BUTLER on 11/07/17 1300 Lisinopril (Lisinopril) 40 Mg Tablet, 40 MG PO DAILY, (Reported) Entered as Reported by: PRASHANT BUTLER on 11/07/17 1300 Metformin HCl (Metformin HCl ER) 500 Mg [id number], 1,000 MG PO BID, (Reported) Entered as Reported by: PRASHANT BUTLER on 11/07/17 1300 [place]-3S/Dha/Epa/Fish Oil (Fish Oil [place]-3 Softgel) 1 Each Capsule.dr, 1 EACH PO BID, (Reported) Entered as Reported by: PRASHANT BUTLER on 11/07/17 1319 Pravastatin Sodium (Pravastatin Sodium) 40 Mg Tablet, 40 MG PO HS, (Reported) Entered as Reported by: PRASHANT BUTLER on 11/07/17 1300 Sulfamethoxazole/Trimethoprim (Bactrim Ds Tablet) 1 Each Tablet, 1 EACH PO BID Prescribed by: MICHELLE TYLER on 12/20/21 1537 Review of Systems Review of Systems Constitutional: No chills, No diaphoresis EENTM: No ear discharge, No ear pain Respiratory: No cough, No short of breath Cardiovascular: No chest pain, No edema Gastrointestinal: see HPI, abdominal pain; No constipation, No nausea Genitourinary: denies discharge, denies dysuria Musculoskeletal: No back pain, No joint pain Skin: No pruritus, No rash All Other Systemes Reviewed Negative Unless Noted: Yes Past Mgdgjbn-Hxctek-Sxsxbe Hx Patient Social History Tobacco Use?: Yes Tobacco type used: Cigarettes Smoking Status: Current Everyday Smoker Use of E-Cig and/or Vaping dev: No Substance use?: No Alcohol Use?: No Pt feels they are or have been: No Immunizations Up To Date Tetanus Booster (TDap): More than 5yrs PED Vaccines UTD: No Past Medical History COPD Hypertension Reproductive Disorders: No Female Reproductive Disorders: Denies Sexually Transmitted Disease: No HIV/AIDS: No Diabetes, Non-Insulin dep Loss of Vision: Denies Hearing Impairment: Denies Recent Skin Changes, Herpes Family Medical History Diabetes mellitus 19 FATHER, , Onset:Unknown 19 MOTHER, , Onset:Unknown FH: lung cancer 19 FATHER, , Onset:Unknown FH: lymphoma 19 MOTHER, , Onset:Unknown Hypertension 19 MOTHER, , Onset:Unknown No Family History of: AIDS Abdominal aortic aneurysm [place]'s disease Alcoholism Alzheimer's disease Aphasia Arthritis Asthma Cancer of mouth Cardiovascular disease Cataracts Colon cancer Completed stroke Congenital disease Congenital heart disease Coronary thrombosis Cystic fibrosis Deafness or hearing loss Dementia Drug abuse Dysphasia Fibrocystic disease of breast Gastroenteritis Glaucoma Headache disorder Hypercholesterolemia Infertility Kidney disease Myocardial infarction Neoplasm Not obtainable due to adoption Osteoporosis Parkinson's disease Prostate cancer Psychosocial problem Respiratory disorder Seizure disorder Severe allergy Thyroid disease Tuberculosis Visual disorder No Pertinent Family Hx Physical Exam Vital Signs Vital Signs - First Documented 12/20/21 13:33 Temp 36.1 Pulse 90 Resp 16 B/P (MAP) 138/87 (104) Pulse Ox 93 O2 Delivery Room Air Capillary Refill : Less Than 3 Seconds Height, Weight, BMI Height: 5'3.00" Weight: 185lbs. 0.0oz. [id number]; 30.00 BMI Method: General Appearance: WD/WN, no apparent distress HEENT: PERRL/EOMI, pharynx normal Cardiovascular: normal peripheral pulses, regular rate, rhythm Respiratory: no respiratory distress, no accessory muscle use Gastrointestinal: normal bowel sounds, non tender, soft Back: normal inspection, no CVA tenderness Extremities: non-tender, normal inspection Neurologic/Psychiatric: alert, normal mood/affect, oriented x 3 Skin: normal color, warm/dry Progress/Results/Core Measures Suspected Sepsis SIRS Temperature: Pulse: 90 Respiratory Rate: 16 Blood Pressure 138 /87 Mean: 104 Results/Orders Lab Results Laboratory Tests Test 12/20/21 13:44 Range/Units Urine Color YELLOW Urine Clarity CLEAR Urine pH 5.5 5-9 Urine Specific [place] >=1.030 1.016-1.022 Urine Protein 2+ H NEGATIVE Urine Glucose (UA) 3+ H NEGATIVE Urine Ketones NEGATIVE NEGATIVE Urine Nitrite NEGATIVE NEGATIVE Urine Bilirubin NEGATIVE NEGATIVE Urine Urobilinogen 0.2 < = 1.0 MG/DL Urine Leukocyte Esterase TRACE H NEGATIVE Urine RBC (Auto) 3+ H NEGATIVE Urine RBC 50-100 H /HPF Urine WBC 10-25 H /HPF Urine Squamous Epithelial Cells 0-2 /HPF Urine Crystals NONE /LPF Urine Bacteria MODERATE H /HPF Urine Casts NONE /LPF Urine Mucus NEGATIVE /LPF Urine Culture Indicated YES My Orders Orders - MICHELLE TYLER Ua Culture If Indicated (12/20/21 13:16) Urine Culture (12/20/21 13:44) Ct Abd/Pelvis Wo(Kidney Stone) (12/20/21 14:37) Ceftriaxone (Rocephin) (12/20/21 14:45) Lidocaine 1% Inj 20 Ml (Xylocaine 1% Inj (12/20/21 14:45) Medications Given in ED Current Medications Medications Dose Ordered Sig/Desiree Route Start Time Stop Time Status Last Admin Dose Admin Ceftriaxone Sodium 1,000 mg ONCE ONCE IM 12/20/21 14:45 12/20/21 14:46 DC 12/20/21 15:44 1,000 MG Lidocaine HCl 2.1 ml ONCE ONCE INJ 12/20/21 14:45 12/20/21 14:46 DC 12/20/21 15:44 2.1 ML Vital Signs/I&O 12/20/21 12/20/21 13:33 16:11 Temp 36.1 Pulse 90 94 Resp 16 16 B/P (MAP) 138/87 (104) 138/69 Pulse Ox 93 94 O2 Delivery Room Air Room Air Capillary Refill : Less Than 3 Seconds Blood Pressure Mean: 104 Diagnostic Imaging Diagonstic Imaging: CT Plain Films/CT/US/NM/MRI: abdomen, pelvis Comments NAME: [facility] REC#: [id number] PT STATUS: REG ER : 1955 PHYSICIAN: MICHELLE TYLER MD ADMIT DATE: 12/20/21/ER Draft Date of Exam:12/20/21 CT ABD/PELVIS WO(KIDNEY STONE) PROCEDURE: CT urinary tract, rule out kidney stone. TECHNIQUE: Multiple contiguous axial images were obtained through the abdomen and pelvis without the use of intravenous contrast. Auto Exposure Controls were utilized during the CT exam to meet ALARA standards for radiation dose reduction. INDICATION: Difficulty urinating. History of vulvar cancer. COMPARISON with study 02/06/2020 The liver has mild fatty infiltration with no focal abnormality revealed at unenhanced exam. The bile ducts and gallbladder unremarkable. The nonfocal spleen is normal in size. The adrenals unremarkable. The pancreas unremarkable. There is no hydroureteronephrosis and no opaque urinary tract calculi. The urinary bladder is nearly empty. There is a left adnexal cyst, new from prior, presumed ovarian measuring 4.5 x 3.5 cm. Given the patient's age, its size and development from prior, correlative pelvic ultrasound suggested on a nonemergent basis. Uterus and right adnexa appeared normal. The pelvic small and large bowel unobstructed. There is a tiny fatty umbilical hernia, chronic. No acute abdominal wall pathology. There is no mesenteric or retroperitoneal adenopathy. There is aortoiliac atherosclerotic vascular calcifications, nonaneurysmal. There is no suspicious lytic or sclerotic bone lesion. The inguinal canals unremarkable. IMPRESSION: Mild hepatic steatosis, left adnexal cyst for which correlative ultrasound recommended. No findings suggestive of metastatic disease and no bowel, biliary or urinary tract obstruction. Dictated on workstation # [id number] Dict: 12/20/21 1516 Trans: 12/20/21 1522 [facility] [id number] Interpreted by: CLAUDIA BARR Electronically signed by: Reviewed: Reviewed by Me Departure Impression Primary Impression: UTI (urinary tract infection) Qualified Codes: N30.01 - Acute cystitis with hematuria Additional Impression: Ovarian mass, left Disposition: HOME, SELF-CARE Condition: Stable Departure-Patient Inst. Decision time for Depature: 15:36 Referrals: DUSTY MCINTYRE MD (PCP/Family) Primary Care Physician Patient Instructions: Urinary Tract Infection, Adult (DC) Add. Discharge Instructions: Drink lots of fluids. Bactrim 1 tablet twice a day for a week. Return to ER promptly for significant worsening symptoms. You have a prominent left ovarian cyst versus mass that would need an ultrasound to work it up within the next couple weeks by your primary care doctor. All discharge instructions reviewed with patient and/or family. Voiced understanding. Scripts Sulfamethoxazole/Trimethoprim (Bactrim Ds Tablet) 1 Each Tablet 1 EACH PO BID for 7 Days, #14 TAB 0 Refills Prov: MICHELLE TYLER 12/20/21 Copy Copies To 1: DUSTY MCINTYRE MD, TITUS J Dec 20, 2021 15:34
[2021-12-20] MEDS ORDERED: SULF1TAB38 PO (15:37)
[2021-12-20 16:11] VITALS: BP 138/69
== END 2021-12-20 16:11 | disposition home or self-care (01) ==
LOC: EDUNIT# 13:08 → ER 13:09
DX: N39.0 Urinary tract infection, site not specified (principal); N83.202 Unspecified ovarian cyst, left side
CPT/HCPCS: 74176; 81000; 87088

== ENCOUNTER 2021-12-28 18:29 | Emergency (ER) | payer MEDICARE ==
[~2021-12-28] VITALS: Ht 160 cm; Wt 78.0 kg
[~2021-12-28 18:29] MED LIST changes: +SULF1TAB38 PO
[2021-12-28 18:37] VITALS: BP 126/71
--- NOTE | 2021-12-28 18:42 | ED GU-Female ---
General Chief Complaint: - Reproductive Stated Complaint: UTI Nursing Triage Note: PT STATES SHE WAS SEEN HERE ON 12/20 FOR UTI, JUST FINISHED HER ABX, CC OF PAINFUL URINATION History of Present Illness Date Seen by Provider: Dec 28, 2021 Time Seen by Provider: 18:42 Initial Comments 66-year-old female with PMH of HTN/DM/left ovarian cyst, is here with complaints of hematuria which has been ongoing for the past 2 weeks. Patient was here in the ER on December 20 with the same complaints, for which a CT abdomen was done in the ER and showed a left ovarian cyst that appeared to be benign, and was diagnosed with a UTI and sent home on antibiotics. Patient finished the antibiotics for her UTI yesterday. Patient states that today she had some small blood clots in her urine and was concerned. Denies abdominal pain, chest pain, palpitations, dysuria, fever, melena, hematochezia, hemoptysis, loss of weight, loss of appetite. Allergies and Home Medications Allergies Coded Allergies: No Known Drug Allergies (Verified , 04/28/08) Patient Home Medication List Home Medication List Reviewed: Yes Fluticasone/Vilanterol (Breo Ellipta 200-25 Mcg INH) 1 Each Blst.w.dev, 1 EACH IH HS, (Reported) Entered as Reported by: PRASHANT BUTLER on 11/07/17 1319 Hydrochlorothiazide (Hydrochlorothiazide) 25 Mg Tablet, 25 MG PO DAILY, (Reported) Entered as Reported by: PRASHANT BUTLER on 11/07/17 1300 Liraglutide (Victoza 3-Mika) 0.6 Mg/0.1 Ml Pen.injctr, 1.8 MG SQ HS, (Reported) Entered as Reported by: PRASHANT BUTLER on 11/07/17 1300 Lisinopril (Lisinopril) 40 Mg Tablet, 40 MG PO DAILY, (Reported) Entered as Reported by: PRASHANT BUTLER on 11/07/17 1300 Metformin HCl (Metformin HCl ER) 500 Mg [id number], 1,000 MG PO BID, (Reported) Entered as Reported by: PRASHANT BUTLER on 11/07/17 1300 [place]-3S/Dha/Epa/Fish Oil (Fish Oil [place]-3 Softgel) 1 Each Capsule.dr, 1 EACH PO BID, (Reported) Entered as Reported by: PRASHANT BUTLER on 11/07/17 1319 Pravastatin Sodium (Pravastatin Sodium) 40 Mg Tablet, 40 MG PO HS, (Reported) Entered as Reported by: PRASHANT BUTLER on 11/07/17 1300 Sulfamethoxazole/Trimethoprim (Bactrim Ds Tablet) 1 Each Tablet, 1 EACH PO BID Prescribed by: MICHELLE TYLER on 12/20/21 1537 Review of Systems Review of Systems Constitutional: no symptoms reported EENTM: no symptoms reported Respiratory: no symptoms reported Cardiovascular: no symptoms reported Gastrointestinal: no symptoms reported Genitourinary: hematuria Musculoskeletal: no symptoms reported Skin: no symptoms reported Psychiatric/Neurological: No Symptoms Reported Endocrine: No Symptoms Reported Hematologic/Lymphatic: No Symptoms Reported Past Tcmthrj-Uekyqu-Wzvcsa Hx Immunizations Up To Date Tetanus Booster (TDap): More than 5yrs PED Vaccines UTD: No Past Medical History COPD Hypertension Reproductive Disorders: No Female Reproductive Disorders: Denies Sexually Transmitted Disease: No HIV/AIDS: No Diabetes, Non-Insulin dep Loss of Vision: Denies Hearing Impairment: Denies Recent Skin Changes, Herpes Family Medical History Diabetes mellitus 19 FATHER, , Onset:Unknown 19 MOTHER, , Onset:Unknown FH: lung cancer 19 FATHER, , Onset:Unknown FH: lymphoma 19 MOTHER, , Onset:Unknown Hypertension 19 MOTHER, , Onset:Unknown No Family History of: AIDS Abdominal aortic aneurysm [place]'s disease Alcoholism Alzheimer's disease Aphasia Arthritis Asthma Cancer of mouth Cardiovascular disease Cataracts Colon cancer Completed stroke Congenital disease Congenital heart disease Coronary thrombosis Cystic fibrosis Deafness or hearing loss Dementia Drug abuse Dysphasia Fibrocystic disease of breast Gastroenteritis Glaucoma Headache disorder Hypercholesterolemia Infertility Kidney disease Myocardial infarction Neoplasm Not obtainable due to adoption Osteoporosis Parkinson's disease Prostate cancer Psychosocial problem Respiratory disorder Seizure disorder Severe allergy Thyroid disease Tuberculosis Visual disorder No Pertinent Family Hx Physical Exam Vital Signs Vital Signs - First Documented 12/28/21 18:37 Temp 36.8 Pulse 97 Resp 20 B/P (MAP) 126/71 (89) Pulse Ox 95 O2 Delivery Room Air Capillary Refill : Less Than 3 Seconds Height, Weight, BMI Height: 5'3.00" Weight: 185lbs. 0.0oz. 83.181103ga; 30.00 BMI Method: General Appearance: WD/WN, no apparent distress HEENT: PERRL/EOMI Neck: non-tender, full range of motion, supple, normal inspection Cardiovascular: normal peripheral pulses, regular rate, rhythm Respiratory: chest non-tender, lungs clear, normal breath sounds Gastrointestinal: normal bowel sounds, non tender, soft, no organomegaly Back: no CVA tenderness, no vertebral tenderness Neurologic/Psychiatric: no motor/sensory deficits, alert, normal mood/affect, oriented x 3 Skin: normal color Focused Exam Lactate Level 12/28/21 19:02: Lactic Acid Level 1.23 Lactic Acid Level Laboratory Tests Test 12/28/21 19:02 Lactic Acid Level 1.23 MMOL/L (0.50-2.00) Progress/Results/Core Measures Suspected Sepsis SIRS Temperature: Pulse: 97 Respiratory Rate: 20 Laboratory Tests 12/28/21 19:02: White Blood Count 11.7H Blood Pressure 126 /71 Mean: 89 12/28/21 19:02: Lactic Acid Level 1.23 Laboratory Tests 12/28/21 19:02: Creatinine 1.02, INR Comment 0.9, Platelet Count 270, Total Bilirubin 0.5 Results/Orders Lab Results Laboratory Tests Test 12/28/21 19:02 12/28/21 19:07 Range/Units White Blood Count 11.7 H 4.3-11.0 10^3/uL Red Blood Count 4.96 3.80-5.11 10^6/uL Hemoglobin 15.1 11.5-16.0 g/dL Hematocrit 46 35-52 % Mean Corpuscular Volume 93 80-99 fL Mean Corpuscular Hemoglobin 30 25-34 pg Mean Corpuscular Hemoglobin Concent 33 32-36 g/dL Red Cell Distribution Width 14.4 10.0-14.5 % Platelet Count 270 130-400 10^3/uL Mean Platelet Volume 9.2 9.0-12.2 fL Immature Granulocyte % (Auto) 1 % Neutrophils (%) (Auto) 67 42-75 % Lymphocytes (%) (Auto) 23 12-44 % Monocytes (%) (Auto) 6 0-12 % Eosinophils (%) (Auto) 4 0-10 % Basophils (%) (Auto) 0 0-10 % Neutrophils # (Auto) 7.8 1.8-7.8 10^3/uL Lymphocytes # (Auto) 2.7 1.0-4.0 10^3/uL Monocytes # (Auto) 0.6 0.0-1.0 10^3/uL Eosinophils # (Auto) 0.4 H 0.0-0.3 10^3/uL Basophils # (Auto) 0.1 0.0-0.1 10^3/uL Immature Granulocyte # (Auto) 0.1 0.0-0.1 10^3/uL Prothrombin Time 12.8 12.2-14.7 SEC INR Comment 0.9 0.8-1.4 Activated Partial Thromboplast Time 28 24-35 SEC Sodium Level 133 L 135-145 MMOL/L Potassium Level 5.0 3.6-5.0 MMOL/L Chloride Level 101 98-107 MMOL/L Carbon Dioxide Level 18 L 21-32 MMOL/L Anion Gap 14 5-14 MMOL/L Blood Urea Nitrogen 22 H 7-18 MG/DL Creatinine 1.02 0.60-1.30 MG/DL Estimat Glomerular Filtration Rate 61 BUN/Creatinine Ratio 22 Glucose Level 158 H 70-105 MG/DL Lactic Acid Level 1.23 0.50-2.00 MMOL/L Calcium Level 10.1 8.5-10.1 MG/DL Corrected Calcium 9.8 8.5-10.1 MG/DL Magnesium Level 1.3 L 1.6-2.4 MG/DL Total Bilirubin 0.5 0.1-1.0 MG/DL Aspartate Amino Transf (AST/SGOT) 25 5-34 U/L Alanine Aminotransferase (ALT/SGPT) 25 0-55 U/L Alkaline Phosphatase 53 40-136 U/L Total Protein 8.0 6.4-8.2 GM/DL Albumin 4.4 3.2-4.5 GM/DL Urine Color RED H Urine Clarity CLOUDY Urine pH 5.5 5-9 Urine Specific [place] 1.010 L 1.016-1.022 Urine Protein 3+ H NEGATIVE Urine Glucose (UA) TRACE H NEGATIVE Urine Ketones NEGATIVE NEGATIVE Urine Nitrite POSITIVE H NEGATIVE Urine Bilirubin 1+ H NEGATIVE Urine Urobilinogen 1.0 < = 1.0 MG/DL Urine Leukocyte Esterase 1+ H NEGATIVE Urine RBC (Auto) 3+ H NEGATIVE Urine RBC TNTC H /HPF Urine WBC >100 H /HPF Urine Squamous Epithelial Cells 5-10 /HPF Urine Crystals NONE /LPF Urine Bacteria LARGE H /HPF Urine Casts NONE /LPF Urine Mucus NEGATIVE /LPF Urine Culture Indicated YES My Orders Orders - PERLITA SHIN MD Cbc With Automated Diff (12/28/21 18:43) Comprehensive Metabolic Panel (12/28/21 18:43) Lactic Acid Analyzer (12/28/21 18:43) Magnesium (12/28/21 18:43) Protime With Inr (12/28/21 18:43) Partial Thromboplastin Time (12/28/21 18:43) Vital Signs/I&O 12/28/21 18:37 Temp 36.8 Pulse 97 Resp 20 B/P (MAP) 126/71 (89) Pulse Ox 95 O2 Delivery Room Air Capillary Refill : Less Than 3 Seconds Blood Pressure Mean: 89 Progress Note : Progress Note 1. HEMATURIA: - UA is positive for nitrites, leukocyte esterase, RBCs, WBCs, and bacteria. - CBC. CMP unremarkable, normal WBC - Coag panel unremarkable - CT ABD on December 20: Mild hepatic steatosis, left adnexal cyst for which correlative ultrasound recommended. No findings suggestive of metastatic disease and no bowel, biliary or urinary tract obstruction. - Pt has a PCP appointment on January 05. She has not seen her PCP in between the last ER visit and this one. - The culture sent from last visit was reportedly contaminated, and the lab did not send the sensitivit - Pt finished a course of Bactrim yesterday. Will give Levaquin 750 daily for 5 days. First tab STAT in ER - Advised to keep appointment with PCP, and will need UA repeat in 7 days - Advised adequate hydration -The patient was seen in the ED, and treated appropriately to presentation at a specific point in time. Patient is informed that there is a possibility that disease and illness can evolve and change in acuity rapidly or slowly after patient is discharged from the ER. Precautionary advice given to the patient for immediate return to ER if symptoms worsen or do not resolve, and to seek emergency care sooner rather than later. Pt also advised on the importance of PCP follow up and compliance with management and follow up plan with PCP and/or specialist, as this is part of the management plan. Pt verbally expressed understanding. Departure Impression Primary Impression: Acute cystitis with hematuria Disposition: HOME, SELF-CARE Condition: Stable Departure-Patient Inst. Referrals: DUSTY MCINTYRE MD (PCP/Family) Primary Care Physician Patient Instructions: Blood in Urine (Hematuria), Adult ED, Urinary Tract Infection, Adult ED Add. Discharge Instructions: - The culture sent from last visit was reportedly contaminated, and the lab did not send the sensitivit - Pt finished a course of Bactrim yesterday. Will give Levaquin 750 daily for 5 days. First tab given in ER - Advised to keep appointment with PCPon January 05, and will need UA repeat in 7 days - Advised adequate hydration All discharge instructions reviewed with patient and/or family. Voiced understanding. Scripts Levofloxacin (Levofloxacin) 750 Mg Tablet 750 MG PO DAILY for 5 Days, #5 TAB Prov: PERLITA SHIN MD 12/28/21 Tamsulosin HCl (Flomax) 0.4 Mg Cap 0.4 MG PO DAILY for 7 Days, CAP Prov: PERLITA SHIN MD 12/28/21 PERLITA SHIN MD Dec 28, 2021 18:42
[2021-12-28 19:10] LABS: BASOPHILS # (AUTO) 0.1 10^3/uL (0.0-0.1); BASOPHILS % (AUTO) 0 % (0-10); EOSINOPHILS # (AUTO) 0.4 10^3/uL (0.0-0.3); EOSINOPHILS % (AUTO) 4 % (0-10); HEMATOCRIT 46 % (35-52); HEMOGLOBIN 15.1 g/dL (11.5-16.0); LYMPHOCYTES # (AUTO) 2.7 10^3/uL (1.0-4.0); LYMPHOCYTES % (AUTO) 23 % (12-44); MEAN CORPUSCULAR HEMOGLOBIN 30 pg (25-34); MEAN CORPUSCULAR HGB CONC 33 g/dL (32-36); MEAN CORPUSCULAR VOLUME 93 fL (80-99); MEAN PLATELET VOLUME 9.2 fL (9.0-12.2); MONOCYTES # (AUTO) 0.6 10^3/uL (0.0-1.0); MONOCYTES % (AUTO) 6 % (0-12); NEUTROPHILS # (AUTO) 7.8 10^3/uL (1.8-7.8); NEUTROPHILS % (AUTO) 67 % (42-75); PLATELET COUNT 270 10^3/uL (130-400); WHITE BLOOD COUNT 11.7 10^3/uL (4.3-11.0)
[2021-12-28 19:12] LABS: BILIRUBIN,URINE 1+ (NEGATIVE); CLARITY,URINE CLOUDY; COLOR,URINE RED; GLUCOSE, URINE (UA) TRACE (NEGATIVE); KETONES,URINE NEGATIVE (NEGATIVE); LEUKOCYTE ESTERASE ,URINE 1+ (NEGATIVE); NITRITE,URINE POSITIVE (NEGATIVE); PH,URINE 5.5 (5-9); PROTEIN,URINE 3+ (NEGATIVE)
[2021-12-28 19:20] LABS: INR 0.9 (0.8-1.4); PROTHROMBIN TIME PATIENT 12.8 SEC (12.2-14.7)
[2021-12-28 19:23] LABS: BACTERIA,URINE LARGE /HPF; RBC,URINE TNTC /HPF; WBC,URINE >100 /HPF
[2021-12-28 19:27] LABS: ALBUMIN 4.4 GM/DL (3.2-4.5); BILIRUBIN,TOTAL 0.5 MG/DL (0.1-1.0); CALCIUM 10.1 MG/DL (8.5-10.1); CREATININE SERUM 1.02 MG/DL (0.60-1.30); MAGNESIUM 1.3 MG/DL (1.6-2.4)
[2021-12-28] MEDS ORDERED: TMSL.4C PO (20:24)
[2021-12-28] MEDS ORDERED: LEVO750T39 PO (20:24)
[2021-12-28] MEDS ORDERED: TAMSULOSIN 0.4 MG (FLOMAX) CAP PO STA (20:26)
== END 2021-12-28 21:09 | disposition home or self-care (01) ==
LOC: EDUNIT# 18:29 → ER 18:30
DX: N30.01 Acute cystitis with hematuria (principal); Z28.310 Unvaccinated for COVID-19
CPT/HCPCS: 36415; 80053; 81000; 83605; 83735; 85025; 85610; 85730; 87088; 99283

== ENCOUNTER 2021-12-30 02:19 | Emergency (ER) | payer MEDICARE ==
[~2021-12-30] VITALS: Ht 160 cm; Wt 80.3 kg
[~2021-12-30 02:19] MED LIST changes: +LEVO750T39 PO; +TMSL.4C PO
--- NOTE | 2021-12-30 02:35 | ED General ---
General Stated Complaint: UTI History of Present Illness Date Seen by Provider: Dec 30, 2021 Time Seen by Provider: 02:34 Initial Comments Pt was seen by me yesterday night in the ER. A copy of this note placed here: : 66-year-old female with PMH of HTN/DM/left ovarian cyst, is here with complaints of hematuria which has been ongoing for the past 2 weeks. Patient was here in the ER on December 20 with the same complaints, for which a CT abdomen was done in the ER and showed a left ovarian cyst that appeared to be benign, and was diagnosed with a UTI and sent home on antibiotics. Patient finished the antibiotics for her UTI yesterday. Patient states that today she had some small blood clots in her urine and was concerned. Denies abdominal pain, chest pain, palpitations, dysuria, fever, melena, hematochezia, hemoptysis, loss of weight, loss of appetite. Pt was given Flomax and LevaQUIN Prescription yesterday, and pt and she has begun to take them. Pt is back today stating that she still feels some urinary retention. Pt did not call her PCP office or Dr. Ch's office to enquire further. Allergies and Home Medications Allergies Coded Allergies: No Known Drug Allergies (Verified , 04/28/08) Patient Home Medication List Home Medication List Reviewed: Yes Fluticasone/Vilanterol (Breo Ellipta 200-25 Mcg INH) 1 Each Blst.w.dev, 1 EACH IH HS, (Reported) Entered as Reported by: PRASHANT BUTLER on 11/07/17 1319 Hydrochlorothiazide (Hydrochlorothiazide) 25 Mg Tablet, 25 MG PO DAILY, (Reported) Entered as Reported by: PRASHANT BUTLER on 11/07/17 1300 Levofloxacin (Levofloxacin) 750 Mg Tablet, 750 MG PO DAILY Prescribed by: PERLITA SHIN MD on 12/28/212023 Liraglutide (Victoza 3-Mika) 0.6 Mg/0.1 Ml Pen.injctr, 1.8 MG SQ HS, (Reported) Entered as Reported by: PRASHANT BUTLER on 11/07/17 1300 Lisinopril (Lisinopril) 40 Mg Tablet, 40 MG PO DAILY, (Reported) Entered as Reported by: PRASHANT BUTLER on 11/07/17 1300 Metformin HCl (Metformin HCl ER) 500 Mg [id number], 1,000 MG PO BID, (Reported) Entered as Reported by: PRASHANT BUTLER on 11/07/17 1300 [place]-3S/Dha/Epa/Fish Oil (Fish Oil [place]-3 Softgel) 1 Each Capsule.dr, 1 EACH PO BID, (Reported) Entered as Reported by: PRASHANT BUTLER on 11/07/17 1319 Pravastatin Sodium (Pravastatin Sodium) 40 Mg Tablet, 40 MG PO HS, (Reported) Entered as Reported by: PRASHANT BUTLER on 11/07/17 1300 Sulfamethoxazole/Trimethoprim (Bactrim Ds Tablet) 1 Each Tablet, 1 EACH PO BID Prescribed by: MICHELLE YTLER on 12/20/211536 Tamsulosin HCl (Flomax) 0.4 Mg Cap, 0.4 MG PO DAILY Prescribed by: PERLITA SHIN MD on 12/28/212023 Review of Systems Review of Systems Constitutional: no symptoms reported EENTM: no symptoms reported Respiratory: no symptoms reported Cardiovascular: no symptoms reported Gastrointestinal: no symptoms reported Genitourinary: decreased output Musculoskeletal: no symptoms reported Skin: no symptoms reported Psychiatric/Neurological: No Symptoms Reported Hematologic/Lymphatic: No Symptoms Reported Immunological/Allergic: no symptoms reported Past Iccrfvp-Kygyfo-Vpakxi Hx Immunizations Up To Date Tetanus Booster (TDap): More than 5yrs PED Vaccines UTD: No Past Medical History Surgery/Hospitalization HX: VULVA CA, CHEMO AND RADIATION COPD Hypertension Reproductive Disorders: No Female Reproductive Disorders: Denies Sexually Transmitted Disease: No HIV/AIDS: No Diabetes, Non-Insulin dep Loss of Vision: Denies Hearing Impairment: Denies Recent Skin Changes, Herpes Family Medical History Diabetes mellitus 19 FATHER, , Onset:Unknown 19 MOTHER, , Onset:Unknown FH: lung cancer 19 FATHER, , Onset:Unknown FH: lymphoma 19 MOTHER, , Onset:Unknown Hypertension 19 MOTHER, , Onset:Unknown No Family History of: AIDS Abdominal aortic aneurysm [place]'s disease Alcoholism Alzheimer's disease Aphasia Arthritis Asthma Cancer of mouth Cardiovascular disease Cataracts Colon cancer Completed stroke Congenital disease Congenital heart disease Coronary thrombosis Cystic fibrosis Deafness or hearing loss Dementia Drug abuse Dysphasia Fibrocystic disease of breast Gastroenteritis Glaucoma Headache disorder Hypercholesterolemia Infertility Kidney disease Myocardial infarction Neoplasm Not obtainable due to adoption Osteoporosis Parkinson's disease Prostate cancer Psychosocial problem Respiratory disorder Seizure disorder Severe allergy Thyroid disease Tuberculosis Visual disorder No Pertinent Family Hx Physical Exam Vital Signs Capillary Refill : Height, Weight, BMI Height: 5'3.00" Weight: 185lbs. 0.0oz. [id number]; 30.00 BMI Method: General Appearance: No Apparent Distress HEENT: PERRL/EOMI, Normal ENT Inspection Neck: Full Range of Motion, Normal Inspection, Non Tender, Supple Respiratory: Chest Non Tender, Lungs Clear Cardiovascular: Regular Rate, Rhythm, No Edema Gastrointestinal: Normal Bowel Sounds, Non Tender, Soft Back: Normal Inspection, No CVA Tenderness Neurologic/Psychiatric: Alert, Oriented x3 Skin: Normal Color Progress/Results/Core Measures Suspected Sepsis SIRS Temperature: Pulse: Respiratory Rate: Blood Pressure / Mean: Results/Orders Lab Results Laboratory Tests Test 12/30/21 02:31 Range/Units My Orders Orders - PERLITA SHIN MD Ua Culture If Indicated (12/30/21 02:26) Catheter(Urinary) Insert & Ass 03,15 (12/30/21 02:45) Lidocaine 2% (Urojet) (Xylocaine Urojet) (12/30/21 02:45) Vital Signs/I&O Capillary Refill : Progress Note : Progress Note 1. UTI & URINARY RETENTION: - Yesterday's plan: UA is positive for nitrites, leukocyte esterase, RBCs, WBCs, and bacteria. - CBC. CMP unremarkable, normal WBC - Coag panel unremarkable - CT ABD on December 20: Mild hepatic steatosis, left adnexal cyst for which correlative ultrasound recommended. No findings suggestive of metastatic disease and no bowel, biliary or urinary tract obstruction. - Pt has a PCP appointment on January 05. She has not seen her PCP in between the last ER visit and this one. - The culture sent from last visit was reportedly contaminated, and the lab did not send the sensitivit - Pt finished a course of Bactrim yesterday. Will give Levaquin 750 daily for 5 days. First tab STAT in ER - Advised to keep appointment with PCP, and will need UA repeat in 7 days - Advised adequate hydration -The patient was seen in the ED, and treated appropriately to presentation at a specific point in time. Patient is informed that there is a possibility that disease and illness can evolve and change in acuity rapidly or slowly after patient is discharged from the ER. Precautionary advice given to the patient for immediate return to ER if symptoms worsen or do not resolve, and to seek emergency care sooner rather than later. Pt also advised on the importance of PCP follow up and compliance with management and follow up plan with PCP and/or specialist, as this is part of the management plan. Pt verbally expressed understanding. TODAY: Finish medication dose as I prescribed. - Added a negrete cath insertion, and follow up with Dr Mark, urology Departure Impression Primary Impression: Urinary tract infection Additional Impression: Urinary retention Disposition: HOME, SELF-CARE Condition: Improved Departure-Patient Inst. Referrals: DUSTY MCINTYRE MD (PCP/Family) Primary Care Physician Patient Instructions: Urinary Tract Infection, Adult (DC), Urinary Retention (DC) Add. Discharge Instructions: Follow up with Urology clinic. Call for an appointment in the morning PERLITA SHIN MD Dec 30, 2021 02:35
[2021-12-30 02:38] LABS: BILIRUBIN,URINE NEGATIVE (NEGATIVE); CLARITY,URINE CLOUDY; COLOR,URINE YELLOW; GLUCOSE, URINE (UA) TRACE (NEGATIVE); KETONES,URINE NEGATIVE (NEGATIVE); LEUKOCYTE ESTERASE ,URINE 1+ (NEGATIVE); NITRITE,URINE NEGATIVE (NEGATIVE); PROTEIN,URINE 3+ (NEGATIVE)
[2021-12-30] MEDS ORDERED: LIDOCAINE UROJET 2% GEL 10 ML PKG TOP ONE (02:45)
[2021-12-30 02:48] LABS: BACTERIA,URINE FEW /HPF; RBC,URINE 50-100 /HPF; SQUAMOUS EPITHELIAL CELL,UR RARE /HPF; WBC,URINE 50-100 /HPF
[2021-12-30 03:03] VITALS: BP 137/62
== END 2021-12-30 03:21 | disposition home or self-care (01) ==
LOC: EDUNIT# 02:19 → ER 02:23
DX: N39.0 Urinary tract infection, site not specified (principal); Z28.310 Unvaccinated for COVID-19
CPT/HCPCS: 81000; 87088; 99282

== ENCOUNTER 2022-03-28 10:29 | Emergency (ER) | payer MEDICARE ==
[~2022-03-28] VITALS: Ht 159 cm; Wt 82.0 kg
[~2022-03-28 10:29] MED LIST changes: +LEVO750T PO; -LEVO750T39 PO
--- NOTE | 2022-03-28 11:29 | ED GU-Female ---
General Chief Complaint: - Reproductive Stated Complaint: BLADDER ISSUES Nursing Triage Note: PT STATES SHE HAS SEEN DR. LORD FOR BLADDER ISSUES, DR STATED "HE DIDN'T LIKE THE WAY MY BLADDER LOOKS," PT UNABLE TO URINATE THIS MORNING BUT WAS GOING FINE YESTERDAY. Source: patient Exam Limitations: no limitations (MIRIAN MALAVE) History of Present Illness Date Seen by Provider: Mar 28, 2022 Time Seen by Provider: 10:50 Initial Comments This 67 y/o female presents with reported urinary retention/bladder concerns. Patient reports this morning she was only able to urinate a very small amount. Patient states she feels lower abdominal pressure and feels as though she needs to micturate but is unable to produce urine. Patient has tried to urinate several times this morning with minimal to no output. Patient denies dysuria, increased frequency, fever, aches, chill, N/V/D, or abdominal pain elsewhere. Patient states she was able to voluntarily urinate yesterday without difficulty. Patient reports chronic constipation but was able to have a small bowel movement this morning. Patient states she sees Dr. Lord and has been hospitalized in the past with an indwelling catheter. Patient states her last urology appointment was 02/15/2022 and was referred to [facility]. Patient states she is unsure who she was referred to/which specialty. Patient states she missed the phone call to schedule an appointment with [facility] but did not call them back since she was urinating well with no complications. Patient states her discomfort and suprapubic pressure rates as a 10/10. Timing/Duration: this morning Severity/Quality: moderate Location: suprapubic Radiation: none Activities at Onset: none Prior Genitourinary Problems: similar symptoms Associated Symptoms: denies symptoms (MIRIAN MALAVE) Allergies and Home Medications Allergies Coded Allergies: No Known Drug Allergies (Verified , 04/28/08) Patient Home Medication List Home Medication List Reviewed: Yes (MIRIAN MALAVE) Cefdinir (Cefdinir) 300 Mg Capsule, 300 MG PO BID Prescribed by: JONI CALLAHAN on 03/28/22 1431 Fluticasone/Vilanterol (Breo Ellipta 200-25 Mcg INH) 1 Each Blst.w.dev, 1 EACH IH HS, (Reported) Entered as Reported by: PRASHANT BUTLER on 11/07/17 1319 Hydrochlorothiazide (Hydrochlorothiazide) 25 Mg Tablet, 25 MG PO DAILY, (Reported) Entered as Reported by: PRASHANT BUTLER on 11/07/17 1300 Hydrocodone/Acetaminophen (Hydrocodone-Acetamin 5-325 mg) 5 Mg-325 Mg Tablet, 1 TAB PO Q6H PRN for PAIN-BREAKTHROUGH Prescribed by: JONI CALLAHAN on 03/28/22 1432 Levofloxacin (Levofloxacin) 750 Mg Tablet, 750 MG PO DAILY Prescribed by: PERLITA SHIN MD on 12/28/212023 Liraglutide (Victoza 3-Mika) 0.6 Mg/0.1 Ml Pen.injctr, 1.8 MG SQ HS, (Reported) Entered as Reported by: PRASHANT BUTLER on 11/07/17 1300 Lisinopril (Lisinopril) 40 Mg Tablet, 40 MG PO DAILY, (Reported) Entered as Reported by: PRASHANT BUTLER on 11/07/17 1300 Metformin HCl (Metformin HCl ER) 500 Mg Ennrnwh63g, 1,000 MG PO BID, (Reported) Entered as Reported by: PRASHANT BUTLER on 11/07/17 1300 [place]-3S/Dha/Epa/Fish Oil (Fish Oil [place]-3 Softgel) 1 Each Capsule.dr, 1 EACH PO BID, (Reported) Entered as Reported by: PRASHANT BUTLER on 11/07/17 1319 Phenazopyridine HCl (Pyridium) 200 Mg Tablet, 1 TAB PO Q8H PRN for PAIN-MILD (1- 4) Prescribed by: JONI CALLAHAN on 03/28/22 1431 Pravastatin Sodium (Pravastatin Sodium) 40 Mg Tablet, 40 MG PO HS, (Reported) Entered as Reported by: PRASHANT BUTLER on 11/07/17 1300 Sulfamethoxazole/Trimethoprim (Bactrim Ds Tablet) 1 Each Tablet, 1 EACH PO BID Prescribed by: MICHELLE TYLER on 12/20/21 1537 Tamsulosin HCl (Flomax) 0.4 Mg Cap, 0.4 MG PO DAILY Prescribed by: PERLITA SHIN MD on 12/28/212023 Review of Systems Review of Systems Constitutional: no symptoms reported EENTM: no symptoms reported Respiratory: no symptoms reported Cardiovascular: no symptoms reported Gastrointestinal: no symptoms reported Genitourinary: pain, urgency, other (inability to urinate) Musculoskeletal: no symptoms reported Skin: no symptoms reported Psychiatric/Neurological: No Symptoms Reported Endocrine: No Symptoms Reported Hematologic/Lymphatic: No Symptoms Reported (MIRIAN MALAVE) All Other Systemes Reviewed Negative Unless Noted: Yes (MIRIAN MALAVE) Past Faiseve-Cnpqyp-Sngofo Hx Patient Social History Tobacco Use?: Yes Tobacco type used: Cigarettes Smoking Status: Current Everyday Smoker Substance use?: No Alcohol Use?: No (MIRIAN MALAVE) Immunizations Up To Date Tetanus Booster (TDap): More than 5yrs PED Vaccines UTD: No (MIRIAN MALAVE) Past Medical History Surgery/Hospitalization HX: VULVA CA, CHEMO AND RADIATION, COPD, HYPERTENSION, DIABETIC TYPE II, HOME O2, COPD Hypertension Reproductive Disorders: No Female Reproductive Disorders: Denies Sexually Transmitted Disease: No HIV/AIDS: No Diabetes, Non-Insulin dep Loss of Vision: Denies Hearing Impairment: Denies Recent Skin Changes, Herpes (MIRIAN MALAVE) Family Medical History Diabetes mellitus 19 FATHER, , Onset:Unknown 19 MOTHER, , Onset:Unknown FH: lung cancer 19 FATHER, , Onset:Unknown FH: lymphoma 19 MOTHER, , Onset:Unknown Hypertension 19 MOTHER, , Onset:Unknown No Family History of: AIDS Abdominal aortic aneurysm Comanche's disease Alcoholism Alzheimer's disease Aphasia Arthritis Asthma Cancer of mouth Cardiovascular disease Cataracts Colon cancer Completed stroke Congenital disease Congenital heart disease Coronary thrombosis Cystic fibrosis Deafness or hearing loss Dementia Drug abuse Dysphasia Fibrocystic disease of breast Gastroenteritis Glaucoma Headache disorder Hypercholesterolemia Infertility Kidney disease Myocardial infarction Neoplasm Not obtainable due to adoption Osteoporosis Parkinson's disease Prostate cancer Psychosocial problem Respiratory disorder Seizure disorder Severe allergy Thyroid disease Tuberculosis Visual disorder No Pertinent Family Hx (MIRIAN MALAVE) Physical Exam Vital Signs Vital Signs - First Documented 03/28/22 10:38 Temp 36.7 Pulse 114 Resp 20 B/P (MAP) 201/94 (129) Pulse Ox 94 O2 Delivery Room Air (JONI RIDER MD) Vital Signs Capillary Refill : Less Than 3 Seconds (MIRIAN MALAVE) Height, Weight, BMI Height: 5'3.00" Weight: 185lbs. 0.0oz. 83.732414ia; 32.00 BMI Method: General Appearance: WD/WN, mild distress (patient was unable to sit during interview due to suprapubic pressure and discomfort) HEENT: PERRL/EOMI Cardiovascular: regular rate, rhythm, no murmur Respiratory: decreased breath sounds, other (coarse breath sounds in all lung fountain, worse with expiration) Gastrointestinal: normal bowel sounds, tenderness (suprapubic tenderness) Neurologic/Psychiatric: alert, normal mood/affect, oriented x 3 Skin: normal color, warm/dry Bladder scan performed by mt showed approximately 58ml of fluid in the bladder. Previous nursing exam showed approximately 70ml. (MIRIAN MALAVE) Progress/Results/Core Measures Suspected Sepsis SIRS Temperature: Pulse: 114 Respiratory Rate: 20 Laboratory Tests 03/28/22 11:30: White Blood Count 9.1 Blood Pressure 201 /94 Mean: 129 Laboratory Tests 03/28/22 11:30: Platelet Count 235 (MIRIAN MALAVE) Results/Orders Lab Results Laboratory Tests Test 03/28/22 11:30 03/28/22 11:45 Range/Units White Blood Count 9.1 4.3-11.0 10^3/uL Red Blood Count 4.53 3.80-5.11 10^6/uL Hemoglobin 14.1 11.5-16.0 g/dL Hematocrit 44 35-52 % Mean Corpuscular Volume 96 80-99 fL Mean Corpuscular Hemoglobin 31 25-34 pg Mean Corpuscular Hemoglobin Concent 32 32-36 g/dL Red Cell Distribution Width 14.2 10.0-14.5 % Platelet Count 235 130-400 10^3/uL Mean Platelet Volume 9.6 9.0-12.2 fL Immature Granulocyte % (Auto) 1 % Neutrophils (%) (Auto) 71 42-75 % Lymphocytes (%) (Auto) 18 12-44 % Monocytes (%) (Auto) 7 0-12 % Eosinophils (%) (Auto) 3 0-10 % Basophils (%) (Auto) 1 0-10 % Neutrophils # (Auto) 6.5 1.8-7.8 10^3/uL Lymphocytes # (Auto) 1.6 1.0-4.0 10^3/uL Monocytes # (Auto) 0.6 0.0-1.0 10^3/uL Eosinophils # (Auto) 0.2 0.0-0.3 10^3/uL Basophils # (Auto) 0.1 0.0-0.1 10^3/uL Immature Granulocyte # (Auto) 0.1 0.0-0.1 10^3/uL Sodium Level 134 L 135-145 MMOL/L Potassium Level 4.4 3.6-5.0 MMOL/L Chloride Level 101 98-107 MMOL/L Carbon Dioxide Level 21 21-32 MMOL/L Anion Gap 12 5-14 MMOL/L Blood Urea Nitrogen 21 H 7-18 MG/DL Creatinine 1.21 0.60-1.30 MG/DL Estimat Glomerular Filtration Rate 49 BUN/Creatinine Ratio 17 Glucose Level 343 H 70-105 MG/DL Calcium Level 9.6 8.5-10.1 MG/DL C-Reactive Protein High Sensitivity 1.06 H 0.00-0.50 MG/DL Thyroid Stimulating Hormone (TSH) 1.61 0.35-4.94 UIU/ML Free Thyroxine 0.89 0.70-1.48 NG/DL Urine Color YELLOW Urine Clarity CLEAR Urine pH 6.0 5-9 Urine Specific [place] 1.025 H 1.016-1.022 Urine Protein 2+ H NEGATIVE Urine Glucose (UA) 3+ H NEGATIVE Urine Ketones NEGATIVE NEGATIVE Urine Nitrite NEGATIVE NEGATIVE Urine Bilirubin NEGATIVE NEGATIVE Urine Urobilinogen 0.2 < = 1.0 MG/DL Urine Leukocyte Esterase 1+ H NEGATIVE Urine RBC (Auto) 3+ H NEGATIVE Urine RBC 25-50 H /HPF Urine WBC >100 H /HPF Urine Crystals NONE /LPF Urine Bacteria MODERATE H /HPF Urine Casts NONE /LPF Urine Mucus NEGATIVE /LPF Urine Culture Indicated YES (JONI RIDER MD) Micro Results Microbiology 03/28/22 Urine Culture - Preliminary, Resulted (JONI RIDER MD) My Orders Orders - JONI RIDER MD Ua Culture If Indicated (03/28/22 10:57) Bladder Scan (03/28/22 10:57) Hyoscyamine Sl Tablet (Levsin Sl Tablet) (03/28/22 11:30) Basic Metabolic Panel (03/28/22 11:18) Cbc With Automated Diff (03/28/22 11:18) Ed Iv/Invasive Line Start (03/28/22 11:18) Thyroid Stimulating Hormone (03/28/22 11:20) Free T4 (Free Thyroxine) (03/28/22 11:20) Urine Culture (03/28/22 11:45) Ct Abd/Pelvis Wo(Kidney Stone) (03/28/22 12:19) Fentanyl Inj (Sublimaze Injection) (03/28/22 12:30) Hs C Reactive Protein (03/28/22 12:29) Ns Iv 1000 Ml (Sodium Chloride 0.9%) (03/28/22 12:45) Ceftriaxone 1 Gm Pre-Mix (Rocephin 1 Gm (03/28/22 13:52) Phenazopyridine Tablet (Pyridium Tablet) (03/28/22 14:08) (JONI RIDER MD) Medications Given in ED Current Medications Medications Dose Ordered Sig/Desiree Route Start Time Stop Time Status Last Admin Dose Admin Fentanyl Citrate 25 mcg ONCE ONCE IVP 03/28/22 12:30 03/28/22 12:31 DC 03/28/22 12:33 25 MCG Hyoscyamine Sulfate 0.25 mg ONCE ONCE SL 03/28/22 11:30 03/28/22 11:31 DC 03/28/22 11:24 0.25 MG (JONI RIDER MD) Vital Signs/I&O 03/28/22 03/28/22 03/28/22 10:38 12:33 15:23 Temp 36.7 36.7 36.7 Pulse 114 103 Resp 20 20 B/P (MAP) 201/94 (129) 147/77 Pulse Ox 94 94 O2 Delivery Room Air Room Air (JONI RIDER MD) Vital Signs/I&O Capillary Refill : Less Than 3 Seconds (MIRIAN MALAVE) Blood Pressure Mean: 129 Progress Note #1: Time: 12:37 Progress Note Patient was interviewed and examined by me as well as MS 4. She has been up to the restroom numerous times attempting to urinate. She has not had much urine production. Bladder scan showed less than 100 mL. She appears to be having bladder irritation without true obstruction. Urine specimen was obtained and revealed pyuria with microscopic hematuria. CT from December was viewed by me and a small renal stone was noted in the left kidney. We will repeat the CT scan today to determine if she has a ureteral stone as a sequela of the prior renal stone. Hypertension was noted. Patient does take levothyroxine, and free T4 and TSH were normal. We are going to treat her pain and reassess her blood pressure. Levsin was administered for presumed bladder spasming, but Levsin did not do much to improve her pain. She is receiving a dose of fentanyl [address] She is tachycardic and hyperglycemic. A liter of IV normal saline is being administered. I discussed her situation with Dr. Lord. He does not recall the specific findings on her cystoscopy that prompted referral. He recom mends treating with Pyridium and antibiotics and follow-up in his clinic next week as long as there are no complicating factors seen on the CT. Progress Note #2: Progress Note CT scan was viewed by me, discussed with the radiologist, and report reviewed. There appears to be thickening of the posterior bladder wall or sediments present along the posterior wall. There appears to be at least partial ureteral obstruction bilaterally with bilateral hydroureter and hydronephrosis. Patient did demonstrate ability to void small amounts a couple of times during her ER stay. I discussed the case with Dr. Lord. Since renal function is stable and patient is not septic, he recommends treating with antibiotics and having her follow-up in the clinic. A dose of Rocephin was administered in the ER. Cefdinir was prescribed. Pain was controlled with fentanyl and Pyridium. Prescriptions were provided. See discharge instructions for further discussion. (JONI RIDER MD) Diagnostic Imaging Diagonstic Imaging: CT Plain Films/CT/US/NM/MRI: abdomen, pelvis Comments CT abdomen and pelvis viewed by me and report reviewed. Discussed with the radiologist. See report below: NAME: LUIS ACPELLAN [facility] REC#: [id number] PT STATUS: REG ER : 1955 PHYSICIAN: JONI RIDER MD ADMIT DATE: 03/28/22/ER Draft Date of Exam:03/28/22 CT ABD/PELVIS WO(KIDNEY STONE) PROCEDURE: CT urinary tract, rule out kidney stone. TECHNIQUE: Multiple contiguous axial images were obtained through the abdomen and pelvis without the use of intravenous contrast. Auto Exposure Controls were utilized during the CT exam to meet ALARA standards for radiation dose reduction. INDICATION: Difficulty urinating. Compared with most recent abdominal pelvic CT nonenhanced 12/20/2021 as well as a more remote contrast-enhanced study date 08/23/2017. An enlarging left pelvic cystic collection in the adnexal region today 7 x 7.7 cm previously in December 5.1 x 3.6 cm having developed from the study of 2018. It has deep dependent calcifications. Left ureter is deviated posterolaterally around this collection. There is bilateral hydroureteronephrosis and on the left is moderate left perinephric stranding edema and fluid. There are punctate intrarenal stones within left lower pole calyces measuring 2 mm maximal. The right ureter aside from being dilated appeared nonfocal to the UVJ. There is some equivocal thickening of the dependent urinary bladder at the right greater than left trigone this may be artifact bladder otherwise normal and non-thickened. The uterus unremarkable. Liver, gallbladder, spleen, adrenals and pancreas unremarkable. Bile ducts nondilated. The atherosclerotic aorta nonaneurysmal. IMPRESSION: 1. New bilateral hydroureteronephrosis with left intrarenal calculi. No opaque ureteral stone. Correlate for recently passed calculus. 2. Bladder volume not pathologic. No clear bladder mass. There may be some mild tissue thickening or dependent debris within the posterior urinary bladder at its base near the ureteral orifice series. 3. Enlarging left adnexal cystic collection of uncertain etiology. 4. No bowel or biliary tract obstruction. Dictated on workstation # [id number] Dict: 03/28/22 1310 Trans: 03/28/22 1320 [id number] Interpreted by: CLAUDIA BARR (JONI RIDER MD) Departure Impression Primary Impression: Urinary tract infection Qualified Codes: N39.0 - Urinary tract infection, site not specified; R31.9 - Hematuria, unspecified Additional Impressions: Pelvic pain Urinary urgency Hypertension Qualified Codes: I10 - Essential (primary) hypertension Bilateral ureteral obstruction Disposition: HOME, SELF-CARE Condition: Improved Departure-Patient Inst. Decision time for Depature: 14:23 (JONI RIDER MD) Referrals: DUSTY MCINTYRE MD (PCP/Family) Primary Care Physician Patient Instructions: Urinary Tract Infection, Adult ED Add. Discharge Instructions: Start your cefdinir antibiotic tomorrow morning. Complete the entire course as prescribed. Use Pyridium up to 3 times a day for bladder pain control. Please be aware this medication may turn your urine a reddish or oranges color. Do not be alarmed by that color change. You may use hydrocodone as a backup pain medication. Hydrocodone may cause d rowsiness so use with caution. Do not drive, operate machinery, or make important decisions while on hydrocodone. Hydrocodone may also cause constipation, so you may wish to take a stool softener while you are on it. You are to see Dr. Lord at10:00. He will evaluate you and review the plan of care at that time. He anticipates scheduling cystoscopy, reviewing your urine culture, and potentially placing stents in your ureters. Continue to drink plenty of clear liquids. Return to the emergency room if your symptoms are not well controlled by following the above instructions or if you develop new symptoms such as fever. All discharge instructions reviewed with patient and/or family. Voiced understanding. Scripts Hydrocodone/Acetaminophen (Hydrocodone-Acetamin 5-325 mg) 5 Mg-325 Mg Tablet 1 TAB PO Q6H PRN for PAIN-BREAKTHROUGH, #10 TAB Prov: JONI RIDER MD 03/28/22 Phenazopyridine HCl (Pyridium) 200 Mg Tablet 1 TAB PO Q8H PRN for PAIN-MILD (1-4), #20 TAB Prov: JONI RIDER MD 03/28/22 Cefdinir (Cefdinir) 300 Mg Capsule 300 MG PO BID, #14 CAP 0 Refills Prov: JONI RIDER MD 03/28/22 Medical Student Attestation and Attending Note: I have personally interviewed and examined this patient along with Odalis Malave, MS 4. I have reviewed student documentation including history, physical, and assessments. I agree with the documentation except where otherwise noted. Exam: General: Alert, oriented, mild acute distress, well developed, obese, prefer standing due to pelvic discomfort with sitting HEENT: Normocephalic and atraumatic Heart: Regular tachycardia without murmur Lungs: Clear to auscultation bilaterally with normal effort Abdomen: Soft, nontender, nondistended, decreased bowel sounds Neuropsych: Alert, oriented, no focal deficits Skin: Warm and dry without rashes (JONI RIDER MD) Copy Copies To 1: DAMEON LORD MD Copies To 2: DUTSY MCINTYRE MD, MIKAELA Mar 28, 2022 11:29 JONI RIDER MD Mar 28, 2022 12:45
[2022-03-28] MEDS ORDERED: HYOSCYAMINE 0.125 MG (LEVSIN) TAB SL ONE (11:30)
[2022-03-28 11:40] LABS: BASOPHILS # (AUTO) 0.1 10^3/uL (0.0-0.1); BASOPHILS % (AUTO) 1 % (0-10); EOSINOPHILS # (AUTO) 0.2 10^3/uL (0.0-0.3); EOSINOPHILS % (AUTO) 3 % (0-10); HEMATOCRIT 44 % (35-52); HEMOGLOBIN 14.1 g/dL (11.5-16.0); LYMPHOCYTES # (AUTO) 1.6 10^3/uL (1.0-4.0); LYMPHOCYTES % (AUTO) 18 % (12-44); MEAN CORPUSCULAR HEMOGLOBIN 31 pg (25-34); MEAN CORPUSCULAR HGB CONC 32 g/dL (32-36); MEAN CORPUSCULAR VOLUME 96 fL (80-99); MEAN PLATELET VOLUME 9.6 fL (9.0-12.2); MONOCYTES # (AUTO) 0.6 10^3/uL (0.0-1.0); MONOCYTES % (AUTO) 7 % (0-12); NEUTROPHILS # (AUTO) 6.5 10^3/uL (1.8-7.8); NEUTROPHILS % (AUTO) 71 % (42-75); PLATELET COUNT 235 10^3/uL (130-400); WHITE BLOOD COUNT 9.1 10^3/uL (4.3-11.0)
[2022-03-28 11:51] LABS: BILIRUBIN,URINE NEGATIVE (NEGATIVE); CLARITY,URINE CLEAR; COLOR,URINE YELLOW; GLUCOSE, URINE (UA) 3+ (NEGATIVE); KETONES,URINE NEGATIVE (NEGATIVE); LEUKOCYTE ESTERASE ,URINE 1+ (NEGATIVE); NITRITE,URINE NEGATIVE (NEGATIVE); PROTEIN,URINE 2+ (NEGATIVE)
[2022-03-28 11:57] LABS: POTASSIUM 4.4 MMOL/L (3.6-5.0)
[2022-03-28 11:58] LABS: BACTERIA,URINE MODERATE /HPF; RBC,URINE 25-50 /HPF; WBC,URINE >100 /HPF
[2022-03-28 11:58] LABS: CALCIUM 9.6 MG/DL (8.5-10.1)
[2022-03-28 12:02] LABS: CREATININE SERUM 1.21 MG/DL (0.60-1.30)
[2022-03-28 12:27] LABS: FREE T4 (FREE THYROXINE) 0.89 NG/DL (0.70-1.48)
[2022-03-28] MEDS ORDERED: fentaNYL INJ 100 MCG/2 ML AMP IVP ONE (12:30)
[2022-03-28] MEDS ORDERED: NS IV 1000 ML 1,000 ML IV SCH (12:45)
--- NOTE | 2022-03-28 13:20 | Diagnostic Imaging Report ---
PROCEDURE: CT urinary tract, rule out kidney stone. TECHNIQUE: Multiple contiguous axial images were obtained through the abdomen and pelvis without the use of intravenous contrast. Auto Exposure Controls were utilized during the CT exam to meet ALARA standards for radiation dose reduction. INDICATION: Difficulty urinating. Compared with most recent abdominal pelvic CT nonenhanced 12/20/2021 as well as a more remote contrast-enhanced study date 08/23/2017. An enlarging left pelvic cystic collection in the adnexal region today 7 x 7.7 cm previously in December 5.1 x 3.6 cm having developed from the study of 2018. It has deep dependent calcifications. Left ureter is deviated posterolaterally around this collection. There is bilateral hydroureteronephrosis and on the left is moderate left perinephric stranding edema and fluid. There are punctate intrarenal stones within left lower pole calyces measuring 2 mm maximal. The right ureter aside from being dilated appeared nonfocal to the UVJ. There is some equivocal thickening of the dependent urinary bladder at the right greater than left trigone this may be artifact bladder otherwise normal and non-thickened. The uterus unremarkable. Liver, gallbladder, spleen, adrenals and pancreas unremarkable. Bile ducts nondilated. The atherosclerotic aorta nonaneurysmal. IMPRESSION: 1. New bilateral hydroureteronephrosis with left intrarenal calculi. No opaque ureteral stone. Correlate for recently passed calculus. 2. Bladder volume not pathologic. No clear bladder mass. There may be some mild tissue thickening or dependent debris within the posterior urinary bladder at its base near the ureteral orifice series. 3. Enlarging left adnexal cystic collection of uncertain etiology. 4. No bowel or biliary tract obstruction. Dictated by: Dictated on workstation # [id number]
[2022-03-28] MEDS ORDERED: cefTRIAXone 1 GM PRE-MIX 50 ML IV STA (13:52)
[2022-03-28] MEDS ORDERED: PHENAZOPYRIDINE 100 MG (PYRIDIUM) TABLET PO STA (14:08)
[2022-03-28] MEDS ORDERED: PHEN-640 PO (14:31)
[2022-03-28] MEDS ORDERED: CEFD300C3 PO (14:31)
[2022-03-28] MEDS ORDERED: ACHD5005 PO (14:31)
[2022-03-28 15:23] VITALS: BP 147/77
== END 2022-03-28 15:23 | disposition home or self-care (01) ==
LOC: EDUNIT# 10:29 → ER 10:31
DX: N39.0 Urinary tract infection, site not specified (principal); N13.1 Hydronephrosis with ureteral stricture, not elsewhere classified; I10 Essential (primary) hypertension; R00.0 Tachycardia, unspecified; E11.65 Type 2 diabetes mellitus with hyperglycemia; J44.9 Chronic obstructive pulmonary disease, unspecified; F17.210 Nicotine dependence, cigarettes, uncomplicated; Z99.81 Dependence on supplemental oxygen; Z96.0 Presence of urogenital implants; Z28.310 Unvaccinated for COVID-19
CPT/HCPCS: 36415; 74176; 80048; 81000; 84439; 84443; 85025; 86141; 87088

== ENCOUNTER 2022-04-03 05:38 | Outpatient (CLI) | payer MEDICARE ==
[~2022-04-03] VITALS: Ht 160 cm; Wt 81.8 kg
[~2022-04-03 05:38] MED LIST changes: +ACHD5005 PO; +CEFD300C3 PO; +PHEN-640 PO
[2022-04-03] MEDS ORDERED: SITA1TAB2 PO (10:31)
[2022-04-03] MEDS ORDERED: DULA1.5P2 SQ (10:31)
[2022-04-03] MEDS ORDERED: RT-ALBUINH INH (10:35)
[2022-04-03] MEDS ORDERED: AMLO2.5T4 PO (10:35)
== END 2022-04-03 10:45 | disposition home or self-care (01) ==
LOC: PREOP 05:38
PROVIDERS: ATTEND Urology
DX: Z01.818 Encounter for other preprocedural examination (principal)

== ENCOUNTER 2022-04-04 07:36 | Day surgery (SDC) | payer MEDICARE ==
[~2022-04-04] VITALS: Ht 160 cm; Wt 81.8 kg
[2022-04-04] VITALS (12 sets, daily range): BP systolic 122–168; BP diastolic 51–78
[~2022-04-04 07:36] MED LIST changes: +AMLO2.5T4 PO; +DULA1.5P2 SQ; +RT-ALBUINH INH; +SITA1TAB2 PO
--- NOTE | 2022-04-04 08:00 | Progress Note-Pre Operative ---
Pre-Operative Progress Note Date of Available H&P: Apr 04, 2022 Date H&P Reviewed: Apr 04, 2022 Time H&P Reviewed: 07:58 Changes from last HP NONE Pre-Operative Diagnosis: BLADDER TUMORS AND BILATERAL URETERAL OBSTRUCTION DAMEON LORD MD Apr 04, 2022 08:00
[2022-04-04] MEDS ORDERED: cefTRIAXone 1 GM PRE-MIX 50 ML IV ONE ×2 (08:28→08:30)
[2022-04-04] MEDS ORDERED: LACTATED RINGERS 1,000 ML IV PRN (08:30)
[2022-04-04] MEDS ORDERED: proPOfol 200 MG/20 ML (DIPRIVAN) VIAL IV ONE (09:44)
[2022-04-04] MEDS ORDERED: LIDOCAINE PF 2% 5 ML (XYLOCAINE) VIAL ONE (09:44)
[2022-04-04] MEDS ORDERED: fentaNYL INJ 100 MCG/2 ML AMP ONE (09:44)
[2022-04-04] MEDS ORDERED: ONDANSETRON 4 MG/2 ML (SDV) Z0FRAN ONE (09:44)
[2022-04-04] MEDS ORDERED: ROCURONIUM 10 MG/ML 5 ML SYRINGE IV ONE (09:44)
[2022-04-04] MEDS ORDERED: GLYCOPYRROLATE 0.2 MG/ML (ROBINUL) 2 ML VIAL ONE (09:44)
[2022-04-04] MEDS ORDERED: NEOSTIGMINE (BLOXIVERZ ) 1 MG/1ML 10 ML VIAL ONE (09:45)
--- NOTE | 2022-04-04 11:04 | Progress Note-Post Operative ---
Post-Operative Progess Note Surgeon (s)/Athletic Coordinator (s) Surgeon DAMEON LORD MD Athletic Coordinator: NONE Pre-Operative Diagnosis BLADDER TUMORS AND BILATERAL URETERAL OBSTRUCTION Post-Operative Diagnosis SAME Procedure & Operative Findings Date of Procedure 04/04/22 Procedure Performed/Findings TURBT (LARGE) Anesthesia Type GENERAL Estimated Blood Loss Estimated blood loss (mL): LESS THAN 50CC Specimens/Packing Specimens Removed BLADDER TUMORS CHIPS AND BASES Packing: NONE DAMEON LORD MD Apr 04, 2022 11:04
--- NOTE | 2022-04-04 11:06 | Discharge Inst-Urology ---
Discharge Inst-Urology Reconcile Patient Problems Problems Reviewed?: Yes Final Diagnosis BLADDER TUMORS AND BILATERAL URETERAL OBSTRUCTION Patient Instructions/Follow Up Plan/Assessment/Instructions Please make appointment to been seen in office WITHIN A WEEK. May resume any ASA or blood thinner in 72 hours if no bleeding Increase oral fluids for 48 hours and then as needed. Diet and Activity as tolerated. If questions or concerns contact your physician Or seek help at emergency department. DAMEON LORD MD Apr 04, 2022 11:06
[2022-04-04] MEDS ORDERED: ONDANSETRON 4 MG/2 ML (SDV) Z0FRAN IVP PRN (11:30)
[2022-04-04] MEDS ORDERED: IOHEXOL 300 MG/ML 30 ML (OMNIPAQUE 300) VIAL INJ ONE (11:30)
[2022-04-04] MEDS ORDERED: morphine INJ 10 MG/ML 1ML (SYR OR VIAL) IVP ONE (11:30)
--- NOTE | 2022-04-04 12:04 | Anesthesia-General Post-Op ---
General Patient Condition Mental Status/LOC: Same as Preop Cardiovascular: Satisfactory Nausea/Vomiting: Absent Respiratory: Satisfactory Pain: Controlled Complications: Absent Post Op Complications Complications None Follow Up Care/Instructions Patient Instructions None needed. Anesthesia/Patient Condition Patient Condition Patient is doing well, no complaints, stable vital signs, no apparent adverse anesthesia problems. No complications reported per nursing. BHARGAV AGUILERA DO Apr 04, 2022 12:04
[2022-04-04 12:10] LABS: CALCIUM 8.9 MG/DL (8.5-10.1); CREATININE SERUM 1.22 MG/DL (0.60-1.30); POTASSIUM 4.3 MMOL/L (3.6-5.0)
--- NOTE | 2022-04-04 15:33 | Diagnostic Imaging Report ---
INDICATION: bilateral ureteral obstruction TECHNIQUE: Multiple real-time grayscale sonographic images were obtained of the kidneys. CORRELATION: CT abdomen and pelvis 03/28/2022. FINDINGS: RIGHT KIDNEY: 13.2 x 6.4 x 7.9 cm. LEFT KIDNEY: 11.0 x 7.1 x 5.4 cm. On the right, appears be moderate hydronephrosis. At the UPJ, collecting systems measures 2.6 cm. On the left, question mild left-sided hydronephrosis with the renal pelvis 1.5 cm. Small echogenic foci could reflect nonobstructing stone left kidney, 0.3 cm. URINARY BLADDER: At the urinary bladder, the ureteral jets are not identified. IMPRESSION: 1. At least moderate severity right-sided hydronephrosis. 2. Suspect mild left hydronephrosis. Probable nonobstructing left renal stone. Dictated by: Dictated on workstation # [id number]
--- NOTE | 2022-04-04 17:00 | OPERATIVE REPORT ---
DATE OF SERVICE: 04/04/2022 PREOPERATIVE DIAGNOSES: Bladder tumors with gross hematuria and bilateral ureteral obstruction. POSTOPERATIVE DIAGNOSES: Bladder tumors with gross hematuria and bilateral ureteral obstruction. OPERATION PERFORMED: Transurethral resection of bladder tumors. SURGEON: Kelvin Lord MD. ANESTHESIA: General. COMPLICATIONS: None. DESCRIPTION OF PROCEDURE: Under satisfactory general anesthesia, the patient in lithotomy position, genitalia were prepped and draped in the usual sterile fashion. Cystoscope was introduced under vision. There was a lot of necrotic material and cloudiness in the urine that was clear by irrigation, I could not visualize the ureteric orifices. The whole floor and trigone of the bladder was covered with what looks like a cancer as much necrotic material whether or bladder origin or related to her previous vulvar cancer. I could not visualize the ureters at all, so could not put any stents or do any retrograde. I exchanged the cystoscope to a 27-Portuguese Santana resectoscope. I resected as much as I could from that large area of necrotic cancerous material and sent them to pathology some as base. I cauterized all the bleeders and hemostasis was complete. The bladder was emptied and the resectoscope was removed. The patient tolerated the procedure and anesthesia well and was sent to recovery room in a stable condition. PLAN: We will see what the report of the pathology shows. We will see her back within a week. Meanwhile, we will get a renal ultrasound to check on her ureteral obstruction. She will probably need a percutaneous nephrostomy and depending on the path report referral to appropriate management. CC: Dr. Sophie Vega - requested, unable to deliver. Job ID: [id number] DocumentID: [id number] Dictated Date: 04/04/2022 11:09:22 Cotton Candy Maker Date: 04/04/2022 16:59:35 Dictated By: KELVIN LORD MD
== END 2022-04-04 13:19 | disposition home or self-care (01) ==
LOC: SDC 07:36
PROVIDERS: ATTEND Urology
DX: C67.9 Malignant neoplasm of bladder, unspecified (principal); E66.9 Obesity, unspecified; Z68.31 Body mass index [BMI] 31.0-31.9, adult; F17.210 Nicotine dependence, cigarettes, uncomplicated
CPT/HCPCS: 36415; 76770; 80048; 82947; 87081

== ENCOUNTER 2022-04-17 10:18 | Outpatient (RCR) | payer MEDICARE ==
[2022-04-17 11:38] LABS: BASOPHILS # (AUTO) 0.1 10^3/uL (0.0-0.1); BASOPHILS % (AUTO) 1 % (0-10); EOSINOPHILS # (AUTO) 0.2 10^3/uL (0.0-0.3); EOSINOPHILS % (AUTO) 2 % (0-10); HEMATOCRIT 40 % (35-52); HEMOGLOBIN 12.8 g/dL (11.5-16.0); LYMPHOCYTES # (AUTO) 2.1 10^3/uL (1.0-4.0); LYMPHOCYTES % (AUTO) 20 % (12-44); MEAN CORPUSCULAR HEMOGLOBIN 31 pg (25-34); MEAN CORPUSCULAR HGB CONC 32 g/dL (32-36); MEAN CORPUSCULAR VOLUME 97 fL (80-99); MEAN PLATELET VOLUME 9.6 fL (9.0-12.2); MONOCYTES # (AUTO) 0.6 10^3/uL (0.0-1.0); MONOCYTES % (AUTO) 5 % (0-12); NEUTROPHILS # (AUTO) 7.3 10^3/uL (1.8-7.8); NEUTROPHILS % (AUTO) 71 % (42-75); PLATELET COUNT 288 10^3/uL (130-400); WHITE BLOOD COUNT 10.3 10^3/uL (4.3-11.0)
[2022-04-17 11:57] LABS: BILIRUBIN,TOTAL 0.3 MG/DL (0.1-1.0); CALCIUM 9.5 MG/DL (8.5-10.1); CREATININE SERUM 0.84 MG/DL (0.60-1.30); TOTAL PROTEIN 7.8 GM/DL (6.4-8.2)
== END 2022-05-10 | disposition home or self-care (01) ==
LOC: ONC 10:18
PROVIDERS: ATTEND Internal Medicine Hematology & Oncology
DX: C67.9 Malignant neoplasm of bladder, unspecified (principal)
CPT/HCPCS: 36415; 80053; 85025; 99204; 99205

== ENCOUNTER → 2022-04-18 | Outpatient (CLI) | payer MEDICARE ==
[~2022-04-18] MED LIST changes: +CATHETER FLUSH 10 ML SYR IV PRN; +CATHETER FLUSH 10 ML SYR IVP PRN; +HOLD METFORMIN - RECEIVED CONTRAST 20 ML VIAL IV SCH; +IOHEXOL 350 MG/ML 100 ML (OMNIPAQUE 350) VIAL IV ONE; +NS 100 ML (IVPB) BAG IV ONE
--- NOTE | 2022-04-18 13:33 | Diagnostic Imaging Report ---
PROCEDURE: CT chest with contrast only. TECHNIQUE: Multiple contiguous axial images were obtained through the chest after administration of intravenous contrast. Auto Exposure Controls were utilized during the CT exam to meet ALARA standards for radiation dose reduction. INDICATION: History of bladder and vulvar cancer. Correlated with overlapped images from abdominal pelvic CT dated 03/28/2022. FINDINGS: Some juxta fissural partial atelectatic changes in the lingular segment left upper lobe at the left base anteroinferiorly. No suspicious pulmonary nodule or dominant lung mass. There is no axillary, hilar or mediastinal lymphadenopathy. The atherosclerotic aorta nonaneurysmal. There is coronary artery atherosclerosis. There is a trace pericardial effusion with no pleural effusion. Visualized upper abdomen shows partially visualized similar magnitude right hydronephrosis with likely decreased left hydronephrosis. Periaortic upper abdominal retroperitoneal lymph nodes are now pathologically enlarged, the largest 2.1 x 1.8 cm today, previously 1.3 x 1.0 cm. Gallbladder decompressed. There is no bile duct dilatation. IMPRESSION: 1. No lung mass or suspicious thoracic lymph nodes and partial atelectasis in the left base noted. 2. An increasing size of periaortic upper abdominal retroperitoneal nodes indeterminate neoplastic versus reactive. 3. Unchanged partially visualized right hydronephrosis but likely improvements in left renal collecting system dilatation. Dictated by: Dictated on workstation # [id number]
--- NOTE | 2022-04-18 16:45 | Diagnostic Imaging Report ---
Indication: Bladder cancer. I have no priors. Technique: Patient received intravenous dose of 20.8 mCi technetium 99 MDP and after 3 hours whole-body planar imaging performed. Findings: There is a hydronephrotic right kidney with the ureter dilated to the level of the urinary bladder. There is no suspicious uptake in the axial or appendicular skeleton. No findings of bony metastatic disease. Impression: 1. Right hydroureteronephrosis. 2. No suspicious bony uptake. Dictated by: Dictated on workstation # [id number]
== END ==
LOC: CARD 12:00
PROVIDERS: ATTEND Internal Medicine Hematology & Oncology
DX: C67.9 Malignant neoplasm of bladder, unspecified (principal); N13.30 Unspecified hydronephrosis; J98.11 Atelectasis
CPT/HCPCS: 71260; 78306; A9503

== ENCOUNTER → 2022-04-20 | Outpatient (CLI) | payer MEDICARE ==
[~2022-04-20] MED LIST changes: -CATHETER FLUSH 10 ML SYR IV PRN; -CATHETER FLUSH 10 ML SYR IVP PRN; +GADOTERATE 0.5 MMOL/ML (CLARISCAN) 20 ML VIAL IV ONE; -HOLD METFORMIN - RECEIVED CONTRAST 20 ML VIAL IV SCH; -IOHEXOL 350 MG/ML 100 ML (OMNIPAQUE 350) VIAL IV ONE; -NS 100 ML (IVPB) BAG IV ONE
--- NOTE | 2022-04-20 12:21 | Diagnostic Imaging Report ---
PROCEDURE: MRI pelvis with and without contrast. TECHNIQUE: Multiplanar, multisequence MRI of the pelvis was performed with and without contrast. INDICATION: Bladder cancer. COMPARISON: None available. FINDINGS: Primary tumor: There is a sessile-type wall thickening involving the right edwin-aspect of the bladder trigone. The bladder mass measures approximately 2.6 x 1.2 x 2.5 cm. It completely encases the orifice of the right UVJ and there is associated stenosis with dilation of the distal right ureter. Inferior aspect the mass approaches the internal ureteral meatus, but the mass does not encase the internal meatus. There is invasion of the lateral muscle, but there does not appear to be tumor extending into the perivesicular fat. A fat plane exists between the bladder and vagina. Lymph nodes: There are no regional lymph nodes within the pelvis. Other: No features of metastatic disease to the osseous structures of the pelvis or lumbar spine. Incidental note of a 8 x 5 cm left adnexal cystic mass. No enhancing septations or mural nodularity. This has increased in size since 12/20/2021. IMPRESSION: 1. Primary bladder tumor has a sessile morphology, invades the bladder muscle, but there is no perivesicular invasion. 2. No regional lymphadenopathy. 3. Enlarging left ovarian cyst. Given patient's age, this could be a cystadenoma versus benign cyst. There are no enhancing solid components that would suggest adenocarcinoma. Dictated by: Dictated on workstation # [id number]
== END ==
LOC: RAD 07:17
PROVIDERS: ATTEND Internal Medicine Hematology & Oncology
DX: C67.9 Malignant neoplasm of bladder, unspecified (principal); N83.202 Unspecified ovarian cyst, left side
CPT/HCPCS: 72197

== ENCOUNTER → 2022-04-25 | Outpatient (CLI) | payer MEDICARE ==
[~2022-04-25] MED LIST changes: +GADOTERATE 0.5 MMOL/ML (CLARISCAN) 15 ML VIAL IV ONE; -GADOTERATE 0.5 MMOL/ML (CLARISCAN) 20 ML VIAL IV ONE
== END ==
LOC: RAD 11:43
PROVIDERS: ATTEND Internal Medicine Hematology & Oncology
DX: C67.9 Malignant neoplasm of bladder, unspecified (principal)

== ENCOUNTER → 2022-05-01 | Outpatient (CLI) | payer MEDICARE ==
[~2022-05-01] MED LIST changes: -GADOTERATE 0.5 MMOL/ML (CLARISCAN) 15 ML VIAL IV ONE
--- NOTE | 2022-05-01 11:15 | Diagnostic Imaging Report ---
INDICATION: Malignant neoplasm of the bladder, initial staging. TECHNIQUE: The serum blood glucose level at the time of injection was 194 mm/dL. The patient was administered 14.3 mCi of F-18 FDG intravenously in the right antecubital location and whole-body PET imaging was performed. Noncontrast CT was also performed for attenuation correction and anatomic correlation. COMPARISON: No prior PET/CT studies are available for comparison. FINDINGS: There is symmetric activity throughout the brain. The soft tissues of the neck are unremarkable. No mediastinal or hilar hypermetabolism is seen. No pulmonary parenchymal hypermetabolism is identified. There is physiologic activity throughout the GI and tracts. There is a hypermetabolic left periaortic lymph node that measures 2.4 x 2.2 cm with an SUV max of 6.2. There also appear to be slightly hypermetabolic lymph nodes along the right iliac chain. One node demonstrates an SUV max of 4.9. A small node more inferiorly demonstrates an SUV max of 3.6. The right kidney shows significant hydroureteronephrosis, likely owing to the known mass in the bladder. There is bladder wall thickening on the right and in the base. There is a cystic mass in the left pelvis measuring 7.9 x 6.6 cm which may be ovarian. The bilateral lower extremities are unremarkable. IMPRESSION: 1. There appears to be hypermetabolic lymphadenopathy in the central retroperitoneum as well as along the right iliac chain, consistent with metastatic disease. There is significant right-sided hydroureteronephrosis, likely owing to obstruction by the known bladder mass. 2. A left pelvic cystic mass is perhaps ovarian. This was seen on the prior MRI of the pelvis on 04/20/2022. Dictated by: Dictated on workstation # [id number]
== END ==
LOC: RAD 08:15
PROVIDERS: ATTEND Internal Medicine Hematology & Oncology
DX: C67.9 Malignant neoplasm of bladder, unspecified (principal); N13.30 Unspecified hydronephrosis; N94.89 Other specified conditions associated with female genital organs and menstrual cycle
CPT/HCPCS: 78816; A9552

== ENCOUNTER 2022-05-02 05:28 | Outpatient (CLI) | payer MEDICARE ==
[~2022-05-02] VITALS: Ht 162 cm; Wt 76.0 kg
== END 2022-05-02 12:45 | disposition home or self-care (01) ==
LOC: PREOP 05:28
PROVIDERS: ATTEND Surgery
DX: Z01.818 Encounter for other preprocedural examination (principal)

== ENCOUNTER 2022-05-08 09:58 | Day surgery (SDC) | payer MEDICARE ==
[2022-05-08] VITALS (8 sets, daily range): BP systolic 86–137; BP diastolic 51–88
[~2022-05-08] VITALS: Ht 162 cm; Wt 78.2 kg
[2022-05-08] MEDS ORDERED: LACTATED RINGERS 1,000 ML IV PRN (10:15)
[2022-05-08] MEDS ORDERED: 0.9% SODIUM CHLORIDE PF INJ 20 ML VIAL ONE (10:52)
[2022-05-08] MEDS ORDERED: HEParin (CENTRAL IV FLUSH) 500 UNIT/5 ML SYR ONE (10:52)
[2022-05-08] MEDS ORDERED: BUP/EPI 0.25% 1:200,000 (MARCAINE) 30 ML VIAL ONE (10:52)
[2022-05-08] MEDS ORDERED: PROPOFOL INJECTION 50 ML IV ONE (12:02)
[2022-05-08] MEDS ORDERED: MIDAZOLAM 2 MG/2 ML (VERSED) VIAL ONE (12:02)
[2022-05-08] MEDS ORDERED: fentaNYL INJ 100 MCG/2 ML AMP ONE (12:03)
--- NOTE | 2022-05-08 12:08 | Progress Note-Pre Operative ---
Pre-Operative Progress Note Date of Available H&P: May 01, 2022 Date H&P Reviewed: May 08, 2022 Time H&P Reviewed: 12:08 History & Physical: H&P Reviewed, Patient Examed, No changes noted Pre-Operative Diagnosis: bladder cancer LEA MUHAMMAD DO May 08, 2022 12:08
[2022-05-08] MEDS ORDERED: NS (IVPB) 50 ML ONE (12:10)
[2022-05-08] MEDS ORDERED: ceFAZolin INJECTION 2,000 MG ONE (12:10)
[2022-05-08] MEDS ORDERED: ceFAZolin INJECTION 2,000 MG in NS (IVPB) 50 ML IV NR (12:15)
[2022-05-08] MEDS ORDERED: HEParin (CENTRAL IV FLUSH) 500 UNIT/5 ML SYR IV ONE (12:38)
[2022-05-08] MEDS ORDERED: BUP/EPI 0.25% 1:200,000 (MARCAINE) 30 ML VIAL INJ ONE (12:39)
[2022-05-08] MEDS ORDERED: 0.9% SODIUM CHLORIDE PF INJ 20 ML VIAL IV ONE (12:40)
[2022-05-08] MEDS ORDERED: RT-ALBUTEROL SULF 2.5 MG/3 ML PRE-MIX VIAL ONE (13:02)
--- NOTE | 2022-05-08 13:03 | Anesthesia-General Post-Op ---
General Patient Condition Mental Status/LOC: Same as Preop Cardiovascular: Satisfactory Nausea/Vomiting: Absent Respiratory: Satisfactory Pain: Controlled Complications: Absent Post Op Complications Complications None Follow Up Care/Instructions Patient Instructions None needed. Anesthesia/Patient Condition Patient Condition Patient is doing well, no complaints, stable vital signs, no apparent adverse anesthesia problems. No complications reported per nursing. FRANCISCO COOK CRNA May 08, 2022 13:03
--- NOTE | 2022-05-08 13:04 | Progress Note-Post Operative ---
Post-Operative Progess Note Surgeon (s)/Meatman (s) Surgeon LEA MUHAMMAD DO Meatman: na Pre-Operative Diagnosis bladder cancer Post-Operative Diagnosis same Procedure & Operative Findings Date of Procedure 05/08/22 Procedure Performed/Findings PROCEDURE: Right internal jugular port placement using ultrasound guidance. COMPLICATIONS: None. INDICATIONS: The patient is a 67 year old female with bladder cancer. Patient understands the risks and benefits of port placement and wished to proceed with the procedure. Consent was signed on the chart. PROCEDURE: The patient was taken to the operating suite, was prepped and draped in the sterile fashion. A surgical pause was performed. Ultrasound was used to locate the internal jugular vein. Once located anesthetic was infiltrated above it. Using micro-access kit, the right internal vein was accessed. Dark nonpulsatile blood was withdrawn. The wire was inserted. Fluoroscopy assured proper placement. The needle was removed. The micro-access dilator was advanced over the wire and the wire was removed. The regular wire was inserted and fluoroscopy assured proper placement. The wire was then secured. Local anesthetic was used to anesthetize from the neck for tunneling down to the right chest and for pocket creation. A 15 blade scalpel was used to make an incision over the right chest. Cautery was used to dissect down to the pectoral fascia. A pocket was created with blunt dissection. The dilator sheath was then advanced over the wire under fluoroscopy and the dilator and wire were removed. The Groshong catheter was inserted through the sheath and the sheath was then removed. The Groshong wire was removed. The catheter was then tunneled to the right chest pocket. Fluoroscopy was used to cut to length and this was then attached to the port which was then placed within the pocket. The port was then accessed without difficulty. It was then flushed with saline and then heparin. The subcutaneous tissues were then reapproximated using 3-0 Vicryl. The areas were then washed and dried. Skin Affix was placed over incision. The insertion point of the neck Skin Affix was placed over the incision. The patient tolerated the procedure well without complication and was taken to recovery room in stable condition. Chest x-ray is pending. Anesthesia Type mac c local Estimated Blood Loss Estimated blood loss (mL): minimal Specimens/Packing Specimens Removed LEA Beavers DO May 08, 2022 13:04
--- NOTE | 2022-05-08 13:08 | Discharge Inst-Simple/Standard ---
Discharge Inst-Standard Patient Instructions/Follow Up Plan of Care/Instructions/FU: 2 weeks Robyn Activity as Tolerated: No Discharge Diet: Regular Diet Other Inst to Patient Follow up Appt: Make appointment for 2 week. Instructions: No lifting greater than 10 pounds. No strenuous activity. May shower in 24 hours, no tub bath or soaking. Use incentive spirometer at home as directed. No Smoking Skin/Wound Care: You have special glue over your incision that will fall off on it's own. Ice pack on 15 min and off 30 min and repeat for first 48 hours to reduce swelling and discomfort. Symptoms to Report: Appetite Changes, Extremity Discoloration, Numbness/Tingling, Swelling Increased, Bleeding Excessive, Eyesight Changes, Pain Increased, Urine Color Change, Constipation(Persistent), Fever over 101 degree F, Pain/Pressure in chest, Urinating Difficulty, Cough Up/Vomit Blood, Heart Beat Irreg/Pounding, Pain/Pressure in jaw, Vaginal Bleeding Increase, Cramps in feet or legs, Lightheadedness, Pain/Pressure in shoulder, Diarrhea(Persistent), Memory Changes Suddenly, Questions/Concerns, Weight gain consecutive days, Dizziness/Fainting, Nausea/Vomiting, Shortness of Breath, Weight gain over 2 pounds If questions or concerns contact your physician Or seek help at emergency department. LEA MUHAMMAD DO May 08, 2022 13:08
[2022-05-08] MEDS ORDERED: RT-ALBUTEROL SULF 2.5 MG/3 ML PRE-MIX VIAL INH ONE (13:15)
--- NOTE | 2022-05-08 13:45 | Diagnostic Imaging Report ---
CHEST 1 VIEW, AP/PA ONLY Indication: Status post Port-A-Cath placement Comparison: 07/02/2014 Findings: No focal airspace disease in the visualized lungs. No pleural effusion or pneumothorax. Normal cardiomediastinal silhouette. Well-positioned right IJ Port-A-Cath with tip terminating in upper SVC. Impression: 1. No pneumothorax after right IJ Port-A-Cath placement. Dictated by: Dictated on workstation # [id number]
--- NOTE | 2022-05-08 18:30 | Diagnostic Imaging Report ---
INDICATION: Port-A-Cath placement Intraoperative fluoroscopy views obtained in surgery with a portable intensifier. 31.2 seconds of fluoroscopy time was used. 2 views are obtained. Intraoperative views demonstrate port over the right chest with catheter into the right internal jugular vein and catheter tip overlying the SVC. The study is otherwise limited. IMPRESSION: Intraoperative views demonstrate Port-A-Cath placement as above. Dictated by: Dictated on workstation # [id number]
== END 2022-05-08 14:10 | disposition home or self-care (01) ==
LOC: SDC 09:58
PROVIDERS: ATTEND Surgery
DX: C67.9 Malignant neoplasm of bladder, unspecified (principal); I87.2 Venous insufficiency (chronic) (peripheral); F17.210 Nicotine dependence, cigarettes, uncomplicated; Z86.16 Personal history of COVID-19
CPT/HCPCS: 36561; 71045; 76000; 82947; 87081; C1788

== ENCOUNTER 2022-06-07 10:39 | Outpatient (RCR) | payer MEDICARE ==
[2022-05-16 11:24] LABS: BASOPHILS % (AUTO) 0 % (0-10); EOSINOPHILS # (AUTO) 0.2 10^3/uL (0.0-0.3); EOSINOPHILS % (AUTO) 2 % (0-10); HEMATOCRIT 43 % (35-52); HEMOGLOBIN 13.6 g/dL (11.5-16.0); LYMPHOCYTES # (AUTO) 1.6 10^3/uL (1.0-4.0); LYMPHOCYTES % (AUTO) 14 % (12-44); MEAN CORPUSCULAR HEMOGLOBIN 30 pg (25-34); MEAN CORPUSCULAR HGB CONC 32 g/dL (32-36); MEAN CORPUSCULAR VOLUME 95 fL (80-99); MEAN PLATELET VOLUME 9.7 fL (9.0-12.2); MONOCYTES # (AUTO) 0.7 10^3/uL (0.0-1.0); MONOCYTES % (AUTO) 6 % (0-12); NEUTROPHILS # (AUTO) 9.1 10^3/uL (1.8-7.8); NEUTROPHILS % (AUTO) 77 % (42-75); PLATELET COUNT 302 10^3/uL (130-400); WHITE BLOOD COUNT 11.7 10^3/uL (4.3-11.0)
[2022-05-16 11:58] LABS: ALBUMIN 4.2 GM/DL (3.2-4.5); BILIRUBIN,TOTAL 0.4 MG/DL (0.1-1.0); CALCIUM 10.1 MG/DL (8.5-10.1); CREATININE SERUM 1.14 MG/DL (0.60-1.30); POTASSIUM 4.3 MMOL/L (3.6-5.0); TOTAL PROTEIN 8.1 GM/DL (6.4-8.2)
[2022-05-31 11:14] LABS: BASOPHILS # (AUTO) 0.1 10^3/uL (0.0-0.1); BASOPHILS % (AUTO) 1 % (0-10); EOSINOPHILS # (AUTO) 0.2 10^3/uL (0.0-0.3); EOSINOPHILS % (AUTO) 2 % (0-10); HEMATOCRIT 40 % (35-52); HEMOGLOBIN 12.6 g/dL (11.5-16.0); LYMPHOCYTES % (AUTO) 19 % (12-44); MEAN CORPUSCULAR HEMOGLOBIN 30 pg (25-34); MEAN CORPUSCULAR HGB CONC 32 g/dL (32-36); MEAN CORPUSCULAR VOLUME 93 fL (80-99); MEAN PLATELET VOLUME 9.4 fL (9.0-12.2); MONOCYTES # (AUTO) 0.6 10^3/uL (0.0-1.0); MONOCYTES % (AUTO) 6 % (0-12); NEUTROPHILS # (AUTO) 7.6 10^3/uL (1.8-7.8); NEUTROPHILS % (AUTO) 72 % (42-75); PLATELET COUNT 341 10^3/uL (130-400); WHITE BLOOD COUNT 10.6 10^3/uL (4.3-11.0)
[2022-05-31 11:34] LABS: BILIRUBIN,TOTAL 0.4 MG/DL (0.1-1.0); CALCIUM 10.1 MG/DL (8.5-10.1); CREATININE SERUM 1.31 MG/DL (0.60-1.30); POTASSIUM 4.2 MMOL/L (3.6-5.0)
[~2022-06-07] VITALS: Ht 160 cm; Wt 78.0 kg
[~2022-06-07 10:39] MED LIST changes: +CARBOPLATIN IV SCH; +D5W IV SCH; +FOSAPREPITANT (CANCER CENTER) 150 MG in NS (IVPB) CANCER CENTER ONLY 150 ML IV SCH; +GEMCITABINE HCL IV SCH; +HEParin (CENTRAL IV FLUSH) 500 UNIT/5 ML SYR IV PRN; +NS IV 1000 ML (CANCER CTR) IV SCH; +NS IV SCH; +PALONOSETRON HCL 0.25 MG, dexAMETHasone INJECTION 10 MG in NS (IVPB) 50 ML IV SCH
[2022-06-07 11:16] LABS: BASOPHILS % (AUTO) 1 % (0-10); EOSINOPHILS # (AUTO) 0.1 10^3/uL (0.0-0.3); EOSINOPHILS % (AUTO) 2 % (0-10); HEMATOCRIT 35 % (35-52); HEMOGLOBIN 11.3 g/dL (11.5-16.0); LYMPHOCYTES # (AUTO) 1.1 10^3/uL (1.0-4.0); LYMPHOCYTES % (AUTO) 23 % (12-44); MEAN CORPUSCULAR HEMOGLOBIN 30 pg (25-34); MEAN CORPUSCULAR HGB CONC 32 g/dL (32-36); MEAN CORPUSCULAR VOLUME 92 fL (80-99); MEAN PLATELET VOLUME 9.1 fL (9.0-12.2); MONOCYTES # (AUTO) 0.3 10^3/uL (0.0-1.0); MONOCYTES % (AUTO) 6 % (0-12); NEUTROPHILS # (AUTO) 3.1 10^3/uL (1.8-7.8); NEUTROPHILS % (AUTO) 67 % (42-75); PLATELET COUNT 188 10^3/uL (130-400); WHITE BLOOD COUNT 4.5 10^3/uL (4.3-11.0)
[2022-06-07 11:31] LABS: ALBUMIN 3.8 GM/DL (3.2-4.5); BILIRUBIN,TOTAL 0.3 MG/DL (0.1-1.0); CALCIUM 9.9 MG/DL (8.5-10.1); CREATININE SERUM 1.08 MG/DL (0.60-1.30); POTASSIUM 4.4 MMOL/L (3.6-5.0); TOTAL PROTEIN 7.6 GM/DL (6.4-8.2)
[2022-06-10] MEDS ORDERED: CEFD300C3 PO (14:19)
== END 2022-06-10 | disposition home or self-care (01) ==
LOC: ONC 10:39
PROVIDERS: ATTEND Internal Medicine Hematology & Oncology
DX: Z51.11 Encounter for antineoplastic chemotherapy (principal); C67.9 Malignant neoplasm of bladder, unspecified
CPT/HCPCS: 80053; 85025; G0463; 36591; 96367; 96375; 96413; 96417; 99213

== ENCOUNTER 2022-06-10 12:19 | Emergency (ER) | payer MEDICARE ==
[~2022-06-10] VITALS: Ht 160 cm; Wt 78.2 kg
[~2022-06-10 12:19] MED LIST changes: -CARBOPLATIN IV SCH; -D5W IV SCH; -FOSAPREPITANT (CANCER CENTER) 150 MG in NS (IVPB) CANCER CENTER ONLY 150 ML IV SCH; -GEMCITABINE HCL IV SCH; -HEParin (CENTRAL IV FLUSH) 500 UNIT/5 ML SYR IV PRN; -NS IV 1000 ML (CANCER CTR) IV SCH; -NS IV SCH; -PALONOSETRON HCL 0.25 MG, dexAMETHasone INJECTION 10 MG in NS (IVPB) 50 ML IV SCH
--- NOTE | 2022-06-10 12:24 | ED GU-Female ---
General Chief Complaint: - Reproductive Stated Complaint: DECREASED URINE OUTPUT, DYSURIA, PAINFUL URETHRA Source: patient Exam Limitations: no limitations (BATSHEVA VELAZQUEZ APRN) History of Present Illness Date Seen by Provider: Jun 10, 2022 Time Seen by Provider: 12:24 Initial Comments 67 y/o female presents today with c/o decreased urine output, dysuria, dull suprapubic pain, and pain in urethra. Symptoms started yesterday, has only been able to urinate once twice today and it was very small amount both times. She reports h/o bladder cancer and is currently on chemotherapy. She reports she has the urge to void but not much comes out and the last time this happened, she had UTI. Pt states she is scheduled to see her oncologist next on 06/21/22. Pt reports having a lot of pain in her urethra and brewer after she voids. She denies fever, chills, hematuria, vaginal symptoms, back pain, flank pain. Timing/Duration: constant, yesterday, getting worse Severity/Quality: burning, dull Location: suprapubic, urethral Radiation: none Activities at Onset: none Prior Genitourinary Problems: similar symptoms Modifying Factors: Worsens With Urinating Associated Symptoms: denies symptoms (BATSHEVA VELAZQUEZ APRN) Allergies and Home Medications Allergies Coded Allergies: No Known Drug Allergies (Verified , 04/28/08) Patient Home Medication List Home Medication List Reviewed: Yes (BATSHEVA VELAZQUEZ APRN) Albuterol Sulfate (Proventil Hfa) 6.7 Gm Hfa.aer.ad, 2 PUFF INH Q6H, (Reported) Entered as Reported by: FEMI MARSH on 04/03/22 1035 Amlodipine Besylate (Amlodipine Besylate) 2.5 Mg Tablet, 0.5 EA PO DAILY, (Reported) Entered as Reported by: FEMI MARSH on 04/03/22 1035 Cefdinir (Cefdinir) 300 Mg Capsule, 300 MG PO BID Prescribed by: Batsheva Velazquez on 06/10/22 1419 Fluticasone/Vilanterol (Breo Ellipta 200-25 Mcg INH) 1 Each Blst.w.dev, 1 EACH IH HS, (Reported) Entered as Reported by: PRASHANT BUTLER on 11/07/17 1319 Hydrochlorothiazide (Hydrochlorothiazide) 25 Mg Tablet, 25 MG PO DAILY, (Reported) Entered as Reported by: PRASHANT BUTLER on 11/07/17 1300 Lisinopril (Lisinopril) 40 Mg Tablet, 40 MG PO DAILY, (Reported) Entered as Reported by: PRASHANT BUTLER on 11/07/17 1300 Endeavor-3S/Dha/Epa/Fish Oil (Fish Oil Endeavor-3 Softgel) 1 Each Capsule.dr, 1 EACH PO BID, (Reported) Entered as Reported by: PRASHANT BUTLER on 11/07/17 1319 Pravastatin Sodium (Pravastatin Sodium) 40 Mg Tablet, 40 MG PO HS, (Reported) Entered as Reported by: PRASHANT BUTLER on 11/07/17 1300 Sitagliptin Phos/Metformin HCl (Janumet 50-500 mg Tablet) 50 Mg-500 Mg Tablet, 1 TAB PO BID, (Reported) Entered as Reported by: FEMI MARSH on 04/03/22 1031 Review of Systems Review of Systems Constitutional: no symptoms reported Respiratory: no symptoms reported Cardiovascular: no symptoms reported Gastrointestinal: No diarrhea, No hematemesis, No heartburn, No loss of appetite, No melena, No nausea, No vomiting Genitourinary: burning; denies discharge; dysuria, frequency; denies flank pain, denies hematuria, denies incontinence; pain, urgency Musculoskeletal: no symptoms reported Skin: no symptoms reported Endocrine: No Symptoms Reported Hematologic/Lymphatic: No Symptoms Reported (BATSHEVA VELAZQUEZ APRN) Past Fjavecc-Ccnjux-Rgrtxx Hx Immunizations Up To Date Tetanus Booster (TDap): Unknown PED Vaccines UTD: No (BATSHEVA VELAZQUEZ APRN) Seasonal Allergies Seasonal Allergies: No (BATSHEVA VELAZQUEZ APRN) Past Medical History Surgery/Hospitalization HX: VULVA CA, CHEMO AND RADIATION, COPD, HYPERTENSION, DIABETIC TYPE II, HOME O2, Surgeries: Yes (MASS ON LABIA, "MARKLIN GLAND" REMOVED BILAT CATS) Respiratory: Yes (COPD, SOB, COUGH, WEARS OXYGEN AT HS PRN) Pneumonia, COPD Currently Using CPAP: No Currently Using BIPAP: No Cardiac: Yes High Cholesterol, Hypertension Neurological: Yes Reproductive Disorders: No Female Reproductive Disorders: Ovarian Cyst Sexually Transmitted Disease: No HIV/AIDS: No Genitourinary: Yes Bladder Infection, Kidney Stones, UTI-Chronic Gastrointestinal: No Musculoskeletal: Yes (SMALL UMBILICAL HERNIA) Endocrine: Yes Diabetes, Non-Insulin dep HEENT: Yes Cataract Loss of Vision: Denies Hearing Impairment: Denies Cancer: Yes (VULVAR, "MARKLIN GLAND", BLADDER) Bladder What Type of Treatment Did You: Radiation Psychosocial: No Integumentary: Yes (COLD SORES ON MOUTH) Recent Skin Changes, Herpes Blood Disorders: No (BATSHEVA VELAZQUEZ APRN) Family Medical History Diabetes mellitus 19 FATHER, , Onset:Unknown 19 MOTHER, , Onset:Unknown FH: lung cancer 19 FATHER, , Onset:Unknown FH: lymphoma 19 MOTHER, , Onset:Unknown Hypertension 19 MOTHER, , Onset:Unknown No Family History of: AIDS Abdominal aortic aneurysm Albert's disease Alcoholism Alzheimer's disease Aphasia Arthritis Asthma Cancer of mouth Cardiovascular disease Cataracts Colon cancer Completed stroke Congenital disease Congenital heart disease Coronary thrombosis Cystic fibrosis Deafness or hearing loss Dementia Drug abuse Dysphasia Fibrocystic disease of breast Gastroenteritis Glaucoma Headache disorder Hypercholesterolemia Infertility Kidney disease Myocardial infarction Neoplasm Not obtainable due to adoption Osteoporosis Parkinson's disease Prostate cancer Psychosocial problem Respiratory disorder Seizure disorder Severe allergy Thyroid disease Tuberculosis Visual disorder No Pertinent Family Hx (BATSHEVA VELAZQUEZ APRN) Physical Exam Vital Signs Vital Signs - First Documented 06/10/22 12:23 Temp 36.3 Pulse 107 Resp 14 B/P (MAP) 121/63 (82) Pulse Ox 96 O2 Delivery Room Air (JONI RIDER MD) Vital Signs Capillary Refill : (BATSHEVA VELAZQUEZ APRN) Height, Weight, BMI Height: 5'3.00" Weight: 185lbs. 0.0oz. 83.774889nx; 29.79 BMI Method: General Appearance: WD/WN, no apparent distress Cardiovascular: normal peripheral pulses, regular rate, rhythm, no edema Respiratory: chest non-tender, lungs clear, normal breath sounds Gastrointestinal: normal bowel sounds, soft, no organomegaly; No distended, No guarding, No rebound; tenderness (suprapubic); No hernia, No mass, No hepatomegaly, No spleenomegaly Back: normal inspection, no CVA tenderness Neurologic/Psychiatric: no motor/sensory deficits, alert, normal mood/affect, oriented x 3 Skin: normal color, warm/dry Lymphatic: no adenopathy (BATSHEVA VELAZQUEZ APRN) Progress/Results/Core Measures Suspected Sepsis SIRS Temperature: Pulse: Respiratory Rate: Laboratory Tests 06/10/22 13:00: White Blood Count 6.7 Blood Pressure / Mean: Laboratory Tests 06/10/22 13:00: Creatinine 1.23, Platelet Count 135, Total Bilirubin 0.6 (BATSHEVA VELAZQUEZ APRN) Results/Orders Vital Signs/I&O Capillary Refill : (BATSHEVA VELAZQUEZ APRN) Progress Note : Progress Note Vitals stable, blood work reassuring, pt afebrile and in NAD. Bladder scan re veals 137mL urine in the bladder, straight cath performed to obtain urinalysis which reveals UTI. pt treated with rocephin IV and will treat outpatient with cefdinir while awaiting urine culture results. (BATSHEVA VELAZQUEZ APRN) Departure Impression Primary Impression: UTI (urinary tract infection) Disposition: HOME, SELF-CARE Condition: Stable Departure-Patient Inst. Decision time for Depature: 14:14 (BATSHEVA VELAZQUEZ APRN) Referrals: DUSTY MCINTYRE MD (PCP/Family) Primary Care Physician Patient Instructions: Urinary Tract Infection, Adult (DC) Add. Discharge Instructions: Increase water intake, drink at least 2 liters of water daily. Take antibiotic as prescribed. Follow up with your doctor in 2-3 days for recheck. Follow up with any new/worsening concerns All discharge instructions reviewed with patient and/or family. Voiced understanding. Scripts Cefdinir (Cefdinir) 300 Mg Capsule 300 MG PO BID for 7 Days, #14 CAP Prov: BATSHEVA VELAZQUEZ APRN 06/10/22 ATTENDING PHYSICIAN NOTE: I was physically present as attending physician in the emergency department during the care of this patient, but I was not directly involved in the decision making or delivery of care for this patient. (JONI RIDER MD) BATSHEVA VELAZQUEZ APRN Jun 10, 2022 12:24 JONI RIDER MD Jun 13, 2022 18:54
[2022-06-10 13:08] LABS: BASOPHILS % (AUTO) 0 % (0-10); EOSINOPHILS # (AUTO) 0.1 10^3/uL (0.0-0.3); EOSINOPHILS % (AUTO) 1 % (0-10); HEMATOCRIT 35 % (35-52); HEMOGLOBIN 11.4 g/dL (11.5-16.0); LYMPHOCYTES # (AUTO) 0.8 10^3/uL (1.0-4.0); LYMPHOCYTES % (AUTO) 12 % (12-44); MEAN CORPUSCULAR HEMOGLOBIN 29 pg (25-34); MEAN CORPUSCULAR HGB CONC 32 g/dL (32-36); MEAN CORPUSCULAR VOLUME 91 fL (80-99); MEAN PLATELET VOLUME 9.5 fL (9.0-12.2); MONOCYTES # (AUTO) 0.1 10^3/uL (0.0-1.0); MONOCYTES % (AUTO) 1 % (0-12); NEUTROPHILS # (AUTO) 5.7 10^3/uL (1.8-7.8); NEUTROPHILS % (AUTO) 85 % (42-75); PLATELET COUNT 135 10^3/uL (130-400); WHITE BLOOD COUNT 6.7 10^3/uL (4.3-11.0)
[2022-06-10 13:18] LABS: ALBUMIN 3.8 GM/DL (3.2-4.5); POTASSIUM 4.4 MMOL/L (3.6-5.0)
[2022-06-10 13:19] LABS: CALCIUM 9.5 MG/DL (8.5-10.1)
[2022-06-10 13:20] LABS: TOTAL PROTEIN 7.5 GM/DL (6.4-8.2)
[2022-06-10 13:22] LABS: BILIRUBIN,TOTAL 0.6 MG/DL (0.1-1.0)
[2022-06-10 13:24] LABS: CREATININE SERUM 1.23 MG/DL (0.60-1.30)
[2022-06-10 13:47] LABS: BILIRUBIN,URINE NEGATIVE (NEGATIVE); CLARITY,URINE CLEAR; COLOR,URINE YELLOW; GLUCOSE, URINE (UA) TRACE (NEGATIVE); KETONES,URINE NEGATIVE (NEGATIVE); LEUKOCYTE ESTERASE ,URINE 2+ (NEGATIVE); NITRITE,URINE NEGATIVE (NEGATIVE); PROTEIN,URINE 2+ (NEGATIVE)
[2022-06-10 13:58] LABS: BACTERIA,URINE TRACE /HPF; WBC,URINE >100 /HPF
[2022-06-10] MEDS ORDERED: cefTRIAXone 1 GM PRE-MIX 50 ML IV ONE (14:15)
[2022-06-10] MEDS ORDERED: CEFD300C3 PO (14:19)
[2022-06-10 14:50] VITALS: BP 127/64
== END 2022-06-10 15:10 | disposition home or self-care (01) ==
LOC: EDUNIT# 12:19 → ER 12:20
DX: N39.0 Urinary tract infection, site not specified (principal); C67.9 Malignant neoplasm of bladder, unspecified
CPT/HCPCS: 36415; 51701; 80053; 81000; 85025; 87088; 96365

== ENCOUNTER 2022-06-28 10:39 | Outpatient (RCR) | payer MEDICARE ==
[2022-06-21 11:10] LABS: BASOPHILS % (AUTO) 1 % (0-10); EOSINOPHILS # (AUTO) 0.1 10^3/uL (0.0-0.3); EOSINOPHILS % (AUTO) 2 % (0-10); HEMATOCRIT 35 % (35-52); HEMOGLOBIN 10.8 g/dL (11.5-16.0); LYMPHOCYTES # (AUTO) 1.7 10^3/uL (1.0-4.0); LYMPHOCYTES % (AUTO) 35 % (12-44); MEAN CORPUSCULAR HEMOGLOBIN 29 pg (25-34); MEAN CORPUSCULAR HGB CONC 31 g/dL (32-36); MEAN CORPUSCULAR VOLUME 92 fL (80-99); MEAN PLATELET VOLUME 10.1 fL (9.0-12.2); MONOCYTES # (AUTO) 0.5 10^3/uL (0.0-1.0); MONOCYTES % (AUTO) 11 % (0-12); NEUTROPHILS # (AUTO) 2.4 10^3/uL (1.8-7.8); NEUTROPHILS % (AUTO) 50 % (42-75); PLATELET COUNT 310 10^3/uL (130-400); WHITE BLOOD COUNT 4.9 10^3/uL (4.3-11.0)
[2022-06-21 11:30] LABS: ALBUMIN 4.1 GM/DL (3.2-4.5); BILIRUBIN,TOTAL 0.3 MG/DL (0.1-1.0); CALCIUM 9.7 MG/DL (8.5-10.1); CREATININE SERUM 1.37 MG/DL (0.60-1.30); POTASSIUM 4.3 MMOL/L (3.6-5.0); TOTAL PROTEIN 7.7 GM/DL (6.4-8.2)
[~2022-06-28 10:39] MED LIST changes: +CARBOPLATIN IV SCH; +D5W IV SCH; +FOSAPREPITANT (CANCER CENTER) 150 MG in NS (IVPB) CANCER CENTER ONLY 150 ML IV SCH; +GEMCITABINE HCL IV SCH; +HEParin (CENTRAL IV FLUSH) 500 UNIT/5 ML SYR IV PRN; +NS IV 1000 ML (CANCER CTR) IV SCH; +NS IV SCH; +PALONOSETRON HCL 0.25 MG, dexAMETHasone INJECTION 10 MG in NS (IVPB) 50 ML IV SCH
[2022-06-28 11:03] LABS: BASOPHILS % (AUTO) 1 % (0-10); EOSINOPHILS % (AUTO) 1 % (0-10); HEMATOCRIT 31 % (35-52); HEMOGLOBIN 10.2 g/dL (11.5-16.0); LYMPHOCYTES # (AUTO) 1.9 10^3/uL (1.0-4.0); LYMPHOCYTES % (AUTO) 47 % (12-44); MEAN CORPUSCULAR HEMOGLOBIN 30 pg (25-34); MEAN CORPUSCULAR HGB CONC 33 g/dL (32-36); MEAN CORPUSCULAR VOLUME 91 fL (80-99); MEAN PLATELET VOLUME 9.6 fL (9.0-12.2); MONOCYTES # (AUTO) 0.5 10^3/uL (0.0-1.0); MONOCYTES % (AUTO) 12 % (0-12); NEUTROPHILS # (AUTO) 1.5 10^3/uL (1.8-7.8); NEUTROPHILS % (AUTO) 35 % (42-75); PLATELET COUNT 277 10^3/uL (130-400); WHITE BLOOD COUNT 4.1 10^3/uL (4.3-11.0)
[2022-06-28 11:26] LABS: ALBUMIN 3.7 GM/DL (3.2-4.5); BILIRUBIN,TOTAL 0.2 MG/DL (0.1-1.0); CALCIUM 9.7 MG/DL (8.5-10.1); CREATININE SERUM 0.89 MG/DL (0.60-1.30); POTASSIUM 4.5 MMOL/L (3.6-5.0); TOTAL PROTEIN 7.3 GM/DL (6.4-8.2)
== END 2022-07-11 | disposition home or self-care (01) ==
LOC: ONC 10:39
PROVIDERS: ATTEND Internal Medicine Hematology & Oncology
DX: Z51.11 Encounter for antineoplastic chemotherapy (principal); Z45.2 Encounter for adjustment and management of vascular access device; C67.9 Malignant neoplasm of bladder, unspecified
CPT/HCPCS: 80053; 85025; 96367; 96375; 96413; 96417; G0463; 36591

== ENCOUNTER → 2022-07-19 | Outpatient (CLI) | payer MEDICARE ==
[~2022-07-19] MED LIST changes: -CARBOPLATIN IV SCH; -D5W IV SCH; -FOSAPREPITANT (CANCER CENTER) 150 MG in NS (IVPB) CANCER CENTER ONLY 150 ML IV SCH; -GEMCITABINE HCL IV SCH; -HEParin (CENTRAL IV FLUSH) 500 UNIT/5 ML SYR IV PRN; +HOLD METFORMIN - RECEIVED CONTRAST 20 ML VIAL IV SCH; +IOHEXOL 350 MG/ML 100 ML (OMNIPAQUE 350) VIAL IV ONE; +NS 100 ML (IVPB) BAG IV ONE; -NS IV 1000 ML (CANCER CTR) IV SCH; -NS IV SCH; -PALONOSETRON HCL 0.25 MG, dexAMETHasone INJECTION 10 MG in NS (IVPB) 50 ML IV SCH
--- NOTE | 2022-07-19 11:00 | Diagnostic Imaging Report ---
PROCEDURE: CT chest, abdomen, and pelvis with contrast. TECHNIQUE: Multiple contiguous axial images were obtained through the chest, abdomen, and pelvis after the administration of intravenous contrast. Auto Exposure Controls were utilized during the CT exam to meet ALARA standards for radiation dose reduction. INDICATION: Bladder carcinoma. Correlation is made with prior CT chest from 04/18/[address] abdomen and pelvis study from 03/28/2022. CT chest: A right chest wall port has tip at the SVC right atrial junction. No axillary lymphadenopathy is detected. No mediastinal or hilar lymphadenopathy is detected. No pericardial or pleural fluid is identified. No pulmonary infiltrates, nodules or masses are seen. There is some scarring or atelectasis in the lingula. CT abdomen and pelvis: No focal liver mass is identified. The gallbladder is unremarkable. No biliary ductal dilatation is seen. Pancreas and spleen are unremarkable. There is a small nodule in the left adrenal gland, stable. Right adrenal gland is unremarkable. A left kidney is unremarkable. There is significant right-sided hydroureteronephrosis. The dilated right ureter is traced to the pelvis where there is significant wall thickening involving urinary bladder on the right as well as in the right base, likely corresponding to patient's known bladder neoplasm. This appears to be obstructing the UVJ. No obstructing calculi are seen. Aorta is calcified but nonaneurysmal. No central retroperitoneal or mesenteric lymphadenopathy is identified. No definite inguinal or iliac lymphadenopathy is identified. The bowel loops are normal caliber. There is no ascites. There is a small fat-containing umbilical hernia. There is a left adnexal cystic mass, similar to prior exam. Uterus unremarkable. The patient has developed some sclerotic foci within the L2, L3 and L4 vertebral bodies since prior CT and osteoblastic metastatic lesions cannot be excluded. IMPRESSION: 1. No evidence of thoracic, abdominal or pelvic lymphadenopathy. 2. Marked bladder wall thickening on the right side, likely representing known bladder neoplasm. This appears to be obstructing the UVJ where there is significant right-sided hydroureteronephrosis. 3. Stable complex cystic left adnexal mass. 4. Development of sclerotic foci within the lumbar spine, concerning for osteoblastic metastatic disease. Dictated by: Dictated on workstation # [id number]
== END ==
LOC: RAD 09:39
PROVIDERS: ATTEND Internal Medicine Hematology & Oncology
DX: C67.9 Malignant neoplasm of bladder, unspecified (principal)
CPT/HCPCS: 71260; 74177

== ENCOUNTER 2022-08-02 10:34 | Outpatient (RCR) | payer MEDICARE ==
[2022-07-12 11:03] LABS: BASOPHILS % (AUTO) 1 % (0-10); EOSINOPHILS # (AUTO) 0.1 10^3/uL (0.0-0.3); EOSINOPHILS % (AUTO) 1 % (0-10); HEMATOCRIT 29 % (35-52); HEMOGLOBIN 9.1 g/dL (11.5-16.0); LYMPHOCYTES # (AUTO) 1.6 10^3/uL (1.0-4.0); LYMPHOCYTES % (AUTO) 19 % (12-44); MEAN CORPUSCULAR HEMOGLOBIN 30 pg (25-34); MEAN CORPUSCULAR HGB CONC 32 g/dL (32-36); MEAN CORPUSCULAR VOLUME 94 fL (80-99); MEAN PLATELET VOLUME 10.8 fL (9.0-12.2); MONOCYTES # (AUTO) 1.1 10^3/uL (0.0-1.0); MONOCYTES % (AUTO) 13 % (0-12); NEUTROPHILS # (AUTO) 5.6 10^3/uL (1.8-7.8); NEUTROPHILS % (AUTO) 64 % (42-75); PLATELET COUNT 227 10^3/uL (130-400); WHITE BLOOD COUNT 8.7 10^3/uL (4.3-11.0)
[2022-07-12 11:22] LABS: ALBUMIN 3.8 GM/DL (3.2-4.5); BILIRUBIN,TOTAL 0.3 MG/DL (0.1-1.0); CALCIUM 9.6 MG/DL (8.5-10.1); CREATININE SERUM 1.16 MG/DL (0.60-1.30); POTASSIUM 4.2 MMOL/L (3.6-5.0); TOTAL PROTEIN 7.7 GM/DL (6.4-8.2)
[2022-07-19 09:39] LABS: BASOPHILS # (AUTO) 0.1 10^3/uL (0.0-0.1); BASOPHILS % (AUTO) 2 % (0-10); EOSINOPHILS # (AUTO) 0.1 10^3/uL (0.0-0.3); EOSINOPHILS % (AUTO) 2 % (0-10); HEMATOCRIT 28 % (35-52); HEMOGLOBIN 8.8 g/dL (11.5-16.0); LYMPHOCYTES # (AUTO) 1.4 10^3/uL (1.0-4.0); LYMPHOCYTES % (AUTO) 34 % (12-44); MEAN CORPUSCULAR HEMOGLOBIN 30 pg (25-34); MEAN CORPUSCULAR HGB CONC 32 g/dL (32-36); MEAN CORPUSCULAR VOLUME 94 fL (80-99); MEAN PLATELET VOLUME 10.2 fL (9.0-12.2); MONOCYTES # (AUTO) 0.4 10^3/uL (0.0-1.0); MONOCYTES % (AUTO) 9 % (0-12); NEUTROPHILS # (AUTO) 2.2 10^3/uL (1.8-7.8); NEUTROPHILS % (AUTO) 52 % (42-75); PLATELET COUNT 263 10^3/uL (130-400); WHITE BLOOD COUNT 4.2 10^3/uL (4.3-11.0)
[2022-07-19 09:59] LABS: ALBUMIN 3.7 GM/DL (3.2-4.5); BILIRUBIN,TOTAL 0.3 MG/DL (0.1-1.0); CALCIUM 8.9 MG/DL (8.5-10.1); CREATININE SERUM 1.03 MG/DL (0.60-1.30); POTASSIUM 4.2 MMOL/L (3.6-5.0); TOTAL PROTEIN 7.6 GM/DL (6.4-8.2)
[~2022-08-02 10:34] MED LIST changes: +CARBOPLATIN IV SCH; +D5W IV SCH; +FOSAPREPITANT (CANCER CENTER) 150 MG in NS (IVPB) CANCER CENTER ONLY 150 ML IV SCH; +GEMCITABINE HCL IV SCH; +HEParin (CENTRAL IV FLUSH) 500 UNIT/5 ML SYR IV PRN; -HOLD METFORMIN - RECEIVED CONTRAST 20 ML VIAL IV SCH; -IOHEXOL 350 MG/ML 100 ML (OMNIPAQUE 350) VIAL IV ONE; -NS 100 ML (IVPB) BAG IV ONE; +NS IV 1000 ML (CANCER CTR) IV SCH; +NS IV SCH; +PALONOSETRON HCL 0.25 MG, dexAMETHasone INJECTION 10 MG in NS (IVPB) 50 ML IV SCH
[2022-08-02 11:15] LABS: BASOPHILS % (AUTO) 1 % (0-10); EOSINOPHILS # (AUTO) 0.1 10^3/uL (0.0-0.3); EOSINOPHILS % (AUTO) 1 % (0-10); HEMATOCRIT 24 % (35-52); HEMOGLOBIN 7.5 g/dL (11.5-16.0); LYMPHOCYTES # (AUTO) 1.3 10^3/uL (1.0-4.0); LYMPHOCYTES % (AUTO) 20 % (12-44); MEAN CORPUSCULAR HEMOGLOBIN 30 pg (25-34); MEAN CORPUSCULAR HGB CONC 31 g/dL (32-36); MEAN CORPUSCULAR VOLUME 98 fL (80-99); MEAN PLATELET VOLUME 10.6 fL (9.0-12.2); MONOCYTES % (AUTO) 15 % (0-12); NEUTROPHILS # (AUTO) 3.9 10^3/uL (1.8-7.8); NEUTROPHILS % (AUTO) 60 % (42-75); PLATELET COUNT 160 10^3/uL (130-400); WHITE BLOOD COUNT 6.6 10^3/uL (4.3-11.0)
[2022-08-02] MEDS ORDERED: ALTEPLASE 2 MG (CATHFLO) IV ONE (11:15)
[2022-08-02 11:38] LABS: ALBUMIN 3.5 GM/DL (3.2-4.5); BILIRUBIN,TOTAL 0.3 MG/DL (0.1-1.0); CALCIUM 9.2 MG/DL (8.5-10.1); CREATININE SERUM 0.97 MG/DL (0.60-1.30); POTASSIUM 3.9 MMOL/L (3.6-5.0); TOTAL PROTEIN 6.9 GM/DL (6.4-8.2)
== END 2022-08-08 | disposition home or self-care (01) ==
LOC: ONC 10:34
PROVIDERS: ATTEND Internal Medicine Hematology & Oncology
DX: Z51.11 Encounter for antineoplastic chemotherapy (principal); Z45.2 Encounter for adjustment and management of vascular access device; C67.9 Malignant neoplasm of bladder, unspecified
CPT/HCPCS: 80053; 85025; 96367; 96375; 96413; 96417; G0463; 36591; 36593

== ENCOUNTER 2022-08-30 10:23 | Outpatient (RCR) | payer MEDICARE ==
[2022-08-09 11:04] LABS: BASOPHILS % (AUTO) 1 % (0-10); EOSINOPHILS % (AUTO) 1 % (0-10); HEMATOCRIT 25 % (35-52); HEMOGLOBIN 7.8 g/dL (11.5-16.0); LYMPHOCYTES # (AUTO) 1.2 10^3/uL (1.0-4.0); LYMPHOCYTES % (AUTO) 33 % (12-44); MEAN CORPUSCULAR HEMOGLOBIN 31 pg (25-34); MEAN CORPUSCULAR HGB CONC 32 g/dL (32-36); MEAN CORPUSCULAR VOLUME 98 fL (80-99); MEAN PLATELET VOLUME 10.5 fL (9.0-12.2); MONOCYTES # (AUTO) 0.4 10^3/uL (0.0-1.0); MONOCYTES % (AUTO) 11 % (0-12); NEUTROPHILS # (AUTO) 1.9 10^3/uL (1.8-7.8); NEUTROPHILS % (AUTO) 53 % (42-75); PLATELET COUNT 121 10^3/uL (130-400); WHITE BLOOD COUNT 3.7 10^3/uL (4.3-11.0)
[2022-08-09 11:23] LABS: ALBUMIN 3.8 GM/DL (3.2-4.5); BILIRUBIN,TOTAL 0.4 MG/DL (0.1-1.0); CALCIUM 9.8 MG/DL (8.5-10.1); CREATININE SERUM 0.87 MG/DL (0.60-1.30); POTASSIUM 4.6 MMOL/L (3.6-5.0); TOTAL PROTEIN 7.5 GM/DL (6.4-8.2)
[2022-08-16 09:24] LABS: BASOPHILS % (AUTO) 1 % (0-10); EOSINOPHILS # (AUTO) 0.1 10^3/uL (0.0-0.3); EOSINOPHILS % (AUTO) 2 % (0-10); HEMATOCRIT 24 % (35-52); HEMOGLOBIN 7.8 g/dL (11.5-16.0); LYMPHOCYTES # (AUTO) 1.3 10^3/uL (1.0-4.0); LYMPHOCYTES % (AUTO) 39 % (12-44); MEAN CORPUSCULAR HEMOGLOBIN 32 pg (25-34); MEAN CORPUSCULAR HGB CONC 32 g/dL (32-36); MEAN CORPUSCULAR VOLUME 100 fL (80-99); MEAN PLATELET VOLUME 13.4 fL (9.0-12.2); MONOCYTES # (AUTO) 0.4 10^3/uL (0.0-1.0); MONOCYTES % (AUTO) 11 % (0-12); NEUTROPHILS # (AUTO) 1.5 10^3/uL (1.8-7.8); NEUTROPHILS % (AUTO) 44 % (42-75); PLATELET COUNT 45 10^3/uL (130-400); WHITE BLOOD COUNT 3.3 10^3/uL (4.3-11.0)
[2022-08-23 11:05] LABS: EOSINOPHILS # (AUTO) 0.1 10^3/uL (0.0-0.3); HEMATOCRIT 26 % (35-52); MEAN CORPUSCULAR VOLUME 108 fL (80-99)
[2022-08-23 11:07] LABS: BASOPHILS % (AUTO) 1 % (0-10); EOSINOPHILS % (AUTO) 3 % (0-10); HEMOGLOBIN 7.9 g/dL (11.5-16.0); LYMPHOCYTES # (AUTO) 1.4 10^3/uL (1.0-4.0); LYMPHOCYTES % (AUTO) 29 % (12-44); MEAN CORPUSCULAR HEMOGLOBIN 33 pg (25-34); MEAN CORPUSCULAR HGB CONC 31 g/dL (32-36); MEAN PLATELET VOLUME 11.7 fL (9.0-12.2); MONOCYTES # (AUTO) 0.6 10^3/uL (0.0-1.0); MONOCYTES % (AUTO) 13 % (0-12); NEUTROPHILS # (AUTO) 2.6 10^3/uL (1.8-7.8); NEUTROPHILS % (AUTO) 54 % (42-75); PLATELET COUNT 143 10^3/uL (130-400); WHITE BLOOD COUNT 4.8 10^3/uL (4.3-11.0)
[2022-08-23 11:24] LABS: ALBUMIN 3.7 GM/DL (3.2-4.5); BILIRUBIN,TOTAL 0.3 MG/DL (0.1-1.0); CALCIUM 9.3 MG/DL (8.5-10.1); CREATININE SERUM 0.84 MG/DL (0.60-1.30); POTASSIUM 4.1 MMOL/L (3.6-5.0); TOTAL PROTEIN 6.9 GM/DL (6.4-8.2)
[2022-08-30 10:43] LABS: BASOPHILS % (AUTO) 1 % (0-10); EOSINOPHILS # (AUTO) 0.1 10^3/uL (0.0-0.3); EOSINOPHILS % (AUTO) 1 % (0-10); HEMATOCRIT 26 % (35-52); HEMOGLOBIN 8.4 g/dL (11.5-16.0); LYMPHOCYTES # (AUTO) 1.5 10^3/uL (1.0-4.0); LYMPHOCYTES % (AUTO) 39 % (12-44); MEAN CORPUSCULAR HEMOGLOBIN 34 pg (25-34); MEAN CORPUSCULAR HGB CONC 32 g/dL (32-36); MEAN CORPUSCULAR VOLUME 106 fL (80-99); MEAN PLATELET VOLUME 9.3 fL (9.0-12.2); MONOCYTES # (AUTO) 0.5 10^3/uL (0.0-1.0); MONOCYTES % (AUTO) 13 % (0-12); NEUTROPHILS # (AUTO) 1.7 10^3/uL (1.8-7.8); NEUTROPHILS % (AUTO) 43 % (42-75); PLATELET COUNT 118 10^3/uL (130-400); WHITE BLOOD COUNT 3.9 10^3/uL (4.3-11.0)
[2022-08-30 11:04] LABS: BILIRUBIN,TOTAL 0.4 MG/DL (0.1-1.0); CALCIUM 10.4 MG/DL (8.5-10.1); CREATININE SERUM 0.86 MG/DL (0.60-1.30); POTASSIUM 4.2 MMOL/L (3.6-5.0); TOTAL PROTEIN 7.3 GM/DL (6.4-8.2)
[2022-09-09] MEDS ORDERED: FLUC150T PO (16:06)
[2022-09-09] MEDS ORDERED: CEPH500T PO (16:06)
[2022-09-09] MEDS ORDERED: PHEN-640 PO (16:06)
== END 2022-09-08 | disposition home or self-care (01) ==
LOC: ONC 10:23
PROVIDERS: ATTEND Internal Medicine Hematology & Oncology
DX: Z51.11 Encounter for antineoplastic chemotherapy (principal); Z45.2 Encounter for adjustment and management of vascular access device; C67.9 Malignant neoplasm of bladder, unspecified
CPT/HCPCS: 36415; 36591; 80053; 85025; 96367; 96375; 96413; 96417

== ENCOUNTER → 2022-09-07 | Outpatient (CLI) | payer MEDICARE ==
[~2022-09-07] MED LIST changes: -CARBOPLATIN IV SCH; +CEPH500T PO; -D5W IV SCH; +FLUC150T PO; -FOSAPREPITANT (CANCER CENTER) 150 MG in NS (IVPB) CANCER CENTER ONLY 150 ML IV SCH; -GEMCITABINE HCL IV SCH; -HEParin (CENTRAL IV FLUSH) 500 UNIT/5 ML SYR IV PRN; -NS IV 1000 ML (CANCER CTR) IV SCH; -NS IV SCH; -PALONOSETRON HCL 0.25 MG, dexAMETHasone INJECTION 10 MG in NS (IVPB) 50 ML IV SCH
--- NOTE | 2022-09-07 16:02 | Diagnostic Imaging Report ---
INDICATION: Bladder carcinoma, subsequent staging. TECHNIQUE: Serum blood glucose level at the time of injection was 185 mg/dL. Patient was administered 7.8 mCi F-18 FDG intravenously in the left antecubital location, and PET imaging was performed from the top of the skull to mid thighs. Noncontrast CT was also performed for attenuation correction and anatomic correlation. COMPARISON: Correlation is made with prior PET/CT from 05/01/2022. FINDINGS: There is symmetric activity throughout the brain. Soft tissues of the neck are unremarkable. No mediastinal or hilar hypermetabolism is identified. No pulmonary parenchymal hypermetabolism is identified. There is some scarring or atelectasis in the right middle lobe and lingula. There is physiologic activity throughout the GI and tract of the abdomen and pelvis. Previously noted hypermetabolic central retroperitoneal lymphadenopathy is no longer appreciated. The previously noted right iliac chain hypermetabolic lymphadenopathy is no longer visualized. No suspicious areas of hypermetabolism are identified. There continues to be significant right-sided hydroureteronephrosis traced to the level of the urinary bladder which is decompressed. IMPRESSION: Resolution of previously noted central retroperitoneal and right iliac chain lymphadenopathy when compared with prior exam from 05/01/2022. No new areas of hypermetabolism are identified. Right-sided hydronephrosis and left pelvic cyst remain stable. Dictated by: Dictated on workstation # [id number]
== END ==
LOC: RAD 08-28 09:34
PROVIDERS: ATTEND Internal Medicine Hematology & Oncology
DX: C67.9 Malignant neoplasm of bladder, unspecified (principal); R59.0 Localized enlarged lymph nodes; N13.30 Unspecified hydronephrosis; N94.89 Other specified conditions associated with female genital organs and menstrual cycle
CPT/HCPCS: 78815; 82947 ×2; A9552

== ENCOUNTER 2022-09-09 13:18 | Emergency (ER) | payer MEDICARE ==
[~2022-09-09] VITALS: Ht 160 cm; Wt 76.0 kg
[~2022-09-09 13:18] MED LIST changes: -CEPH500T PO; -FLUC150T PO
[2022-09-09 13:58] LABS: BILIRUBIN,URINE NEGATIVE (NEGATIVE); CLARITY,URINE CLOUDY; COLOR,URINE YELLOW; GLUCOSE, URINE (UA) 3+ (NEGATIVE); KETONES,URINE NEGATIVE (NEGATIVE); LEUKOCYTE ESTERASE ,URINE 1+ (NEGATIVE); NITRITE,URINE NEGATIVE (NEGATIVE); PH,URINE 5.5 (5-9); PROTEIN,URINE 3+ (NEGATIVE)
[2022-09-09 14:05] LABS: BACTERIA,URINE NEGATIVE /HPF; WBC,URINE 25-50 /HPF
--- NOTE | 2022-09-09 14:39 | ED General ---
General Chief Complaint: - Reproductive Stated Complaint: BLADER PAIN Nursing Triage Note: PT AMB TO TRIAGE PT CO OF BLADDER PAIN, STATES HAS RECENT DX OF BLADDER CANCER AND HAS 9 CHEMO TREATMENTS THUS FAR. RATES PAIN 03/20. PT STATES HURTS TO WALK. STATES HAD PET SCAN ON SUNDAY Source of Information: Patient Exam Limitations: No Limitations History of Present Illness Date Seen by Provider: Sep 09, 2022 Time Seen by Provider: 13:41 Initial Comments This is a 67-year-old woman with history of treated bladder cancer presents to the emergency room with complaints of lower abdominal pain, urinary urgency, dysuria, and feeling of incomplete voiding. She has been treated for bladder cancer and is currently under the care of Dr. Barnes, oncologist at [facility]. Her primary care provider is Dr. Mcintyre. She does not have a urologist at this time since Dr. Mark retired. She is receiving some chemotherapy treatments. She had a PET scan on September 07 that showed no new findings. She has not taken any pain medications for this pain. The intensified pain started last night. The pain feels deep in the pelvis rather than superficial at the genitalia or skin. She reports no fevers and is afebrile at present. Allergies and Home Medications Allergies Coded Allergies: No Known Drug Allergies (Verified , 04/28/08) Patient Home Medication List Home Medication List Reviewed: Yes Albuterol Sulfate (Proventil Hfa) 6.7 Gm Hfa.aer.ad, 2 PUFF INH Q6H, (Reported) Entered as Reported by: FEMI MARSH on 04/03/22 1035 Amlodipine Besylate (Amlodipine Besylate) 2.5 Mg Tablet, 0.5 EA PO DAILY, (Reported) Entered as Reported by: FEMI MARSH on 04/03/22 1035 Cefdinir (Cefdinir) 300 Mg Capsule, 300 MG PO BID Prescribed by: Deepali Hutchinson on 06/10/22 1419 Cephalexin (Cephalexin) 500 Mg Tablet, 500 MG PO TID Prescribed by: JONI CALLAHAN on 09/09/22 1606 Fluconazole (Diflucan) 150 Mg Tablet, 150 MG PO UD Prescribed by: JONI CALLAHAN on 09/09/22 1606 Fluticasone/Vilanterol (Breo Ellipta 200-25 Mcg INH) 1 Each Blst.w.dev, 1 EACH IH HS, (Reported) Entered as Reported by: PRASHANT BUTLER on 11/07/17 1319 Hydrochlorothiazide (Hydrochlorothiazide) 25 Mg Tablet, 25 MG PO DAILY, (Reported) Entered as Reported by: PRASHANT BUTLER on 11/07/17 1300 Lisinopril (Lisinopril) 40 Mg Tablet, 40 MG PO DAILY, (Reported) Entered as Reported by: PRASHANT BUTLER on 11/07/17 1300 [place]-3S/Dha/Epa/Fish Oil (Fish Oil [place]-3 Softgel) 1 Each Capsule.dr, 1 EACH PO BID, (Reported) Entered as Reported by: PRASHANT BUTLER on 11/07/17 1319 Phenazopyridine HCl (Pyridium) 200 Mg Tablet, 1 TAB PO TID PRN for PAIN Prescribed by: JONI CALLAHAN on 09/09/22 1606 Pravastatin Sodium (Pravastatin Sodium) 40 Mg Tablet, 40 MG PO HS, (Reported) Entered as Reported by: PRASHANT BUTLER on 11/07/17 1300 Sitagliptin Phos/Metformin HCl (Janumet 50-500 mg Tablet) 50 Mg-500 Mg Tablet, 1 TAB PO BID, (Reported) Entered as Reported by: FEMI MARSH on 04/03/22 1031 Review of Systems Review of Systems Constitutional: no symptoms reported EENTM: no symptoms reported Respiratory: no symptoms reported Cardiovascular: no symptoms reported Gastrointestinal: see HPI Genitourinary: see HPI : No Musculoskeletal: no symptoms reported Skin: no symptoms reported Psychiatric/Neurological: No Symptoms Reported Hematologic/Lymphatic: See HPI Immunological/Allergic: see HPI Past Nwjwfgp-Ukkmdy-Udyfju Hx Patient Social History Tobacco Use?: Yes Tobacco type used: Cigarettes Smoking Status: Current Everyday Smoker Substance use?: No Alcohol Use?: No Pt feels they are or have been: No Immunizations Up To Date Tetanus Booster (TDap): Unknown PED Vaccines UTD: No Influenza Vaccine Up-to-Date: No; Not Current First/Initial COVID19 Vaccinat: DECLINED Seasonal Allergies Seasonal Allergies: No Past Medical History Surgery/Hospitalization HX: BLADDER CA, PORT, HX VULVAR CA Surgeries: Yes (MASS ON LABIA, "MARKLIN GLAND" REMOVED BILAT CATS) Bladder Surgery Respiratory: Yes (COPD, SOB, COUGH, WEARS OXYGEN AT HS PRN) Pneumonia, COPD Currently Using CPAP: No Currently Using BIPAP: No Cardiac: Yes High Cholesterol, Hypertension Neurological: Yes Reproductive Disorders: No Female Reproductive Disorders: Ovarian Cyst Sexually Transmitted Disease: No HIV/AIDS: No Genitourinary: Yes Bladder Infection, Kidney Stones, UTI-Chronic Gastrointestinal: No Musculoskeletal: Yes (SMALL UMBILICAL HERNIA) Endocrine: Yes Diabetes, Non-Insulin dep HEENT: Yes Cataract Loss of Vision: Denies Hearing Impairment: Denies Cancer: Yes (VULVAR, "MARKLIN GLAND", BLADDER) Bladder What Type of Treatment Did You: Radiation Psychosocial: No Integumentary: Yes (COLD SORES ON MOUTH) Recent Skin Changes, Herpes Blood Disorders: No Family Medical History Diabetes mellitus 19 FATHER, , Onset:Unknown 19 MOTHER, , Onset:Unknown FH: lung cancer 19 FATHER, , Onset:Unknown FH: lymphoma 19 MOTHER, , Onset:Unknown Hypertension 19 MOTHER, , Onset:Unknown No Family History of: AIDS Abdominal aortic aneurysm Albert's disease Alcoholism Alzheimer's disease Aphasia Arthritis Asthma Cancer of mouth Cardiovascular disease Cataracts Colon cancer Completed stroke Congenital disease Congenital heart disease Coronary thrombosis Cystic fibrosis Deafness or hearing loss Dementia Drug abuse Dysphasia Fibrocystic disease of breast Gastroenteritis Glaucoma Headache disorder Hypercholesterolemia Infertility Kidney disease Myocardial infarction Neoplasm Not obtainable due to adoption Osteoporosis Parkinson's disease Prostate cancer Psychosocial problem Respiratory disorder Seizure disorder Severe allergy Thyroid disease Tuberculosis Visual disorder No Pertinent Family Hx Physical Exam Vital Signs Vital Signs - First Documented 09/09/22 09/09/22 13:31 16:15 Temp 36.8 Pulse 108 Resp 18 B/P (MAP) 126/80 (95) Pulse Ox 91 O2 Delivery Room Air Capillary Refill : Less Than 3 Seconds Height, Weight, BMI Height: 5'3.00" Weight: 185lbs. 0.0oz. 83.270995km; 29.00 BMI Method: General Appearance: WD/WN, Mild Distress HEENT: PERRL/EOMI, Normal ENT Inspection Neck: Normal Inspection Respiratory: Lungs Clear, Normal Breath Sounds, No Accessory Muscle Use Cardiovascular: Regular Rate, Rhythm, No Edema, No Murmur Gastrointestinal: Non Tender, Soft; No Distended Extremity: Normal Inspection Neurologic/Psychiatric: Alert, Oriented x3, Normal Mood/Affect Skin: Normal Color, Warm/Dry Progress/Results/Core Measures Suspected Sepsis SIRS Temperature: Pulse: 108 Respiratory Rate: 18 Blood Pressure 126 /80 Mean: 95 Results/Orders Lab Results Laboratory Tests Test 09/09/22 13:23 Range/Units Urine Color YELLOW Urine Clarity CLOUDY Urine pH 5.5 5-9 Urine Specific [place] 1.025 H 1.016-1.022 Urine Protein 3+ H NEGATIVE Urine Glucose (UA) 3+ H NEGATIVE Urine Ketones NEGATIVE NEGATIVE Urine Nitrite NEGATIVE NEGATIVE Urine Bilirubin NEGATIVE NEGATIVE Urine Urobilinogen 0.2 < = 1.0 MG/DL Urine Leukocyte Esterase 1+ H NEGATIVE Urine RBC (Auto) 2+ H NEGATIVE Urine RBC 2-5 H /HPF Urine WBC 25-50 H /HPF Urine Squamous Epithelial Cells NONE /HPF Urine Crystals NONE /LPF Urine Bacteria NEGATIVE /HPF Urine Casts NONE /LPF Urine Mucus NEGATIVE /LPF Urine Culture Indicated YES Micro Results Microbiology 09/09/22 Urine Culture - Final, Complete YEAST Growth Consistent My Orders Orders - JONI RIDER MD Ua Culture If Indicated (09/09/22 13:41) Urine Culture (09/09/22 13:23) Ketorolac Injection (Toradol Injection) (09/09/22 15:00) Bladder Scan (09/09/22 14:52) Phenazopyridine Tablet (Pyridium Tablet) (09/09/22 15:45) Hyoscyamine Sl Tablet (Levsin Sl Tablet) (09/09/22 15:45) Medications Given in ED Vital Signs/I&O 09/09/22 09/09/22 13:31 16:15 Temp 36.8 Pulse 108 71 Resp 18 16 B/P (MAP) 126/80 (95) 136/82 Pulse Ox 91 98 O2 Delivery Room Air Capillary Refill : Less Than 3 Seconds Blood Pressure Mean: 95 Progress Note : Progress Note Patient was treated with Toradol injection, Levsin, and Pyridium. WBC were noted on urinalysis suggestive of pyuria. Chart was reviewed and she has been noted to have yeast UTI on multiple occasions. For this reason she is being treated with antibiotics and Diflucan. Bladder scan was performed during her ER stay and measured only 73 mL postvoid. She does not have significant urinary retention. See discharge instructions for further discussion. Departure Impression Primary Impression: Urinary tract infection Qualified Codes: N39.0 - Urinary tract infection, site not specified; R31.9 - Hematuria, unspecified Additional Impression: Pelvic pain Disposition: HOME, SELF-CARE Condition: Improved Departure-Patient Inst. Decision time for Depature: 16:02 Referrals: DUSTY MCINTYRE MD (PCP/Family) Primary Care Physician Patient Instructions: Bladder Cancer, Urinary Tract Infections in Adults Add. Discharge Instructions: Drink plenty of clear liquid to stay well-hydrated. Complete your antibiotics and antiyeast medication as prescribed. The Keflex antibiotic will be taken 3 times a day, and the Diflucan for yeast will be taken 3 times, 3 days apart. Follow-up with your primary care provider on Sunday or Sunday to review urine culture results. Please also follow-up with your Cancer Center team. Call them on Sunday to make follow-up arrangements. For pain you may take Tylenol (acetaminophen) up to 1000 mg every 6 hours as needed. Add ibuprofen up to 400 mg every 6 hours as needed for additional pain relief. Pyridium has been prescribed to help numb your bladder as well. Return to care if you have worsening symptoms despite following these instructions. All discharge instructions reviewed with patient and/or family. Voiced understanding. Scripts Phenazopyridine HCl (Pyridium) 200 Mg Tablet 1 TAB PO TID PRN for PAIN, #20 TAB Prov: JONI RIDER MD 09/09/22 Fluconazole (Diflucan) 150 Mg Tablet 150 MG PO UD, #3 TAB Take 1 tablet September 09, , and . Prov: JONI RIDER MD 09/09/22 Cephalexin (Cephalexin) 500 Mg Tablet 500 MG PO TID, #21 TAB Prov: JONI RIDER MD 09/09/22 Copy Copies To 1: EDWIN BARNES MD Copies To 2: DUSTY MCINTYRE MD, JOSHUA T MD Sep 09, 2022 14:39
[2022-09-09] MEDS ORDERED: KETOROLAC 30 MG/ML VIAL IVP ONE (15:00)
[2022-09-09] MEDS ORDERED: PHENAZOPYRIDINE 100 MG (PYRIDIUM) TABLET PO ONE (15:45)
[2022-09-09] MEDS ORDERED: HYOSCYAMINE 0.125 MG (LEVSIN) TAB SL ONE (15:45)
[2022-09-09] MEDS ORDERED: FLUC150T PO (16:06)
[2022-09-09] MEDS ORDERED: CEPH500T PO (16:06)
[2022-09-09] MEDS ORDERED: PHEN-640 PO (16:06)
[2022-09-09 16:15] VITALS: BP 136/82
== END 2022-09-09 16:15 | disposition home or self-care (01) ==
LOC: EDUNIT# 13:18 → ER 13:22
DX: N39.0 Urinary tract infection, site not specified (principal); C67.9 Malignant neoplasm of bladder, unspecified; J44.9 Chronic obstructive pulmonary disease, unspecified; F17.210 Nicotine dependence, cigarettes, uncomplicated; Z99.81 Dependence on supplemental oxygen; Z28.310 Unvaccinated for COVID-19; Z92.3 Personal history of irradiation; Z87.19 Personal history of other diseases of the digestive system
CPT/HCPCS: 81000; 87088; 99284

== ENCOUNTER 2022-09-27 12:53 | Emergency (ER) | payer MEDICARE ==
[~2022-09-27] VITALS: Ht 160 cm; Wt 76.0 kg
[~2022-09-27 12:53] MED LIST changes: +CEPH500T PO; +FLUC150T PO
[2022-09-27 13:27] LABS: CLARITY,URINE CLOUDY; COLOR,URINE RED; GLUCOSE, URINE (UA) TRACE (NEGATIVE); KETONES,URINE 1+ (NEGATIVE); LEUKOCYTE ESTERASE ,URINE 2+ (NEGATIVE); NITRITE,URINE POSITIVE (NEGATIVE); PH,URINE 6.5 (5-9); PROTEIN,URINE 3+ (NEGATIVE)
[2022-09-27 13:44] LABS: BACTERIA,URINE TRACE /HPF; BILIRUBIN,URINE 2+ (NEGATIVE); RBC,URINE TNTC /HPF; WBC,URINE 25-50 /HPF
--- NOTE | 2022-09-27 13:52 | ED GU-Female ---
General Chief Complaint: - Reproductive Stated Complaint: UNABLE TO URINATE | URINATING BLOOD Nursing Triage Note: AMB TO TRIAGE ROOM WITH C/O BLADDER PRESSURE, BURNING, AND DECREASED ABILITY TO PASS URINE. VERBALIZES HX OF BLADDER CANCER. History of Present Illness Date Seen by Provider: Sep 27, 2022 Time Seen by Provider: 12:30 Initial Comments 67-year-old female presents with some burning, pressure in her bladder, feeling of hesitancy and difficulty urinating. Patient reports that she is got some blood in her urine her. She does have a history of bladder cancer and is currently being treated. She reports that she felt she cannot urinate patient denies any fevers, chills, nausea or vomiting Allergies and Home Medications Allergies Coded Allergies: No Known Drug Allergies (Verified , 09/27/22) Patient Home Medication List Home Medication List Reviewed: Yes Albuterol Sulfate (Proventil Hfa) 6.7 Gm Hfa.aer.ad, 2 PUFF INH Q6H, (Reported) Entered as Reported by: FEMI MARSH on 04/03/22 1035 Amlodipine Besylate (Amlodipine Besylate) 2.5 Mg Tablet, 0.5 EA PO DAILY, (Reported) Entered as Reported by: FEMI MARSH on 04/03/22 1035 Cefdinir (Cefdinir) 300 Mg Capsule, 300 MG PO BID Prescribed by: Deepali Hutchinson on 06/10/22 1419 Cephalexin (Cephalexin) 500 Mg Tablet, 500 MG PO TID Prescribed by: JONI CALLAHAN on 09/09/22 1606 Fluconazole (Diflucan) 150 Mg Tablet, 150 MG PO UD Prescribed by: JONI CALLAHAN on 09/09/22 1606 Fluticasone/Vilanterol (Breo Ellipta 200-25 Mcg INH) 1 Each Blst.w.dev, 1 EACH IH HS, (Reported) Entered as Reported by: PRASHANT BUTLER on 11/07/17 1319 Hydrochlorothiazide (Hydrochlorothiazide) 25 Mg Tablet, 25 MG PO DAILY, (Reported) Entered as Reported by: PRASHANT BUTLER on 11/07/17 1300 Lisinopril (Lisinopril) 40 Mg Tablet, 40 MG PO DAILY, (Reported) Entered as Reported by: PRASHANT BUTLER on 11/07/17 1300 [place]-3S/Dha/Epa/Fish Oil (Fish Oil [place]-3 Softgel) 1 Each Capsule.dr, 1 EACH PO BID, (Reported) Entered as Reported by: PRASHANT BUTLER on 11/07/17 1319 Phenazopyridine HCl (Pyridium) 200 Mg Tablet, 1 TAB PO TID PRN for PAIN Prescribed by: JONI CALLAHAN on 09/09/22 1606 Pravastatin Sodium (Pravastatin Sodium) 40 Mg Tablet, 40 MG PO HS, (Reported) Entered as Reported by: PRASHANT BUTLER on 11/07/17 1300 Sitagliptin Phos/Metformin HCl (Janumet 50-500 mg Tablet) 50 Mg-500 Mg Tablet, 1 TAB PO BID, (Reported) Entered as Reported by: FEMI MARSH on 04/03/22 1031 Review of Systems Review of Systems Constitutional: No chills, No fever Genitourinary: hematuria, pain : No Musculoskeletal: no symptoms reported Skin: no symptoms reported Psychiatric/Neurological: No Symptoms Reported Past Hhjehwu-Hpmimb-Pqukgm Hx Patient Social History Tobacco Use?: Yes Tobacco type used: Cigarettes Smoking Status: Current Everyday Smoker Smokeless Tobacco Frequency: Current Everyday User Use of E-Cig and/or Vaping dev: No Substance use?: No Alcohol Use?: No Pt feels they are or have been: No Immunizations Up To Date Tetanus Booster (TDap): Unknown PED Vaccines UTD: No First/Initial COVID19 Vaccinat: DECLINED Second COVID19 Vaccination Yossi: DECLINED Third COVID19 Vaccination Date: DECLINED Seasonal Allergies Seasonal Allergies: No Past Medical History Surgery/Hospitalization HX: BLADDER CA, PORT, HX VULVAR CA, HTN, DIABETES Surgeries: Yes (MASS ON LABIA, "MARKLIN GLAND" REMOVED BILAT CATS) Bladder Surgery Respiratory: Yes (COPD, SOB, COUGH, WEARS OXYGEN AT HS PRN) Pneumonia, COPD Currently Using CPAP: No Currently Using BIPAP: No Cardiac: Yes High Cholesterol, Hypertension Neurological: Yes Reproductive Disorders: No Female Reproductive Disorders: Ovarian Cyst Sexually Transmitted Disease: No HIV/AIDS: No Genitourinary: Yes Bladder Infection, Kidney Stones, UTI-Chronic Gastrointestinal: No Musculoskeletal: Yes (SMALL UMBILICAL HERNIA) Endocrine: Yes Diabetes, Non-Insulin dep HEENT: Yes Cataract Loss of Vision: Denies Hearing Impairment: Denies Cancer: Yes (VULVAR, "MARKLIN GLAND", BLADDER) Bladder What Type of Treatment Did You: Radiation Psychosocial: No Integumentary: Yes (COLD SORES ON MOUTH) Recent Skin Changes, Herpes Blood Disorders: No Family Medical History Diabetes mellitus 19 FATHER, , Onset:Unknown 19 MOTHER, , Onset:Unknown FH: lung cancer 19 FATHER, , Onset:Unknown FH: lymphoma 19 MOTHER, , Onset:Unknown Hypertension 19 MOTHER, , Onset:Unknown No Family History of: AIDS Abdominal aortic aneurysm Albert's disease Alcoholism Alzheimer's disease Aphasia Arthritis Asthma Cancer of mouth Cardiovascular disease Cataracts Colon cancer Completed stroke Congenital disease Congenital heart disease Coronary thrombosis Cystic fibrosis Deafness or hearing loss Dementia Drug abuse Dysphasia Fibrocystic disease of breast Gastroenteritis Glaucoma Headache disorder Hypercholesterolemia Infertility Kidney disease Myocardial infarction Neoplasm Not obtainable due to adoption Osteoporosis Parkinson's disease Prostate cancer Psychosocial problem Respiratory disorder Seizure disorder Severe allergy Thyroid disease Tuberculosis Visual disorder No Pertinent Family Hx Physical Exam Vital Signs Vital Signs - First Documented 09/27/22 13:05 Temp 37.0 Pulse 118 Resp 18 B/P (MAP) 152/66 (94) Pulse Ox 96 O2 Delivery Room Air Capillary Refill : Less Than 3 Seconds Height, Weight, BMI Height: 5'3.00" Weight: 185lbs. 0.0oz. 83.483928qi; 29.00 BMI Method: General Appearance: WD/WN, no apparent distress Cardiovascular: normal peripheral pulses, regular rate, rhythm Respiratory: chest non-tender, lungs clear, normal breath sounds Gastrointestinal: non tender, soft Neurologic/Psychiatric: alert, normal mood/affect, oriented x 3 Skin: normal color, warm/dry Progress/Results/Core Measures Suspected Sepsis SIRS Temperature: Pulse: 118 Respiratory Rate: 18 Blood Pressure 152 /66 Mean: 94 Results/Orders Lab Results Laboratory Tests Test 09/27/22 13:20 Range/Units Urine Color RED H Urine Clarity CLOUDY Urine pH 6.5 5-9 Urine Specific [place] 1.020 1.016-1.022 Urine Protein 3+ H NEGATIVE Urine Glucose (UA) TRACE H NEGATIVE Urine Ketones 1+ H NEGATIVE Urine Nitrite POSITIVE H NEGATIVE Urine Bilirubin 2+ H NEGATIVE Urine Urobilinogen 4.0 < = 1.0 MG/DL Urine Leukocyte Esterase 2+ H NEGATIVE Urine RBC (Auto) 3+ H NEGATIVE Urine RBC TNTC H /HPF Urine WBC 25-50 H /HPF Urine Crystals NONE /LPF Urine Bacteria TRACE /HPF Urine Casts NONE /LPF Urine Mucus NEGATIVE /LPF Urine Culture Indicated YES My Orders Orders - AMARILYS OLIVAREZ DO Ua Culture If Indicated (09/27/22 13:16) Urine Culture (09/27/22 13:20) Vital Signs/I&O 09/27/22 13:05 Temp 37.0 Pulse 118 Resp 18 B/P (MAP) 152/66 (94) Pulse Ox 96 O2 Delivery Room Air Capillary Refill : Less Than 3 Seconds Blood Pressure Mean: 94 Progress Note : Progress Note Patient's urine is concerning for UTI. I did review her last microbiology on 09/09/2022 over that showed yeast but no abnormal hortencia. She is at increased risk I will treat her with Bactrim. Recommend she follow-up with her primary care provider for recheck of her urine. She is stable and discharged Departure Impression Primary Impression: Acute cystitis with hematuria Additional Impression: Bladder cancer Qualified Codes: C67.9 - Malignant neoplasm of bladder, unspecified Disposition: 01 HOME, SELF-CARE Condition: Stable Departure-Patient Inst. Referrals: DUSTY MCINTYRE MD (PCP/Family) Primary Care Physician Patient Instructions: Urinary Tract Infection, Adult (DC) Scripts Sulfamethoxazole/Trimethoprim (Bactrim Ds Tablet) 1 Each Tablet 1 EACH PO BID for 7 Days, #14 TAB Prov: AMARILYS OLIVAREZ DO 09/27/22 AMARILYS OLIVAREZ DO Sep 27, 2022 13:52
[2022-09-27] MEDS ORDERED: SULF1TAB38 PO (13:59)
[2022-09-27 14:03] VITALS: BP 152/66
== END 2022-09-27 14:03 | disposition home or self-care (01) ==
LOC: EDUNIT# 12:53 → ER 12:54
DX: N30.01 Acute cystitis with hematuria (principal); C67.9 Malignant neoplasm of bladder, unspecified; J44.9 Chronic obstructive pulmonary disease, unspecified; F17.210 Nicotine dependence, cigarettes, uncomplicated; Z99.81 Dependence on supplemental oxygen
CPT/HCPCS: 81000; 87088; 99282

== ENCOUNTER 2022-09-27 19:52 | Emergency (ER) | payer MEDICARE ==
[~2022-09-27] VITALS: Ht 160 cm; Wt 76.0 kg
[2022-09-27] MEDS ORDERED: cefTRIAXone IV/IM 1,000 MG in NS (IVPB) 50 ML IV STA (20:08)
--- NOTE | 2022-09-27 20:20 | ED GU-Female ---
General Chief Complaint: - Reproductive Stated Complaint: UNABLE TO URINATE Source: patient Exam Limitations: no limitations (MICHELE VILLEGAS) History of Present Illness Date Seen by Provider: Sep 27, 2022 Time Seen by Provider: 20:17 Initial Comments Patient is a 67-year-old female who presents ED with lower suprapubic pain, decreased urine output, burning with urination. Patient states she woke up this morning having lower abdominal discomfort. She describes it as burning sensation. She states she started having burning with urination and blood in her urine every time she wiped. She states she was seen here at 130 diagnosed with urinary tract infection was discharged with Bactrim which she took 1 dose. She states since 130 she has not urinated. She drank 3 bottles of water. She has a history of recently diagnosed bladder cancer this past May. Currently on chemotherapy following up with Dr. Cortez. She states she had vulval cancer in 2009. She denies fever, chills, bodyaches, headache, dizziness, chest pain, shortness of breath. Denies taking pain medication. Patient denies nausea, vomiting, diarrhea, flank pain. (MICHELE VILLEGAS) Allergies and Home Medications Allergies Coded Allergies: No Known Drug Allergies (Verified , 09/27/22) Patient Home Medication List Home Medication List Reviewed: Yes (MICHELE VILLEGAS) Albuterol Sulfate (Proventil Hfa) 6.7 Gm Hfa.aer.ad, 2 PUFF INH Q6H, (Reported) Entered as Reported by: FEMI MARSH on 04/03/22 1035 Amlodipine Besylate (Amlodipine Besylate) 2.5 Mg Tablet, 0.5 EA PO DAILY, (Reported) Entered as Reported by: FEMI MARSH on 04/03/22 1035 Cefdinir (Cefdinir) 300 Mg Capsule, 300 MG PO BID Prescribed by: Deepali Hutchinson on 06/10/22 1419 Cephalexin (Cephalexin) 500 Mg Tablet, 500 MG PO TID Prescribed by: JONI CALLAHAN on 09/09/22 1606 Fluconazole (Diflucan) 150 Mg Tablet, 150 MG PO UD Prescribed by: JONI CALLAHAN on 09/09/22 1606 Fluticasone/Vilanterol (Breo Ellipta 200-25 Mcg INH) 1 Each Blst.w.dev, 1 EACH IH HS, (Reported) Entered as Reported by: PRASHANT BUTLER on 11/07/17 1319 Hydrochlorothiazide (Hydrochlorothiazide) 25 Mg Tablet, 25 MG PO DAILY, (Reported) Entered as Reported by: PRASHANT BUTLER on 11/07/17 1300 Lisinopril (Lisinopril) 40 Mg Tablet, 40 MG PO DAILY, (Reported) Entered as Reported by: PRASHANT BUTLER on 11/07/17 1300 [place]-3S/Dha/Epa/Fish Oil (Fish Oil [place]-3 Softgel) 1 Each Capsule.dr, 1 EACH PO BID, (Reported) Entered as Reported by: PRASHANT BUTLER on 11/07/17 1319 Phenazopyridine HCl (Pyridium) 200 Mg Tablet, 1 TAB PO TID PRN for PAIN Prescribed by: JONI CALLAHAN on 09/09/22 1606 Pravastatin Sodium (Pravastatin Sodium) 40 Mg Tablet, 40 MG PO HS, (Reported) Entered as Reported by: PRASHANT BUTLER on 11/07/17 1300 Sitagliptin Phos/Metformin HCl (Janumet 50-500 mg Tablet) 50 Mg-500 Mg Tablet, 1 TAB PO BID, (Reported) Entered as Reported by: FEMI MARSH on 04/03/22 1031 Sulfamethoxazole/Trimethoprim (Bactrim Ds Tablet) 1 Each Tablet, 1 EACH PO BID Prescribed by: AMARILYS OLIVAREZ on 09/27/22 1359 Review of Systems Review of Systems Constitutional: No chills, No diaphoresis, No malaise, No weakness EENTM: No blurred vision, No mouth pain, No mouth swelling, No throat pain, No throat swelling Respiratory: No cough, No orthopnea, No short of breath Cardiovascular: No chest pain Gastrointestinal: abdominal pain; No diarrhea, No nausea, No vomiting Genitourinary: burning; denies discharge, denies frequency; pain, other (Decreased urine output) Musculoskeletal: No back pain, No joint pain Skin: No change in color (MICHELE VILLEGAS) Past Swtqugj-Ujgqzl-Okwixe Hx Immunizations Up To Date Tetanus Booster (TDap): Unknown PED Vaccines UTD: No First/Initial COVID19 Vaccinat: DECLINED Second COVID19 Vaccination Yossi: DECLINED Third COVID19 Vaccination Date: DECLINED (MICHELE VILLEGAS) Seasonal Allergies Seasonal Allergies: No (MICHELE VILLEGAS) Past Medical History Surgery/Hospitalization HX: BLADDER CA, PORT, HX VULVAR CA, HTN, DIABETES Surgeries: Yes (MASS ON LABIA, "MARKLIN GLAND" REMOVED BILAT CATS) Bladder Surgery Respiratory: Yes (COPD, SOB, COUGH, WEARS OXYGEN AT HS PRN) Pneumonia, COPD Currently Using CPAP: No Currently Using BIPAP: No Cardiac: Yes High Cholesterol, Hypertension Neurological: Yes Reproductive Disorders: No Female Reproductive Disorders: Ovarian Cyst Sexually Transmitted Disease: No HIV/AIDS: No Genitourinary: Yes Bladder Infection, Kidney Stones, UTI-Chronic Gastrointestinal: No Musculoskeletal: Yes (SMALL UMBILICAL HERNIA) Endocrine: Yes Diabetes, Non-Insulin dep HEENT: Yes Cataract Loss of Vision: Denies Hearing Impairment: Denies Cancer: Yes (VULVAR, "MARKLIN GLAND", BLADDER) Bladder What Type of Treatment Did You: Radiation Psychosocial: No Integumentary: Yes (COLD SORES ON MOUTH) Recent Skin Changes, Herpes Blood Disorders: No (MICHELE VILLEGAS) Family Medical History Diabetes mellitus 19 FATHER, , Onset:Unknown 19 MOTHER, , Onset:Unknown FH: lung cancer 19 FATHER, , Onset:Unknown FH: lymphoma 19 MOTHER, , Onset:Unknown Hypertension 19 MOTHER, , Onset:Unknown No Family History of: AIDS Abdominal aortic aneurysm Reva's disease Alcoholism Alzheimer's disease Aphasia Arthritis Asthma Cancer of mouth Cardiovascular disease Cataracts Colon cancer Completed stroke Congenital disease Congenital heart disease Coronary thrombosis Cystic fibrosis Deafness or hearing loss Dementia Drug abuse Dysphasia Fibrocystic disease of breast Gastroenteritis Glaucoma Headache disorder Hypercholesterolemia Infertility Kidney disease Myocardial infarction Neoplasm Not obtainable due to adoption Osteoporosis Parkinson's disease Prostate cancer Psychosocial problem Respiratory disorder Seizure disorder Severe allergy Thyroid disease Tuberculosis Visual disorder No Pertinent Family Hx (MICHELE VILLEGAS) Physical Exam Vital Signs Vital Signs - First Documented 09/27/22 09/27/22 20:02 22:43 Temp 36.6 Pulse 114 Resp 16 B/P (MAP) 151/91 (111) Pulse Ox 93 O2 Delivery Room Air O2 Flow Rate 2.00 (PADMAJA JOSEPH DO) Vital Signs Capillary Refill : (MICHELE VILLEGAS) Height, Weight, BMI Height: 5'3.00" Weight: 185lbs. 0.0oz. [id number]; 29.00 BMI Method: General Appearance: WD/WN, no apparent distress HEENT: PERRL/EOMI, normal ENT inspection, TMs normal, pharynx normal Neck: non-tender, full range of motion, supple Cardiovascular: regular rate, rhythm, no edema, no gallop, no JVD Respiratory: chest non-tender, lungs clear, normal breath sounds, no respiratory distress, no accessory muscle use Gastrointestinal: normal bowel sounds, soft, no organomegaly, tenderness (suprapubic tenderness) Back: normal inspection, no CVA tenderness, no vertebral tenderness Extremities: normal range of motion, non-tender, normal inspection, no pedal edema Neurologic/Psychiatric: etcher printed circuit boards II-XII nml as tested, no motor/sensory deficits, alert, normal mood/affect, oriented x 3 Skin: normal color, cyanosis (MICHELE VILLEGAS) Focused Exam Lactate Level 09/27/22 20:27: Lactic Acid Level 3.00*H (PADMAJA JOSEPH DO) Progress/Results/Core Measures Suspected Sepsis SIRS Temperature: Pulse: Respiratory Rate: Laboratory Tests 09/27/22 20:14: White Blood Count 4.3 Blood Pressure / Mean: 09/27/22 20:27: Lactic Acid Level 3.00*H Laboratory Tests 09/27/22 20:14: Creatinine 1.03, Platelet Count 38*L, Total Bilirubin 0.3 (MICHELE VILLEGAS) Results/Orders Lab Results Laboratory Tests Test 09/27/22 20:14 09/27/22 20:27 Range/Units White Blood Count 4.3 4.3-11.0 10^3/uL Red Blood Count 2.35 L 3.80-5.11 10^6/uL Hemoglobin 7.5 L 11.5-16.0 g/dL Hematocrit 24 L 35-52 % Mean Corpuscular Volume 103 H 80-99 fL Mean Corpuscular Hemoglobin 32 25-34 pg Mean Corpuscular Hemoglobin Concent 31 L 32-36 g/dL Red Cell Distribution Width 23.0 H 10.0-14.5 % Platelet Count 38 *L 130-400 10^3/uL Mean Platelet Volume 10.0 9.0-12.2 fL Immature Granulocyte % (Auto) 2 % Neutrophils (%) (Auto) 52 42-75 % Lymphocytes (%) (Auto) 33 12-44 % Monocytes (%) (Auto) 12 0-12 % Eosinophils (%) (Auto) 1 0-10 % Basophils (%) (Auto) 0 0-10 % Neutrophils # (Auto) 2.2 1.8-7.8 10^3/uL Lymphocytes # (Auto) 1.4 1.0-4.0 10^3/uL Monocytes # (Auto) 0.5 0.0-1.0 10^3/uL Eosinophils # (Auto) 0.0 0.0-0.3 10^3/uL Basophils # (Auto) 0.0 0.0-0.1 10^3/uL Immature Granulocyte # (Auto) 0.1 0.0-0.1 10^3/uL Percent Immature Platelet Fraction 5.8 0.0-7.6 % Sodium Level 134 L 135-145 MMOL/L Potassium Level 3.7 3.6-5.0 MMOL/L Chloride Level 99 98-107 MMOL/L Carbon Dioxide Level 21 21-32 MMOL/L Anion Gap 14 5-14 MMOL/L Blood Urea Nitrogen 21 H 7-18 MG/DL Creatinine 1.03 0.60-1.30 MG/DL Estimat Glomerular Filtration Rate 60 BUN/Creatinine Ratio 20 Glucose Level 165 H 70-105 MG/DL Calcium Level 9.1 8.5-10.1 MG/DL Corrected Calcium 9.3 8.5-10.1 MG/DL Total Bilirubin 0.3 0.1-1.0 MG/DL Aspartate Amino Transf (AST/SGOT) 15 5-34 U/L Alanine Aminotransferase (ALT/SGPT) 18 0-55 U/L Alkaline Phosphatase 79 40-136 U/L Total Protein 7.7 6.4-8.2 GM/DL Albumin 3.7 3.2-4.5 GM/DL Lipase 37 8-78 U/L Lactic Acid Level 3.00 *H 0.50-2.00 MMOL/L (OPAL,PADMAJA K DO) Medications Given in ED Current Medications Medications Dose Ordered Sig/Desiree Route Start Time Stop Time Status Last Admin Dose Admin Iohexol 100 ml ONCE ONCE IV 09/27/22 20:30 09/27/22 20:31 DC 09/27/22 20:57 80 ML Sodium Chloride 100 ml ONCE ONCE IV 09/27/22 20:30 09/27/22 20:31 DC 09/27/22 20:57 80 ML (OPALPADMAJA Uma DO) Vital Signs/I&O 09/27/22 09/27/22 20:02 22:43 Temp 36.6 Pulse 114 104 Resp 16 16 B/P (MAP) 151/91 (111) 155/65 Pulse Ox 93 93 O2 Delivery Room Air Nasal Cannula O2 Flow Rate 2.00 (OPALPADMAJA Uma DO) Vital Signs/I&O Capillary Refill : (MICHELE VILLEGAS) Departure Communication (PCP) Reviewed previous ER visits, lab testing. History of bladder cancer diagnosed this past May. Currently on chemotherapy every other week by Dr. Cortez. She states that she has not urinated since 130 today. Was seen here earlier diagnosed with urinary tract infection placed on Bactrim which she took 1 dose. She reports suprapubic discomfort. No fever or vomiting. She was tachycardic on arrival so sepsis protocol was started concerning for sepsis. Patient was not able to urinate. Performed a bladder scan that showed 186 mils in her bladder. Patient was afebrile. Lab work CBC, CMP. Hematology showed white blood count 4.3, hemoglobin 7.5, platelets 38. She did have lab work drawn today which was very similar except that her white blood count has increased as well as her platelet. She denies of any weakness, fatigue, skin color changes, vomiting blood, hematochezia. She denies blood thinner. Chemistry grossly unremarkable. Lactic acid 3.0. Due to location of pain concerning for invasive cancer versus nephrolithiasis versus pyelonephritis versus cystitis. CT abdomen pelvis bilateral hydronephrosis with a mass in the trigone of the bladder resulting in urethra obstruction. Due to the low hemoglobin and platelets and the mass in this area catheter was not placed and fluid was held at this time as this potentially could result in acute kidney failure and fluid overload as she has not able to urinate. She attempted to urinate and was unsuccessful. She did have a diagnosed urinary tract infection today. I do believe patient will need to see urology acutely for further evaluation. Patient was discussed at [facility] with their hospitalist Dr. Andujar who agreed to accept patient at this time. Recommend no catheter placement. She will consult urology on arrival. Patient will be transferred by EMS and agreed to transfer at this time (MICHELE VILLEGAS) Impression Primary Impression: Urinary retention Additional Impression: Bladder mass Disposition: 02 XFER SHT-TRM HOSP Condition: Stable Transfer Transfer Reason: Exceeds level of care Time Spoke to Accepting Phy: 21:[address] Andujar hospitalist Transfer Time: 21:46 Transfer Facility: [facility] Method of Transfer: EMS (MICHELE VILLEGAS) Departure-Patient Inst. Referrals: DUSTY MCINTYRE MD (PCP) Primary Care Physician ATTENDING PHYSICIAN NOTE: I WAS PHYSICALLY PRESENT ER PHYSICIAN, BUT I WAS NOT INVOLVED IN ANY DECISION MAKING OR ANY CARE OF THIS PATIENT AND I AM NOT COLLABORATING PHYSICIAN. (PADMAJA JOSEPH DO) MICHELE VILLEGAS Sep 27, 2022 20:20 APDMAJA JOSEPH DO Sep 28, 2022 01:07
[2022-09-27 20:21] LABS: BASOPHILS % (AUTO) 0 % (0-10)
[2022-09-27 20:22] LABS: EOSINOPHILS % (AUTO) 1 % (0-10); HEMATOCRIT 24 % (35-52); HEMOGLOBIN 7.5 g/dL (11.5-16.0); LYMPHOCYTES # (AUTO) 1.4 10^3/uL (1.0-4.0); LYMPHOCYTES % (AUTO) 33 % (12-44); MEAN CORPUSCULAR HEMOGLOBIN 32 pg (25-34); MEAN CORPUSCULAR HGB CONC 31 g/dL (32-36); MEAN CORPUSCULAR VOLUME 103 fL (80-99); MONOCYTES # (AUTO) 0.5 10^3/uL (0.0-1.0); MONOCYTES % (AUTO) 12 % (0-12); NEUTROPHILS # (AUTO) 2.2 10^3/uL (1.8-7.8); NEUTROPHILS % (AUTO) 52 % (42-75); WHITE BLOOD COUNT 4.3 10^3/uL (4.3-11.0)
[2022-09-27 20:25] LABS: PLATELET COUNT 38 10^3/uL (130-400)
[2022-09-27 20:30] LABS: ALBUMIN 3.7 GM/DL (3.2-4.5); POTASSIUM 3.7 MMOL/L (3.6-5.0)
[2022-09-27] MEDS ORDERED: IOHEXOL 350 MG/ML 100 ML (OMNIPAQUE 350) VIAL IV ONE (20:30)
[2022-09-27] MEDS ORDERED: NS 100 ML (IVPB) BAG IV ONE (20:30)
[2022-09-27 20:32] LABS: CALCIUM 9.1 MG/DL (8.5-10.1)
[2022-09-27 20:33] LABS: TOTAL PROTEIN 7.7 GM/DL (6.4-8.2)
[2022-09-27 20:35] LABS: BILIRUBIN,TOTAL 0.3 MG/DL (0.1-1.0)
[2022-09-27 20:36] LABS: CREATININE SERUM 1.03 MG/DL (0.60-1.30)
--- NOTE | 2022-09-27 21:16 | Diagnostic Imaging Report ---
PROCEDURE: CT abdomen and pelvis with contrast. TECHNIQUE: Multiple contiguous axial images were obtained through the abdomen and pelvis after administration of intravenous contrast. Auto Exposure Controls were utilized during the CT exam to meet ALARA standards for radiation dose reduction. All CT scans use one or more of the following dose optimizing techniques: automated exposure control, MA and/or KvP adjustment based on patient size and exam type or iterative reconstruction. INDICATION: Lower abdominal pain. FINDINGS: Lung bases are clear. Liver appears normal. Gallbladder is unremarkable. Portal vein is patent. Common duct is not dilated. Pancreas appears normal. Spleen is not enlarged. Adrenals appear normal. There is bilateral hydronephrosis, right greater than left. There is a small masslike lesion in the base of the urinary bladder near the trigone. This measures 2 cm in diameter. Small bowel is unremarkable. Appendix is normal. Colon is unremarkable. Uterus is present. There is a 6 cm left adnexal cyst. IMPRESSION: Bilateral hydronephrosis due to distal ureteral obstruction. This could be due to a mass in the urinary bladder near the trigone. There are no calculi seen. Further evaluation with cystoscopy recommended. Dictated by: Dictated on workstation # [id number]
[2022-09-27 22:43] VITALS: BP 155/65
== END 2022-09-27 22:43 | disposition short-term general hospital (02) ==
LOC: EDUNIT# 19:52 → ER 19:53
DX: N32.9 Bladder disorder, unspecified (principal); C67.9 Malignant neoplasm of bladder, unspecified; Z79.899 Other long term (current) drug therapy; Z28.310 Unvaccinated for COVID-19
CPT/HCPCS: 36415; 74177; 80053; 83605; 83690; 85025; 87040

== ENCOUNTER 2022-10-04 08:46 | Outpatient (RCR) | payer MEDICARE ==
[2022-09-13 09:53] LABS: BASOPHILS % (AUTO) 0 % (0-10); EOSINOPHILS # (AUTO) 0.1 10^3/uL (0.0-0.3); EOSINOPHILS % (AUTO) 2 % (0-10); HEMATOCRIT 22 % (35-52); LYMPHOCYTES # (AUTO) 1.2 10^3/uL (1.0-4.0); LYMPHOCYTES % (AUTO) 16 % (12-44); MEAN CORPUSCULAR HEMOGLOBIN 34 pg (25-34); MEAN CORPUSCULAR HGB CONC 30 g/dL (32-36); MEAN CORPUSCULAR VOLUME 111 fL (80-99); MEAN PLATELET VOLUME 11.5 fL (9.0-12.2); MONOCYTES # (AUTO) 0.9 10^3/uL (0.0-1.0); MONOCYTES % (AUTO) 12 % (0-12); NEUTROPHILS % (AUTO) 66 % (42-75); PLATELET COUNT 177 10^3/uL (130-400); WHITE BLOOD COUNT 7.5 10^3/uL (4.3-11.0)
[2022-09-13 09:57] LABS: HEMOGLOBIN 6.6 g/dL (11.5-16.0)
[2022-09-13 10:21] LABS: ALBUMIN 3.2 GM/DL (3.2-4.5); BILIRUBIN,TOTAL 0.3 MG/DL (0.1-1.0); CALCIUM 9.4 MG/DL (8.5-10.1); CREATININE SERUM 0.87 MG/DL (0.60-1.30); POTASSIUM 4.6 MMOL/L (3.6-5.0); TOTAL PROTEIN 7.5 GM/DL (6.4-8.2)
[2022-09-20 09:05] LABS: BASOPHILS % (AUTO) 1 % (0-10); EOSINOPHILS # (AUTO) 0.1 10^3/uL (0.0-0.3); EOSINOPHILS % (AUTO) 2 % (0-10); HEMATOCRIT 25 % (35-52); HEMOGLOBIN 7.7 g/dL (11.5-16.0); LYMPHOCYTES # (AUTO) 1.1 10^3/uL (1.0-4.0); LYMPHOCYTES % (AUTO) 33 % (12-44); MEAN CORPUSCULAR HEMOGLOBIN 32 pg (25-34); MEAN CORPUSCULAR HGB CONC 31 g/dL (32-36); MEAN CORPUSCULAR VOLUME 104 fL (80-99); MEAN PLATELET VOLUME 11.3 fL (9.0-12.2); MONOCYTES # (AUTO) 0.4 10^3/uL (0.0-1.0); MONOCYTES % (AUTO) 11 % (0-12); NEUTROPHILS # (AUTO) 1.7 10^3/uL (1.8-7.8); NEUTROPHILS % (AUTO) 51 % (42-75); PLATELET COUNT 92 10^3/uL (130-400); WHITE BLOOD COUNT 3.4 10^3/uL (4.3-11.0)
[2022-09-20 09:30] LABS: ALBUMIN 3.4 GM/DL (3.2-4.5); BILIRUBIN,TOTAL 0.2 MG/DL (0.1-1.0); CALCIUM 9.1 MG/DL (8.5-10.1); CREATININE SERUM 0.86 MG/DL (0.60-1.30); POTASSIUM 4.1 MMOL/L (3.6-5.0); TOTAL PROTEIN 7.4 GM/DL (6.4-8.2)
[2022-09-27 10:11] LABS: EOSINOPHILS % (AUTO) 1 % (0-10); WHITE BLOOD COUNT 2.8 10^3/uL (4.3-11.0)
[2022-09-27 10:13] LABS: BASOPHILS % (AUTO) 1 % (0-10); HEMATOCRIT 24 % (35-52); HEMOGLOBIN 7.4 g/dL (11.5-16.0); LYMPHOCYTES % (AUTO) 35 % (12-44); MEAN CORPUSCULAR HEMOGLOBIN 33 pg (25-34); MEAN CORPUSCULAR HGB CONC 31 g/dL (32-36); MEAN CORPUSCULAR VOLUME 104 fL (80-99); MONOCYTES # (AUTO) 0.3 10^3/uL (0.0-1.0); MONOCYTES % (AUTO) 12 % (0-12); NEUTROPHILS # (AUTO) 1.4 10^3/uL (1.8-7.8); NEUTROPHILS % (AUTO) 48 % (42-75)
[2022-09-27 10:16] LABS: PLATELET COUNT 34 10^3/uL (130-400)
[2022-09-27 10:27] LABS: ALBUMIN 3.7 GM/DL (3.2-4.5); BILIRUBIN,TOTAL 0.3 MG/DL (0.1-1.0); CALCIUM 9.6 MG/DL (8.5-10.1); CREATININE SERUM 0.84 MG/DL (0.60-1.30); POTASSIUM 3.8 MMOL/L (3.6-5.0); TOTAL PROTEIN 7.8 GM/DL (6.4-8.2)
[~2022-10-04 08:46] MED LIST changes: +CARBOPLATIN IV SCH; +D5W IV SCH; +FOSAPREPITANT (CANCER CENTER) 150 MG in NS (IVPB) CANCER CENTER ONLY 150 ML IV SCH; +GEMCITABINE HCL IV SCH; +HEParin (CENTRAL IV FLUSH) 500 UNIT/5 ML SYR IV PRN; +NS IV 1000 ML (CANCER CTR) IV SCH; +NS IV 500 ML 500 ML IV SCH; +NS IV SCH; +PALONOSETRON HCL 0.25 MG, dexAMETHasone INJECTION 10 MG in NS (IVPB) 50 ML IV SCH
[2022-10-04 09:16] LABS: BASOPHILS % (AUTO) 1 % (0-10); HEMOGLOBIN 8.2 g/dL (11.5-16.0); MEAN CORPUSCULAR HEMOGLOBIN 32 pg (25-34)
[2022-10-04 09:18] LABS: EOSINOPHILS # (AUTO) 0.1 10^3/uL (0.0-0.3); EOSINOPHILS % (AUTO) 2 % (0-10); HEMATOCRIT 27 % (35-52); LYMPHOCYTES # (AUTO) 1.1 10^3/uL (1.0-4.0); LYMPHOCYTES % (AUTO) 21 % (12-44); MEAN CORPUSCULAR HGB CONC 31 g/dL (32-36); MEAN CORPUSCULAR VOLUME 105 fL (80-99); MEAN PLATELET VOLUME 10.5 fL (9.0-12.2); MONOCYTES # (AUTO) 0.7 10^3/uL (0.0-1.0); MONOCYTES % (AUTO) 12 % (0-12); NEUTROPHILS # (AUTO) 3.4 10^3/uL (1.8-7.8); NEUTROPHILS % (AUTO) 64 % (42-75); PLATELET COUNT 104 10^3/uL (130-400); WHITE BLOOD COUNT 5.3 10^3/uL (4.3-11.0)
[2022-10-04 09:37] LABS: ALBUMIN 3.7 GM/DL (3.2-4.5); BILIRUBIN,TOTAL 0.3 MG/DL (0.1-1.0); CALCIUM 9.1 MG/DL (8.5-10.1); CREATININE SERUM 0.82 MG/DL (0.60-1.30); POTASSIUM 4.1 MMOL/L (3.6-5.0); TOTAL PROTEIN 7.5 GM/DL (6.4-8.2)
[2022-10-04] MEDS ORDERED: D5W IV SCH (09:45)
[2022-10-04] MEDS ORDERED: GEMCITABINE HCL IV SCH (09:45)
[2022-10-04] MEDS ORDERED: NS IV SCH (09:45)
[2022-10-04] MEDS ORDERED: CARBOPLATIN IV SCH (09:45)
== END 2022-10-08 | disposition home or self-care (01) ==
LOC: ONC 08:46
PROVIDERS: ATTEND Internal Medicine Hematology & Oncology
DX: Z51.11 Encounter for antineoplastic chemotherapy (principal); Z45.2 Encounter for adjustment and management of vascular access device; C67.9 Malignant neoplasm of bladder, unspecified
CPT/HCPCS: 36430; 80053; 85025; 86850; 86900; 86901; 86920; 96367; 96375; 96413; 96417; P9016; 36415; 36591; 82728; 83540; 83550

== ENCOUNTER → 2022-11-02 | Outpatient (CLI) | payer MEDICARE ==
[~2022-11-02] MED LIST changes: -CARBOPLATIN IV SCH; -D5W IV SCH; -FOSAPREPITANT (CANCER CENTER) 150 MG in NS (IVPB) CANCER CENTER ONLY 150 ML IV SCH; -GEMCITABINE HCL IV SCH; -HEParin (CENTRAL IV FLUSH) 500 UNIT/5 ML SYR IV PRN; +HOLD METFORMIN - RECEIVED CONTRAST 20 ML VIAL IV SCH; +IOHEXOL 350 MG/ML 100 ML (OMNIPAQUE 350) VIAL IV ONE; +NS 100 ML (IVPB) BAG IV ONE; -NS IV 1000 ML (CANCER CTR) IV SCH; -NS IV 500 ML 500 ML IV SCH; -NS IV SCH; -PALONOSETRON HCL 0.25 MG, dexAMETHasone INJECTION 10 MG in NS (IVPB) 50 ML IV SCH
--- NOTE | 2022-11-02 10:19 | Diagnostic Imaging Report ---
INDICATION: Bladder cancer. TECHNIQUE: Multiple contiguous axial images were obtained through the chest, abdomen, and pelvis after the administration of intravenous contrast. Auto Exposure Controls were utilized during the CT exam to meet ALARA standards for radiation dose reduction. COMPARISON: 09/27/2022. FINDINGS: CT CHEST: There are no enlarged mediastinal or hilar nodes. There are no enlarged axillary nodes or chest wall lesions. There is no pleural or pericardial fluid. The lung windows show some parenchymal scarring or atelectasis in the left base but no pulmonary consolidation or nodule. CT ABDOMEN/PELVIS: The liver shows no focal lesion. The gallbladder is unremarkable. The spleen and adrenals appear unremarkable. The pancreas appears unremarkable. There is resolution of the hydronephrosis of the left kidney compared to the prior study. There is residual hydronephrosis of the right kidney although it is improved compared to the prior study. There is no retroperitoneal mass. There is no new pelvic adenopathy. There is a left adnexal cyst measuring about 7.1 cm, mildly increased compared to the prior study. There is some bladder wall thickening. The bladder is nearly empty and, therefore, is difficult to evaluate. IMPRESSION: Compared to the prior study of 09/27/2022, there is resolution of the left hydronephrosis with decreased right hydronephrosis and right ureteral prominence. The left adnexal cystic lesion is a little larger. There is no new adenopathy or other new abnormality. The CT chest shows no evidence of metastatic disease. Dictated by: Dictated on workstation # [id number]
== END ==
LOC: RAD 09:09
PROVIDERS: ATTEND Internal Medicine Hematology & Oncology
DX: C23 Malignant neoplasm of gallbladder (principal)
CPT/HCPCS: 71260; 74177

== ENCOUNTER → 2022-11-08 | Outpatient (RCR) | payer MEDICARE ==
[2022-10-11 11:35] LABS: BASOPHILS % (AUTO) 1 % (0-10); EOSINOPHILS % (AUTO) 2 % (0-10); HEMATOCRIT 25 % (35-52); HEMOGLOBIN 7.9 g/dL (11.5-16.0); LYMPHOCYTES % (AUTO) 40 % (12-44); MEAN CORPUSCULAR HEMOGLOBIN 32 pg (25-34); MEAN CORPUSCULAR HGB CONC 31 g/dL (32-36); MEAN CORPUSCULAR VOLUME 103 fL (80-99); MEAN PLATELET VOLUME 11.7 fL (9.0-12.2); MONOCYTES # (AUTO) 0.4 10^3/uL (0.0-1.0); MONOCYTES % (AUTO) 15 % (0-12); NEUTROPHILS % (AUTO) 41 % (42-75); PLATELET COUNT 67 10^3/uL (130-400); WHITE BLOOD COUNT 2.4 10^3/uL (4.3-11.0)
[2022-10-11 11:39] LABS: ALBUMIN 3.8 GM/DL (3.2-4.5); BILIRUBIN,TOTAL 0.4 MG/DL (0.1-1.0); CALCIUM 8.8 MG/DL (8.5-10.1); CREATININE SERUM 0.78 MG/DL (0.60-1.30); POTASSIUM 3.8 MMOL/L (3.6-5.0); TOTAL PROTEIN 7.5 GM/DL (6.4-8.2)
[2022-10-18 10:13] LABS: BASOPHILS % (AUTO) 0 % (0-10); HEMATOCRIT 27 % (35-52); HEMOGLOBIN 8.3 g/dL (11.5-16.0); MEAN CORPUSCULAR HEMOGLOBIN 33 pg (25-34); MEAN CORPUSCULAR HGB CONC 31 g/dL (32-36); MEAN CORPUSCULAR VOLUME 107 fL (80-99)
[2022-10-18 10:15] LABS: EOSINOPHILS # (AUTO) 0.1 10^3/uL (0.0-0.3); EOSINOPHILS % (AUTO) 2 % (0-10); LYMPHOCYTES # (AUTO) 1.2 10^3/uL (1.0-4.0); LYMPHOCYTES % (AUTO) 24 % (12-44); MEAN PLATELET VOLUME 11.6 fL (9.0-12.2); MONOCYTES # (AUTO) 0.6 10^3/uL (0.0-1.0); MONOCYTES % (AUTO) 13 % (0-12); NEUTROPHILS # (AUTO) 2.9 10^3/uL (1.8-7.8); NEUTROPHILS % (AUTO) 60 % (42-75); PLATELET COUNT 114 10^3/uL (130-400); WHITE BLOOD COUNT 4.9 10^3/uL (4.3-11.0)
[2022-10-18 10:35] LABS: ALBUMIN 3.8 GM/DL (3.2-4.5); BILIRUBIN,TOTAL 0.3 MG/DL (0.1-1.0); CREATININE SERUM 0.92 MG/DL (0.60-1.30); TOTAL PROTEIN 7.5 GM/DL (6.4-8.2)
[2022-10-25 08:58] LABS: BASOPHILS % (AUTO) 1 % (0-10); EOSINOPHILS # (AUTO) 0.1 10^3/uL (0.0-0.3); EOSINOPHILS % (AUTO) 2 % (0-10); HEMATOCRIT 30 % (35-52); HEMOGLOBIN 9.1 g/dL (11.5-16.0); LYMPHOCYTES # (AUTO) 1.4 10^3/uL (1.0-4.0); LYMPHOCYTES % (AUTO) 27 % (12-44); MEAN CORPUSCULAR HEMOGLOBIN 33 pg (25-34); MEAN CORPUSCULAR HGB CONC 30 g/dL (32-36); MEAN CORPUSCULAR VOLUME 108 fL (80-99); MEAN PLATELET VOLUME 10.5 fL (9.0-12.2); MONOCYTES # (AUTO) 0.8 10^3/uL (0.0-1.0); MONOCYTES % (AUTO) 16 % (0-12); NEUTROPHILS # (AUTO) 2.7 10^3/uL (1.8-7.8); NEUTROPHILS % (AUTO) 53 % (42-75); PLATELET COUNT 177 10^3/uL (130-400); WHITE BLOOD COUNT 5.2 10^3/uL (4.3-11.0)
[2022-11-01 08:55] VITALS: BP 116/54
[2022-11-01 09:02] LABS: EOSINOPHILS # (AUTO) 0.1 10^3/uL (0.0-0.3); EOSINOPHILS % (AUTO) 1 % (0-10); HEMOGLOBIN 8.7 g/dL (11.5-16.0); MEAN CORPUSCULAR HEMOGLOBIN 33 pg (25-34)
[2022-11-01 09:04] LABS: BASOPHILS % (AUTO) 1 % (0-10); HEMATOCRIT 27 % (35-52); LYMPHOCYTES # (AUTO) 1.4 10^3/uL (1.0-4.0); LYMPHOCYTES % (AUTO) 33 % (12-44); MEAN CORPUSCULAR HGB CONC 32 g/dL (32-36); MEAN CORPUSCULAR VOLUME 104 fL (80-99); MEAN PLATELET VOLUME 10.1 fL (9.0-12.2); MONOCYTES # (AUTO) 0.5 10^3/uL (0.0-1.0); MONOCYTES % (AUTO) 12 % (0-12); NEUTROPHILS # (AUTO) 2.2 10^3/uL (1.8-7.8); NEUTROPHILS % (AUTO) 51 % (42-75); PLATELET COUNT 101 10^3/uL (130-400); WHITE BLOOD COUNT 4.4 10^3/uL (4.3-11.0)
[2022-11-01 09:23] LABS: ALBUMIN 3.9 GM/DL (3.2-4.5); BILIRUBIN,TOTAL 0.4 MG/DL (0.1-1.0); CALCIUM 9.3 MG/DL (8.5-10.1); CREATININE SERUM 1.06 MG/DL (0.60-1.30); POTASSIUM 4.3 MMOL/L (3.6-5.0); TOTAL PROTEIN 7.6 GM/DL (6.4-8.2)
[~2022-11-08] VITALS: Ht 160 cm; Wt 72.1 kg
[~2022-11-08] MED LIST changes: +CARBOPLATIN IV SCH; +D5W IV SCH; +DARBEPOETIN 25 MCG/ML SC SCH; +FOSAPREPITANT (CANCER CENTER) 150 MG in NS (IVPB) CANCER CENTER ONLY 150 ML IV SCH; +GEMCITABINE HCL IV SCH; +HEParin (CENTRAL IV FLUSH) 500 UNIT/5 ML SYR IV PRN; -HOLD METFORMIN - RECEIVED CONTRAST 20 ML VIAL IV SCH; -IOHEXOL 350 MG/ML 100 ML (OMNIPAQUE 350) VIAL IV ONE; -NS 100 ML (IVPB) BAG IV ONE; +NS IV 1000 ML (CANCER CTR) IV SCH; +NS IV SCH; +PALONOSETRON HCL 0.25 MG, dexAMETHasone INJECTION 10 MG in NS (IVPB) 50 ML IV SCH
[2022-11-08 10:29] LABS: BASOPHILS % (AUTO) 1 % (0-10); EOSINOPHILS % (AUTO) 1 % (0-10); HEMATOCRIT 25 % (35-52); HEMOGLOBIN 7.8 g/dL (11.5-16.0); LYMPHOCYTES # (AUTO) 1.5 10^3/uL (1.0-4.0); LYMPHOCYTES % (AUTO) 39 % (12-44); MEAN CORPUSCULAR HEMOGLOBIN 33 pg (25-34); MEAN CORPUSCULAR HGB CONC 31 g/dL (32-36); MEAN CORPUSCULAR VOLUME 107 fL (80-99); MEAN PLATELET VOLUME 12.6 fL (9.0-12.2); MONOCYTES # (AUTO) 0.5 10^3/uL (0.0-1.0); MONOCYTES % (AUTO) 13 % (0-12); NEUTROPHILS # (AUTO) 1.7 10^3/uL (1.8-7.8); NEUTROPHILS % (AUTO) 45 % (42-75); WHITE BLOOD COUNT 3.8 10^3/uL (4.3-11.0)
[2022-11-08 10:31] LABS: PLATELET COUNT 35 10^3/uL (130-400)
== END | disposition home or self-care (01) ==
LOC: ONC 10-11 11:33
PROVIDERS: ATTEND Internal Medicine Hematology & Oncology
DX: Z51.11 Encounter for antineoplastic chemotherapy (principal); Z45.2 Encounter for adjustment and management of vascular access device; C67.9 Malignant neoplasm of bladder, unspecified; D64.9 Anemia, unspecified; R31.9 Hematuria, unspecified
CPT/HCPCS: 36415; 36591; 80053; 85025; 96367; 96375; 96413; 96417

== ENCOUNTER 2022-12-06 07:38 | Outpatient (RCR) | payer MEDICARE ==
[2022-11-15 09:34] LABS: BASOPHILS % (AUTO) 1 % (0-10); HEMATOCRIT 27 % (35-52); HEMOGLOBIN 8.4 g/dL (11.5-16.0); MEAN CORPUSCULAR HGB CONC 31 g/dL (32-36)
[2022-11-15 09:36] LABS: EOSINOPHILS # (AUTO) 0.1 10^3/uL (0.0-0.3); EOSINOPHILS % (AUTO) 3 % (0-10); LYMPHOCYTES # (AUTO) 1.4 10^3/uL (1.0-4.0); LYMPHOCYTES % (AUTO) 33 % (12-44); MEAN CORPUSCULAR HEMOGLOBIN 34 pg (25-34); MEAN CORPUSCULAR VOLUME 110 fL (80-99); MEAN PLATELET VOLUME 11.8 fL (9.0-12.2); MONOCYTES # (AUTO) 0.5 10^3/uL (0.0-1.0); MONOCYTES % (AUTO) 11 % (0-12); NEUTROPHILS # (AUTO) 2.3 10^3/uL (1.8-7.8); NEUTROPHILS % (AUTO) 52 % (42-75); PLATELET COUNT 82 10^3/uL (130-400); WHITE BLOOD COUNT 4.4 10^3/uL (4.3-11.0)
[2022-11-15 10:01] LABS: BILIRUBIN,TOTAL 0.4 MG/DL (0.1-1.0); CALCIUM 9.2 MG/DL (8.5-10.1); CREATININE SERUM 0.96 MG/DL (0.60-1.30); POTASSIUM 4.3 MMOL/L (3.6-5.0); TOTAL PROTEIN 7.7 GM/DL (6.4-8.2)
[2022-11-29 10:14] LABS: BASOPHILS % (AUTO) 1 % (0-10); EOSINOPHILS # (AUTO) 0.2 10^3/uL (0.0-0.3); EOSINOPHILS % (AUTO) 3 % (0-10); HEMATOCRIT 32 % (35-52); HEMOGLOBIN 9.5 g/dL (11.5-16.0); LYMPHOCYTES # (AUTO) 1.4 10^3/uL (1.0-4.0); LYMPHOCYTES % (AUTO) 25 % (12-44); MEAN CORPUSCULAR HEMOGLOBIN 34 pg (25-34); MEAN CORPUSCULAR HGB CONC 30 g/dL (32-36); MEAN CORPUSCULAR VOLUME 114 fL (80-99); MEAN PLATELET VOLUME 10.7 fL (9.0-12.2); MONOCYTES # (AUTO) 0.6 10^3/uL (0.0-1.0); MONOCYTES % (AUTO) 11 % (0-12); NEUTROPHILS # (AUTO) 3.4 10^3/uL (1.8-7.8); NEUTROPHILS % (AUTO) 60 % (42-75); PLATELET COUNT 161 10^3/uL (130-400); WHITE BLOOD COUNT 5.6 10^3/uL (4.3-11.0)
[2022-11-29 10:33] LABS: ALBUMIN 3.9 GM/DL (3.2-4.5); BILIRUBIN,TOTAL 0.3 MG/DL (0.1-1.0); CALCIUM 9.3 MG/DL (8.5-10.1); CREATININE SERUM 0.82 MG/DL (0.60-1.30); POTASSIUM 4.8 MMOL/L (3.6-5.0); TOTAL PROTEIN 7.5 GM/DL (6.4-8.2)
[~2022-12-06] VITALS: Ht 160 cm; Wt 73.8 kg
[~2022-12-06 07:38] MED LIST changes: +PEMBROLIZUMAB 200 MG in NS (IVPB) 50 ML IV SCH
[2022-12-06 10:03] LABS: BASOPHILS % (AUTO) 1 % (0-10); EOSINOPHILS # (AUTO) 0.2 10^3/uL (0.0-0.3); EOSINOPHILS % (AUTO) 3 % (0-10); HEMATOCRIT 33 % (35-52); LYMPHOCYTES # (AUTO) 1.6 10^3/uL (1.0-4.0); LYMPHOCYTES % (AUTO) 25 % (12-44); MEAN CORPUSCULAR HEMOGLOBIN 33 pg (25-34); MEAN CORPUSCULAR HGB CONC 30 g/dL (32-36); MEAN CORPUSCULAR VOLUME 110 fL (80-99); MEAN PLATELET VOLUME 10.1 fL (9.0-12.2); MONOCYTES # (AUTO) 0.6 10^3/uL (0.0-1.0); MONOCYTES % (AUTO) 10 % (0-12); NEUTROPHILS # (AUTO) 3.8 10^3/uL (1.8-7.8); NEUTROPHILS % (AUTO) 61 % (42-75); PLATELET COUNT 198 10^3/uL (130-400); WHITE BLOOD COUNT 6.2 10^3/uL (4.3-11.0)
[2022-12-06 10:21] LABS: ALBUMIN 3.9 GM/DL (3.2-4.5); BILIRUBIN,TOTAL 0.2 MG/DL (0.1-1.0); CALCIUM 9.4 MG/DL (8.5-10.1); CREATININE SERUM 0.76 MG/DL (0.60-1.30); POTASSIUM 4.4 MMOL/L (3.6-5.0); TOTAL PROTEIN 7.7 GM/DL (6.4-8.2)
[2022-12-06 10:26] VITALS: BP 134/69
== END 2022-12-08 | disposition home or self-care (01) ==
LOC: ONC 07:38
PROVIDERS: ATTEND Internal Medicine Hematology & Oncology
DX: Z51.11 Encounter for antineoplastic chemotherapy (principal); C67.9 Malignant neoplasm of bladder, unspecified
CPT/HCPCS: 36415; 36591; 80053; 85025; 96372; 96413

== ENCOUNTER 2022-12-27 09:22 | Outpatient (RCR) | payer MEDICARE ==
[~2022-12-27] VITALS: Ht 160 cm; Wt 75.5 kg
[~2022-12-27 09:22] MED LIST changes: -CARBOPLATIN IV SCH; -D5W IV SCH; -FOSAPREPITANT (CANCER CENTER) 150 MG in NS (IVPB) CANCER CENTER ONLY 150 ML IV SCH; -GEMCITABINE HCL IV SCH; -NS IV SCH; -PALONOSETRON HCL 0.25 MG, dexAMETHasone INJECTION 10 MG in NS (IVPB) 50 ML IV SCH; +PEMBROLIZUMAB 200 MG in NS (IVPB) 50 ML 50 ML IV SCH; -PEMBROLIZUMAB 200 MG in NS (IVPB) 50 ML IV SCH
[2022-12-27 09:39] LABS: BASOPHILS # (AUTO) 0.1 10^3/uL (0.0-0.1); BASOPHILS % (AUTO) 1 % (0-10); EOSINOPHILS # (AUTO) 0.3 10^3/uL (0.0-0.3); EOSINOPHILS % (AUTO) 4 % (0-10); HEMATOCRIT 37 % (35-52); HEMOGLOBIN 11.3 g/dL (11.5-16.0); LYMPHOCYTES # (AUTO) 1.7 10^3/uL (1.0-4.0); LYMPHOCYTES % (AUTO) 24 % (12-44); MEAN CORPUSCULAR HEMOGLOBIN 33 pg (25-34); MEAN CORPUSCULAR HGB CONC 31 g/dL (32-36); MEAN CORPUSCULAR VOLUME 107 fL (80-99); MEAN PLATELET VOLUME 10.5 fL (9.0-12.2); MONOCYTES # (AUTO) 0.5 10^3/uL (0.0-1.0); MONOCYTES % (AUTO) 7 % (0-12); NEUTROPHILS # (AUTO) 4.5 10^3/uL (1.8-7.8); NEUTROPHILS % (AUTO) 64 % (42-75); PLATELET COUNT 172 10^3/uL (130-400)
[2022-12-27 10:00] LABS: ALBUMIN 3.9 GM/DL (3.2-4.5); BILIRUBIN,TOTAL 0.3 MG/DL (0.1-1.0); CALCIUM 9.1 MG/DL (8.5-10.1); CREATININE SERUM 0.79 MG/DL (0.60-1.30); POTASSIUM 4.4 MMOL/L (3.6-5.0); TOTAL PROTEIN 7.5 GM/DL (6.4-8.2)
[2022-12-27 11:35] VITALS: BP 132/65
== END 2023-01-08 | disposition home or self-care (01) ==
LOC: ONC 09:22
PROVIDERS: ATTEND Internal Medicine Hematology & Oncology
DX: Z51.11 Encounter for antineoplastic chemotherapy (principal); Z45.2 Encounter for adjustment and management of vascular access device; C67.9 Malignant neoplasm of bladder, unspecified
CPT/HCPCS: 36591; 80053; 85025; 96413

== ENCOUNTER 2023-01-24 07:50 | Outpatient (RCR) | payer MEDICARE ==
[2023-01-17 09:10] LABS: BASOPHILS % (AUTO) 1 % (0-10); EOSINOPHILS # (AUTO) 0.2 10^3/uL (0.0-0.3); EOSINOPHILS % (AUTO) 4 % (0-10); HEMATOCRIT 39 % (35-52); HEMOGLOBIN 11.6 g/dL (11.5-16.0); LYMPHOCYTES # (AUTO) 1.4 10^3/uL (1.0-4.0); LYMPHOCYTES % (AUTO) 22 % (12-44); MEAN CORPUSCULAR HEMOGLOBIN 32 pg (25-34); MEAN CORPUSCULAR HGB CONC 30 g/dL (32-36); MEAN CORPUSCULAR VOLUME 108 fL (80-99); MEAN PLATELET VOLUME 10.1 fL (9.0-12.2); MONOCYTES # (AUTO) 0.5 10^3/uL (0.0-1.0); MONOCYTES % (AUTO) 8 % (0-12); NEUTROPHILS # (AUTO) 4.2 10^3/uL (1.8-7.8); NEUTROPHILS % (AUTO) 65 % (42-75); PLATELET COUNT 152 10^3/uL (130-400); WHITE BLOOD COUNT 6.4 10^3/uL (4.3-11.0)
[2023-01-17 09:26] LABS: BILIRUBIN,TOTAL 0.3 MG/DL (0.1-1.0); CALCIUM 9.3 MG/DL (8.5-10.1); CREATININE SERUM 0.81 MG/DL (0.60-1.30); POTASSIUM 4.5 MMOL/L (3.6-5.0); TOTAL PROTEIN 7.2 GM/DL (6.4-8.2)
[~2023-01-24] VITALS: Ht 160 cm; Wt 75.5 kg
[2023-01-24 10:45] LABS: BASOPHILS % (AUTO) 0 % (0-10); EOSINOPHILS # (AUTO) 0.2 10^3/uL (0.0-0.3)
[2023-01-24 10:47] LABS: EOSINOPHILS % (AUTO) 4 % (0-10); HEMATOCRIT 38 % (35-52); HEMOGLOBIN 11.6 g/dL (11.5-16.0); LYMPHOCYTES # (AUTO) 1.3 10^3/uL (1.0-4.0); LYMPHOCYTES % (AUTO) 22 % (12-44); MEAN CORPUSCULAR HEMOGLOBIN 32 pg (25-34); MEAN CORPUSCULAR HGB CONC 31 g/dL (32-36); MEAN CORPUSCULAR VOLUME 103 fL (80-99); MEAN PLATELET VOLUME 10.5 fL (9.0-12.2); MONOCYTES # (AUTO) 0.5 10^3/uL (0.0-1.0); MONOCYTES % (AUTO) 8 % (0-12); NEUTROPHILS # (AUTO) 3.9 10^3/uL (1.8-7.8); NEUTROPHILS % (AUTO) 65 % (42-75); PLATELET COUNT 140 10^3/uL (130-400)
[2023-01-24 11:05] LABS: BILIRUBIN,TOTAL 0.3 MG/DL (0.1-1.0); CREATININE SERUM 0.9 MG/DL (0.60-1.30); POTASSIUM 4.3 MMOL/L (3.6-5.0); TOTAL PROTEIN 7.2 GM/DL (6.4-8.2)
[2023-01-24 11:12] VITALS: BP 126/69
== END 2023-02-08 | disposition home or self-care (01) ==
LOC: ONC 07:50
PROVIDERS: ATTEND Internal Medicine Hematology & Oncology
DX: C67.9 Malignant neoplasm of bladder, unspecified (principal); R19.7 Diarrhea, unspecified
CPT/HCPCS: 80053; 85025; G0463; 36591; 96413; 99214

== ENCOUNTER → 2023-02-23 | Outpatient (CLI) | payer MEDICARE ==
[~2023-02-23] MED LIST changes: -DARBEPOETIN 25 MCG/ML SC SCH; -HEParin (CENTRAL IV FLUSH) 500 UNIT/5 ML SYR IV PRN; +HOLD METFORMIN - RECEIVED CONTRAST 20 ML VIAL IV SCH; +IOHEXOL 350 MG/ML 100 ML (OMNIPAQUE 350) VIAL IV ONE; +NS 100 ML (IVPB) BAG IV ONE; -NS IV 1000 ML (CANCER CTR) IV SCH; -PEMBROLIZUMAB 200 MG in NS (IVPB) 50 ML 50 ML IV SCH
--- NOTE | 2023-02-23 12:30 | Diagnostic Imaging Report ---
PROCEDURE: CT chest, abdomen, and pelvis with contrast. TECHNIQUE: Multiple contiguous axial images were obtained through the chest, abdomen, and pelvis after the administration of intravenous contrast. Auto Exposure Controls were utilized during the CT exam to meet ALARA standards for radiation dose reduction. INDICATION: Gallbladder malignancy, undergoing treatment; three-month follow-up. COMPARISON: 11/02/2022. FINDINGS: CHEST: There is some juxta-fissural subsegmental atelectasis in the lingula and left lower lobe. No suspicious lung mass or concerning pulmonary nodule. No thoracic adenopathy. No suspicious bony or chest wall lesion. No effusion. No pneumothorax. No findings suggestive of thoracic metastatic disease. ABDOMEN AND PELVIS: There has been further improvements in urothelial thickening and dilatation of the right ureter and its pelvis. No radiodense ureteral stone. There is thickening of the urinary bladder wall; however, it is exaggerated by its limited distention, and this does appear at least somewhat improved in the interim. A complex left adnexal cyst with partly calcified internal septation today measures 9.9 x 8.2 cm, previously 7.1 cm maximal and showed further increased size. The left adnexa and uterus are unremarkable. There is a normal appendix. There is septation or phrygian cap at the gallbladder fundus, unchanged. No appreciable soft tissue mass. There is mild hepatic steatosis with no focal or suspicious liver lesion. No bile duct dilatation. The pancreas is unremarkable. There is no perihepatic or abdominal mesenteric adenopathy. The pelvic sidewalls are unremarkable. No retroperitoneal adenopathy. No ileus or bowel obstruction. There are degenerative changes to the bony structures with no acute or suspicious lytic or sclerotic osseous lesion with chronic grade 1 anterior slip of L5 on S1 where there is chronic L5 spondylolysis defects. IMPRESSION: CHEST: 1. Some slight juxta-fissural subsegmental atelectasis, but no acute chest pathology or thoracic metastasis suspected. ABDOMEN AND PELVIS: 1. Further increased size of cystic left adnexal mass. Further reduction in dilatation of the right renal pelvis and ureter with decreased urothelial thickening. Urinary bladder wall is thickened, but it is poorly distended. 2. No abdominopelvic adenopathy. Fatty liver, nonfocal and nonacute. Dictated by: Dictated on workstation # [id number]
== END ==
LOC: RAD 10:38
PROVIDERS: ATTEND Internal Medicine Hematology & Oncology
DX: J98.11 Atelectasis (principal); K76.0 Fatty (change of) liver, not elsewhere classified; C23 Malignant neoplasm of gallbladder; R19.09 Other intra-abdominal and pelvic swelling, mass and lump
CPT/HCPCS: 71260; 74177

== ENCOUNTER 2023-03-26 18:04 | Emergency (ER) | payer MEDICARE ==
[~2023-03-26 18:04] MED LIST changes: -HOLD METFORMIN - RECEIVED CONTRAST 20 ML VIAL IV SCH; -IOHEXOL 350 MG/ML 100 ML (OMNIPAQUE 350) VIAL IV ONE; -NS 100 ML (IVPB) BAG IV ONE
--- NOTE | 2023-03-26 19:24 | ED GU-Female ---
General Chief Complaint: - Reproductive Stated Complaint: HAS BLADDER CANCER AND IS ALOT OF PAIN Nursing Triage Note: PT AMB TO TRIAGE STATES PAST FEW DAYS STARTED HAVING LOWER ABD PAIN D/T BLADDER CA. WAS GIVEN PO MEDS AND NOT WORKING. PT STATES HAS CA IN BLADDER AND AROUND BLADDER Source: patient History of Present Illness Date Seen by Provider: Mar 26, 2023 Time Seen by Provider: 18:40 Initial Comments PT ARRIVES VIA POV FROM HOME C/O BLADDER PAIN PATIENT WITH BLADDER CANCER HAS HAD INCREASED PAIN AROUND BLADDER FOR THE LAST FEW DAYS. ORAL PAIN MEDICATIONS ARE NOT WORKING--HYDROCODONE 5/325--LAST DOSE NOON TODAY NO FEVER SHE WAS TREATED FOR UTI ABOUT 3 WEEKS AGO, DOES NOT KNOW NAME OF MEDICATION PT IS DIABETIC PCP:DR. MCINTYRE AT [facility] UROLOGIST: NONE--WAS SEEING DR. LORD UNTIL HE RETIRED LAST YEAR ONCOLOGIST: DR. BARNES Allergies and Home Medications Allergies Coded Allergies: No Known Drug Allergies (Verified , 09/27/22) Patient Home Medication List Home Medication List Reviewed: Yes Albuterol Sulfate (Proventil Hfa) 6.7 Gm Hfa.aer.ad, 2 PUFF INH Q6H, (Reported) Entered as Reported by: FEMI MARSH on 04/03/22 1035 Amlodipine Besylate (Amlodipine Besylate) 2.5 Mg Tablet, 0.5 EA PO DAILY, (Reported) Entered as Reported by: FEMI MARSH on 04/03/22 1035 Cefdinir (Cefdinir) 300 Mg Capsule, 300 MG PO BID Prescribed by: Deepali Hutchinson on 06/10/22 1419 Cephalexin (Cephalexin) 500 Mg Tablet, 500 MG PO TID Prescribed by: JONI CALLAHAN on 09/09/22 1606 Fluconazole (Diflucan) 150 Mg Tablet, 150 MG PO UD Prescribed by: JONI CALLAHAN on 09/09/22 1606 Fluticasone/Vilanterol (Breo Ellipta 200-25 Mcg INH) 1 Each Blst.w.dev, 1 EACH IH HS, (Reported) Entered as Reported by: PRASHANT BUTLER on 11/07/17 1319 Hydrochlorothiazide (Hydrochlorothiazide) 25 Mg Tablet, 25 MG PO DAILY, (Reported) Entered as Reported by: PRASHANT BUTLER on 11/07/17 1300 Hydrocodone/Acetaminophen (Hydrocodone-Acetamin 10-325 mg) 10 Mg-325 Mg Tablet, 1 EACH PO Q4H Prescribed by: PADMAJA OJSEPH on 03/26/231943 Lisinopril (Lisinopril) 40 Mg Tablet, 40 MG PO DAILY, (Reported) Entered as Reported by: PRASHANT BUTLER on 11/07/17 1300 [place]-3S/Dha/Epa/Fish Oil (Fish Oil [place]-3 Softgel) 1 Each Capsule.dr, 1 EACH PO BID, (Reported) Entered as Reported by: PRASHANT BTULER on 11/07/17 1319 Phenazopyridine HCl (Pyridium) 200 Mg Tablet, 1 TAB PO TID PRN for PAIN Prescribed by: JONI CALLAHAN on 09/09/22 1606 Phenazopyridine HCl (Pyridium) 200 Mg Tablet, 1 TAB PO TID Prescribed by: PADMAJA JOSEPH on 03/26/231942 Pravastatin Sodium (Pravastatin Sodium) 40 Mg Tablet, 40 MG PO HS, (Reported) Entered as Reported by: PRASHANT BUTLER on 11/07/17 1300 Sitagliptin Phos/Metformin HCl (Janumet 50-500 mg Tablet) 50 Mg-500 Mg Tablet, 1 TAB PO BID, (Reported) Entered as Reported by: FEMI MARSH on 04/03/22 1031 Sulfamethoxazole/Trimethoprim (Bactrim Ds Tablet) 1 Each Tablet, 1 EACH PO BID Prescribed by: AMARILYS OLIVAREZ on 09/27/22 1359 Sulfamethoxazole/Trimethoprim (Bactrim Ds Tablet) 1 Each Tablet, 1 EACH PO BID Prescribed by: PADMAJA JOSEPH on 03/26/231942 Review of Systems Review of Systems Constitutional: no symptoms reported Genitourinary: see HPI Past Mfmbomb-Bhxeud-Qwquvc Hx Patient Social History Tobacco Use?: Yes Tobacco type used: Cigarettes Smoking Status: Current Everyday Smoker Substance use?: No Alcohol Use?: No Pt feels they are or have been: No Immunizations Up To Date Tetanus Booster (TDap): Unknown PED Vaccines UTD: No First/Initial COVID19 Vaccinat: DECLINED Second COVID19 Vaccination Yossi: DECLINED Third COVID19 Vaccination Date: DECLINED Seasonal Allergies Seasonal Allergies: No Past Medical History Surgery/Hospitalization HX: BLADDER CA, PORT, HX VULVAR CA, HTN, DIABETES, COPD Surgeries: Yes (MASS ON LABIA, "MARKLIN GLAND" REMOVED; BILAT CATS) Bladder Surgery, Eye Surgery Respiratory: Yes (COPD, SOB, COUGH, WEARS OXYGEN AT HS PRN) Pneumonia, COPD Currently Using CPAP: No Currently Using BIPAP: No Cardiac: Yes High Cholesterol, Hypertension Neurological: Yes Reproductive Disorders: Yes (VULVAR CANCER) Female Reproductive Disorders: Ovarian Cyst Sexually Transmitted Disease: No HIV/AIDS: No Genitourinary: Yes (BLADDER CANCER) Bladder Infection, Kidney Stones, UTI-Chronic Gastrointestinal: Yes (UMBILICAL HERNIA) Abdominal Hernia Musculoskeletal: No Endocrine: Yes Diabetes, Non-Insulin dep HEENT: Yes (S/P BILATERAL CATARACT SURGERY) Cataract Loss of Vision: Denies Hearing Impairment: Denies Cancer: Yes (VULVAR, "MARKLIN GLAND", BLADDER) Bladder Did You Recieve Any Treatments: Yes What Type of Treatment Did You: Chemotherapy, Radiation, Surgical Intervention HAD SURGERY, CHEMO FOR BLADDER CANCER, NOW ON IMMUNOTHERAPY FOR BLADDER CANCER HAD SURGERY AND RADIATION FOR VULVAR CANCER Psychosocial: No Integumentary: Yes (COLD SORES ON MOUTH) Recent Skin Changes, Herpes Blood Disorders: No Family Medical History Diabetes mellitus 19 FATHER, , Onset:Unknown 19 MOTHER, , Onset:Unknown FH: lung cancer 19 FATHER, , Onset:Unknown FH: lymphoma 19 MOTHER, , Onset:Unknown Hypertension 19 MOTHER, , Onset:Unknown No Family History of: AIDS Abdominal aortic aneurysm Marshall's disease Alcoholism Alzheimer's disease Aphasia Arthritis Asthma Cancer of mouth Cardiovascular disease Cataracts Colon cancer Completed stroke Congenital disease Congenital heart disease Coronary thrombosis Cystic fibrosis Deafness or hearing loss Dementia Drug abuse Dysphasia Fibrocystic disease of breast Gastroenteritis Glaucoma Headache disorder Hypercholesterolemia Infertility Kidney disease Myocardial infarction Neoplasm Not obtainable due to adoption Osteoporosis Parkinson's disease Prostate cancer Psychosocial problem Respiratory disorder Seizure disorder Severe allergy Thyroid disease Tuberculosis Visual disorder No Pertinent Family Hx Physical Exam Vital Signs Vital Signs - First Documented 03/26/23 18:30 Temp 36.6 Pulse 111 Resp 22 B/P (MAP) 162/73 (102) Pulse Ox 91 O2 Delivery Room Air Capillary Refill : Less Than 3 Seconds Height, Weight, BMI Height: 5'3.00" Weight: 185lbs. 0.0oz. 83.966648ey; 29.57 BMI Method: General Appearance: WD/WN, no apparent distress Respiratory: normal breath sounds Gastrointestinal: soft, tenderness (SUPRAPUBIC TENDERNESS) Back: no CVA tenderness Neurologic/Psychiatric: no motor/sensory deficits, alert, normal mood/affect, oriented x 3 Skin: normal color, warm/dry Progress/Results/Core Measures Suspected Sepsis SIRS Temperature: Pulse: 111 Respiratory Rate: 22 Blood Pressure 162 /73 Mean: 102 Results/Orders Lab Results Laboratory Tests Test 03/26/23 19:10 Range/Units Urine Color YELLOW Urine Clarity CLOUDY Urine pH 6.0 5-9 Urine Specific Mcdonald 1.010 L 1.016-1.022 Urine Protein 2+ H NEGATIVE Urine Glucose (UA) 3+ H NEGATIVE Urine Ketones NEGATIVE NEGATIVE Urine Nitrite NEGATIVE NEGATIVE Urine Bilirubin NEGATIVE NEGATIVE Urine Urobilinogen 0.2 < = 1.0 MG/DL Urine Leukocyte Esterase 3+ H NEGATIVE Urine RBC (Auto) 3+ H NEGATIVE Urine RBC 5-10 H /HPF Urine WBC 50-100 H /HPF Urine Squamous Epithelial Cells 0-2 /HPF Urine Crystals NONE /LPF Urine Bacteria FEW H /HPF Urine Casts NONE /LPF Urine Mucus NEGATIVE /LPF Urine Culture Indicated YES My Orders Orders - PADMAJA JOSEPH DO Ua Culture If Indicated (03/26/23 18:40) Urine Culture (03/26/23 19:10) Rx-Trimeth/Sulfameth Ds Tab (Rx-Bactrim/ (03/26/23 19:44) Phenazopyridine Tablet (Phenazopyridine (03/26/23 19:45) Hydrocodone/Apap 10/325 Tablet (Hydrocod (03/26/23 19:45) Vital Signs/I&O 03/26/23 18:30 Temp 36.6 Pulse 111 Resp 22 B/P (MAP) 162/73 (102) Pulse Ox 91 O2 Delivery Room Air Capillary Refill : Less Than 3 Seconds Blood Pressure Mean: 102 Progress Note : Progress Note VITALS: TEMP 36.6=97.8, HR 111, RR 22, BP 162/73, O2 SAT 91% ON ROOM AIR UA WITH UTI DISCUSSED TEST RESULTS, ANTICIPATED COURSE, SYMPTOMATIC TREATMENT, MEDICATIONS, NEED FOR FOLLOW UP AND RETURN PRECAUTIONS REVIEWED PRIOR RECORDS INCLUDING ER VISITS, ADMITS/H&P'S/CONSULTS/DISCHARGE SUMMARIES, TESTS/PROCEDURES Departure Communication (Admissions) 1937--SPOKE WITH DR. CEDILLO, TRACK WELDER FOR [facility]. SHE STATES THAT PT WAS SEEN BY DR. MCINTYRE ON 03/01/23 FOR UTI AND WAS PRESCRIBED MACROBID X 7 DAYS, URINE CULTURE GREW OUT MIXED ISMAEL AT THAT TIME. NO SENSITIVITY DONE. SHE AGREES WITH PRESCRIBING BACTRIM AT THIS TIME, PENDING CULTURE RESULTS. Impression Primary Impression: Bladder cancer Additional Impression: UTI (urinary tract infection) Disposition: 01 HOME, SELF-CARE Condition: Stable Departure-Patient Inst. Decision time for Depature: 19:42 Referrals: DUSTY MCINTYRE MD (PCP/Family) Primary Care Physician Patient Instructions: Urinary Tract Infection, Adult (DC) Add. Discharge Instructions: INCREASE YOUR WATER INTAKE CONTINUE YOUR REGULAR MEDICATIONS PRESCRIBED FOLLOW UP WITH DR. MCINTYRE THIS WEEK FOR FURTHER CARE--CALL IN THE MORNING TO SCHEDULE AN APPOINTMENT All discharge instructions reviewed with patient and/or family. Voiced understanding. Scripts Phenazopyridine HCl (Pyridium) 200 Mg Tablet 1 TAB PO TID, #15 TAB Prov: PADMAJA JOSEPH DO 03/26/23 Hydrocodone/Acetaminophen (Hydrocodone-Acetamin 10-325 mg) 10 Mg-325 Mg Tablet 1 EACH PO Q4H for Pain, #15 TAB Prov: PADMAJA JOSEPH K DO 03/26/23 Sulfamethoxazole/Trimethoprim (Bactrim Ds Tablet) 1 Each Tablet 1 EACH PO BID, #20 TAB Prov: BEENA JOSEPHA K DO 03/26/23 PADMAJA JOSEPH DO Mar 26, 2023 19:24
[2023-03-26 19:27] LABS: BACTERIA,URINE FEW /HPF; BILIRUBIN,URINE NEGATIVE (NEGATIVE); CLARITY,URINE CLOUDY; COLOR,URINE YELLOW; GLUCOSE, URINE (UA) 3+ (NEGATIVE); KETONES,URINE NEGATIVE (NEGATIVE); LEUKOCYTE ESTERASE ,URINE 3+ (NEGATIVE); NITRITE,URINE NEGATIVE (NEGATIVE); PROTEIN,URINE 2+ (NEGATIVE); SQUAMOUS EPITHELIAL CELL,UR 0-2 /HPF; WBC,URINE 50-100 /HPF
[2023-03-26] MEDS ORDERED: PHEN-640 PO (19:43)
[2023-03-26] MEDS ORDERED: HYDR-3820 PO (19:43)
[2023-03-26] MEDS ORDERED: SULF1TAB38 PO (19:43)
[2023-03-26] MEDS ORDERED: RX-TRIMETH/SULFA. 160-800 MG (BACTRIM DS) TAB PPK#2 PO STA (19:44)
[2023-03-26] MEDS ORDERED: PHENAZOPYRIDINE 100 MG TABLET PO ONE (19:45)
[2023-03-26] MEDS ORDERED: HYDROcodone/ACETAMINOPHEN 10/325 TABLET PO ONE (19:45)
[2023-03-26 20:08] VITALS: BP 146/71
== END 2023-03-26 20:08 | disposition home or self-care (01) ==
LOC: EDUNIT# 18:04 → ER 18:07
DX: C67.9 Malignant neoplasm of bladder, unspecified (principal); N39.0 Urinary tract infection, site not specified; F17.210 Nicotine dependence, cigarettes, uncomplicated
CPT/HCPCS: 81000; 87088; 99283

== ENCOUNTER 2023-03-28 07:55 | Outpatient (RCR) | payer MEDICARE ==
[2023-03-13 12:11] LABS: BILIRUBIN,URINE NEGATIVE (NEGATIVE); CLARITY,URINE SL CLOUDY; COLOR,URINE YELLOW; GLUCOSE, URINE (UA) 3+ (NEGATIVE); KETONES,URINE NEGATIVE (NEGATIVE); LEUKOCYTE ESTERASE ,URINE 1+ (NEGATIVE); NITRITE,URINE NEGATIVE (NEGATIVE); PROTEIN,URINE 2+ (NEGATIVE)
[2023-03-13 12:12] LABS: BACTERIA,URINE LARGE /HPF; RBC,URINE 25-50 /HPF; WBC,URINE 50-100 /HPF
[~2023-03-28] VITALS: Ht 160 cm; Wt 77.0 kg
[~2023-03-28 07:55] MED LIST changes: +DARBEPOETIN 25 MCG/ML SC SCH; +HEParin (CENTRAL IV FLUSH) 500 UNIT/5 ML SYR IV PRN; +HYDR-3820 PO; +NS IV 1000 ML (CANCER CTR) IV SCH; +PEMBROLIZUMAB 200 MG in NS (IVPB) 50 ML 50 ML IV SCH
[2023-03-28 10:06] VITALS: BP 133/68
[2023-03-28 10:23] LABS: BASOPHILS % (AUTO) 0 % (0-10); EOSINOPHILS # (AUTO) 0.2 10^3/uL (0.0-0.3); EOSINOPHILS % (AUTO) 2 % (0-10); HEMATOCRIT 36 % (35-52); HEMOGLOBIN 10.9 g/dL (11.5-16.0); LYMPHOCYTES # (AUTO) 0.8 10^3/uL (1.0-4.0); LYMPHOCYTES % (AUTO) 9 % (12-44); MEAN CORPUSCULAR HEMOGLOBIN 30 pg (25-34); MEAN CORPUSCULAR HGB CONC 31 g/dL (32-36); MEAN CORPUSCULAR VOLUME 96 fL (80-99); MEAN PLATELET VOLUME 9.8 fL (9.0-12.2); MONOCYTES # (AUTO) 0.7 10^3/uL (0.0-1.0); MONOCYTES % (AUTO) 7 % (0-12); NEUTROPHILS # (AUTO) 7.6 10^3/uL (1.8-7.8); NEUTROPHILS % (AUTO) 81 % (42-75); PLATELET COUNT 230 10^3/uL (130-400); WHITE BLOOD COUNT 9.3 10^3/uL (4.3-11.0)
[2023-03-28 10:38] LABS: ALBUMIN 3.7 GM/DL (3.2-4.5); BILIRUBIN,TOTAL 0.2 MG/DL (0.1-1.0); CALCIUM 9.1 MG/DL (8.5-10.1); CREATININE SERUM 2.49 MG/DL (0.60-1.30); POTASSIUM 4.7 MMOL/L (3.6-5.0); TOTAL PROTEIN 7.5 GM/DL (6.4-8.2)
[2023-03-30] MEDS ORDERED: FLUT1DIS26 IH (16:12)
[2023-03-31] MEDS ORDERED: PRED10TA22 PO (08:34)
[2023-03-31] MEDS ORDERED: AMOX1TAB12 PO (08:34)
== END 2023-04-10 | disposition home or self-care (01) ==
LOC: ONC 07:55
PROVIDERS: ATTEND Internal Medicine Hematology & Oncology
DX: Z51.11 Encounter for antineoplastic chemotherapy (principal); C67.9 Malignant neoplasm of bladder, unspecified; R82.998 Other abnormal findings in urine
CPT/HCPCS: 81000; 87088; G0463; 36591; 80053; 85025; 96413; 99214

== ENCOUNTER 2023-03-29 13:37 | Inpatient (IN) | payer MEDICARE ==
[~2023-03-29] VITALS: Ht 160 cm; Wt 76.0 kg
[~2023-03-29 13:37] MED LIST changes: -DARBEPOETIN 25 MCG/ML SC SCH; -HEParin (CENTRAL IV FLUSH) 500 UNIT/5 ML SYR IV PRN; -NS IV 1000 ML (CANCER CTR) IV SCH; -PEMBROLIZUMAB 200 MG in NS (IVPB) 50 ML 50 ML IV SCH
[2023-03-29] MEDS ORDERED: dexAMETHasone INJ 10 MG/ML 1 ML VIAL IV ONE (14:00)
[2023-03-29] MEDS ORDERED: cefTRIAXone IV/IM 1,000 MG in NS (IVPB) 50 ML 50 ML IV ONE (14:00)
[2023-03-29] MEDS ORDERED: RT-Ipratropium/Albuterol NEB 3 ML VIAL IH ONE (14:00)
--- NOTE | 2023-03-29 14:03 | ED Respiratory ---
General Chief Complaint: Respiratory Problems Stated Complaint: SOB Nursing Triage Note: PT ARRIVED PER EMS, PT CO OF SOA, PT STATES WHEN HAD IMMUNOTHERAPY YESTERDAY SHE WAS SOA AND WAS ON O2. DIDNT HAVE O2 AT HOME. PT WAS SEEN IN ED ON SUNDAY AND IS BEING TREATED FOR UTI. PT IS CURRENTLY ON OW AT 4L AND SAT IS 94%. PT STATES CONT TO HAVE SOME PAIN IN LOWER ABD FROM UTI 01/18 Source: patient Exam Limitations: no limitations History of Present Illness Date Seen by Provider: Mar 29, 2023 Time Seen by Provider: 13:40 Initial Comments 68-year-old female with past medical history of COPD and bladder cancer that is actively being treated with immunotherapy coming in due to shortness of breath and hypoxia. She has had increasing productive cough over the past 2 days. When she was getting chemo yesterday, they noted her oxygen was in the 80s and they placed her on oxygen. She was discharged off of oxygen. She has been short of breath all night and today. She used to wear nocturnal oxygen, but the machine has not been serviced, is not working, and they are in fact going to take it since she has not been using it in quite some time. EMS reports her oxygen saturation was 86%, went to the low mid 90s on 4 L. She is denying any chest pain, nausea, vomiting, diarrhea, focal weakness or numbness, or any other concerns. Allergies and Home Medications Allergies Coded Allergies: No Known Drug Allergies (Verified , 09/27/22) Patient Home Medication List Home Medication List Reviewed: Yes Albuterol Sulfate (Proventil Hfa) 6.7 Gm Hfa.aer.ad, 2 PUFF INH Q6H, (Reported) Entered as Reported by: FEMI MARSH on 04/03/22 1035 Amlodipine Besylate (Amlodipine Besylate) 2.5 Mg Tablet, 0.5 EA PO DAILY, (Reported) Entered as Reported by: FEMI MARSH on 04/03/22 1035 Cefdinir (Cefdinir) 300 Mg Capsule, 300 MG PO BID Prescribed by: Deepali Hutchinson on 06/10/22 1419 Cephalexin (Cephalexin) 500 Mg Tablet, 500 MG PO TID Prescribed by: JONI CALLAHAN on 09/09/22 1606 Fluconazole (Diflucan) 150 Mg Tablet, 150 MG PO UD Prescribed by: JONI CALLAHAN on 09/09/22 1606 Fluticasone/Vilanterol (Breo Ellipta 200-25 Mcg INH) 1 Each Blst.w.dev, 1 EACH IH HS, (Reported) Entered as Reported by: PRASHANT BUTLER on 11/07/17 1319 Hydrochlorothiazide (Hydrochlorothiazide) 25 Mg Tablet, 25 MG PO DAILY, (Reported) Entered as Reported by: PRASHANT BUTLER on 11/07/17 1300 Hydrocodone/Acetaminophen (Hydrocodone-Acetamin 10-325 mg) 10 Mg-325 Mg Tablet, 1 EACH PO Q4H Prescribed by: PADMAJA JOSEPH on 03/26/231943 Lisinopril (Lisinopril) 40 Mg Tablet, 40 MG PO DAILY, (Reported) Entered as Reported by: PRASHANT BUTLER on 11/07/17 1300 [place]-3S/Dha/Epa/Fish Oil (Fish Oil [place]-3 Softgel) 1 Each Capsule.dr, 1 EACH PO BID, (Reported) Entered as Reported by: PRASHANT BUTLER on 11/07/17 1319 Phenazopyridine HCl (Pyridium) 200 Mg Tablet, 1 TAB PO TID PRN for PAIN Prescribed by: JONI CALLAHAN on 09/09/22 1606 Phenazopyridine HCl (Pyridium) 200 Mg Tablet, 1 TAB PO TID Prescribed by: PADMAJA JOSEPH on 03/26/231942 Pravastatin Sodium (Pravastatin Sodium) 40 Mg Tablet, 40 MG PO HS, (Reported) Entered as Reported by: PRASHANT BUTLER on 11/07/17 1300 Sitagliptin Phos/Metformin HCl (Janumet 50-500 mg Tablet) 50 Mg-500 Mg Tablet, 1 TAB PO BID, (Reported) Entered as Reported by: FEMI MARSH on 04/03/22 1031 Sulfamethoxazole/Trimethoprim (Bactrim Ds Tablet) 1 Each Tablet, 1 EACH PO BID Prescribed by: AMARILYS OLIVAREZ on 09/27/22 1359 Sulfamethoxazole/Trimethoprim (Bactrim Ds Tablet) 1 Each Tablet, 1 EACH PO BID Prescribed by: PADMAJA JOSEPH on 03/26/231942 Review of Systems Review of Systems Constitutional: No fever EENTM: no symptoms reported Respiratory: see HPI Cardiovascular: no symptoms reported Gastrointestinal: no symptoms reported Genitourinary: no symptoms reported Musculoskeletal: no symptoms reported Skin: no symptoms reported Psychiatric/Neurological: No Symptoms Reported Hematologic/Lymphatic: No Symptoms Reported Past Vrehpgx-Hpafsp-Bjkkwk Hx Patient Social History Tobacco Use?: Yes Tobacco type used: Cigarettes Smoking Status: Current Everyday Smoker Substance use?: No Alcohol Use?: No Immunizations Up To Date Tetanus Booster (TDap): Unknown PED Vaccines UTD: No First/Initial COVID19 Vaccinat: DECLINED Second COVID19 Vaccination Yossi: DECLINED Third COVID19 Vaccination Date: DECLINED Seasonal Allergies Seasonal Allergies: No Past Medical History Surgery/Hospitalization HX: BLADDER CA, PORT, HX VULVAR CA, HTN, DIABETES, COPD Surgeries: Yes (MASS ON LABIA, "MARKLIN GLAND" REMOVED; BILAT CATS) Bladder Surgery, Eye Surgery Respiratory: Yes (COPD, SOB, COUGH, WEARS OXYGEN AT HS PRN) Pneumonia, COPD Currently Using CPAP: No Currently Using BIPAP: No Cardiac: Yes High Cholesterol, Hypertension Neurological: Yes Reproductive Disorders: Yes (VULVAR CANCER) Female Reproductive Disorders: Ovarian Cyst Sexually Transmitted Disease: No HIV/AIDS: No Genitourinary: Yes (BLADDER CANCER) Bladder Infection, Kidney Stones, UTI-Chronic Gastrointestinal: Yes (UMBILICAL HERNIA) Abdominal Hernia Musculoskeletal: No Endocrine: Yes Diabetes, Non-Insulin dep HEENT: Yes (S/P BILATERAL CATARACT SURGERY) Cataract Loss of Vision: Denies Hearing Impairment: Denies Cancer: Yes (VULVAR, "MARKLIN GLAND", BLADDER) Bladder Did You Recieve Any Treatments: Yes What Type of Treatment Did You: Chemotherapy, Radiation, Surgical Intervention Psychosocial: No Integumentary: Yes (COLD SORES ON MOUTH) Recent Skin Changes, Herpes Blood Disorders: No Family Medical History Diabetes mellitus 19 FATHER, , Onset:Unknown 19 MOTHER, , Onset:Unknown FH: lung cancer 19 FATHER, , Onset:Unknown FH: lymphoma 19 MOTHER, , Onset:Unknown Hypertension 19 MOTHER, , Onset:Unknown No Family History of: AIDS Abdominal aortic aneurysm Huntington's disease Alcoholism Alzheimer's disease Aphasia Arthritis Asthma Cancer of mouth Cardiovascular disease Cataracts Colon cancer Completed stroke Congenital disease Congenital heart disease Coronary thrombosis Cystic fibrosis Deafness or hearing loss Dementia Drug abuse Dysphasia Fibrocystic disease of breast Gastroenteritis Glaucoma Headache disorder Hypercholesterolemia Infertility Kidney disease Myocardial infarction Neoplasm Not obtainable due to adoption Osteoporosis Parkinson's disease Prostate cancer Psychosocial problem Respiratory disorder Seizure disorder Severe allergy Thyroid disease Tuberculosis Visual disorder No Pertinent Family Hx Physical Exam Vital Signs - First Documented 03/29/23 03/29/23 13:40 14:24 Temp 36.0 Pulse 82 Resp 18 B/P (MAP) 114/66 (82) Pulse Ox 94 O2 Delivery Nasal Cannula O2 Flow Rate 4.00 Capillary Refill : Less Than 3 Seconds Height: 5'3.00" Weight: 185lbs. 0.0oz. 83.378682pd; BMI Method: General Appearance: WD/WN, no apparent distress Eyes: Bilateral Eye Normal Inspection HEENT: PERRL/EOMI, normal ENT inspection, pharynx normal Neck: non-tender, full range of motion, supple, normal inspection Respiratory: chest non-tender, no accessory muscle use, wheezing Cardiovascular: regular rate, rhythm Gastrointestinal: normal bowel sounds, non tender, soft Neurologic/Psychiatric: no motor/sensory deficits, alert, normal mood/affect Skin: normal color, warm/dry Progress/Results/Core Measures Suspected Sepsis SIRS Temperature: Pulse: 82 Respiratory Rate: 18 Laboratory Tests 03/29/23 13:45: White Blood Count 8.0 Blood Pressure 114 /66 Mean: 82 Laboratory Tests 03/29/23 13:45: Creatinine 2.57H, Platelet Count 245, Total Bilirubin 0.2 Results/Orders Lab Results Laboratory Tests Test 03/29/23 13:45 03/29/23 14:15 03/29/23 14:33 Range/Units White Blood Count 8.0 4.3-11.0 10^3/uL Red Blood Count 3.80 3.80-5.11 10^6/uL Hemoglobin 11.3 L 11.5-16.0 g/dL Hematocrit 36 35-52 % Mean Corpuscular Volume 95 80-99 fL Mean Corpuscular Hemoglobin 30 25-34 pg Mean Corpuscular Hemoglobin Concent 31 L 32-36 g/dL Red Cell Distribution Width 15.5 H 10.0-14.5 % Platelet Count 245 130-400 10^3/uL Mean Platelet Volume 9.4 9.0-12.2 fL Immature Granulocyte % (Auto) 1 % Neutrophils (%) (Auto) 81 H 42-75 % Lymphocytes (%) (Auto) 11 L 12-44 % Monocytes (%) (Auto) 6 0-12 % Eosinophils (%) (Auto) 1 0-10 % Basophils (%) (Auto) 1 0-10 % Neutrophils # (Auto) 6.5 1.8-7.8 10^3/uL Lymphocytes # (Auto) 0.9 L 1.0-4.0 10^3/uL Monocytes # (Auto) 0.5 0.0-1.0 10^3/uL Eosinophils # (Auto) 0.1 0.0-0.3 10^3/uL Basophils # (Auto) 0.0 0.0-0.1 10^3/uL Immature Granulocyte # (Auto) 0.1 0.0-0.1 10^3/uL Sodium Level 134 L 135-145 MMOL/L Potassium Level 5.3 H 3.6-5.0 MMOL/L Chloride Level 103 98-107 MMOL/L Carbon Dioxide Level 21 21-32 MMOL/L Anion Gap 10 5-14 MMOL/L Blood Urea Nitrogen 53 H 7-18 MG/DL Creatinine 2.57 H 0.60-1.30 MG/DL Estimat Glomerular Filtration Rate 20 BUN/Creatinine Ratio 21 Glucose Level 169 H 70-105 MG/DL Calcium Level 9.4 8.5-10.1 MG/DL Corrected Calcium 9.6 8.5-10.1 MG/DL Total Bilirubin 0.2 0.1-1.0 MG/DL Aspartate Amino Transf (AST/SGOT) 14 5-34 U/L Alanine Aminotransferase (ALT/SGPT) 9 0-55 U/L Alkaline Phosphatase 77 40-136 U/L B-Type Natriuretic Peptide 86.1 <100.0 PG/ML Total Protein 7.8 6.4-8.2 GM/DL Albumin 3.8 3.2-4.5 GM/DL Influenza Type A (RT-PCR) Not Detected Not Detecte Influenza Type B (RT-PCR) Not Detected Not Detecte SARS-CoV-2 RNA (RT-PCR) Not Detected Not Detecte Arterial Blood pH 7.38 7.37-7.43 Arterial Blood Partial Pressure CO2 35 35-45 MMHG Arterial Blood Partial Pressure O2 64 L 79-93 MMHG Arterial Blood HCO3 21 L 23-27 MMOL/L Arterial Blood Total CO2 21.8 21.0-31.0 MMOL/L Arterial Blood Oxygen Saturation 95 94-100 % Arterial Blood Base Excess -3.8 L -2.5-2.5 MMOL/L Blood Gas Ventilator Setting NO Blood Gas Inspired Oxygen 4 L My Orders Orders - MICHELE MONSON MD Cbc And Automated Diff (03/29/23 13:58) Comprehensive Metabolic Panel (03/29/23 13:58) Ekg Tracing (03/29/23 13:58) Influenza A And B By Pcr (03/29/23 13:58) Chest 1 View, Ap/Pa Only (03/29/23 13:58) Covid 19 Inhouse Test (03/29/23 13:58) Monitor-Rhythm Ecg Trace Only (03/29/23 13:58) Pulse Oximetry Order (03/29/23 13:58) Ipratropium/Albuterol Inh Soln (Ipratrop (03/29/23 14:00) Ceftriaxone Iv/Im (Ceftriaxone Iv/Im) (03/29/23 14:00) Doxycycline Hyclate Tablet (Doxycycline (03/29/23 14:00) Dexamethasone Injection (Dexamethasone (03/29/23 14:00) Bnp [place] (03/29/23 14:00) Arterial Blood Gas (03/29/23 14:34) Arterial Blood Draw - Obtain (03/29/23 ) Ns Iv 1000 Ml (Ns Iv 1000 Ml) (03/29/23 14:58) Ed Admission (Communication) (03/29/23 15:18) Medications Given in ED Current Medications Medications Dose Ordered Sig/Desiree Route Start Time Stop Time Status Last Admin Dose Admin Albuterol/ Ipratropium 3 ml ONCE ONCE IH 03/29/23 14:00 03/29/23 14:01 DC 03/29/23 14:26 3 ML Ceftriaxone Sodium 1000 mg/ Sodium Chloride 50 ml @ 100 mls/hr ONCE ONCE IV 03/29/23 14:00 03/29/23 14:29 DC 03/29/23 14:57 100 MLS/HR Dexamethasone Sodium Phosphate 8 mg ONCE ONCE IV 03/29/23 14:00 03/29/23 14:01 DC 03/29/23 14:56 8 MG Doxycycline Hyclate 100 mg ONCE ONCE PO 03/29/23 14:00 03/29/23 14:01 DC 03/29/23 14:56 100 MG Vital Signs/I&O 10/19/23 10/19/23 13:40 14:24 Temp 36.0 Pulse 82 Resp 18 B/P (MAP) 114/66 (82) Pulse Ox 94 93 O2 Delivery Nasal Cannula O2 Flow Rate 4.00 Capillary Refill : Less Than 3 Seconds Blood Pressure Mean: 82 Progress Note : Progress Note 68-year-old female with above history coming in due to shortness of breath. I trialed her off oxygen here, and she quickly went down to the mid 80s. Put her back on 4 L. EKG ordered and interpreted by me showing no acute ischemic changes. Chest x-ray ordered and interpreted by me showing no obvious pneumonia or pneumothorax. An IV was placed and basic labs were obtained and were significant for a normal BNP, EDWIN with a creatinine of 2.5, normal white blood cell count. She is making plenty of urine she states. We will give her a bolus of IV fluids. I suspect she is hypovolemic in the setting of her COPD exacerbation and having decreased p.o. intake. She was given Decadron IV, ceftriaxone and Doxy, and a DuoNeb for her COPD exacerbation. I contacted [facility], and Dr. Styles will admit the patient under inpatient status for further evaluation and management ECG Initial ECG Impression Date: Mar 29, 2023 Initial ECG Impression Time: 14:10 Initial ECG Rate: 74 Initial ECG Rhythm: Normal Sinus Comment QRS, normal axis, no significant ST changes or T wave abnormalities Diagnostic Imaging Diagonstic Imaging: Xray (chest) Comments [facility], [place] NAME: LUIS CAPELLAN [facility] REC#: [id number] PT STATUS: REG ER : 1955 PHYSICIAN: MICHELE MONSON MD ADMIT DATE: 03/29/23/ER Signed Date of Exam:03/29/23 CHEST 1 VIEW, AP/PA ONLY CHEST 1 VIEW, AP/PA ONLY INDICATION: SOB, hypoxic. COMPARISON: Chest radiograph on 04/30/2022. FINDINGS: Lungs: Normal lung volume. No focal consolidation. Stable pulmonary vasculature. Pleura: No pleural effusion or pneumothorax. Heart and Mediastinum: Cardiomegaly. Pulmonary vascularity is within normal limits.. By pectoral Port-A-Cath. Aortic atherosclerosis. Osseous Structures and Soft Tissues: No acute osseous abnormality. Normal soft tissues. IMPRESSION: No acute chest findings. Dictated by: Dictated on workstation # [id number] Dict: 03/29/231421 Trans: 03/29/231422 [facility] [place] [phone] Interpreted by: CHRIS ZACARIAS DO Electronically signed by: CHRIS ZACARIAS DO 03/29/231422 Departure Impression Primary Impression: Respiratory failure Qualified Codes: J96.01 - Acute respiratory failure with hypoxia Additional Impressions: COPD exacerbation EDWIN (acute kidney injury) Disposition: ADMITTED INPATIENT Condition: Stable Admissions Decision to Admit Reason: Admit from ER (General) Decision to Admit/Date: Mar 29, 2023 Time/Decision to Admit Time: 15:00 Departure-Patient Inst. Referrals: DUSTY MCINTYRE MD (PCP/Family) Primary Care Physician MICHELE MONSON MD Mar 29, 2023 14:03
[2023-03-29 14:06] LABS: BASOPHILS % (AUTO) 1 % (0-10); EOSINOPHILS # (AUTO) 0.1 10^3/uL (0.0-0.3); EOSINOPHILS % (AUTO) 1 % (0-10); HEMATOCRIT 36 % (35-52); HEMOGLOBIN 11.3 g/dL (11.5-16.0); LYMPHOCYTES # (AUTO) 0.9 10^3/uL (1.0-4.0); LYMPHOCYTES % (AUTO) 11 % (12-44); MEAN CORPUSCULAR HEMOGLOBIN 30 pg (25-34); MEAN CORPUSCULAR HGB CONC 31 g/dL (32-36); MEAN CORPUSCULAR VOLUME 95 fL (80-99); MEAN PLATELET VOLUME 9.4 fL (9.0-12.2); MONOCYTES # (AUTO) 0.5 10^3/uL (0.0-1.0); MONOCYTES % (AUTO) 6 % (0-12); NEUTROPHILS # (AUTO) 6.5 10^3/uL (1.8-7.8); NEUTROPHILS % (AUTO) 81 % (42-75); PLATELET COUNT 245 10^3/uL (130-400)
[2023-03-29 14:07] LABS: ALBUMIN 3.8 GM/DL (3.2-4.5); POTASSIUM 5.3 MMOL/L (3.6-5.0)
[2023-03-29 14:09] LABS: CALCIUM 9.4 MG/DL (8.5-10.1)
[2023-03-29 14:10] LABS: TOTAL PROTEIN 7.8 GM/DL (6.4-8.2)
[2023-03-29 14:12] LABS: BILIRUBIN,TOTAL 0.2 MG/DL (0.1-1.0)
[2023-03-29 14:13] LABS: CREATININE SERUM 2.57 MG/DL (0.60-1.30)
--- NOTE | 2023-03-29 14:24 | Diagnostic Imaging Report ---
CHEST 1 VIEW, AP/PA ONLY INDICATION: SOB, hypoxic. COMPARISON: Chest radiograph on 04/30/2022. FINDINGS: Lungs: Normal lung volume. No focal consolidation. Stable pulmonary vasculature. Pleura: No pleural effusion or pneumothorax. Heart and Mediastinum: Cardiomegaly. Pulmonary vascularity is within normal limits.. By pectoral Port-A-Cath. Aortic atherosclerosis. Osseous Structures and Soft Tissues: No acute osseous abnormality. Normal soft tissues. IMPRESSION: No acute chest findings. Dictated by: Dictated on workstation # [id number]
[2023-03-29 14:39] LABS: ABG BASE EXCESS -3.8 MMOL/L (-2.5-2.5); ABG OXYGEN SATURATION 95 % (94-100); ABG PCO2 35 MMHG (35-45); ABG PH 7.38 (7.37-7.43); ABG PO2 64 MMHG (79-93); ABG TCO2 21.8 MMOL/L (21.0-31.0)
[2023-03-29 14:40] LABS: INSPIRED O2 4 L; VENTILATOR NO
[2023-03-29] MEDS ORDERED: NS IV 1000 ML 1,000 ML IV STA (14:58)
--- NOTE | 2023-03-29 15:56 | History & Physical-Hospitalist ---
BREANNA FUNEZ MD,RESIDENT 03/29/23 1556: History of Present Illness HPI/Chief Complaint CC: SOB HPI: Pt is a 68 yo female with a medical history significant for COPD, T2DM, and bladder cancer that is actively being treated with immunotherapy (s/p port insertion 04/2022), who presents to the ED with progressive SOB. She reports a productive cough over the past 2 days. While she was receiving chemo yesterday (03/28), they noted her SpO2 was in the 80s and they placed her on oxygen via NC. She was discharged home without supplemental O2. She has been short of breath all night and today. She used to wear oxygen via NC overnight, but the machine has not been serviced, is not working. EMS reports her oxygen saturation was 86%, went to the low mid 90s on 4 L. She is denying any chest pain, nausea, diarrhea, focal weakness or numbness, or any other concerns. She does report that she vomited clear liquid once in the ED, denies nausea cu rrently. She will be admitted for further management. To note, she is actively being treated for a UTI, diagnosed on 03/26, with Bactrim DS BID. Source: patient Date Seen 03/29/23 Time Seen by a Provider: 16:00 Attending Physician Sophie Vega MD PCP Admitting Physician: Attending Physician: Referring Physician Date of Admission Home Medications & Allergies Home Medications Reviewed patient Home Medication Reconciliation performed by pharmacy medication reconciliations clinical dietetic technician and/or nursing. Patients Allergies have been reviewed. Allergies Allergies Coded Allergies No Known Drug Allergies (Verified09/27/22) Past Dgmbppm-Eehmml-Hdrfeo Hx Patient Social History Tobacco Use?: Yes Tobacco type used: Cigarettes Smoking Status: Current Everyday Smoker Substance use?: No Alcohol Use?: No Immunizations Up To Date First/Initial COVID19 Vaccinat: DECLINED Second COVID19 Vaccination Yossi: DECLINED Tetanus Booster (TDap): Unknown Hepatitis A: Yes Hepatitis B: Yes PED Vaccines UTD: No Date of Pneumonia Vaccine: Apr 03, 2018 Seasonal Allergies Seasonal Allergies: No Current Status Advance Directives: No Communicates: Verbally Primary Language: Wolof Preferred Spoken Language: Wolof Is interpretation needed?: No Implanted or Applied Medical D: Port-a-cath Past Medical History Surgeries: Bladder Surgery, Eye Surgery Pneumonia, COPD Currently Using CPAP: No Currently Using BIPAP: No High Cholesterol, Hypertension Sexually Transmitted Disease: No HIV/AIDS: No Bladder Infection, Kidney Stones, UTI-Chronic Abdominal Hernia Diabetes, Non-Insulin dep Cataract Loss of Vision: Denies Hearing Impairment: Denies Bladder Did You Recieve Any Treatments: Yes What Type of Treatment Did You: Chemotherapy, Radiation, Surgical Intervention Recent Skin Changes, Herpes Blood Disorders: No Past Medical History 1. 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 Chronic Obstructive Pulmonary Disease on home O2. 3. Hypertension 4. Hyperlipidemia 5. Tobaccoism 6. History of one admission for pancreatitis 7. Herpes Labialis Past Surgical History 1. Excision of Bartholin Gland Cancer 2008 [place] 2. I&D right groin 3. RE-Excision post radiation of mass [place] Family Medical History Diabetes mellitus 19 FATHER, , Onset:Unknown 19 MOTHER, , Onset:Unknown FH: lung cancer 19 FATHER, , Onset:Unknown FH: lymphoma 19 MOTHER, , Onset:Unknown Hypertension 19 MOTHER, , Onset:Unknown No Family History of: AIDS Abdominal aortic aneurysm Albert's disease Alcoholism Alzheimer's disease Aphasia Arthritis Asthma Cancer of mouth Cardiovascular disease Cataracts Colon cancer Completed stroke Congenital disease Congenital heart disease Coronary thrombosis Cystic fibrosis Deafness or hearing loss Dementia Drug abuse Dysphasia Fibrocystic disease of breast Gastroenteritis Glaucoma Headache disorder Hypercholesterolemia Infertility Kidney disease Myocardial infarction Neoplasm Not obtainable due to adoption Osteoporosis Parkinson's disease Prostate cancer Psychosocial problem Respiratory disorder Seizure disorder Severe allergy Thyroid disease Tuberculosis Visual disorder No Pertinent Family Hx Review of Systems Constitutional: no symptoms reported Respiratory: cough, short of breath Cardiovascular: no symptoms reported Gastrointestinal: vomiting (ONCE IN ED) Genitourinary: dysuria, frequency Musculoskeletal: no symptoms reported Skin: no symptoms reported Psychiatric/Neurological: No Symptoms Reported Physical Exam Physical Exam Vital Signs Vital Signs - First Documented 03/29/23 03/29/23 13:40 14:24 Temp 36.0 Pulse 82 Resp 18 B/P (MAP) 114/66 (82) Pulse Ox 94 O2 Delivery Nasal Cannula O2 Flow Rate 4.00 Capillary Refill : Less Than 3 Seconds Height, Weight, BMI Height: 5'3.00" Weight: 185lbs. 0.0oz. 83.207545ig; BMI Method: General Appearance: No Apparent Distress Eyes: Bilateral Eye EOMI Neck: Full Range of Motion Respiratory: No Accessory Muscle Use, No Respiratory Distress, Rhonci, Wheezing Cardiovascular: Regular Rate, Rhythm Gastrointestinal: Normal Bowel Sounds, Non Tender, Soft Extremity: No Calf Tenderness, No Pedal Edema Skin: Warm/Dry Results Results/Procedures Labs Laboratory Tests 03/29/23 13:45 Patient resulted labs reviewed. Assessment/Plan Admission Diagnosis COPD exacerbation Admission Status: Inpatient Order (span 2 midnights) Reason for Inpatient Admission: COPD exacerbation Diagnosis/Problems Diagnosis/Problems (1) COPD exacerbation Status: Acute Assessment & Plan: PLAN: CXR negative for acute processes Supplemental O2 via NC Mat protocol Consider new oxygen requirement, ExOx prior to DC (2) Respiratory failure Status: Acute Qualifiers: Chronicity: acute Respiratory failure complication: hypoxia Qualified Co seymour: J96.01 - Acute respiratory failure with hypoxia (3) EDWIN (acute kidney injury) Status: Acute Assessment & Plan: Likely 2/2 Bactrim use, will discontinue PLAN: Gentle IVF resuscitation Avoid nephrotoxic agents (4) Urinary tract infection Status: Acute Assessment & Plan: Dx on 03/26 PLAN: Was started on Bactrim 03/26, however d/t EDWIN will switch to Ceftriaxone (r eceived 1 dose in ED) (5) Bladder cancer Assessment & Plan: Last immunotherapy session 03/28 (6) Type 2 diabetes mellitus Assessment & Plan: PLAN: ACHS Slide A DISHA NAVAS DO 03/30/23 1717: History of Present Illness HPI/Chief Complaint CC: Dyspnea HPI: This is a 68yoWF clinic patient of [facility] who has a h/o O2 dependency but no longer on O2 who presented to the ER with dypsnea. Prednisone initiated. O2 maintained on 4L/min. UTI failed Bactrim so started Rocephin. Source: patient Exam Limitations: no limitations Past Lgdsyse-Npcfsc-Bwpqkh Hx Patient Social History Marrital Status: single Employed/Student: retired Smoking Status: Former Smoker Past Medical History COPD Diabetes, Non-Insulin dep Family Medical History Diabetes mellitus 19 FATHER, , Onset:Unknown 19 MOTHER, , Onset:Unknown FH: lung cancer 19 FATHER, , Onset:Unknown FH: lymphoma 19 MOTHER, , Onset:Unknown Hypertension 19 MOTHER, , Onset:Unknown No Family History of: AIDS Abdominal aortic aneurysm Albert's disease Alcoholism Alzheimer's disease Aphasia Arthritis Asthma Cancer of mouth Cardiovascular disease Cataracts Colon cancer Completed stroke Congenital disease Congenital heart disease Coronary thrombosis Cystic fibrosis Deafness or hearing loss Dementia Drug abuse Dysphasia Fibrocystic disease of breast Gastroenteritis Glaucoma Headache disorder Hypercholesterolemia Infertility Kidney disease Myocardial infarction Neoplasm Not obtainable due to adoption Osteoporosis Parkinson's disease Prostate cancer Psychosocial problem Respiratory disorder Seizure disorder Severe allergy Thyroid disease Tuberculosis Visual disorder Review of Systems Constitutional: see HPI Respiratory: dyspnea on exertion, short of breath Physical Exam Physical Exam General Appearance: No Apparent Distress, Chronically ill Eyes: Right Eye Normal Inspection, Right Eye PERRL HEENT: PERRL/EOMI, Normal ENT Inspection, Pharynx Normal, Moist Mucous Membranes Neck: Full Range of Motion, Normal Inspection, Non Tender Respiratory: Chest Non Tender, No Accessory Muscle Use, No Respiratory Distress, Decreased Breath Sounds, Rhonci, Wheezing Cardiovascular: Regular Rate, Rhythm, No Edema, No Gallop, No JVD, No Murmur, Normal Peripheral Pulses Gastrointestinal: Normal Bowel Sounds, No Organomegaly, No Pulsatile Mass, Non Tender, Soft Back: Normal Inspection, No CVA Tenderness, No Vertebral Tenderness Extremity: Normal Capillary Refill, Normal Inspection, Normal Range of Motion, Non Tender, No Calf Tenderness, No Pedal Edema Neurologic/Psychiatric: Alert, Oriented x3, No Motor/Sensory Deficits, Normal Mood/Affect Skin: Normal Color, Warm/Dry Lymphatic: No Adenopathy Assessment/Plan Admission Diagnosis Assessment: Acute on chronic hypoxic resp failure AECOPD DM HTN Bladder cancer UTI Plan: O2 set up Steroids UTI treatment Admission Status: Inpatient Order (span 2 midnights) Reason for Inpatient Admission: Acute hypoxic resp failure BREANNA FUNEZ MD,RESIDENT Mar 29, 2023 15:56 DISHA NAVAS DO Mar 30, 2023 17:17
[2023-03-29] MEDS ORDERED: ENOXAPARIN 40 MG/0.4 ML SYRINGE SC SCH (17:15)
[2023-03-29] MEDS ORDERED: diphenhydrAMINE INJ 50 MG/ML VIAL IVP PRN (17:15)
[2023-03-29] MEDS ORDERED: MILK OF MAGNESIA 400 MG/5 ML 30 ML UDC PO PRN (17:15)
[2023-03-29] MEDS ORDERED: ACETAMINOPHEN 325 MG TABLET PO PRN (17:15)
[2023-03-29] MEDS ORDERED: ACETAMINOPHEN 500 MG TABLET PO PRN (17:15)
[2023-03-29] MEDS ORDERED: MELATONIN 3 MG TABLET PO PRN (17:15)
[2023-03-29] MEDS ORDERED: ONDANSETRON INJECTION 4 MG/2 ML (SDV) IV PRN (17:15)
[2023-03-29] MEDS ORDERED: CALCIUM CARBONATE 500 MG CHEW TABLET PO PRN (17:15)
[2023-03-29] MEDS ORDERED: BISACODYL 10 MG SUPPOSITORY PR PRN (17:15)
[2023-03-29] MEDS ORDERED: ONDANSETRON 4 MG ORAL DISSOLVE TABLET PO PRN (17:15)
[2023-03-29] MEDS ORDERED: diphenhydrAMINE 25 MG TABLET PO PRN (17:15)
[2023-03-29] MEDS ORDERED: LACTULOSE SYRUP 10GM/15ML 30ML UDC PO PRN (17:15)
[2023-03-29] MEDS ORDERED: ANTACID SUSPENSION 30 ML UDC PO PRN (17:15)
[2023-03-29] MEDS: ENOXAPARIN 30 MG/0.3 ML SYRINGE SC SCH (17:51)
[2023-03-29 18:39] VITALS: BP 114/66
[2023-03-29] MEDS ORDERED: RT-Ipratropium/Albuterol NEB 3 ML VIAL INH PRN (19:00)
[2023-03-29 19:30] VITALS: BP 112/57
[2023-03-29] MEDS: HYDROcodone/ACETAMINOPHEN 10/325 TABLET PO PRN (20:03)
[2023-03-29] MEDS: DOCUSATE SODIUM 100 MG CAPSULE PO SCH (20:03)
[2023-03-29] MEDS: SENNOSIDES 8.6 MG TABLET PO SCH (20:03)
[2023-03-29] MEDS: inSUlin ASPART 1 UNIT/0.01 ML (PER UNIT) SC SCH (20:39)
[2023-03-29] MEDS: RT-Ipratropium/Albuterol NEB 3 ML VIAL INH SCH (21:46)
[2023-03-29 23:44] VITALS: BP 104/56
[2023-03-30] MEDS: HYDROcodone/ACETAMINOPHEN 10/325 TABLET PO PRN ×3 (03:09→19:43)
[2023-03-30] MEDS: RT-Ipratropium/Albuterol NEB 3 ML VIAL INH SCH ×4 (03:51→21:15)
[2023-03-30 04:00] VITALS: BP 108/60
[2023-03-30] MEDS: predniSONE 20 MG TABLET PO SCH (05:43)
[2023-03-30] MEDS: inSUlin ASPART 1 UNIT/0.01 ML (PER UNIT) SC SCH ×4 (05:43→20:29)
[2023-03-30 06:02] LABS: BASOPHILS % (AUTO) 0 % (0-10); EOSINOPHILS % (AUTO) 0 % (0-10); HEMATOCRIT 31 % (35-52); LYMPHOCYTES # (AUTO) 0.4 10^3/uL (1.0-4.0); LYMPHOCYTES % (AUTO) 7 % (12-44); MEAN CORPUSCULAR HEMOGLOBIN 30 pg (25-34); MEAN CORPUSCULAR HGB CONC 32 g/dL (32-36); MEAN CORPUSCULAR VOLUME 93 fL (80-99); MEAN PLATELET VOLUME 9.3 fL (9.0-12.2); MONOCYTES # (AUTO) 0.2 10^3/uL (0.0-1.0); MONOCYTES % (AUTO) 3 % (0-12); NEUTROPHILS # (AUTO) 5.6 10^3/uL (1.8-7.8); NEUTROPHILS % (AUTO) 89 % (42-75); PLATELET COUNT 217 10^3/uL (130-400); WHITE BLOOD COUNT 6.3 10^3/uL (4.3-11.0)
[2023-03-30 06:11] LABS: ALBUMIN 3.4 GM/DL (3.2-4.5); POTASSIUM 5.2 MMOL/L (3.6-5.0)
[2023-03-30 06:13] LABS: CALCIUM 8.5 MG/DL (8.5-10.1)
[2023-03-30 06:14] LABS: TOTAL PROTEIN 6.8 GM/DL (6.4-8.2)
[2023-03-30 06:16] LABS: BILIRUBIN,TOTAL 0.1 MG/DL (0.1-1.0)
[2023-03-30 06:17] LABS: CREATININE SERUM 2.42 MG/DL (0.60-1.30)
[2023-03-30 06:29] LABS: ELLIPT/OVALOCYTES SLIGHT; LYMPHOCYTES % (MANUAL) 7 %; MONOCYTES % (MANUAL) 1 %; NEUTROPHILS % (MANUAL) 92 %
[2023-03-30 08:00] VITALS: BP 153/71
[2023-03-30] MEDS ORDERED: inSUlin DETERMIR 1 UNIT/0.01 ML (CHARGE PER UNIT) SQ ONE (08:30)
[2023-03-30] MEDS: cefTRIAXone IV/IM 1,000 MG in NS (IVPB) 50 ML 50 ML IV SCH (09:07)
[2023-03-30] MEDS: DOCUSATE SODIUM 100 MG CAPSULE PO SCH ×2 (09:07→19:44)
[2023-03-30] MEDS: SENNOSIDES 8.6 MG TABLET PO SCH ×2 (09:07→19:45)
--- NOTE | 2023-03-30 10:19 | Physical Therapy Evaluation ---
PT Evaluation-General Medical Diagnosis Admission Date Mar 29, 2023 at 16:21 Medical Diagnosis: respiratory failure Onset Date: Mar 29, 2023 Therapy Diagnosis Therapy Diagnosis: debility Height/Weight Height (Feet): 5 Height (Inches): 3.00 Weight (Pounds): 185 Weight (Ounces): 0.0 Precautions Precautions/Isolations: Standard Precautions Referral Physician: Moiz Reason for Referral: Evaluation/Treatment Medical History Pertinent Medical History: COPD, DM, HTN, Smoking Current History EMS secondary to SOA/immunotherapy due to bladder cancer Reviewed History: Yes Social History Home: Apartment Current Living Status: Alone Prior Prior Level of Function SCALE: Activities may be completed with or without assistive devices. 6-Xqdifpltlh-rnsowix completes the activity by him/herself with no assistance from a helper. 5-Set-up or Clean-up Assistance-helper sets up or cleans up; patient completes activity. [place] assists only prior to or following the activity. 4-Supervision or Touching Assistance-helper provides verbal cues and/or touching/steadying and/or contact guard assistance as patient completes activity. Assistance may be provided throughout the activity or intermittently. 3-Partial/Moderate Assistance-helper does LESS THAN HALF the effort. [place] lifts, holds or supports trunk or limbs, but provides less than half the effort. 2-Substantial/Maximal Assistance-helper does MORE THAN HALF the effort. [place] lifts or holds trunk or limbs and provides more than half the effort. 1-Bsrrhrefq-zpivsm does ALL the effort. Patient does none of the effort to complete the activity. Or, the assistance of 2 or more helpers is required for the patient to complete the activity. If activity was not attempted, code reason: 7-Patient Refused. 9-Not Applicable-not attempted and the patient did not perform the activity before the current illness, exacerbation or injury. 10-Not Attempted due to Environmental Limitations-(lack of equipment, weather restraints, etc.). 88-Not Attempted due to Medical Conditions or Safety Concerns. Bed Mobility: 6 Transfers (B,C,W/C): 6 Gait: 6 Indoor Mobility (Ambulation): Independent Prior Devices Use: None PT Evaluation-Current Subjective Patient agrees to therapy. Objective Patient Orientation: Normal For Age Attachments: Oxygen (4L) ROM/Strength ROM Lower Extremities bilateral LE WFL Strength Lower Extremities 4/5 grossly bilateral LE all planes Integumentary/Posture Bowel Incontinence: No Bladder Incontinence: No Posture WFL Neuromuscular (Tone, Coordination, Reflexes) grossly intact Sensory Vision: Functional Hearing: Functional Transfers Lying to Sitting/Side of Bed(Q: 6 Sit to Stand (QC): 6 Chair/Pwq-ow-Yqecs Xfer(QC): 6 Toilet Transfer (QC): 6 Gait Mode of Locomotion: Walk Anticipated Mode of Locomotion: Walk Walk 10 feet (QC): 6 Walk 50 ft with 2 Turns(QC): 6 Walk 150 ft (QC): 6 Distance: 250' Gait Assistive Device: None Comments/Gait Description safe and functional with no deviation Balance Sitting Static: Normal Sitting Dynamic: Normal Standing Static: Normal Standing Dynamic: Normal Assessment/Needs Patient is currently at independent LOF with all gross motor skills safely and does not require skilled PT intervention at this time. Rehab Potential: Fair PT Plan Treatment/Plan Treatment Plan: Discontinue PT Treatment Duration: Mar 30, 2023 Frequency: 1 time per week Estimated Hrs Per Day: .25 hour per day Patient and/or Family Agrees t: Yes Time Time In: 940 Time Out: 950 DATE: Mar 30, 2023 Total Billed Treatment Time: 10 Total Billed Treatment 1 visit EVModC 10 min LUIS A CLAY PT Mar 30, 2023 10:19
--- NOTE | 2023-03-30 10:39 | Occupational Therapy Eval ---
OT Evaluation-General/PLF Medical Diagnosis Admission Date Mar 29, 2023 at 16:21 Medical Diagnosis: respiratory failure Onset Date: Mar 29, 2023 Therapy Diagnosis Therapy Diagnosis: SOA Height/Weight Height (Feet): 5 Height (Inches): 3.00 Weight (Pounds): 185 Weight (Ounces): 0.0 Precautions Precautions/Isolations: Standard Precautions Referral Physician: Moiz Referral Reason: Evaluation/Treatment Medical History Pertinent Medical History: COPD, DM, HTN, Smoking Social History Home: Apartment Current Living Status: Alone ADL-Prior Level of Function SCALE: Activities may be completed with or without assistive devices. 3-Nzuakgklpw-anqbmxc completes the activity by him/herself with no assistance from a helper. 5-Set-up or Clean-up Assistance-helper sets up or cleans up; patient completes activity. [place] assists only prior to or following the activity. 4-Supervision or Touching Assistance-helper provides verbal cues and/or touching/steadying and/or contact guard assistance as patient completes activity. Assistance may be provided throughout the activity or intermittently. 3-Partial/Moderate Assistance-helper does LESS THAN HALF the effort. [place] lifts, holds or supports trunk or limbs, but provides less than half the effort. 2-Substantial/Maximal Assistance-helper does MORE THAN HALF the effort. [place] lifts or holds trunk or limbs and provides more than half the effort. 6-Qswwurbpb-hqwwyn does ALL the effort. Patient does none of the effort to complete the activity. Or, the assistance of 2 or more helpers is required for the patient to complete the activity. If activity was not attempted, code reason: 7-Patient Refused. 9-Not Applicable-not attempted and the patient did not perform the activity before the current illness, exacerbation or injury. 10-Not Attempted due to Environmental Limitations-(lack of equipment, weather restraints, etc.). 88-Not Attempted due to Medical Conditions or Safety Concerns. Self Care: Independent Functional Cognition: Independent DME/Equipment: Bath Chair Drive Self: Yes OT Current Status Subjective JUST A LITTLE SOA WHEN I GO TO THE BATHROOM Mental Status/Objective Patient Orientation: Person, Place, Time, Situation Attachments: Oxygen (4 LITERS) Current Glasses/Contacts: Yes Upper Extremity ROM BUE ROM WFLS Upper Extremity Coordination WFLS Upper Extremity Sensation INTACT Upper Extremity Strength 4/5 GROSSLY ADL-Treatment Eating (QC): 6 Oral Hygiene (QC): 6 Shower/Bathe Self (QC): 7 Upper Body Dressing (QC): 6 Lower Body Dressing (QC): 6 On/Off Footwear (QC): 6 Toileting Hygiene (QC): 6 Education OT Patient Education: Progress toward Goal/Update tx plan, Purpose of tx/functional activities, Reviewed precautions, Rehab process, Safety issues Teaching Recipient: Patient Teaching Methods: Discussion Response to Teaching: Verbalize Understanding OT Sanitary Land[employer] Supervisor Goals [facility] Goals 1=Demonstrate adherence to instructed precautions during ADL tasks. 2=Patient will verbalize/demonstrate understanding of assistive devices/modifications for ADL. 3=Patient will improve strength/tolerance for activity to enable patient to perform ADL's. OT Education/Plan Problem List/Assessment Assessment: No Skilled OT Needs ID'd Discharge Recommendations Plan/Recommendations: Discontinue OT Treatment Plan/Plan of Care Patient would benefit from OT for education, treatment and training to promote independence in ADL's, mobility, safety and/or upper extremity function for ADL's. Plan of Care: OTHER (EVAL ONLY) Treatment Duration: Mar 30, 2023 Frequency: 1 time per week Estimated Hrs Per Day: .25 hour per day Rehab Potential: Good Time Start Time: 09:20 Stop Time: 09:42 DATE: Mar 30, 2023 Total Time Billed (hr/min): 22 Billed Treatment Time EVM 22 MIN NAUN CAZARES OT Mar 30, 2023 10:39
--- NOTE | 2023-03-30 10:54 | Progress Note ---
BREANNA FUNEZ MD,RESIDENT 03/30/23 1054: Subjective HPI/CC On Admission CC: SOB HPI: Pt is a 68 yo female with a medical history significant for COPD, T2DM, and bladder cancer that is actively being treated with immunotherapy (s/p port insertion 04/2022), who presents to the ED with progressive SOB. She reports a productive cough over the past 2 days. While she was receiving chemo yesterday (03/28), they noted her SpO2 was in the 80s and they placed her on oxygen via NC. She was discharged home without supplemental O2. She has been short of breath all night and today. She used to wear oxygen via NC overnight, but the machine has not been serviced, is not working. EMS reports her oxygen saturation was 86%, went to the low mid 90s on 4 L. She is denying any chest pain, nausea, diarrhea, focal weakness or numbness, or any other concerns. She does report that she vomited clear liquid once in the ED, denies nausea currently. She will be admitted for further management. To note, she is actively being treated for a UTI, diagnosed on 03/26, with Bactrim DS BID. Subjective/Events-last exam No acute events overnight. Pt's BG elevated this morning >400, likely 2/2 steroid treatment and diet. Pt reports eating pie last night and biscuits and gravy with lowery, this morning for breakfast. Pt reports feeling well. Stable on 4L NC. Objective Exam Vital Signs Vital Signs Date Time Temp Pulse Resp B/P (MAP) Pulse Ox O2 Delivery O2 Flow Rate FiO2 03/30/23 15:38 36.8 81 16 143/67 (92) 91 Nasal Cannula 2.00 03/29/23 18:39 32 Capillary Refill : Less Than 3 Seconds General Appearance: No Apparent Distress Neck: Full Range of Motion Respiratory: Lungs Clear, Normal Breath Sounds, No Accessory Muscle Use, No Respiratory Distress Cardiovascular: Regular Rate, Rhythm Gastrointestinal: Non Tender, Soft Neurologic/Psychiatric: Alert, Oriented x3, Normal Mood/Affect Skin: Normal Color, Warm/Dry Results/Procedures Lab Laboratory Tests 03/30/23 05:50 Patient resulted labs reviewed. Assessment/Plan Assessment and Plan Assess & Plan/Chief Complaint CC: SOB Diagnosis/Problems Diagnosis/Problems (1) COPD exacerbation Status: Acute Assessment & Plan: PLAN: CXR negative for acute processes Supplemental O2 via NC Mat protocol Consider new oxygen requirement ExOx 03/30: 2L continuous, 4L walking (2) Respiratory failure Status: Acute Qualifiers: Qualified Codes: J96.01 - Acute respiratory failure with hypoxia (3) EDWIN (acute kidney injury) Status: Acute Assessment & Plan: Likely 2/2 Bactrim use, will discontinue PLAN: Gentle IVF resuscitation Avoid nephrotoxic agents (4) Urinary tract infection Status: Acute Assessment & Plan: Dx on 03/26 PLAN: Was started on Bactrim 03/26, however d/t EDWIN will switch to Ceftriaxone (received 1 dose in ED) (5) Bladder cancer Assessment & Plan: Last immunotherapy session 03/28 (6) Type 2 diabetes mellitus Assessment & Plan: PLAN: ACHS Slide B Detemir 10U 03/30 Consider adding on HOSPICE AIDE medication DISHA NAVAS DO 03/30/23 1848: Subjective HPI/CC On Admission Date Seen by Provider: Mar 30, 2023 Time Seen by Provider: 11:00 Subjective/Events-last exam Improved Lungs coarse Steroids maintained O2 needs 2/4 Objective Exam General Appearance: No Apparent Distress Respiratory: Crackles, Decreased Breath Sounds Assessment/Plan Assessment and Plan Assess & Plan/Chief Complaint DC tomorrow O2 at home BRAENNA FUNEZ MD,RESIDENT Mar 30, 2023 10:54 DISHA NAVAS DO Mar 30, 2023 18:48
[2023-03-30 12:00] VITALS: BP 121/60
[2023-03-30 15:38] VITALS: BP 143/67
[2023-03-30] MEDS ORDERED: FLUT1DIS26 IH (16:12)
[2023-03-30] MEDS: ENOXAPARIN 30 MG/0.3 ML SYRINGE SC SCH (16:35)
[2023-03-30 19:02] VITALS: BP 133/62
[2023-03-30 23:48] VITALS: BP 124/70
[2023-03-31] MEDS: RT-Ipratropium/Albuterol NEB 3 ML VIAL INH SCH ×2 (03:18→08:46)
[2023-03-31 03:58] VITALS: BP 106/60
[2023-03-31 06:00] LABS: BASOPHILS % (AUTO) 0 % (0-10); EOSINOPHILS % (AUTO) 0 % (0-10); HEMATOCRIT 32 % (35-52); LYMPHOCYTES # (AUTO) 1.1 10^3/uL (1.0-4.0); LYMPHOCYTES % (AUTO) 11 % (12-44); MEAN CORPUSCULAR HEMOGLOBIN 30 pg (25-34); MEAN CORPUSCULAR HGB CONC 32 g/dL (32-36); MEAN CORPUSCULAR VOLUME 94 fL (80-99); MEAN PLATELET VOLUME 9.4 fL (9.0-12.2); MONOCYTES # (AUTO) 0.8 10^3/uL (0.0-1.0); MONOCYTES % (AUTO) 8 % (0-12); NEUTROPHILS # (AUTO) 7.5 10^3/uL (1.8-7.8); NEUTROPHILS % (AUTO) 79 % (42-75); PLATELET COUNT 243 10^3/uL (130-400); WHITE BLOOD COUNT 9.5 10^3/uL (4.3-11.0)
[2023-03-31] MEDS: inSUlin ASPART 1 UNIT/0.01 ML (PER UNIT) SC SCH ×3 (06:00→12:17)
[2023-03-31] MEDS: predniSONE 20 MG TABLET PO SCH (06:00)
[2023-03-31] MEDS: HYDROcodone/ACETAMINOPHEN 10/325 TABLET PO PRN (06:00)
[2023-03-31 06:35] LABS: ALBUMIN 3.5 GM/DL (3.2-4.5)
[2023-03-31 06:36] LABS: POTASSIUM 4.6 MMOL/L (3.6-5.0)
[2023-03-31 06:38] LABS: TOTAL PROTEIN 6.8 GM/DL (6.4-8.2)
[2023-03-31 06:40] LABS: BILIRUBIN,TOTAL 0.3 MG/DL (0.1-1.0)
[2023-03-31 06:42] LABS: CREATININE SERUM 1.93 MG/DL (0.60-1.30)
[2023-03-31 07:50] VITALS: BP 144/65
[2023-03-31] MEDS: SENNOSIDES 8.6 MG TABLET PO SCH ×4 (08:00→09:14)
[2023-03-31] MEDS ORDERED: PRED10TA22 PO (08:34)
[2023-03-31] MEDS ORDERED: AMOX1TAB12 PO (08:34)
--- NOTE | 2023-03-31 08:40 | Discharge Summary ---
BREANNA FUNEZ MD,RESIDENT 03/31/23 0840: Discharge Summary Hospital Course Problems/Dx: (1) COPD exacerbation Status: Acute Assessment & Plan: PLAN: CXR negative for acute processes Supplemental O2 via NC Mat protocol Consider new oxygen requirement ExOx 03/30: 2L continuous, 4L walking (2) Respiratory failure Status: Acute Qualifiers: Qualified Codes: J96.01 - Acute respiratory failure with hypoxia (3) EDWIN (acute kidney injury) Status: Acute Assessment & Plan: Likely 2/2 Bactrim use, will discontinue PLAN: Gentle IVF resuscitation Avoid nephrotoxic agents (4) Urinary tract infection Status: Acute Assessment & Plan: Dx on 03/26 PLAN: Was started on Bactrim 03/26, however d/t EDWIN will switch to Ceftriaxone (received 1 dose in ED) (5) Bladder cancer Assessment & Plan: Last immunotherapy session 03/28 (6) Type 2 diabetes mellitus Assessment & Plan: PLAN: ACHS Slide B Detemir 10U 03/30 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 While she was receiving chemo yesterday (03/28), they noted her SpO2 was in the 80s and they placed her on oxygen via NC. She was discharged home without supplemental O2. She has been short of breath since. EMS reports her oxygen saturation was 86%, went to the low mid 90s on 4 L. Pt O2 test demonstrated the need for continuous O2 at 2L and 4L requirement when walking. She was started on prednisone for COPD exacerbation. Her bactrim was changed to ceftriaxone d/t EDWIN. She was stable for discharge on 03/31. She will continue Augmentin BID outpatient for her UTI. Labs and Pending Lab Test: Laboratory Tests 03/30/23 10:58: Glucometer 390H 03/30/23 15:44: Glucometer 301H 03/30/23 20:14: Glucometer 269H 03/31/23 05:45: Glucometer 279H 03/31/23 05:53: White Blood Count 9.5, Red Blood Count 3.34L, Hemoglobin 10.0L, Hematocrit 32L, Mean Corpuscular Volume 94, Mean Corpuscular Hemoglobin 30, Mean Corpuscular Hemoglobin Concent 32, Red Cell Distribution Width 15.4H, Platelet Count 243, Mean Platelet Volume 9.4, Immature Granulocyte % (Auto) 1, Neutrophils (%) (Auto) 79H, Lymphocytes (%) (Auto) 11L, Monocytes (%) (Auto) 8, Eosinophils (%) (Auto) 0, Basophils (%) (Auto) 0, Neutrophils # (Auto) 7.5, Lymphocytes # (Auto) 1.1, Monocytes # (Auto) 0.8, Eosinophils # (Auto) 0.0, Basophils # (Auto) 0.0, Immature Granulocyte # (Auto) 0.1, Sodium Level 135, Potassium Level 4.6, Chloride Level 107, Carbon Dioxide Level 18L, Anion Gap 10, Blood Urea Nitrogen 46H, Creatinine 1.93H, Estimat Glomerular Filtration Rate 28, BUN/Creatinine Ratio 24, Glucose Level 285H, Calcium Level 9.0, Corrected Calcium 9.4, Total Bilirubin 0.3, Aspartate Amino Transf (AST/SGOT) 13, Alanine Aminotransferase (ALT/SGPT) 6, Alkaline Phosphatase 63, Total Protein 6.8, Albumin 3.5 Home Meds Active Hydrocodone-Acetamin 10-325 mg (Hydrocodone/Acetaminophen) 10 Mg-325 Mg Tablet 1 Each PO Q4H Reported Advair 250-50 Diskus (Fluticasone/Salmeterol) 250 Mcg-50 Mcg/Dose Blst.w.dev 1 Each IH BID Proventil Hfa (Albuterol Sulfate) 6.7 Gm Hfa.aer.ad 2 Puff INH Q6H Amlodipine Besylate 2.5 Mg Tablet 0.5 Ea PO DAILY Janumet 50-500 mg Tablet (Sitagliptin Phos/Metformin HCl) 50 Mg-500 Mg Tablet 1 Tab PO BID Pravastatin Sodium 40 Mg Tablet 40 Mg PO HS Hydrochlorothiazide 25 Mg Tablet 25 Mg PO DAILY Lisinopril 40 Mg Tablet 40 Mg PO DAILY Assessment/Pt Instructions COPD exacerbation Follow-up within 7-14 days of discharge with PCP. Continue taking antibiotics and steroids for the allotted days. Discharge Instructions Discharge Diet: No Restrictions Activity as Tolerated: Yes Discharge Physical Examination Vital Signs Vital Signs Date Time Temp Pulse Resp B/P (MAP) Pulse Ox O2 Delivery O2 Flow Rate FiO2 03/31/23 07:50 36.5 89 18 144/65 (91) 94 Nasal Cannula 2.00 03/29/23 18:39 32 General Appearance: No Apparent Distress Respiratory: No Accessory Muscle Use, No Respiratory Distress, Wheezing Cardiovascular: Regular Rate, Rhythm Gastrointestinal: Non Tender, Soft Skin: Warm/Dry Neurologic/Psychiatric: Alert, Oriented x3, Normal Mood/Affect Allergies: Coded Allergies: No Known Drug Allergies (Verified , 09/27/22) Discharge Summary Date of Admission Mar 29, 2023 at 16:21 Date of Discharge Admission Diagnosis Assessment: Acute on chronic hypoxic resp failure AECOPD DM HTN Bladder cancer UTI Plan: O2 set up Steroids UTI treatment Discharge Diagnosis CC: SOB (1) COPD exacerbation Status: Acute Assessment & Plan: PLAN: CXR negative for acute processes Supplemental O2 via NC Mat protocol Consider new oxygen requirement ExOx 03/30: 2L continuous, 4L walking (2) Respiratory failure Status: Acute Qualifiers: Qualified Codes: J96.01 - Acute respiratory failure with hypoxia (3) EDWIN (acute kidney injury) Status: Acute Assessment & Plan: Likely 2/2 Bactrim use, will discontinue PLAN: Gentle IVF resuscitation Avoid nephrotoxic agents (4) Urinary tract infection Status: Acute Assessment & Plan: Dx on 03/26 PLAN: Was started on Bactrim 03/26, however d/t EDWIN will switch to Ceftriaxone (re ceived 1 dose in ED) (5) Bladder cancer Assessment & Plan: Last immunotherapy session 03/28 (6) Type 2 diabetes mellitus Assessment & Plan: PLAN: ACHS Slide B Detemir 10U 03/30 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 Discharge Planning: <30 minutes discharge planning Discharge Instructions Discharge Diet: No Restrictions Activity as Tolerated: Yes Discharge Physical Examination General Appearance: No Apparent Distress, WD/WN Allergies: Coded Allergies: No Known Drug Allergies (Verified , 09/27/22) BREANNA FUNEZ MD,RESIDENT Mar 31, 2023 08:40 DISHA NAVAS DO Apr 01, 2023 06:14
[2023-03-31] MEDS: DOCUSATE SODIUM 100 MG CAPSULE PO SCH ×2 (08:48→09:00)
[2023-03-31] MEDS: cefTRIAXone IV/IM 1,000 MG in NS (IVPB) 50 ML 50 ML IV SCH (08:53)
[2023-03-31 11:35] VITALS: BP 175/84
[2023-03-31 14:56] VITALS: BP 175/84
== END 2023-03-31 13:20 | disposition home or self-care (01) | DRG 189 ==
LOC: EDUNIT# 13:37 → ER 13:38 → 4TH 16:21
PROVIDERS: ADMIT Internal Medicine; ATTEND Internal Medicine
DX: J96.21 Acute and chronic respiratory failure with hypoxia (principal); J44.1 Chronic obstructive pulmonary disease with (acute) exacerbation; N39.0 Urinary tract infection, site not specified; N17.9 Acute kidney failure, unspecified; C67.9 Malignant neoplasm of bladder, unspecified; F17.210 Nicotine dependence, cigarettes, uncomplicated; E11.9 Type 2 diabetes mellitus without complications; E78.00 Pure hypercholesterolemia, unspecified; I10 Essential (primary) hypertension; Z85.44 Personal history of malignant neoplasm of other female genital organs; Z79.899 Other long term (current) drug therapy; Z79.84 Long term (current) use of oral hypoglycemic drugs; Z79.891 Long term (current) use of opiate analgesic; Z20.822 Contact with and (suspected) exposure to COVID-19
CPT/HCPCS: 36415; 36600; 71045; 80053; 82805; 82947; 83880; 85007; 85025; 85027; 87636; 93005; 93041; 94640; 94760; 94761; 96365; 96375

== ENCOUNTER 2023-04-18 08:10 | Outpatient (RCR) | payer MEDICARE ==
[~2023-04-18] VITALS: Ht 160 cm; Wt 75.8 kg
[~2023-04-18 08:10] MED LIST changes: +AMOX1TAB12 PO; +DARBEPOETIN 25 MCG/ML SC SCH; +FLUT1DIS26 IH; +HEParin (CENTRAL IV FLUSH) 500 UNIT/5 ML SYR IV PRN; +NS IV 1000 ML (CANCER CTR) IV SCH; +PEMBROLIZUMAB 200 MG in NS (IVPB) 50 ML 50 ML IV SCH; +PRED10TA22 PO
[2023-04-18 10:14] LABS: BASOPHILS % (AUTO) 0 % (0-10); EOSINOPHILS # (AUTO) 0.1 10^3/uL (0.0-0.3); EOSINOPHILS % (AUTO) 1 % (0-10); HEMATOCRIT 33 % (35-52); HEMOGLOBIN 9.8 g/dL (11.5-16.0); LYMPHOCYTES % (AUTO) 13 % (12-44); MEAN CORPUSCULAR HEMOGLOBIN 30 pg (25-34); MEAN CORPUSCULAR HGB CONC 30 g/dL (32-36); MEAN CORPUSCULAR VOLUME 99 fL (80-99); MEAN PLATELET VOLUME 9.3 fL (9.0-12.2); MONOCYTES # (AUTO) 0.4 10^3/uL (0.0-1.0); MONOCYTES % (AUTO) 6 % (0-12); NEUTROPHILS # (AUTO) 5.7 10^3/uL (1.8-7.8); NEUTROPHILS % (AUTO) 78 % (42-75); PLATELET COUNT 206 10^3/uL (130-400); WHITE BLOOD COUNT 7.3 10^3/uL (4.3-11.0)
[2023-04-18 10:30] VITALS: BP 137/73
[2023-04-18 10:32] LABS: ALANINE AMINOTRANSFERASE < 6 U/L (0-55); ALBUMIN 3.8 GM/DL (3.2-4.5); ALKALINE PHOSPHATASE 83 U/L (40-136); BILIRUBIN,TOTAL 0.2 MG/DL (0.1-1.0); BUN/CREATININE RATIO 25; CALCIUM 9.6 MG/DL (8.5-10.1); CARBON DIOXIDE 17 MMOL/L (21-32); CHLORIDE 112 MMOL/L (98-107); GFR ESTIMATED 24; GLUCOSE 142 MG/DL (70-105); POTASSIUM 5.6 MMOL/L (3.6-5.0); SODIUM 138 MMOL/L (135-145); TOTAL PROTEIN 7.4 GM/DL (6.4-8.2)
[2023-05-02] MEDS ORDERED: DARBEPOETIN 25 MCG/ML (CANCER CTR) 1 ML VIAL SC SCH (09:45)
== END 2023-05-10 | disposition home or self-care (01) ==
LOC: ONC 08:10
PROVIDERS: ATTEND Internal Medicine Hematology & Oncology
DX: Z51.11 Encounter for antineoplastic chemotherapy (principal); Z45.2 Encounter for adjustment and management of vascular access device; C67.9 Malignant neoplasm of bladder, unspecified
CPT/HCPCS: 80053; 85025; 96413; G0463; 36591; 99214

== ENCOUNTER 2023-05-04 11:35 | Emergency (ER) | payer MEDICARE ==
[~2023-05-04 11:35] MED LIST changes: -DARBEPOETIN 25 MCG/ML SC SCH; -HEParin (CENTRAL IV FLUSH) 500 UNIT/5 ML SYR IV PRN; -NS IV 1000 ML (CANCER CTR) IV SCH; -PEMBROLIZUMAB 200 MG in NS (IVPB) 50 ML 50 ML IV SCH
[2023-05-04] MEDS ORDERED: NS IV 1000 ML 1,000 ML IV STA (11:41)
--- NOTE | 2023-05-04 11:42 | ED General ---
General Stated Complaint: NAUSEA | VOMITING | SOB Source of Information: Patient, EMS History of Present Illness Date Seen by Provider: May 04, 2023 Time Seen by Provider: 11:42 Initial Comments Patient is a 68-year-old female who presents to the emergency room with a chief complaint of increased shortness of breath, cough over the last 2 or 3 days. She has had nausea and vomiting with inability to really hold down food or fluids. She is a diabetic, history of hypertension and high cholesterol. She u ses Advair at home and has been out of her albuterol. She continues to smoke. She wears oxygen on a concentrator at night only, usually. She states she just got to "hurting so bad" in her back with cough that she decided to call the ambulance this afternoon. No known fevers or chills. No runny nose, sore throat or earache. She is not COVID vaccinated, has not had a flu shot this year. She is allergic to Bactrim. Denies burning with urination. No diarrhea, in fact she has been "constipated" the last couple of days. Timing/Duration: 2-3 Days Severity: Moderate Associated Systoms: Cough, Malaise, Nausea/Vomiting, Shortness of Air Allergies and Home Medications Allergies Coded Allergies: sulfamethoxazole (Verified Allergy, Unknown, 05/04/23) trimethoprim (Verified Allergy, Unknown, 05/04/23) Patient Home Medication List Home Medication List Reviewed: Yes Albuterol Sulfate (Proventil Hfa) 6.7 Gm Hfa.aer.ad, 2 PUFF INH Q6H, (Reported) Entered as Reported by: FEMI MARSH on 04/03/22 1035 Amlodipine Besylate (Amlodipine Besylate) 2.5 Mg Tablet, 0.5 EA PO DAILY, (Reported) Entered as Reported by: FEMI MARSH on 04/03/22 1035 Amoxicillin/Potassium Clav (Amox Tr-K Clv 875-125 mg Tab) 875 Mg-125 Mg Tablet, 1 EACH PO BID Prescribed by: BREANNA FUNEZ on 03/31/23 0834 Fluticasone/Salmeterol (Advair 250-50 Diskus) 250 Mcg-50 Mcg/Dose Blst.w.dev, 1 EACH IH BID, (Reported) Entered as Reported by: EMILIE MCMILLAN on 03/30/23 1612 Hydrochlorothiazide (Hydrochlorothiazide) 25 Mg Tablet, 25 MG PO DAILY, (Reported) Entered as Reported by: PRASHANT BUTLER on 11/07/17 1300 Hydrocodone/Acetaminophen (Hydrocodone-Acetamin 10-325 mg) 10 Mg-325 Mg Tablet, 1 EACH PO Q4H Prescribed by: PADMAJA JOSEPH on 03/26/23 1944 Lisinopril (Lisinopril) 40 Mg Tablet, 40 MG PO DAILY, (Reported) Entered as Reported by: PRASHANT BUTLER on 11/07/17 1300 Pravastatin Sodium (Pravastatin Sodium) 40 Mg Tablet, 40 MG PO HS, (Reported) Entered as Reported by: PRASHANT BUTLER on 11/07/17 1300 Prednisone (Prednisone) 10 Mg Tab.ds.pk, 10 MG PO DAILY Prescribed by: BREANNA FUNEZ on 03/31/23 0834 Sitagliptin Phos/Metformin HCl (Janumet 50-500 mg Tablet) 50 Mg-500 Mg Tablet, 1 TAB PO BID, (Reported) Entered as Reported by: FEMI MARSH on 04/03/22 1031 Review of Systems Review of Systems Constitutional: see HPI EENTM: no symptoms reported Respiratory: cough, short of breath Cardiovascular: no symptoms reported Gastrointestinal: constipation, nausea, vomiting Genitourinary: no symptoms reported Musculoskeletal: back pain Skin: no symptoms reported Psychiatric/Neurological: No Symptoms Reported All Other Systems Reviewed Negative Unless Noted: Yes Past Uiokrru-Bwxwde-Paltmx Hx Immunizations Up To Date Tetanus Booster (TDap): Unknown PED Vaccines UTD: No First/Initial COVID19 Vaccinat: DECLINED Second COVID19 Vaccination Yossi: DECLINED Third COVID19 Vaccination Date: DECLINED Seasonal Allergies Seasonal Allergies: No Past Medical History Surgery/Hospitalization HX: BLADDER CA, PORT, HX VULVAR CA, HTN, DIABETES, COPD; HIGH CHOLEST; Surgeries: Yes (MASS ON LABIA, "MARKLIN GLAND" REMOVED; BILAT CATS) Bladder Surgery, Eye Surgery Respiratory: Yes (COPD, SOB, COUGH, WEARS OXYGEN AT HS PRN) COPD Currently Using CPAP: No Currently Using BIPAP: No Cardiac: Yes High Cholesterol, Hypertension Neurological: Yes Reproductive Disorders: Yes (VULVAR CANCER) Female Reproductive Disorders: Ovarian Cyst Sexually Transmitted Disease: No HIV/AIDS: No Genitourinary: Yes (BLADDER CANCER) Bladder Infection, Kidney Stones, UTI-Chronic Gastrointestinal: Yes (UMBILICAL HERNIA) Abdominal Hernia Musculoskeletal: No Endocrine: Yes Diabetes, Non-Insulin dep HEENT: Yes (S/P BILATERAL CATARACT SURGERY) Cataract Loss of Vision: Denies Hearing Impairment: Denies Cancer: Yes (VULVAR, "MARKLIN GLAND", BLADDER) Bladder Did You Recieve Any Treatments: Yes What Type of Treatment Did You: Chemotherapy, Radiation, Surgical Intervention Psychosocial: No Integumentary: Yes (COLD SORES ON MOUTH) Recent Skin Changes, Herpes Blood Disorders: No Family Medical History Diabetes mellitus 19 FATHER, , Onset:Unknown 19 MOTHER, , Onset:Unknown FH: lung cancer 19 FATHER, , Onset:Unknown FH: lymphoma 19 MOTHER, , Onset:Unknown Hypertension 19 MOTHER, , Onset:Unknown No Family History of: AIDS Abdominal aortic aneurysm Albert's disease Alcoholism Alzheimer's disease Aphasia Arthritis Asthma Cancer of mouth Cardiovascular disease Cataracts Colon cancer Completed stroke Congenital disease Congenital heart disease Coronary thrombosis Cystic fibrosis Deafness or hearing loss Dementia Drug abuse Dysphasia Fibrocystic disease of breast Gastroenteritis Glaucoma Headache disorder Hypercholesterolemia Infertility Kidney disease Myocardial infarction Neoplasm Not obtainable due to adoption Osteoporosis Parkinson's disease Prostate cancer Psychosocial problem Respiratory disorder Seizure disorder Severe allergy Thyroid disease Tuberculosis Visual disorder No Pertinent Family Hx Physical Exam Vital Signs Vital Signs - First Documented 05/04/23 05/04/23 11:38 19:00 Temp 36.9 Pulse 112 Resp 20 B/P (MAP) 117/57 (77) Pulse Ox 94 O2 Delivery Room Air O2 Flow Rate 2.00 Capillary Refill : Height, Weight, BMI Height: 5'3.00" Weight: 185lbs. 0.0oz. [id number]; 29.60 BMI Method: General Appearance: WD/WN, Chronically ill, Obese Eyes: Bilateral Eye Normal Inspection, Bilateral Eye PERRL, Bilateral Eye EOMI HEENT: PERRL/EOMI Neck: Normal Inspection Respiratory: Lungs Clear, Normal Breath Sounds, No Accessory Muscle Use, No Respiratory Distress Cardiovascular: Regular Rate, Rhythm, Normal Peripheral Pulses Gastrointestinal: Soft Extremity: Normal Inspection, Non Tender, No Pedal Edema Neurologic/Psychiatric: Alert, Oriented x3, No Motor/Sensory Deficits, Normal Mood/Affect Skin: Normal Color, Warm/Dry Focused Exam Lactate Level 05/04/23 11:40: Lactic Acid Level 2.29*H 05/04/23 13:34: Lactic Acid Level 1.50 Lactic Acid Level Laboratory Tests Test 05/04/23 11:40 05/04/23 13:34 Lactic Acid Level 2.29 MMOL/L (0.50-2.00) *H 1.50 MMOL/L (0.50-2.00) Progress/Results/Core Measures Suspected Sepsis SIRS Temperature: Pulse: Respiratory Rate: Laboratory Tests 05/04/23 11:40: White Blood Count 11.0 Blood Pressure / Mean: 05/04/23 11:40: Lactic Acid Level 2.29*H 05/04/23 13:34: Lactic Acid Level 1.50 Laboratory Tests 05/04/23 11:40: Creatinine 3.35H, Platelet Count 309, Total Bilirubin 0.3 05/04/23 12:52: INR Comment 1.2 05/04/23 16:35: Creatinine 3.71H Results/Orders Lab Results Laboratory Tests Test 05/04/23 11:40 05/04/23 11:42 05/04/23 12:52 05/04/23 13:34 Range/Units White Blood Count 11.0 4.3-11.0 10^3/uL Red Blood Count 3.36 L 3.80-5.11 10^6/uL Hemoglobin 9.9 L 11.5-16.0 g/dL Hematocrit 32 L 35-52 % Mean Corpuscular Volume 95 80-99 fL Mean Corpuscular Hemoglobin 30 25-34 pg Mean Corpuscular Hemoglobin Concent 31 L 32-36 g/dL Red Cell Distribution Width 16.3 H 10.0-14.5 % Platelet Count 309 130-400 10^3/uL Mean Platelet Volume 9.8 9.0-12.2 fL Immature Granulocyte % (Auto) 3 % Neutrophils (%) (Auto) 80 H 42-75 % Lymphocytes (%) (Auto) 10 L 12-44 % Monocytes (%) (Auto) 7 0-12 % Eosinophils (%) (Auto) 1 0-10 % Basophils (%) (Auto) 0 0-10 % Neutrophils # (Auto) 8.8 H 1.8-7.8 10^3/uL Lymphocytes # (Auto) 1.1 1.0-4.0 10^3/uL Monocytes # (Auto) 0.8 0.0-1.0 10^3/uL Eosinophils # (Auto) 0.1 0.0-0.3 10^3/uL Basophils # (Auto) 0.0 0.0-0.1 10^3/uL Immature Granulocyte # (Auto) 0.3 H 0.0-0.1 10^3/uL Sodium Level 135 135-145 MMOL/L Potassium Level 4.0 3.6-5.0 MMOL/L Chloride Level 108 H 98-107 MMOL/L Carbon Dioxide Level 14 L 21-32 MMOL/L Anion Gap 13 5-14 MMOL/L Blood Urea Nitrogen 68 H 7-18 MG/DL Creatinine 3.35 H 0.60-1.30 MG/DL Estimat Glomerular Filtration Rate 14 BUN/Creatinine Ratio 20 Glucose Level 355 H 70-105 MG/DL Lactic Acid Level 2.29 *H 1.50 0.50-2.00 MMOL/L Calcium Level 8.1 L 8.5-10.1 MG/DL Corrected Calcium 8.8 8.5-10.1 MG/DL Total Bilirubin 0.3 0.1-1.0 MG/DL Aspartate Amino Transf (AST/SGOT) 13 5-34 U/L Alanine Aminotransferase (ALT/SGPT) 12 0-55 U/L Alkaline Phosphatase 328 H 40-136 U/L Total Protein 7.0 6.4-8.2 GM/DL Albumin 3.1 L 3.2-4.5 GM/DL Influenza Type A (RT-PCR) Not Detected Not Detecte Influenza Type B (RT-PCR) Not Detected Not Detecte SARS-CoV-2 RNA (RT-PCR) Not Detected Not Detecte Glucometer 365 H 70-110 MG/DL Prothrombin Time 15.7 H 12.2-14.7 SEC INR Comment 1.2 0.8-1.4 Activated Partial Thromboplast Time 37 H 24-35 SEC Test 05/04/23 14:53 05/04/23 16:35 Range/Units Urine Color YELLOW Urine Clarity CLOUDY Urine pH 6.0 5-9 Urine Specific [place] 1.020 1.016-1.022 Urine Protein 3+ H NEGATIVE Urine Glucose (UA) 1+ H NEGATIVE Urine Ketones NEGATIVE NEGATIVE Urine Nitrite NEGATIVE NEGATIVE Urine Bilirubin NEGATIVE NEGATIVE Urine Urobilinogen 0.2 < = 1.0 MG/DL Urine Leukocyte Esterase 3+ H NEGATIVE Urine RBC (Auto) 3+ H NEGATIVE Urine RBC 25-50 H /HPF Urine WBC TNTC H /HPF Urine Crystals NONE /LPF Urine Bacteria LARGE H /HPF Urine Casts NONE /LPF Urine Mucus NEGATIVE /LPF Urine Culture Indicated CULTURE PENDING Arterial Blood pH 7.31 *L 7.37-7.43 Arterial Blood Partial Pressure CO2 31 L 35-45 MMHG Arterial Blood Partial Pressure O2 79 79-93 MMHG Arterial Blood HCO3 16 *L 23-27 MMOL/L Arterial Blood Total CO2 16.6 L 21.0-31.0 MMOL/L Arterial Blood Oxygen Saturation 97 94-100 % Arterial Blood Base Excess -9.4 L -2.5-2.5 MMOL/L Blood Gas Ventilator Setting NO Blood Gas Inspired Oxygen 2 L Sodium Level 133 L 135-145 MMOL/L Potassium Level 4.6 3.6-5.0 MMOL/L Chloride Level 106 98-107 MMOL/L Carbon Dioxide Level 16 L 21-32 MMOL/L Anion Gap 11 5-14 MMOL/L Blood Urea Nitrogen 69 H 7-18 MG/DL Creatinine 3.71 H 0.60-1.30 MG/DL Estimat Glomerular Filtration Rate 13 BUN/Creatinine Ratio 19 Glucose Level 339 H 70-105 MG/DL Calcium Level 8.7 8.5-10.1 MG/DL My Orders Orders - ANUPAMA GUEVARA MD Cbc And Automated Diff (05/04/23 11:41) Comprehensive Metabolic Panel (05/04/23 11:41) Blood Culture (05/04/23 11:41) Sputum Culture (05/04/23 11:41) Urinalysis (05/04/23 11:41) Urine Culture (05/04/23 11:41) Chest 1 View, Ap/Pa Only (05/04/23 11:41) Ed Iv/Invasive Line Start (05/04/23 11:41) Ed Iv/Invasive Line Start (05/04/23 11:41) Vital Signs Adult Sepsis Patie Q15M (05/04/23 11:41) O2 (05/04/23 11:41) Remove Rings In Anticipation O (05/04/23 11:41) Lactic Acid Analyzer (05/04/23 11:41) Accucheck Stat ONCE (05/04/23 11:41) Ns Iv 1000 Ml (Ns Iv 1000 Ml) (05/04/23 11:41) Covid 19 Inhouse Test (05/04/23 11:53) Influenza A And B By Pcr (05/04/23 11:53) Protime With Inr (05/04/23 12:51) Partial Thromboplastin Time (05/04/23 12:51) Accucheck Stat ONCE (05/04/23 15:39) Catheter(Urinary) Insert & Ass 03,15 (05/04/23 15:46) Basic Metabolic Panel (05/04/23 15:46) Lidocaine 2% (Urojet) (Lidocaine 2% (Uro (05/04/23 16:00) Ns Iv 500 Ml (Ns Iv 500 Ml) (05/04/23 15:46) Arterial Blood Gas (05/04/23 16:38) Ceftriaxone Iv/Im (Ceftriaxone Iv/Im) (05/04/23 16:45) Lidocaine 2% (Urojet) (Lidocaine 2% (Uro (05/04/23 17:00) Insulin (Regular) Per Unit (Insulin (Reg (05/04/23 17:02) Insulin (Regular) Per Unit (Insulin (Reg (05/04/23 17:02) Lidocaine 2% (Urojet) (Lidocaine 2% (Uro (05/04/23 17:01) Ct Abd/Pelvis Wo(Kidney Stone) (05/04/23 18:16) Medications Given in ED Vital Signs/I&O 05/04/23 05/04/23 05/04/23 11:38 19:00 20:01 Temp 36.9 36.9 Pulse 112 90 Resp 20 16 B/P (MAP) 117/57 (77) 109/69 Pulse Ox 94 94 O2 Delivery Room Air Nasal Cannula Nasal Cannula O2 Flow Rate 2.00 2.00 05/04/23 23:59 Intake Total 1550 ml Balance 1550 ml Capillary Refill : Progress Note #1: Time: 17:28 Progress Note Patient seen and evaluated by me. Evaluation today includes history and physical exam with "sepsis work-up" to include CBC, Chem-12, coag profile, urinalysis, urine culture, blood cultures lactic acid, single view chest x-ray, COVID and flu test. Patient additionally had ABG and repeat basic metabolic panel. Pertinent physical exam findings well-developed well-nourished elderly female in no acute distress, tachycardic and regular heart rate, clear lungs, soft abdomen nontender to palpation. Mentating normally. She has slightly low blood pressure for her running around 100 -110 systolic. Differential diagnosis includes viral syndrome/COVID, sepsis /pneumonia, urinary tract infection, gastroenteritis Labs, imaging independently reviewed and interpreted by me, her CBC shows a white blood cell count of 11 with hemoglobin 9.9 hematocrit 32, platelets of 309. 80% segmented neutrophils. Chem-12 pertinent for decreased CO2 at 14 and anion gap of 13 BUN of 68 creatinine of 3.35, blood sugar 355 lactic acid initially 2.29. After 2 L of fluid it has decreased to 1.50. Her coags show a PT elevated at 15.7, INR 1.2, PTT 37. Urinalysis shows 3+ leukocyte Estrace with 25-50 red blood cells, too numerous to count white blood cells and large bacteria, this was a clean-catch specimen. Her ABG shows mild acidosis with a pH of 7.31, CO2 31, PaO2 79, bicarb is 16 on the gas. After initial labs recorded I discussed the case with Dr. Styles, hospitalist on [facility] who requested repeat basic metabolic panel and the ABG. I gave her an additional 500 cc of normal saline. We placed a Paul catheter which resulted in milky urine followed by a little hematuria. She had approximately 200 cc out. The repeat basic metabolic panel shows a sodium that went from 1 35-1 33. Her CO2 increased from 14-16. Her gap went from 13-11. Her BUN went from 68-69 and her creatinine went from 3.35-3.71. Sugar decreased from 3 55-3 39. 5 units of insulin subcu and 5 units of insulin IV are administered at this time. I called Dr. Styles back and she stated that due to the patient's worsening renal failure after fluid resuscitation she would respectfully declined admission in favor of the patient being at a facility where nephrology could evaluate her. Call has been made at this time to [facility] for transfer.Current VS HR102, BP 94/71 sats 96% 2L O2 Progress Note #2: Time: 18:15 Progress Note Discussed with Dr. Tidwell, [place] hospitalist. Would like a noncontrast abdomen pelvis CT to evaluate for obstructive uropathy, if she has anything causing hydronephrosis they would want us to speak with urology first to make sure that they could handle that type of pathology at their facility. CT abdomen and pe lvis ordered at this time. Care passed to Dr. Connell with results and disposition pending. Diagnostic Imaging Diagonstic Imaging: Xray Plain Films/CT/US/NM/MRI: chest Comments [facility], [place] NAME: LUIS CAPELLAN [facility] REC#: [id number] PT STATUS: REG ER : 1955 PHYSICIAN: ANUPAMA GUEVARA MD ADMIT DATE: 05/04/23/ER Signed Date of Exam:05/04/23 CHEST 1 VIEW, AP/PA ONLY CHEST 1 VIEW, AP/PA ONLY Indication: Shortness of breath Comparison: 03/29/2023 Findings: No focal airspace disease in the visualized lungs. No pleural effusion or pneumothorax. Normal cardiomediastinal silhouette. Stable right IJ Port-A-Cath. Impression: 1. No acute cardiopulmonary process by portable radiography. Dictated by: Dictated on workstation # [id number] Dict: 05/04/23 1216 Trans: 05/04/23 1218 [facility] [id number] Interpreted by: DOYLE GALLEGO MD Electronically signed by: DOYLE GALLEGO MD 05/04/23 1218 Departure Impression Primary Impression: Metabolic acidosis Additional Impression: Renal failure Qualified Codes: N19 - Unspecified kidney failure Disposition: XFER SHT-TRM HOSP Condition: Stable (ERASED) Departure-Patient Inst. Referrals: DUSTY MCINTYRE MD (PCP/Family) Primary Care Physician Copy Copies To 1: DUSTY MCINTYRE MD, KATHRYN M MD May 04, 2023 11:42
[2023-05-04 11:53] LABS: BASOPHILS % (AUTO) 0 % (0-10); EOSINOPHILS # (AUTO) 0.1 10^3/uL (0.0-0.3); EOSINOPHILS % (AUTO) 1 % (0-10); HEMATOCRIT 32 % (35-52); HEMOGLOBIN 9.9 g/dL (11.5-16.0); LYMPHOCYTES # (AUTO) 1.1 10^3/uL (1.0-4.0); LYMPHOCYTES % (AUTO) 10 % (12-44); MEAN CORPUSCULAR HEMOGLOBIN 30 pg (25-34); MEAN CORPUSCULAR HGB CONC 31 g/dL (32-36); MEAN CORPUSCULAR VOLUME 95 fL (80-99); MEAN PLATELET VOLUME 9.8 fL (9.0-12.2); MONOCYTES # (AUTO) 0.8 10^3/uL (0.0-1.0); MONOCYTES % (AUTO) 7 % (0-12); NEUTROPHILS # (AUTO) 8.8 10^3/uL (1.8-7.8); NEUTROPHILS % (AUTO) 80 % (42-75); PLATELET COUNT 309 10^3/uL (130-400)
[2023-05-04 12:04] LABS: ALBUMIN 3.1 GM/DL (3.2-4.5)
[2023-05-04 12:05] LABS: CALCIUM 8.1 MG/DL (8.5-10.1)
[2023-05-04 12:08] LABS: BILIRUBIN,TOTAL 0.3 MG/DL (0.1-1.0)
[2023-05-04 12:10] LABS: CREATININE SERUM 3.35 MG/DL (0.60-1.30)
--- NOTE | 2023-05-04 12:19 | Diagnostic Imaging Report ---
CHEST 1 VIEW, AP/PA ONLY Indication: Shortness of breath Comparison: 03/29/2023 Findings: No focal airspace disease in the visualized lungs. No pleural effusion or pneumothorax. Normal cardiomediastinal silhouette. Stable right IJ Port-A-Cath. Impression: 1. No acute cardiopulmonary process by portable radiography. Dictated by: Dictated on workstation # [id number]
[2023-05-04 13:12] LABS: INR 1.2 (0.8-1.4); PROTHROMBIN TIME PATIENT 15.7 SEC (12.2-14.7)
[2023-05-04 15:21] LABS: BACTERIA,URINE LARGE /HPF; BILIRUBIN,URINE NEGATIVE (NEGATIVE); CLARITY,URINE CLOUDY; COLOR,URINE YELLOW; GLUCOSE, URINE (UA) 1+ (NEGATIVE); KETONES,URINE NEGATIVE (NEGATIVE); LEUKOCYTE ESTERASE ,URINE 3+ (NEGATIVE); NITRITE,URINE NEGATIVE (NEGATIVE); PROTEIN,URINE 3+ (NEGATIVE); RBC,URINE 25-50 /HPF; WBC,URINE TNTC /HPF
[2023-05-04] MEDS ORDERED: NS IV 500 ML 500 ML IV STA (15:46)
[2023-05-04] MEDS ORDERED: LIDOCAINE UROJET 2% GEL 10 ML PKG TOP ONE ×2 (16:00→17:00)
[2023-05-04 16:45] LABS: ABG BASE EXCESS -9.4 MMOL/L (-2.5-2.5); ABG OXYGEN SATURATION 97 % (94-100); ABG PCO2 31 MMHG (35-45); ABG PO2 79 MMHG (79-93); ABG TCO2 16.6 MMOL/L (21.0-31.0)
[2023-05-04] MEDS ORDERED: cefTRIAXone IV/IM 1,000 MG in NS (IVPB) 50 ML 50 ML IV ONE (16:45)
[2023-05-04 16:46] LABS: VENTILATOR NO
[2023-05-04 16:47] LABS: INSPIRED O2 2 L
[2023-05-04 16:48] LABS: ABG PH 7.31 (7.37-7.43)
[2023-05-04 16:57] LABS: POTASSIUM 4.6 MMOL/L (3.6-5.0)
[2023-05-04 16:58] LABS: CALCIUM 8.7 MG/DL (8.5-10.1)
[2023-05-04] MEDS ORDERED: LIDOCAINE UROJET 2% GEL 10 ML PKG ONE (17:01)
[2023-05-04 17:02] LABS: CREATININE SERUM 3.71 MG/DL (0.60-1.30)
[2023-05-04] MEDS ORDERED: inSUlin (REGULAR) HUMAN 1 UNIT/0.01 ML (CHARGE PER UNIT) IV STA (17:02)
[2023-05-04] MEDS ORDERED: inSUlin (REGULAR) HUMAN 1 UNIT/0.01 ML (CHARGE PER UNIT) SC STA (17:02)
--- NOTE | 2023-05-04 18:41 | Diagnostic Imaging Report ---
PROCEDURE: CT urinary tract, rule out kidney stone. TECHNIQUE: Multiple contiguous axial images were obtained through the abdomen and pelvis without the use of intravenous contrast. Auto Exposure Controls were utilized during the CT exam to meet ALARA standards for radiation dose reduction. INDICATION: Bilateral flank pain. FINDINGS: There is a tiny pericardial effusion. Lung bases are clear. Liver is unremarkable. Gallbladder is unremarkable. Pancreas appears normal. Spleen is not enlarged. Adrenals appear normal. There is calcific atherosclerosis of the aorta. There is bilateral hydronephrosis. This is greater on the right than on the left. There is no calculus seen. There is a Paul catheter in the urinary bladder. There is a 4.6 cm left adnexal cyst with some mural calcification. Uterus appears normal. There is no intraperitoneal free air or free fluid. Appendix is unremarkable. Large and small bowel are unremarkable. IMPRESSION: Bilateral hydronephrosis, new since 02/23/2023. There is urinary bladder wall thickening. There is a Paul catheter in the urinary bladder. There is a left adnexal cyst that has decreased in size from previous measurement of 9.5 cm to current measurement of 4.6 cm. Dictated by: Dictated on workstation # [id number]
[2023-05-04 20:01] VITALS: BP 109/69
== END 2023-05-04 20:04 | disposition short-term general hospital (02) ==
LOC: EDUNIT# 11:35 → ER 11:36
DX: E87.20 Acidosis, unspecified (principal); I12.9 Hypertensive chronic kidney disease with stage 1 through stage 4 chronic kidney disease, or unspecified chronic kidney disease; E11.22 Type 2 diabetes mellitus with diabetic chronic kidney disease; N18.9 Chronic kidney disease, unspecified; J44.9 Chronic obstructive pulmonary disease, unspecified; Z99.81 Dependence on supplemental oxygen; Z28.310 Unvaccinated for COVID-19
CPT/HCPCS: 36415; 36556; 51702; 71045; 74176; 80048; 80053; 81000; 82805; 82947; 83605; 85025; 85610; 85730; 87040; 87088; 87636